=== PATIENT | male | born 1955 | race African-American/Black ===

== ENCOUNTER 2019-08-24 15:57 | Inpatient (IN) ==
[2019-08-24] MEDS ORDERED: DiphenhydrAMINE HCL 50 MG/ML VIAL IV STA (16:05)
[2019-08-24] MEDS ORDERED: SODIUM CHLORIDE 0.9% 1000ML 1,000 ML IV SCH (16:15)
[2019-08-24 16:23] LABS: Basophils # (auto) 0.03 K/uL (0-0.2); Basophils % (auto) 0.2 %; Eosinophils # (auto) 0.04 K/uL (0-0.5); Eosinophils % (auto) 0.3 %; Hematocrit (blood only) 49.6 % (42-52); Hemoglobin 16.3 g/dL (14.0-18.0); Immature Granulocytes # (auto) 0.04 K/uL (0.00-0.02); Immature Granulocytes % (auto) 0.3 %; Lymphocytes # (auto) 1.79 K/uL (1.2-3.4); Lymphocytes % (auto) 13.3 %; Mean Corpuscular Hemoglobin 24.4 pg (25-34); Mean Corpuscular Hgb Conc 32.9 g/dL (32-36); Mean Corpuscular Volume 74.4 fL (80-100); Mean Platelet Volume 10.4 fL (7.4-10.4); Monocytes # (auto) 0.58 K/uL (0.11-0.59); Monocytes % (auto) 4.3 %; Neutrophils # (auto) 10.96 K/uL (1.4-6.5); Neutrophils % (auto) 81.6 %; Platelet Count 142 K/uL (130-400); RDW Coefficient of Variation 15.2 % (11.5-14.5); RDW Standard Deviation 40.6 fL (36.4-46.3); Red Blood Count 6.67 M/uL (4.7-6.1); White Blood Count 13.44 K/uL (4.8-10.8)
[2019-08-24 16:33] LABS: INR 1.1 (0.9-1.1); Partial Thromboplastin Ratio 0.9; Partial Thromboplastin Time 24.2 Seconds (21.0-31.0); Prothrombin Time 11.2 Seconds (9.0-12.0)
[2019-08-24 16:35] LABS: iSTAT Hemoglobin 17.7 g/dl (14.0-18.0); iSTAT Ionized Calcium 1.14 mmol/l (1.12-1.32); iSTAT Potassium 5.1 mEq/L (3.3-5.0)
--- NOTE | 2019-08-24 16:40 | Emergency Department Note ---
Entered by Stacie Jones acting as a scribe for Wallace Quan DO History of Present Illness General Chief complaint: Vertigo Stated complaint: DIZZY Source: patient and EMS Mode of arrival: EMS History of Present Illness Onset (ago): hour(s) (1:45PM today) Location: head (vertigo ) Pain Consistency: + constant Relieved By: + other (closing eyes) Exacerbated By: + movement (looking up or to the right) Associated symptoms: + shortness of breath, + weakness (generalized ) and + other (nausea, dizziness, left sided body pain ); no chest pain (recent cp but patient denies current cp ) and no headaches Treatments prior to arrival: other (Per EMS: Zofran and Ativan) The patient is a 64 year old male from [facility] with a history of DM, HTN, hyperlipidemia, alcohol use, and cigarette smoking who presents to the Emergency Room with complaints of vertigo. The patient states that today at 1:45PM he rolled out of his bed because he felt nauseous. He states that he did not hit his head when he rolled out. Since this time he has been experiencing constant nausea worse with laying flat associated with dizziness that is worse with movement and when looking up with his eyes and looking to the right. He states that his dizziness is relieved when he shuts his eyes. He was given Zofran and Ativan by [facility] which he states gave him some re lief. EMS reports that his sugar today was 106. The patient also reports generalized weakness and recent trouble breathing which is worsened by the steam in a hot shower. Additionally, he has been experiencing pain down the left side of his body associated with chest pain. The patient admits that he has no history of similar symptoms in the past. He usually takes Aspirin for relief. Of note, the patient does not have a history of vertigo, [place], heart catheterization, or stress test. Additionally, he is allergic to Penicillin. He denies headache and current chest pain. The patient offers no additional concerns at this time. Home Medications Home Medications Medication Instructions Recorded Confirmed Type aspirin [Aspir-81] 81 mg PO QAM 08/24/19 08/24/19 History calcium carbonate-vitamin D3 1 ea PO QAM 08/24/19 08/24/19 History [Oyster Shell Calcium-Vit D3] lisinopril 10 mg PO QAM 08/24/19 08/24/19 History metformin 500 mg PO QAM 08/24/19 08/24/19 History rosuvastatin 20 mg PO QAM 08/24/19 08/24/19 History Allergies Allergy/AdvReac Type Severity Reaction Status Date / Time clindamycin AdvReac Unknown Unknown Unverified 08/24/19 16:46 Penicillins AdvReac Unknown Unknown Unverified 08/24/19 16:46 Past Med/Surg History Medical History Diabetes mellitus, type II HTN (hypertension) Hyperlipidemia Surgical History No significant past surgical history Family History (Updated 08/24/19 @ 20:32 by Clifford Hernandez MD) Mother Stroke Brother Diabetes Grandmother (Maternal) Diabetes Myocardial infarction Social History Preferred Language: Zambian Communication Ability: Effective Epic Anesthesia Analyst Required: No Beliefs That Will Affect Care: None Current Living Situation: Other Current Living Situation Comment: [facility] Other Information That Helps Us Care for You: No Feels Safe at Home: Yes Safety Concerns: Feels Safe At This Time Smoking Status: Former smoker Smoking End Date: Quit 03/2019; smoked for over 30 years ; Hx Alcohol Use: No Hx Substance Use: No Review of Systems See HPI for pertinent positives & negatives. and A total of 10 systems reviewed and were otherwise negative Physical Exam Vital Signs Vital Signs - 24 hr 08/24/19 15:59 08/24/19 16:02 08/24/19 16:05 Temperature 36.3 C L Temperature Source Oral Pulse Rate 57 L 56 L 81 Pulse Rate [Right Finger] Pulse Rate from SpO2 Sensor 57 L Respiratory Rate 22 18 24 Blood Pressure 153/92 H 153/92 H Blood Pressure [Right Arm] Blood Pressure Mean 102 112 Blood Pressure Mean [Right Arm] Blood Pressure Position Sitting Blood Pressure Position [Right Arm] Pulse Oximetry 100 98 Oxygen Delivery Method Room Air Sepsis Recent Fever Within 48 Hours No Sepsis New/Unexplained Change in Mental Status No Sepsis Action Taken by Nursing No Action Required 08/24/19 16:10 08/24/19 16:20 08/24/19 16:52 Temperature Temperature Source Pulse Rate 57 L 58 L 67 Pulse Rate [Right Finger] Pulse Rate from SpO2 Sensor Respiratory Rate 14 17 Blood Pressure Blood Pressure [Right Arm] Blood Pressure Mean Blood Pressure Mean [Right Arm] Blood Pressure Position Blood Pressure Position [Right Arm] Pulse Oximetry Oxygen Delivery Method Sepsis Recent Fever Within 48 Hours Sepsis New/Unexplained Change in Mental Status Sepsis Action Taken by Nursing 08/24/19 16:58 08/24/19 17:00 08/24/19 17:10 Temperature Temperature Source Pulse Rate 68 71 66 Pulse Rate [Right Finger] 69 Pulse Rate from SpO2 Sensor 68 71 65 Respiratory Rate 15 16 14 Blood Pressure 144/81 H Blood Pressure [Right Arm] 144/81 H Blood Pressure Mean 117 Blood Pressure Mean [Right Arm] 102 Blood Pressure Position Blood Pressure Position [Right Arm] Sitting Pulse Oximetry 92 94 95 Oxygen Delivery Method Room Air Sepsis Recent Fever Within 48 Hours Sepsis New/Unexplained Change in Mental Status Sepsis Action Taken by Nursing 08/24/19 17:20 08/24/19 17:30 08/24/19 17:40 Temperature Temperature Source Pulse Rate 58 L 71 60 Pulse Rate [Right Finger] Pulse Rate from SpO2 Sensor 60 60 60 Respiratory Rate 11 L 23 15 Blood Pressure Blood Pressure [Right Arm] Blood Pressure Mean Blood Pressure Mean [Right Arm] Blood Pressure Position Blood Pressure Position [Right Arm] Pulse Oximetry 96 99 96 Oxygen Delivery Method Sepsis Recent Fever Within 48 Hours Sepsis New/Unexplained Change in Mental Status Sepsis Action Taken by Nursing 08/24/19 17:45 08/24/19 17:50 08/24/19 17:57 Temperature Temperature Source Pulse Rate 60 56 L 59 L Pulse Rate [Right Finger] Pulse Rate from SpO2 Sensor 61 57 L 57 L Respiratory Rate 35 H 17 30 H Blood Pressure 153/90 H 160/86 H Blood Pressure [Right Arm] Blood Pressure Mean 112 99 Blood Pressure Mean [Right Arm] Blood Pressure Position Blood Pressure Position [Right Arm] Pulse Oximetry 100 100 Oxygen Delivery Method Sepsis Recent Fever Within 48 Hours Sepsis New/Unexplained Change in Mental Status Sepsis Action Taken by Nursing 08/24/19 18:02 08/24/19 18:04 08/24/19 18:05 Temperature Temperature Source Pulse Rate 60 58 L 61 Pulse Rate [Right Finger] Pulse Rate from SpO2 Sensor 61 59 L 65 Respiratory Rate 19 27 H 28 H Blood Pressure 178/105 H 174/93 H 174/92 H Blood Pressure [Right Arm] Blood Pressure Mean 123 110 120 Blood Pressure Mean [Right Arm] Blood Pressure Position Blood Pressure Position [Right Arm] Pulse Oximetry 100 99 Oxygen Delivery Method Sepsis Recent Fever Within 48 Hours Sepsis New/Unexplained Change in Mental Status Sepsis Action Taken by Nursing 08/24/19 18:23 Temperature Temperature Source Pulse Rate Pulse Rate [Right Finger] 60 Pulse Rate from SpO2 Sensor Respiratory Rate 20 Blood Pressure Blood Pressure [Right Arm] 149/87 H Blood Pressure Mean Blood Pressure Mean [Right Arm] 107 Blood Pressure Position Blood Pressure Position [Right Arm] Pulse Oximetry 100 Oxygen Delivery Method Room Air Sepsis Recent Fever Within 48 Hours Sepsis New/Unexplained Change in Mental Status Sepsis Action Taken by Nursing GENERAL: The patient is awake and alert. He is somewhat anxious appearing and appears to be uncomfortable. EYES: The conjunctivae are clear. Pupils are constricted but reactive to light bilaterally. EARS, NOSE, MOUTH AND THROAT: The nose is without any evidence of any deformity. Mucous membranes are moist. Tongue is midline. Tympanic memories are clear bilaterally. NECK: The neck is nontender and supple. RESPIRATORY: Normal respiratory effort is noted there is no evidence of wheezing rhonchi or rales CARDIOVASCULAR: Regular rate and rhythm noted there no murmurs rubs or gallops normal S1 normal S2. GASTROINTESTINAL: The abdomen is soft. Abdomen is nontender. MUSCULOSKELETAL/EXTREMITIES: There is no evidence of gross deformity full range of motion is noted in the hips and shoulders. SKIN: There is no obvious evidence of any rash. There are no petechiae, pallor or cyanosis noted. NEUROLOGIC: Patient is awake alert and oriented x3. Strength is symmetric. There is no drift. Patellar tendon reflexes are 2+ bilaterally. The patient has nystagmus with looking to the right as well as looking upward. He has significant symptoms with movement of the head as well as movement of the eyes. Course Course 1600: Past medical records reviewed. The patient was evaluated in room B09. A complete history and physical exam was performed. 1730: I spoke to Dr. Fatima, [facility] who recommends that I speak with Diana about a stroke alert. 1733: Spoke with Dr. Jaeger, [facility] Telostroke Neurologist who recommends administering TPA to the patient. 180: I checked on the patient and he is being given IV bolus at this time. 182: I spoke to Angela Villaloboser Hospitalist who accepts the patient for admission. The patient verbally expressed understanding and agreement of the treatment plan. The patient will be evaluated for further treatment. Administered Medications Gadobutrol (Gadavist 10ml) 8.5 ml IV ONCE PRN PRN Reason: Interaction Checking Stop: 08/28/19 21:26 Last Admin: 08/24/19 21:27 Dose: 8.5 ml Documented by: [id number] Discontinued Medications Alteplase, Recombinant (Activase For Stroke) 1 ea IV NOW STA; Protocol Stop: 08/24/19 17:48 Last Admin: 08/24/19 18:12 Dose: 1 ea Documented by: [id number] Diphenhydramine HCl (Benadryl) 25 mg IV NOW STA Stop: 08/24/19 16:06 Last Admin: 08/24/19 16:23 Dose: 25 mg Documented by: [id number] Sodium Chloride (Nss 1000ml) 1,000 mls @ 50 mls/hr IV .Q20H JAIME Stop: 09/23/19 16:14 Last Infusion: 08/24/19 19:33 Dose: 0 mls/hr Documented by: [id number] Admin: 08/24/19 16:23 Dose: 50 mls/hr Documented by: [id number] Alteplase, Recombinant 8 mg/ (Syringe) 8 mls @ 8 mls/min IV ONCE ONE Stop: 08/24/19 17:58 Last Admin: 08/24/19 18:11 Dose: 8 mls/min Documented by: [id number] Cosigned by: [id number] Alteplase, Recombinant 72 mg/ (EMPTY BAG) 72 mls @ 72 mls/hr IV ONCE ONE Stop: 08/24/19 17:59 Last Infusion: 08/24/19 19:08 Dose: 0 mls/hr Documented by: [id number] Cosigned by: [id number] Admin: 08/24/19 18:08 Dose: 72 mls/hr Documented by: [id number] Cosigned by: [id number] Lorazepam (Ativan) 0.5 mg in 1 mls @ 1 mls/min IV NOW STA Stop: 08/24/19 20:01 Last Admin: 08/24/19 20:11 Dose: 1 mls/min Documented by: [id number] Lorazepam (Ativan) 0.25 mg in 0.5 mls @ 0.5 mls/min IV NOW STA Stop: 08/24/19 20:17 Last Admin: 08/24/19 20:45 Dose: 0.5 mls/min Documented by: [id number] Ioversol (Optiray 320 125ml) 119 ml IV ONCE PRN PRN Reason: Interaction Checking Stop: 08/28/19 16:53 Last Admin: 08/24/19 16:54 Dose: 119 ml Documented by: [id number] Lorazepam (Ativan) Confirm Administered Dose 2 mg .ROUTE .STK-MED ONE Stop: 08/24/19 19:57 Last Admin: 08/24/19 20:14 Dose: Not Given Documented by: [id number] Critical Care Time Critical Care Time: Yes Total Critical Care Time: 60 I have personally spent greater than 60 minutes of critical care time in the direct management of this patient. This includes bedside care, interpretation of diagnostic studies, and testing, discussion with consultants, patient, and family members, and other required patient management activities. This 60 minutes is in excess of all separately billable procedures. Medical Decision Making Differential Diagnosis Differential diagnosis includes but is not limited to etiologies such as benign positional vertigo, dehydration, hypovolemia, anemia, tumor, infection, hypoglycemia, electrolyte abnormalities, cardiac sources, intracerebral event, toxicologic, neurologic, as well as others were entertained. Medical Records Attestation: I reviewed the patient's medical records. Home Medications Current Medication List: was personally reviewed by me Laboratory Data Attestation: I reviewed the patient's lab results. Result diagrams: 08/24/19 16:15 08/24/19 16:15 Lab Results 08/24/19 08/24/19 08/24/19 Range/Units 16:15 16:15 16:15 WBC 13.44 H (4.8-10.8) K/uL RBC 6.67 H (4.7-6.1) M/uL Hgb 16.3 (14.0-18.0) g/dL POC Hgb (14.0-18.0) g/dl Hct 49.6 (42-52) % POC Hct (42-52) % MCV 74.4 L (80-100) fL MCH 24.4 L (25-34) pg MCHC 32.9 (32-36) g/dL RDW Std Deviation 40.6 (36.4-46.3) fL RDW Coeff of Ya 15.2 H (11.5-14.5) % Plt Count 142 (130-400) K/uL MPV 10.4 (7.4-10.4) fL Immature Gran % (Auto) 0.3 % Neut % (Auto) 81.6 % Lymph % (Auto) 13.3 % [place] % (Auto) 4.3 % Eos % (Auto) 0.3 % Baso % (Auto) 0.2 % Immature Gran # (Auto) 0.04 H (0.00-0.02) K/uL Neut # (Auto) 10.96 H (1.4-6.5) K/uL Lymph # (Auto) 1.79 (1.2-3.4) K/uL [place] # (Auto) 0.58 (0.11-0.59) K/uL Eos # (Auto) 0.04 (0-0.5) K/uL Baso # (Auto) 0.03 (0-0.2) K/uL PT 11.2 (9.0-12.0) Seconds INR 1.1 (0.9-1.1) APTT 24.2 (21.0-31.0) Seconds PTT Ratio 0.9 POC Sodium (135-144) mEq/L Sodium 139 (136-145) mmol/L POC Potassium (3.3-5.0) mEq/L Potassium 5.0 (3.5-5.1) mmol/L POC Chloride (101-112) mEq/L Chloride 110 H (98-107) mmol/L Carbon Dioxide 24 (21-32) mmol/L POC Total CO2 (24-31) mEq/l Anion Gap 5.0 (3-11) POC Anion Gap (16-25) mmol/L POC BUN (7-18) mg/dl BUN 13 (7-18) mg/dl Creatinine 1.08 (0.6-1.4) mg/dl POC Creatinine (0.6-1.3) mg/dl Est Cr Clr Drug Dosing Not Reportable Est GFR ( Amer) 84.2 Est GFR (Non-Af Amer) 72.7 BUN/Creatinine Ratio 12.4 (10-20) Glucose 139 H (70-99) mg/dl POC Glucose (other) (70-99) mg/dl Calcium 9.2 (8.5-10.1) mg/dl POC Ioniz Calcium Cesar (1.12-1.32) mmol/l Magnesium 2.0 (1.8-2.4) mg/dl Total Bilirubin 1.4 H (0.2-1) mg/dl AST 42 H (15-37) U/L ALT 94 H (12-78) U/L Alkaline Phosphatase 57 (45-117) U/L Troponin I < 0.015 (0-0.045) ng/ml Total Protein 7.6 (6.4-8.2) gm/dl Albumin 3.8 (3.4-5.0) gm/dl Globulin 3.8 (2.5-4.0) gm/dl Albumin/Globulin Ratio 1.0 (0.9-2) 08/24/19 08/24/19 Range/Units 16:20 17:55 WBC (4.8-10.8) K/uL RBC (4.7-6.1) M/uL Hgb (14.0-18.0) g/dL POC Hgb 17.7 17.0 (14.0-18.0) g/dl Hct (42-52) % POC Hct 52 50 (42-52) % MCV (80-100) fL MCH (25-34) pg MCHC (32-36) g/dL RDW Std Deviation (36.4-46.3) fL RDW Coeff of Ya (11.5-14.5) % Plt Count (130-400) K/uL MPV (7.4-10.4) fL Immature Gran % (Auto) % Neut % (Auto) % Lymph % (Auto) % [place] % (Auto) % Eos % (Auto) % Baso % (Auto) % Immature Gran # (Auto) (0.00-0.02) K/uL Neut # (Auto) (1.4-6.5) K/uL Lymph # (Auto) (1.2-3.4) K/uL [place] # (Auto) (0.11-0.59) K/uL Eos # (Auto) (0-0.5) K/uL Baso # (Auto) (0-0.2) K/uL PT (9.0-12.0) Seconds INR (0.9-1.1) APTT (21.0-31.0) Seconds PTT Ratio POC Sodium 140 140 (135-144) mEq/L Sodium (136-145) mmol/L POC Potassium 5.1 H 5.3 H (3.3-5.0) mEq/L Potassium (3.5-5.1) mmol/L POC Chloride 108 104 (101-112) mEq/L Chloride (98-107) mmol/L Carbon Dioxide (21-32) mmol/L POC Total CO2 23 L 28 (24-31) mEq/l Anion Gap (3-11) POC Anion Gap 15.0 L 15.0 L (16-25) mmol/L POC BUN 13 16 (7-18) mg/dl BUN (7-18) mg/dl Creatinine (0.6-1.4) mg/dl POC Creatinine 1.0 1.0 (0.6-1.3) mg/dl Est Cr Clr Drug Dosing Est GFR ( Amer) Est GFR (Non-Af Amer) BUN/Creatinine Ratio (10-20) Glucose (70-99) mg/dl POC Glucose (other) 140 H 121 H (70-99) mg/dl Calcium (8.5-10.1) mg/dl POC Ioniz Calcium Cesar 1.14 1.22 (1.12-1.32) mmol/l Magnesium (1.8-2.4) mg/dl Total Bilirubin (0.2-1) mg/dl AST (15-37) U/L ALT (12-78) U/L Alkaline Phosphatase (45-117) U/L Troponin I (0-0.045) ng/ml Total Protein (6.4-8.2) gm/dl Albumin (3.4-5.0) gm/dl Globulin (2.5-4.0) gm/dl Albumin/Globulin Ratio (0.9-2) Imaging Data Radiologist's Impression: Radiology results as stated below per my review and the radiologist's interpretation: CT head/brain wo con CLINICAL HISTORY: 64 years-old Male with Stroke evaluation . Acute strokelike symptoms TECHNIQUE: Multiple axial CT images of the head were obtained without contrast. A dose lowering technique was utilized adhering to the principles of ALA. COMPARISON: None. FINDINGS: No acute intracranial hemorrhage, midline shift, intracranial mass, hydrocephalus, territorial ischemia or abnormal extra-axial collection. Minimal patchy white matter hypodensities are suggestive of probable chronic microvascular ischemic disease. The calvarium is intact. The paranasal sinuses, mastoid air cells, and middle ear cavities are clear. IMPRESSION: No acute intracranial abnormality. The above report was generated using voice recognition software. It may contain grammatical, syntax or spelling errors. Electronically signed by: Zack Wong M.D. 08/24/2019 5:03 PM XR chest 1V portable HISTORY: 64 years-old Male weakness acute weakness COMPARISON: None available TECHNIQUE: Portable AP view of the chest FINDINGS: Cardiac silhouette is mildly enlarged. There is mild interstitial coarsening which may be on a chronic basis. Subsegmental bibasilar opacities suggest probable atelectasis. No pneumothorax, large pleural effusion or overt pulmonary edema. Degenerative changes of the shoulders and spine. IMPRESSION: 1. Cardiomegaly without overt pulmonary edema. 2. Bibasilar interstitial opacities suggest probable atelectasis, pneumonitis considered less likely. The above report was generated using voice recognition software. It may contain grammatical, syntax or spelling errors. Electronically signed by: Zack Wong M.D. 08/24/2019 5:[address] angio head w con CLINICAL HISTORY: 64 years-old Male with vertigo. Acute vertigo COMPARISON STUDY: CTA had of same day TECHNIQUE: Following the IV administration of 119 cc of Optiray 320, CT angiogram of the brain was performed from the skull base to the vertex. Images are reviewed in the axial, sagittal, and coronal planes. 3-D MIPS images are created and assessed. IV contrast was administered without complication. All measurements were obtained according to NASCET criteria. A dose lowering technique was utilized adhering to the principles of ALARA. FINDINGS: CT ANGIOGRAM OF THE BRAIN: The imaged bilateral internal carotid arteries are patent. Calcified plaque of the bilateral cavernous and supraclinoid segments without high-grade stenosis. There is mild less than 50% luminal narrowing noted involving the distal right M1 segment.. Anterior and middle cerebral arteries are otherwise patent and unremarkable. The distal right vertebral artery appears normal. The left vertebral artery is developmentally diminutive and predominantly terminates into the left PICA. Patent basilar artery. origin of the right posterior cerebral artery. Bilateral posterior cerebral arteries appear patent. There is no aneurysm, high-grade stenosis, or proximal branch occlusion identified. Dural sinuses appear patent. IMPRESSION: 1. Mild less than 50% luminal narrowing involves the distal right M1 segment. 2. Otherwise unremarkable CTA of the head without aneurysm, dissection, high- grade stenosis or proximal branch occlusion. 3. origin of the right posterior cerebral artery. The above report was generated using voice recognition software. It may contain grammatical, syntax or spelling errors. Electronically signed by: Zack Wong M.D. 08/24/2019 5:[address] angio neck with con CLINICAL HISTORY: 64 years-old Male with vertogp. Acute vertigo with strokelike symptoms COMPARISON STUDY: CT head of same day TECHNIQUE: Following the IV administration of 119 mL of Optiray 320, CT angiogram of the neck was performed from the aortic arch to the skull base. Images are reviewed in the axial, sagittal, and coronal planes. 3-D MIPS images are created and assessed. IV contrast was administered without complication. All measurements were calculated based on NASCET criteria. A dose lowering technique was utilized adhering to the principles of ALARA. CT DOSE: 1845.32 mGy.cm FINDINGS: Imaged pulmonary arterial branches of the lung apices appear unremarkable. Mild atheromatous plaque of the aortic arch. Patency of the imaged bilateral subclavian arteries. Patent bilateral common carotid arteries. Mild right and moderate left mixed plaque of the carotid bulbs and proximal internal carotid arteries results in less than 50% narrowing bilaterally. Calcified plaque is also noted involving the cavernous and supraclinoid segments without high-grade stenosis. Dominant right vertebral artery. Minimal luminal narrowing of the V1 segment right vertebral artery, image 129 series 10. There is mild focal widening of the V2 segment right vertebral artery at the level of C4 with 2 separate channels noted on image 216 series 10. This measures up to approximately 8 mm in length. Developmentally diminutive left vertebral artery. The left vertebral artery probably terminates into the left PICA. Imaged basilar artery is unremarkable. Severe emphysema. No pneumothorax. Soft tissues are unremarkable. Multilevel degenerative changes of the spine. IMPRESSION: 1. There is a subcentimeter area of widening involving the V2 segment right vertebral artery at the level of C4 with two separate channels as above suggestive of a short segment dissection or a developmental fenestration. 2. No aneurysm, high-grade stenosis or proximal branch occlusion. 3. Mixed plaque of the bilateral carotid bulbs, left greater than right without high-grade stenosis. 4. Emphysema. The above report was generated using voice recognition software. It may contain grammatical, syntax or spelling errors. Electronically signed by: Zack Wong M.D. 08/24/2019 5:03 PM ECG Data Attestation: I personally reviewed and interpreted this ECG as follows: Indication: + other (vertigo) Rate (beats per minute): 61 Rhythm: + normal sinus ECG ST segments: + T-wave inversions (lateral and inferior ) ECG Findings: + LVH (noted by voltage criteria) and + Other (abnormal EKG); no PACs and no PVCs Comparison ECG Date: no prior available Blood Pressure Blood Pressure Findings: Elevated blood pressure Blood Pressure Disposition: further management by hospitalist NEYDA White The patient is a 64-year-old male who presented to the emergency department for an evaluation of vertigo. The patient presented with in a very acute abrupt onset of vertigo. He appeared to have nystagmus looking to the right as well as looking upward. The patient had no other focal neurologic deficits but given his age and comorbidity other tests were undertaken to determine if this was a central nervous system cause for his vertigo. I discussed the patient's laboratory and radiographic studies with him. He was found to have an abnormality in the vertebral artery which could explain the patient's presentation. I discussed his case with the on-call [facility] hospitalist group as well as the on-call neurologist. The on-call neurologist recommended that we discussed the case with the tele-stroke neurology group who did recommend a stroke alert be called and the patient be evaluated for TPA. Ultimately the patient was agreeable to TPA and TPA was given. The patient was found to have difficulty ambulating but he did receive multiple medications which could make it difficult for him to walk. I discussed the benefits and risks of TPA. The tele-stroke neurologist also discussed the risks and benefits of TPA. TPA was ordered by myself and a bolus was given. The patient was reevaluated multiple times. [facility] Impression & Plan Vertebral artery dissection, Vertigo Discharge Plan Visit Data *Final* Discharge Date/Time: 08/24/19 18:58 Chief Complaint: Vertigo Stated Complaint: DIZZY ED Provider: Wallace Quan Discharge Problem: Vertebral artery dissection, Vertigo Patient Disposition: Admitted As Inpatient Discharge Instructions Interventions: ED Discharge Assessment Last Done: 08/24/19 18:58 The scribe's documentation has been prepared under my direction and personally reviewed by me in its entirety. I confirm that the note above accurately reflects all work, treatment, procedures, and medical decision making performed by me.
[2019-08-24 16:43] LABS: Alanine Aminotransferase 94 U/L (12-78); Albumin Level 3.8 gm/dl (3.4-5.0); Aspartate Aminotransferase 42 U/L (15-37); BUN Creatinine Ratio 12.4 (10-20); Blood Urea Nitrogen 13 mg/dl (7-18); Calcium 9.2 mg/dl (8.5-10.1); Carbon Dioxide 24 mmol/L (21-32); Chloride 110 mmol/L (98-107); Est GFR (African American) 84.2; Est GFR (Non-African American) 72.7; Glucose 139 mg/dl (70-99); Sodium 139 mmol/L (136-145)
[2019-08-24 16:46] LABS: Alkaline Phosphatase 57 U/L (45-117); Bilirubin,Total 1.4 mg/dl (0.2-1); Globulin 3.8 gm/dl (2.5-4.0); Total Protein 7.6 gm/dl (6.4-8.2); Troponin I < 0.015 ng/ml (0-0.045)
[2019-08-24] MEDS ORDERED: OPTIRAY 320 125ml IV PRN (16:54)
--- NOTE | 2019-08-24 17:05 | CT Scan Report ---
CT head/brain wo con CLINICAL HISTORY: 64 years-old Male with Stroke evaluation . Acute strokelike symptoms TECHNIQUE: Multiple axial CT images of the head were obtained without contrast. A dose lowering tech nique was utilized adhering to the principles of ALARA. COMPARISON: None. FINDINGS: No acute intracranial hemorrhage, midline shift, intracranial mass, hydrocephalus, territorial ischem ia or abnormal extra-axial collection. Minimal patchy white matter hypodensities are suggestive of pr obable chronic microvascular ischemic disease. The calvarium is intact. The paranasal sinuses, mastoid air cells, and middle ear cavities are clear . IMPRESSION: No acute intracranial abnormality. The above report was generated using voice recognition software. It may contain grammatical, syntax o r spelling errors. Electronically signed by: Zack Wong M.D. 08/24/2019 5:03 PM
--- NOTE | 2019-08-24 17:05 | CT Scan Report ---
CT angio neck with con CLINICAL HISTORY: 64 years-old Male with vertogp. Acute vertigo with strokelike symptoms COMPARISON STUDY: CT head of same day TECHNIQUE: Following the IV administration of 119 mL of Optiray 320, CT angiogram of the neck was per formed from the aortic arch to the skull base. Images are reviewed in the axial, sagittal, and escobedo l planes. 3-D MIPS images are created and assessed. IV contrast was administered without complication . All measurements were calculated based on NASCET criteria. A dose lowering technique was utilized adhering to the principles of ALARA. CT DOSE: 1845.32 mGy.cm FINDINGS: Imaged pulmonary arterial branches of the lung apices appear unremarkable. Mild atheromatous plaque o f the aortic arch. Patency of the imaged bilateral subclavian arteries. Patent bilateral common carot id arteries. Mild right and moderate left mixed plaque of the carotid bulbs and proximal internal car otid arteries results in less than 50% narrowing bilaterally. Calcified plaque is also noted involvin g the cavernous and supraclinoid segments without high-grade stenosis. Dominant right vertebral arter y. Minimal luminal narrowing of the V1 segment right vertebral artery, image 129 series 10. There is mild focal widening of the V2 segment right vertebral artery at the level of C4 with 2 separate chann els noted on image 216 series 10. This measures up to approximately 8 mm in length. Developmentally d iminutive left vertebral artery. The left vertebral artery probably terminates into the left PICA. Im aged basilar artery is unremarkable. Severe emphysema. No pneumothorax. Soft tissues are unremarkable. Multilevel degenerative changes of the spine. IMPRESSION: 1. There is a subcentimeter area of widening involving the V2 segment right vertebral artery at the l evel of C4 with two separate channels as above suggestive of a short segment dissection or a developm ental fenestration. 2. No aneurysm, high-grade stenosis or proximal branch occlusion. 3. Mixed plaque of the bilateral carotid bulbs, left greater than right without high-grade stenosis. 4. Emphysema. The above report was generated using voice recognition software. It may contain grammatical, syntax o r spelling errors. Electronically signed by: Zack Wong M.D. 08/24/2019 5:03 PM
--- NOTE | 2019-08-24 17:11 | CT Scan Report ---
CT angio head w con CLINICAL HISTORY: 64 years-old Male with vertigo. Acute vertigo COMPARISON STUDY: CTA had of same day TECHNIQUE: Following the IV administration of 119 cc of Optiray 320, CT angiogram of the brain was pe rformed from the skull base to the vertex. Images are reviewed in the axial, sagittal, and coronal pl anes. 3-D MIPS images are created and assessed. IV contrast was administered without complication. Al l measurements were obtained according to NASCET criteria. A dose lowering technique was utilized adh ering to the principles of ALARA. FINDINGS: CT ANGIOGRAM OF THE BRAIN: The imaged bilateral internal carotid arteries are patent. Calcified plaque of the bilateral cavernou s and supraclinoid segments without high-grade stenosis. There is mild less than 50% luminal narrowin g noted involving the distal right M1 segment.. Anterior and middle cerebral arteries are otherwise p atent and unremarkable. The distal right vertebral artery appears normal. The left vertebral artery i s developmentally diminutive and predominantly terminates into the left PICA. Patent basilar artery. origin of the right posterior cerebral artery. Bilateral posterior cerebral arteries appear pat ent. There is no aneurysm, high-grade stenosis, or proximal branch occlusion identified. Dural sinuse s appear patent. IMPRESSION: 1. Mild less than 50% luminal narrowing involves the distal right M1 segment. 2. Otherwise unremarkable CTA of the head without aneurysm, dissection, high-grade stenosis or proxim al branch occlusion. 3. origin of the right posterior cerebral artery. The above report was generated using voice recognition software. It may contain grammatical, syntax o r spelling errors. Electronically signed by: Zack Wong M.D. 08/24/2019 5:10 PM
--- NOTE | 2019-08-24 17:18 | XRay Report ---
XR chest 1V portable HISTORY: 64 years-old Male weakness acute weakness COMPARISON: None available TECHNIQUE: Portable AP view of the chest FINDINGS: Cardiac silhouette is mildly enlarged. There is mild interstitial coarsening which may be on a chroni c basis. Subsegmental bibasilar opacities suggest probable atelectasis. No pneumothorax, large pleura l effusion or overt pulmonary edema. Degenerative changes of the shoulders and spine. IMPRESSION: 1. Cardiomegaly without overt pulmonary edema. 2. Bibasilar interstitial opacities suggest probable atelectasis, pneumonitis considered less likely. The above report was generated using voice recognition software. It may contain grammatical, syntax o r spelling errors. Electronically signed by: Zack Wong M.D. 08/24/2019 5:17 PM
[2019-08-24] MEDS ORDERED: TPA for Stroke IV STA (17:47)
[2019-08-24] MEDS ORDERED: Alteplase Bolus 8 MG in SYRINGE 0 ML IV ONE (17:57)
[2019-08-24] MEDS ORDERED: PRIMARY PLUMSET, PE LINED TUBING, 113 IN, NON-DEHP (2260-0500) IV ONE (17:58)
[2019-08-24] MEDS ORDERED: ALTEPLASE, RECOMBINANT 72 MG in EMPTY BAG 0 ML IV ONE (17:58)
[2019-08-24 18:11] LABS: iSTAT Ionized Calcium 1.22 mmol/l (1.12-1.32); iSTAT Potassium 5.3 mEq/L (3.3-5.0)
--- NOTE | 2019-08-24 18:59 | History & Physical Report ---
Date of Service August 24, 2019 Assessment & Plan (1) Vertebral artery dissection: (2) Vertigo: Pt is 64 y/o M with PMH DM II, HTN, HLD, prior tobacco use presented to ER from [facility] with complaint of sudden onset dizziness that started today. Patient states around 1:45 PM he was lying supine in bed looking at the ceiling and counting when he noticed that he had trouble remembering what he was counting and then started with sensation his eyes were "flipping". Then rolled to side and started with dizziness and nausea CT HEAD: No acute intracranial abnormality. CTA HEAD:1. Mild less than 50% luminal narrowing involves the distal right M1 segment. 2. Otherwise unremarkable CTA of the head without aneurysm, dissection, high-grade stenosis or proximal branch occlusion. 3. origin of the right posterior cerebral artery. CTA NECK: 1. There is a subcentimeter area of widening involving the V2 segment right vertebral artery at the level of C4 with two separate channels as above suggestive of a short segment dissection or a developmental fenestration. 2. No aneurysm, high-grade stenosis or proximal branch occlusion. 3. Mixed plaque of the bilateral carotid bulbs, left greater than right without high- grade stenosis. 4. Emphysema. -Telestroke evaluation completed in ER and TPA was recommended -TPA started in ER -ICU for further management and treatment -STAT MRI with contrast to further assess region affected to assist in determination if pt would need further evaluation/treatment at tertiary center -PT/OT consult -Closely monitor BP -Neurology consult (3) Diabetes mellitus, type II: Obtain A1c -Glycemic management per ICU (4) HTN (hypertension): -Management per ICU (5) Hyperlipidemia: -Management per ICU DVT Prophylaxis -Pt received TPA. Reassess in 24 hours for VTE prophylaxis Admit ICU Full Code as per discussion with pt Pt is cared for at [facility] for routine care Pt was seen and care coordinated with Dr Galindo. See addendum History of Present Illness Chief Complaint: Dizziness Primary Care Provider: KRISTIN Lerma Pt is 64 y/o M with PMH DM II, HTN, HLD, prior tobacco use presented to ER from [facility] with complaint of dizziness that started today. Patient states around 1:45 PM he was lying supine in bed looking at the ceiling and counting when he noticed that he had trouble remembering what he was counting and then started with sensation his eyes were "flipping". Denies any blurred vision or double vision or loss of vision. Patient states he then rolled over and became dizzy with nausea. Dizziness aggravated with any movement. Reports having increased difficulty walking and feels weak. Patient also complains of slightly discomfort to posterior head. Reports had been feeling his normal self prior to symptom onset. Patient denies any falls, head injury, recent trauma. Denies any history of TIA/stroke, vertigo. Denies fever/chills, diaphoresis, V/D/C, melena, hematochezia, epistaxis, syncope, neck pain, CP, SOB, orthopnea, palpitations, cough, sore throat, choking, otalgia, rhinorrhea, abdominal pain, paresthesias, extremity edema, rashes, urinary symptoms. In ER pt had CTA Head and neck: There is a subcentimeter area of widening involving the V2 segment right vertebral artery at the level of C4 with two separate channels as above suggestive of a short segment dissection or a developmental fenestration. No aneurysm, high-grade stenosis or proximal branch occlusion. Mixed plaque of the bilateral carotid bulbs, left greater than right without high-grade stenosis. Telestroke in [place] contacted and recommended TPA. Pt received initial TPA in ER. Allergies Allergy/AdvReac Type Severity Reaction Status Date / Time clindamycin AdvReac Unknown Unknown Unverified 08/24/19 16:46 Penicillins AdvReac Unknown Unknown Unverified 08/24/19 16:46 Home Medications Home Medications Medication Instructions Recorded Confirmed Type aspirin [Aspir-81] 81 mg PO QAM 08/24/19 08/24/19 History calcium carbonate-vitamin D3 1 ea PO QAM 08/24/19 08/24/19 History [Oyster Shell Calcium-Vit D3] lisinopril 10 mg PO QAM 08/24/19 08/24/19 History metformin 500 mg PO QAM 08/24/19 08/24/19 History rosuvastatin 20 mg PO QAM 08/24/19 08/24/19 History Past Med/Surg History Medical History (Updated 08/24/19 @ 18:29 by Kassi Varghese PA-C) Diabetes mellitus, type II HTN (hypertension) Hyperlipidemia Surgical History (Updated 08/24/19 @ 19:00 by Kassi Varghese PA-C) No significant past surgical history Family History (Updated 08/24/19 @ 20:31 by Clifford Hernandez MD) Mother Stroke Brother Diabetes Grandmother (Maternal) Diabetes Myocardial infarction Social History (Updated 08/24/19 @ 19:02 by Kassi Varghese PA-C) Preferred Language: Mongolian Communication Ability: Effective Jail Manager Required: No Beliefs That Will Affect Care: None Current Living Situation: Other Current Living Situation Comment: [facility] Other Information That Helps Us Care for You: No Feels Safe at Home: Yes Safety Concerns: Feels Safe At This Time Smoking Status: Former smoker Smoking End Date: Quit 03/2019; smoked for over 30 years ; Hx Alcohol Use: No Hx Substance Use: No Review of Systems Review of Systems: All systems reviewed & are unremarkable except as noted in HPI & below Physical Exam Physical Exam: General: no distress, WDWN Head: normocephalic, atraumatic Eyes: PERRL, EOM's intact, conjunctiva non-injected, anicteric ENT: normal inspection external ears, nose, mucous membranes moist Neck: supple, trachea midline Lungs: clear, no respiratory distress, no wheezing/rhonchi/rales CV: RRR, no murmur, no pretibial edema Abd: normal BS, soft, non-tender Ext: no cyanosis, no calf tenderness Neuro: A&O x 3, normal affect, +vertical nystagmus, Facial sensation is intact and symmetric, The face is strong and symmetric, Hearing grossly intact, Soft palate elevates symmetrically, no dysarthria, Shoulder shrug intact, Tongue is midline, normal movement, no fasciculations, finger to nose slow but intact, rapid alternating slow movements intact, heel to wong intact but slow bilaterally Skin: warm, dry Results & Data Vital Signs (Past 12 Hours) Vital Signs Temp Pulse Pulse Resp BP BP Pulse Ox 08/24/19 18:38 74 24 144/94 H 100 08/24/19 18:23 60 20 149/87 H 100 08/24/19 18:05 61 28 H 174/92 H 08/24/19 18:04 58 L 27 H 174/93 H 99 08/24/19 18:02 60 19 178/105 H 100 08/24/19 17:57 59 L 30 H 160/86 H 100 08/24/19 17:50 56 L 17 100 08/24/19 17:45 60 35 H 153/90 H 08/24/19 17:40 60 15 96 08/24/19 17:30 71 23 99 08/24/19 17:20 58 L 11 L 96 08/24/19 17:10 66 14 95 08/24/19 17:00 71 16 94 08/24/19 16:58 68 69 15 144/81 H 144/81 H 92 08/24/19 16:52 67 08/24/19 16:20 58 L 17 08/24/19 16:10 57 L 14 08/24/19 16:05 81 24 08/24/19 16:02 36.3 C L 56 L 18 153/92 H 98 08/24/19 15:59 57 L 22 153/92 H 100 Laboratory Results Short CBC 08/24/19 Range/Units 16:15 WBC 13.44 H (4.8-10.8) K/uL Hgb 16.3 (14.0-18.0) g/dL Hct 49.6 (42-52) % Plt Count 142 (130-400) K/uL BMP 08/24/19 16:15 Sodium 139 Potassium 5.0 Chloride 110 H Carbon Dioxide 24 BUN 13 Creatinine 1.08 Glucose 139 H Calcium 9.2 Cardiac Enzymes 08/24/19 Range/Units 16:15 Troponin I < 0.015 (0-0.045) ng/ml Liver Function 08/24/19 Range/Units 16:15 Total Bilirubin 1.4 H (0.2-1) mg/dl AST 42 H (15-37) U/L ALT 94 H (12-78) U/L Alkaline Phosphatase 57 (45-117) U/L Albumin 3.8 (3.4-5.0) gm/dl Diagnostic Findings CT HEAD: IMPRESSION: No acute intracranial abnormality. CTA HEAD: IMPRESSION: 1. Mild less than 50% luminal narrowing involves the distal right M1 segment. 2. Otherwise unremarkable CTA of the head without aneurysm, dissection, high- grade stenosis or proximal branch occlusion. 3. origin of the right posterior cerebral artery. CTA NECK: IMPRESSION: 1. There is a subcentimeter area of widening involving the V2 segment right vertebral artery at the level of C4 with two separate channels as above suggestive of a short segment dissection or a developmental fenestration. 2. No aneurysm, high-grade stenosis or proximal branch occlusion. 3. Mixed plaque of the bilateral carotid bulbs, left greater than right without high-grade stenosis. 4. Emphysema. CXR: IMPRESSION: 1. Cardiomegaly without overt pulmonary edema. 2. Bibasilar interstitial opacities suggest probable atelectasis, pneumonitis considered less likely. Supervising Physician Co-Signing Physician Notes I have seen and examined the patient and have discussed the case with the provider above. I agree with the assessment and plan as stated with the fo llowing exceptions. 64 yo diabetic man with hypertension who is a lifelong smoker who reports quitting 6 months ago. He developed acute vertigo today while lying supine in bed (but was not sleeping), and developed ocular phenomena regarding his vision spinning, that was cause for concern. When he tried to get up and walk he was limited because of dizziness and had some vomiting. He has otherwise been feeling well in the past few days, and denies any current headache, visual changes, speech or swallowing issues, sensation loss or numbness or any other stroke like symptoms. His mother and grandmother had strokes, and several members of his family had diabetes. A CTA of the head and neck was performed in the ER revealing a small extracranial dissection in the right vertebral artery. A Telestroke consult was requested from [facility]. There was a suspicion for posterior circulation stroke. As there was no intracranial extension of the dissection, the risk of SAH was felt to be low. Since the patient felt his symptoms would be debilitating, IV tPA was recommended. As there was no large vessel occlusion seen, no indication for further stroke therapies. He was given this in the ER with a stat MRI to follow and was admitted to the ICU. On my physical exam he was oriented and mentating clearly with clear speech. Pupils were equal and reactive to light and EOMI-no clear nystagmus was noted. Heart exam reveals normal S1/2 without evidence of m/g/r. Regular rate and rhythm was observed. Extremities were warm and well- perfused. Strength was 5/5 throughout. Reflex testing was deferred as patient was receiving tPA. Lungs were clear to auscultation. Heel to wong was intact, Majo intact, finger to nose was guarded but intact. Gait not assessed. Noted some guarding and reported symptoms when he went from a supine to sitting position. There was also some symptomatology noted during EOM testing. Cont to monitor overnight in ICU. Cont statin, hold ASA for 24 hrs post-TPA (noted to be on ASA 81mg daily). Mateo, DO
[2019-08-24] MEDS ORDERED: ICU PROTOCOL FOR HYPERGLYCEMIA PRN (19:31)
[2019-08-24] MEDS ORDERED: PHARMACIST DISCHARGE MED REC CONSULT PRN (19:33)
--- NOTE | 2019-08-24 19:38 | Communication Note ---
Date of Service: August 24, 2019 I have seen and examined the patient and have discussed the case with the provider above. I agree with the assessment and plan as stated with the raynao wing exceptions. 64 yo diabetic man with hypertension who is a lifelong smoker who reports quitting 6 months ago. He developed acute vertigo today while lying supine in bed (but was not sleeping), and developed ocular phenomena regarding his vision spinning, that was cause for concern. When he tried to get up and walk he was limited because of dizziness and had some vomiting. He has otherwise been feeling well in the past few days, and denies any current headache, visual changes, speech or swallowing issues, sensation loss or numbness or any other stroke like symptoms. His mother and grandmother had strokes, and several members of his family had diabetes. A CTA of the head and neck was performed in the ER revealing a small extracranial dissection in the right vertebral artery. A Telestroke consult was requested from [facility]. There was a suspicion for posterior circulation stroke. As there was no intracranial extension of the dissection, the risk of SAH was felt to be low,. Since the patient felt his symptoms would be debilitating, IV tPA was recommended. As there was no large vessel occlusion seen, no indication for further stroke therapies. He was given this in the ER with a stat MRI to follow and was sent forward to the ICU. On my physical exam he was oriented and mentating clearly with clear speech. Pupils were equal and reactive to light and EOMI-no clear nystagmus was noted. Heart exam reveals normal S1/2 without evidence of m/g/r. Regular rate and rhythm was observed. Extremities were warm and well-perfused. Strength was 5/5 throughout. Reflex testing was deferred as patient was receiving tPA. Lungs were clear to auscultation. Heel to wong was intact, Majo intact, finger to nose was guarded but intact. Gait not assessed. Noted some guarding and reported symptoms when he went from a supine to sitting position. There was also some symptomatology noted during EOM testing. Cont to monitor overnight in ICU. Cont statin, hold ASA for 24 hrs post-TPA (noted to be on ASA 81mg daily). Gaines, DO
[2019-08-24] MEDS ORDERED: LORazepam 2 MG/4 ML VIAL ONE (19:56)
--- NOTE | 2019-08-24 19:58 | Critical Care Consultation ---
Date of Consultation August 24, 2019 Assessment & Plan (1) Vertebral artery dissection: Reason Critically Ill: Joni is a 64-year-old male with a past medical history of hypertension, hyperlipidemia, type 2 diabetes mellitus who presents with acute onset vertigo and who is been admitted for right vertebral artery V2 dissection status post TPA administration. Neuro - [facility] ICU: Negative Analgesia: None Sedation: None Dizziness 2/2 acute vertebral artery dissection See below Cardiac/vascular- Acute right vertebral artery dissection CTA shows subcentimeter V2 right vertebral artery dissection at the level of C4 Last known well approximately 1345-1400hrs. Received TPA just prior to 4.5 hours from onset of symptoms [place] tele-stroke consult placed in ED. Further recommendations TPA bolus 8 mg, 71 mg infusion of TPA. tPA given at 1808 hrs. 08/24. -Heparin is not indicated. Add antiplatelet therapy at 24 hours post TPA per [facility] [place]. If patient acutely decompensates plan to intubate, hyperventilate, give mannitol and transfer to tertiary care with Noncon CT pending arrival. Neurochecks per protocol, currently at Q30M Maintain blood pressure less than 180 systolic, less than 105 diastolic - On CORRECTIONAL GUARD 81mg aspirin, last dose evening 08/23/2019 - Continue rosuvastatin 20mg Respiratory - No acute concerns GI - N.p.o. No acute concerns RENAL/LYTES - Creatinine 1.0 Sodium 140, potassium 5.3 Replace electrolytes as needed BMP daily - No acute concerns ENDO - Type 2 diabetes mellitus, [id number]-[id number] ICU hyperglycemia protocol HEME - Leukocytosis to 13.44 in the setting of vomiting Hemoglobin 16.3, PLT 142, INR 1.1 Monitor for signs of bleeding in the setting of TPA administration ID - Leukocytosis likely 2/2 demargination. Low suspicion for infectious process at this time. INTEGUMENTARY - No acute concerns LINES/IV ACCESS - PIVs intact. DVT PROPHYLAXIS - Status post TPA. Pharmacal prophylaxis contraindicated. SCDs. Full code. Thank you for allowing us to be part of this patient's care. Please refer to Dr. Byers's documentation for any further recommendations. (2) Vertigo: (3) Diabetes mellitus, type II: (4) HTN (hypertension): (5) Hyperlipidemia: (6) No significant past surgical history: (7) Admitted to intensive care unit: Supervising Physician Co-Signing Physician Notes I was made aware of this patient via telephone and discussed the case, findings, symptoms and proposed treatment plan with both Dr. Hernandez and Dr. Galindo. History of Present Illness Reason for Consultation: Right vertebral artery dissection Requesting Physician: Whitney Galindo DO Attending Physician: Whitney Galindo DO History of Present Illness Joni is a 64-year-old male With a past medical history of hypertension, hyperlipidemia, type 2 diabetes mellitus who presents with acute onset vertigo and who is been admitted for right vertebral artery V2 dissection. Joni reports that he was in an otherwise normal state of health until approximately 145 2:00 today when he was laying in bed and was counting on his fingers when he noticed he had a sudden feeling of his "eyes spinning "and sudden dizziness with nausea and vomiting. He denies blurry vision, double vision, or blackout at the time of this event. He rolled over and got out of bed, movement and turning corners did not worsen his dizziness or nausea but he immediately felt like he had difficulty walking, felt globally weak, and felt like the room was spinning. He has not experienced these symptoms before. He had a mild posterior headache. He did not blackout, syncopized, or lose consciousness. He endorses a history of intermittent chest pain not affected by exercise in the previous few months, otherwise denies chest pain, chest pressure, shortness of breath, neck pain, or focal neurologic deficits. He has a family history of stroke in his mother at age 72, and CA in his MGM at age 86. He thinks his sister had a blood clot at age 72. He has no personal history of cancer. He was a former lifelong tobacco smoker, about 3/4 pack/day for 50 years. He has had no tobacco use in the last 6 months. On arrival to the ED CTA head and neck shows a subcentimeter area of winding in the right vertebral artery, V2 segment, level of C4 suggestive of a short segment extracranial dissection. No high-grade stenosis of the carotids was appreciated, no proximal branch occlusion appreciated on imaging. Rotted bulbs have mixed plaque L>R but which are not high-grade. Tele-stroke in [place] was contacted and recommended initiating TPA which was given at 1808 hrs. Further recommendation he received an 8 mg bolus dose with a 71.7 mg infusion dose. He is to be admitted to the ICU for further monitoring. Case was further discussed with [facility] neurolog[place], they do not recommend initiating antiplatelet therapy prior to 24 hours. On visit in the emergency department Joni is laying in bed. He reports that he continues to be nauseous, has had 3 episodes of nonbilious, nonbloody emesis prior to arrival. He reports he feels nauseous, and continues to have a mild headache. He is not somnolent. He does not feel confused. He has not had any vision changes, and is not currently having vision changes. He has no focal weakness, no numbness, and no tingling. Medical history: Qbd-euiffiv-ezexxfbqy diabetes mellitus. Hypertension. Hyperlipidemia. Family history: Mother with a stroke at age 72. MGM with CA at age 86. Blood clot in his sister at 72, no further details. T2 Diabetes in his brother and maternal grandmother. Denies family history of cancer, coagulopathy, other strokes/CA, thyroid disease, vascular malformations, connective tissue disease, hyperflexibility. Surgical history: No history of prior surgery Social: Endorses 50 years of tobacco use, approximately three-quarter pack per day. Quit 6 months ago. 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 Endorses one episode of intravenous drug use "many years ago, right after I got back from the service. "Otherwise denies recreational drug use, specifically denies any cocaine use. Allergies: Clindamycin, penicillin Allergies Allergy/AdvReac Type Severity Reaction Status Date / Time clindamycin AdvReac Unknown Unknown Unverified 08/24/19 16:46 Penicillins AdvReac Unknown Unknown Unverified 08/24/19 16:46 Home Medications Home Medications Medication Instructions Recorded Confirmed Type aspirin [Aspir-81] 81 mg PO QAM 08/24/19 08/24/19 History calcium carbonate-vitamin D3 1 ea PO QAM 08/24/19 08/24/19 History [Oyster Shell Calcium-Vit D3] lisinopril 10 mg PO QAM 08/24/19 08/24/19 History metformin 500 mg PO QAM 08/24/19 08/24/19 History rosuvastatin 20 mg PO QAM 08/24/19 08/24/19 History Patient History Medical History Diabetes mellitus, type II HTN (hypertension) Hyperlipidemia Surgical History No significant past surgical history Family History (Updated 08/24/19 @ 20:32 by Clifford Hernandez MD) Mother Stroke Brother Diabetes Grandmother (Maternal) Diabetes Myocardial infarction Social History Preferred Language: Azerbaijani Communication Ability: Effective Respiratory Tech Required: No Beliefs That Will Affect Care: None Current Living Situation: Other Current Living Situation Comment: [facility] Other Information That Helps Us Care for You: No Feels Safe at Home: Yes Safety Concerns: Feels Safe At This Time Smoking Status: Former smoker Smoking End Date: Quit 03/2019; smoked for over 30 years ; Hx Alcohol Use: No Hx Substance Use: No Review of Systems Review of Systems: Constitutional: Denies fever, chills, malaise Eyes: Denies vision change, blurry vision, double vision, eye pain ENT: Denies ear pain, sore throat, sinus pain Cardiovascular: Chest pain as noted in HPI, otherwise denies chest pressure, palpitations, extremity swelling Respiratory: Denies shortness of breath, cough, sputum production, difficulty breathing Gastrointestinal: Denies abdominal pain, nausea, vomiting, constipation, diarrhea Genitourinary: Denies dysuria Musculoskeletal: Endorses global weakness and fatigue, denies focal weakness, new muscle/joint aches, 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 Denies vision change, numbness, tingling, focal weakness. Endorses dizziness. Physical Exam Physical Exam: General: A&Ox3. NAD. Cooperative. HEENT: Atraumatic, normocephalic. Neuro as below. Ears atraumatic, normal external anatomy. Normal external nasal anatomy. No crocker sign. Pulm: CTAB A&P. -wheezes, -rales, -rhonchi. Symmetrical chest rise. No increase work of breathing. No respiratory distress. Cardiac: RRR, -mrg. Radial pulses intact and symmetrical. Abdominal: Nontender, nondistended, soft. BS present. CN II: Visual blum are full to confrontation. Pupils are equal and react to light and accomidation, 2 mm. Visual acuity grossly intact. CN III, IV, : At primary gaze, there is no eye deviation. EoM intact without horizontal or vertical nystagmus. No visual field cuts. CN V: Facial sensation is intact to soft touch in all 3 divisions bilaterally. CN VII: No facial asymmetry, full strength to eyebrow raise, smile, eye close, and cheek puff. No nasolabial fold flattening or increased tone. CN VII: Hearing is grossly intact. CN IX, X: Palate elevates symmetrically. Phonation is normal without dysarthria. CN XI: Head turning and shoulder shrug are intact CN XII: Tongue protrudes midline. Reflexes: Patellar, biceps DTR 2+ Bilaterally Sensory: Soft touch and pinprick sensation intact in fingertips and hallux bilaterally. Strength: RUE: Shoulder flexion/extension/internal rotation/external rotation, elbow flexion/extension, finger flexion/extension, traveling engineer strength, interosseous 5/5 LUE: Shoulder flexion/extension/internal rotation/external rotation, elbow flexion/extension, finger flexion/extension, traveling engineer strength, interosseous 5/5 RLE: Hip flexion, knee flexion, ankle plantar flexion/dorsiflexion 5/5 LLE: Hip flexion, knee flexion, ankle plantar flexion/dorsiflexion 5/5 Coordination: No dysdiadochokinesia. Coordination intact on [id number]. Results & Data Vital Signs (Past 12 Hours) Vital Signs Temp Pulse Pulse Resp BP BP Pulse Ox 08/24/19 19:30 36.5 C 75 26 H 173/81 H 95 08/24/19 19:08 79 20 145/85 H 94 08/24/19 18:53 76 18 146/89 H 100 08/24/19 18:38 74 24 144/94 H 100 08/24/19 18:23 60 20 149/87 H 100 08/24/19 18:05 61 28 H 174/92 H 08/24/19 18:04 58 L 27 H 174/93 H 99 08/24/19 18:02 60 19 178/105 H 100 08/24/19 17:57 59 L 30 H 160/86 H 100 08/24/19 17:50 56 L 17 100 08/24/19 17:45 60 35 H 153/90 H 08/24/19 17:40 60 15 96 08/24/19 17:30 71 23 99 08/24/19 17:20 58 L 11 L 96 08/24/19 17:10 66 14 95 08/24/19 17:00 71 16 94 08/24/19 16:58 68 69 15 144/81 H 144/81 H 92 08/24/19 16:52 67 08/24/19 16:20 58 L 17 08/24/19 16:10 57 L 14 08/24/19 16:05 81 24 08/24/19 16:02 36.3 C L 56 L 18 153/92 H 98 08/24/19 15:59 57 L 22 153/92 H 100 Resident Activity Tracking Resident Involvement: Resident Care Provided Care Provided: Adult Hospital Medicine
[2019-08-24] MEDS ORDERED: LORazepam 0.5 MG/1 ML VIAL IV STA (20:00)
[2019-08-24] MEDS ORDERED: LORazepam 0.25 MG/0.5 ML VIAL IV STA (20:16)
[2019-08-24] MEDS ORDERED: GADOBUTROL 10ML VIAL IV PRN (21:27)
--- NOTE | 2019-08-24 21:40 | Magnetic Resonance Report ---
MR brain wo/w con HISTORY: 64 years-old Male dissection, plz include dural venous sinuses, thx acute strokelike sympto ms COMPARISON: CTA head and neck of same day TECHNIQUE: Multiplanar multisequence MRI of the brain was obtained both with and without the use of 8 .5 mL Gadavist FINDINGS: Community Service Officer localizer images demonstrate no gross extracranial abnormality. No restricted diffusion to sugg est acute or subacute infarction. Midline structures including the corpus callosum, brainstem, optic chiasm, and pituitary gland appear unremarkable on the sagittal T1 series. 3 mm pineal gland cyst. No cerebellar tonsillar herniation. Imaged cervical spine appears intact. Several sequences are mildly motion degraded. There is no acute intracranial hemorrhage, midline shift, abnormal extra-axial colle ction, hydrocephalus or intracranial mass. Cavum septum pellucidum. There is no abnormal intra-axial or extra-axial enhancement identified. There are a few punctate foci of T2/FLAIR prolongation within the subcortical frontal lobes, likely of no clinical significance and likely on a basis of chronic sm all vessel ischemic changes. Visualized cerebral venous sinuses appear unremarkable. Major flow voids at the level of the skull ba se demonstrate no focal abnormality. Mild mucosal thickening of the ethmoid sinuses. Mild rightward b owing and spurring of the nasal septum. The skull, orbits and soft tissues are unremarkable. The T2 s equences are motion degraded. IMPRESSION: 1. No acute intracranial abnormality, specifically there is no evidence of acute or subacute infarcti on. 2. No abnormal enhancement. The above report was generated using voice recognition software. It may contain grammatical, syntax o r spelling errors. Electronically signed by: Zack Wong M.D. 08/24/2019 9:39 PM
--- NOTE | 2019-08-25 00:09 | Critical Care Progress Note ---
Date of Service August 25, 2019 Assessment & Plan (1) Vertebral artery dissection: Reason Critically Ill: Joni is a 64-year-old male with a past medical history of hypertension, hyperlipidemia, type 2 diabetes mellitus who presents with acute onset vertigo and who is been admitted for right vertebral artery V2 dissection status post TPA administration. Neuro - [facility] ICU: Negative Analgesia: None Sedation: None Dizziness 2/2 acute vertebral artery dissection See below Cardiac/vascular- Acute right vertebral artery dissection - On TINSMITH HELPER 81mg aspirin, last dose evening 08/23/2019 CTA shows subcentimeter V2 right vertebral artery dissection at the level of C4 MRI shows no acute intracranial abnormality, no evidence of acute or subacute infarction, no abnormal enhancement. Last known well approximately 1345-1400hrs. Received TPA just prior to 4.5 hours from onset of symptoms [place] tele-stroke consult placed in ED. Further recommendations TPA bolus 8 mg, 71 mg infusion of TPA. tPA given at 1808 hrs. 08/24. -Heparin is not indicated. Add antiplatelet therapy at 24 hours post TPA per [facility]. given that he was on aspirin 81 mg when this occurred, he is a candidate for Plavix. If patient acutely decompensates plan to intubate, hyperventilate, give mannitol and transfer to tertiary care with Noncon CT pending arrival. Neurochecks per protocol Maintain blood pressure less than 180 systolic, less than 105 diastolic - Continue rosuvastatin 20mg - 24hour Post TPA orderset completed. 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 Replace electrolytes as needed - No acute concerns ENDO - Type 2 diabetes mellitus, [id number] ICU hyperglycemia protocol HEME - Leukocytosis to 13.44 in the setting of vomiting Monitor for signs of bleeding in the setting of TPA administration ID - Leukocytosis likely 2/2 demargination. Low suspicion for infectious process at this time. INTEGUMENTARY - No acute concerns LINES/IV ACCESS - PIVs intact. DVT PROPHYLAXIS - Status post TPA. Pharmacal prophylaxis contraindicated. SCDs. Full code. Thank you for allowing us to be part of this patient's care. Please refer to Dr. Byers's documentation for any further recommendations. Supervising Physician Co-Signing Physician Notes Dr. Hernandez was resident physician during care of patient. I separately evaluated patient for frye portions of the history and the exam. I was present during the critical portion of medical decision making, and I discussed the case with the resident. I generally agree with the findings and plan. Patient with constellation of symptoms most consistent with posterior circulation stroke likely secondary to vertebral artery dissection. Will reinstitute antiplatelet medication after 24 hours post TPA, this occurred while being on baby aspirin anticipate either full dose aspirin or possibly Plavix, w ill defer to neurology recommendations. PT OT speech consults in, passed bedside swallow. Anticipate stability to downgrade after 24 hours post TPA. Critical care will sign off Subjective Joni is seen at bedside. He is fatigued, but is easily aroused and feels he is not confused or somnolent. No vision change. His nausea/vomiting improved a nd he tolerated the MRI overnight well. Continues to have a mild posterior occipital headache, unchanged from prior. No numbness, tingling, focal weakness, or change in strength. No questions or concerns at time of visit. Addendum 0802 AM: Patient reports he feels well this morning. He says he feels close to his normal healthy baseline. He feels his eyes are still slightly off, but otherwise is without chest pain, chest pressure, weakness, lightheadedness, headache, dizziness, numbness, tingling, or focal deficits this morning. He is not nauseous at time of visit, and has had no vomiting since yesterday evening. He has not had any epistaxis or signs of bleeding. Review of Systems Review of Systems: Constitutional: Denies fever, chills, malaise Eyes: Denies vision change, blurry vision, double vision, eye pain ENT: Denies ear pain, sore throat, sinus pain Cardiovascular: Denies chest pain, chest pressure, palpitations, extremity swelling Respiratory: Denies shortness of breath, cough, sputum production, difficulty breathing Gastrointestinal: Denies abdominal pain, nausea, vomiting, constipation, diarrhea Genitourinary: Denies dysuria Musculoskeletal: Endorses global weakness and fatigue, denies focal weakness, muscle aches Integumentary:Denies rash, lesions, bruising Neurological: Endorses slight headache. Denies vision change, numbness, tingling, focal weakness. Is not sure if he is dizzy, as he has not been out of bed. Physical Exam Physical Exam: General: Asleep, arouses easily to voice and tactile stimulation. Ox3. NAD. Cooperative. HEENT: Atraumatic, normocephalic. Neuro as below. Ears atraumatic, normal external anatomy. Normal external nasal anatomy. Pulm: CTAB A&P. -wheezes, -rales, -rhonchi. Symmetrical chest rise. No increase work of breathing. No respiratory distress. Cardiac: RRR, -mrg. Radial pulses intact and symmetrical. Abdominal: Nontender, nondistended, soft. BS present. CN II: Visual blum are full to confrontation. Pupils are constricted but equal and react to light and accomidation, 1-2 mm. Visual acuity grossly intact. CN III, IV, : At primary gaze, there is no eye deviation, EOMs intact without vertical or horizontal nystagmus CN V: Facial sensation is intact to soft touch in all 3 divisions bilaterally. CN VII: No facial asymmetry, full strength to eyebrow raise, smile, eye close, and cheek puff. No nasolabial fold flattening or increased tone. CN VII: Hearing is grossly intact. CN IX, X: Palate elevates symmetrically. Phonation is normal without dysarthria. CN XI: Head turning and shoulder shrug are intact CN XII: Tongue protrudes midline. [id number]-ii-tjcu normal, no dysdiadochokinesia Sensory: Soft touch and pinprick sensation intact in fingertips and hallux bilaterally. Strength: Public Works Inspector strength, plantarflexion, dorsiflexion 5/5 and symmetrical Results & Data Vital Signs (Past 12 Hours) Vital Signs Temp Pulse Pulse Resp BP BP Pulse Ox 08/24/19 23:37 66 16 119/74 86 L 08/24/19 23:09 69 16 131/59 L 93 08/24/19 22:39 67 15 116/71 95 08/24/19 22:08 72 12 132/75 94 08/24/19 21:38 88 20 137/90 08/24/19 21:08 71 20 132/71 97 08/24/19 20:40 72 18 135/83 92 08/24/19 20:08 65 20 172/96 H 93 08/24/19 19:53 64 20 144/78 H 94 08/24/19 19:38 72 33 H 163/96 H 08/24/19 19:31 72 08/24/19 19:30 36.5 C 75 26 H 173/81 H 95 08/24/19 19:25 36.5 C 62 20 178/90 H 95 08/24/19 19:08 79 20 145/85 H 94 08/24/19 18:53 76 18 146/89 H 100 08/24/19 18:38 74 24 144/94 H 100 08/24/19 18:23 60 20 149/87 H 100 08/24/19 18:05 61 28 H 174/92 H 08/24/19 18:04 58 L 27 H 174/93 H 99 08/24/19 18:02 60 19 178/105 H 100 08/24/19 17:57 59 L 30 H 160/86 H 100 08/24/19 17:50 56 L 17 100 08/24/19 17:45 60 35 H 153/90 H 08/24/19 17:40 60 15 96 08/24/19 17:30 71 23 99 08/24/19 17:20 58 L 11 L 96 08/24/19 17:10 66 14 95 08/24/19 17:00 71 16 94 08/24/19 16:58 68 69 15 144/81 H 144/81 H 92 08/24/19 16:52 67 08/24/19 16:20 58 L 17 08/24/19 16:10 57 L 14 08/24/19 16:05 81 24 08/24/19 16:02 36.3 C L 56 L 18 153/92 H 98 08/24/19 15:59 57 L 22 153/92 H 100 Resident Activity Tracking Resident Involvement: Resident Care Provided Care Provided: Adult Hospital Medicine
[2019-08-25] MEDS ORDERED: NORMOSOL-R 1,000 ML IV SCH (00:45)
[2019-08-25 05:05] LABS: Basophils # (auto) 0.02 K/uL (0-0.2); Basophils % (auto) 0.2 %; Eosinophils # (auto) 0.02 K/uL (0-0.5); Eosinophils % (auto) 0.2 %; Hematocrit (blood only) 47.1 % (42-52); Hemoglobin 15.3 g/dL (14.0-18.0); Immature Granulocytes # (auto) 0.02 K/uL (0.00-0.02); Immature Granulocytes % (auto) 0.2 %; Lymphocytes # (auto) 3.15 K/uL (1.2-3.4); Lymphocytes % (auto) 28.8 %; Mean Corpuscular Hgb Conc 32.5 g/dL (32-36); Mean Corpuscular Volume 73.9 fL (80-100); Mean Platelet Volume 10.2 fL (7.4-10.4); Monocytes # (auto) 0.68 K/uL (0.11-0.59); Monocytes % (auto) 6.2 %; Neutrophils # (auto) 7.06 K/uL (1.4-6.5); Neutrophils % (auto) 64.4 %; Platelet Count 148 K/uL (130-400); RDW Coefficient of Variation 15.2 % (11.5-14.5); RDW Standard Deviation 40.2 fL (36.4-46.3); Red Blood Count 6.37 M/uL (4.7-6.1); White Blood Count 10.95 K/uL (4.8-10.8)
[2019-08-25 05:30] LABS: BUN Creatinine Ratio 14.8 (10-20); Calcium 8.8 mg/dl (8.5-10.1); Creatinine Clr Calc Pharmacy 85.7 ml/min; Est GFR (African American) 99.6; Est GFR (Non-African American) 85.9; Potassium 4.1 mmol/L (3.5-5.1)
--- NOTE | 2019-08-25 07:23 | Ultrasound Report ---
US liver HISTORY: 64 years-old Male Transaminitis, hyperbilirubinemia acute right upper quadrant abdominal pa in COMPARISON: None available TECHNIQUE: Multiple real-time sonographic images of the abdominal right upper quadrant were obtained assessing grayscale appearance, and color flow FINDINGS: Pancreas is obscured by bowel gas. The liver is unremarkable without focal mass or intrahepatic bilia ry ductal dilation. Trace gallbladder sludge. No cholelithiasis, wall thickening or pericholecystic f luid. Sonographic Sung sign reported as negative. Normal common bile duct, 3 mm. Imaged right kidne y is unremarkable without hydronephrosis. IMPRESSION: 1. Trace gallbladder sludge without cholelithiasis or sonographic evidence of acute cholecystitis. 2. No biliary ductal dilation. The above report was generated using voice recognition software. It may contain grammatical, syntax o r spelling errors. Electronically signed by: Zack Wong M.D. 08/25/2019 7:22 AM
[2019-08-25 08:56] LABS: Hepatitis B Surface Antigen Neg (Neg)
--- NOTE | 2019-08-25 09:06 | Billing Data ---
Coding Level of Care Code 52023 Subseq Hosp Care Lvl 3
[2019-08-25 09:24] LABS: Hepatitis C IgG 13Yrs+Old_Rflx Neg (Neg)
[2019-08-25] MEDS ORDERED: LORazepam 2 MG/4 ML VIAL ONE (10:06)
[2019-08-25] MEDS: lisinopriL 10 MG TAB PO SCH (10:10)
--- NOTE | 2019-08-25 10:56 | Communication Note ---
Date of Service: August 25, 2019 I have seen and evaluated Mr. Foster today, have reviewed his imaging studies and had discussed his case with our emergency room physicians last night prior to the consultation with stroke tele-neurology and administration of TPA. This man has had a very small localized dissection of the right vertebral artery, is improved, has only some minor subjective oscillopsia mild nystagmus is is only for abnormal findings and an early MRI shows no abnormal signal but I suspect he has had a small infarction in the lateral medullary plate or cerebellum on the right At this point we are going to go through the TPA protocol get a CAT scan to be sure there is no post TPA bleeding and frankly I think we can probably get away with adding Plavix to his current chronic aspirin, continuing this for 3 months, getting another CT angiogram in about 3 months time and then if the vessel was recanalized, continue with either pure Plavix or aspirin as monotherapy I do not think in this setting we are going to need to use Coumadin which would be a much safer choice in an inmate in an institution where altercations can occur and trauma will be a little more likely than out in the community setting A full consult has been dictated and we will be back tomorrow to reassess his situation Rayray Fatima MD
--- NOTE | 2019-08-25 12:34 | Consultation Report ---
DATE OF CONSULTATION: 08/25/2019 CONSULTATION FOR: Dr. Galindo. HISTORY OF PRESENT ILLNESS: Joni is 64 years old who is an inmate at [facility] and has been there for a number of years who suffers from diabetes and hypertension and dyslipidemia and overall has been in reasonably good health, surprisingly with very little or no complications of his diabetes including an absence of symptoms from neuropathy and apparently very minimal, if any, retinopathy. He also has a history of prior tobacco use, but this was stopped years ago. Yesterday, he was lying on his bed, looking at the ceiling and suddenly noted oscillopsia and then had a lot of vertigo. Was brought to the Emergency Room, was noted to have nystagmus. There was nothing else on exam of concern but because of his risk factors, he was put through a stroke evaluation and the CTA found a subcentimeter area of widening involving the right vertebral artery at the level of C4 with 2 separate channels suggestive of an aneurysm. Otherwise, there were no significant intracranial stenoses and no other abnormalities including a lack of cerebral aneurysm formation. I discussed the case with our Emergency Room. He was right at about 3 hours following an onset of symptoms, CT scan had been negative for a demonstrable cerebellar cva or bleed and I suggested that the stroke service at [place] be consulted regarding potential TPA versus simple heparinization versus a program of pure aspirin and plavix in this setting, There have been some recent changes in the preferred method of treatment of cervical dissections. The telestroke service elected to go with TPA. He has received an injection. He still has some vertigo, but is subjectively better, does not have any new headache. Has a little bit of subjective oscillopsia at far gaze, does not talk about diplopia, facial numbness, other visual disturbances, contralateral hemisensory loss, problems with motor function, etc. His MRI was done acutely and I reviewed the images and this does not show evidence for completed infarction in the lateral medullary plate on the right or in the right cerebellar hemisphere, but again it was done very early in the presentation and may need repeated later if symptoms persist. PAST MEDICAL HISTORY: Pretty much as outlined above and includes hypertension, diabetes, dyslipidemia, and a prior cigarette smoking history. MEDICATION LIST: Included baby aspirin a day, calcium carbonate, vitamin D, lisinopril, metformin, rosuvastatin. SOCIAL HISTORY: Reveals her to be a nonsmoker, nonconsumer of ethanol. Current inmate at [facility]. FAMILY HISTORY: Said to be noncontributory but his mother did have a stroke. His brother has diabetes and his grandmother had both diabetes and myocardial infarction. ALLERGIES: He denies any drug allergies. REVIEW OF SYSTEMS: Reveals no recent fevers, sweats, chills, weight loss, weight gain. No head trauma, excessive coughing, sudden neck rotations, altercation with other inmates, no preceding headaches and otherwise no new issues referable to his head, eyes, ears, nose and throat, cardiovascular, pulmonary, gastrointestinal, genitourinary, musculoskeletal, dermatologic or hematologic systems. PHYSICAL EXAMINATION: VITAL SIGNS: Yesterday in the Emergency Room revealed a blood pressure of 174/92, pulse was 60, respirations were 27. GENERAL: He was awake, alert, oriented in 3 spheres. He is relatively thin. HEENT: Had no cranial deformities. He did have some ocular oscillations at extremes of gaze in all directions with rotatory and lateral beating component without unilateral predominance. Pupils are equal, round and reactive to light. Ocular fundi were poorly seen. No carotid bruits were heard. LUNGS: Clear. HEART: Had a regular rhythm. EXTREMITIES: There is no peripheral edema. Good peripheral pulses. NEUROLOGIC: Today, neurologically he is awake, alert, oriented in 3 spheres. He does describe subjective oscillopsia indeed on protracted distance gaze. There are some rotatory and lateral beating nystagmus movements of both eyes, slightly worse on right gaze than left, but otherwise pretty nonlateralizing. The eye movements themselves are otherwise normal. There is no limitation. There is no pupillary asymmetry, no Ac syndrome. Again, I could not see the ocular fundi well. There were no visual field cuts. Facial motility and strength is normal. Facial sensation is normal. Speech is clear. There is no drift, pronation sign, tremor, tics, or choreiform activity. I did not test the gait, but he was able to do [id number] maneuvers without problems and could engage in rapid repetitive motor movements without any deficits. Reflexes are absent at the ankles, reduced at the knees, normal in the upper extremities. Toes were downgoing. No Arnoldo signs are seen. Strength testing was actually quite good. Sensation is surprisingly despite his long history of diabetes was unremarkable in terms of revealing no vibratory loss, intact to light touch, good temperature, good pinprick and intact proprioception. At this point, we need to go through the TPA protocol with a repeat CT scan at about 24-30 hours after the event and we will take a look at him tomorrow. My feelings are that this is a very small dissection. He probably has had a small infarction that we are not seeing on MRI, either in the cerebellar hemisphere and lateral medullary plate more dorsally than laterally or ventrally and I think we could probably get away with a program of adding Plavix to his aspirin, probably for the next 3 months, then getting another CT angiogram to search for recanalization and have him followed up of course after discharge in our clinic in about a month. All of this is contingent upon how well he does over the next day or two and we will look at him again tomorrow to make a reassessment and further recommendations at that time. I would like to try to avoid Coumadin in this case as he is an inmate and there are increased risks as far as I can see for trauma and full anticoagulation would probably not be absolutely necessary in this setting anyway and antiplatelet drugs are now felt to be as effective. In his case, I think this would be much safer. KATIE
[2019-08-25] MEDS ORDERED: Nursing to Pharmacy Communication ONE (13:04)
[2019-08-25] MEDS ORDERED: LORazepam 0.5 MG/1 ML VIAL IV PRN (14:00)
--- NOTE | 2019-08-25 16:23 | Hospitalist Progress Note ---
Date of Service August 25, 2019 Assessment & Plan (1) Vertebral artery dissection: (2) Vertigo: Present on admission from [facility] with vision change, dizziness CT HEAD admission showed o acute intracranial abnormality. CTA HEAD on admission showed mild less than 50% luminal narrowing involves the distal right M1 segment.Otherwise unremarkable CTA of the head without aneurysm, dissection, high-grade stenosis or proximal branch occlusion. CTA NECK showed subcentimeter area of widening involving the V2 segment right vertebral artery at the level of C4 with two separate channels as above suggestive of a short segment dissection or a developmental fenestration. MRI of the head showed no acute intracranial abnormality, specifically there is no evidence of acute or subacute infarction.No abnormal enhancement. Telestroke from [place] recommended TPA that was initiated in the ER No post op TPA complication noted Has been monitor closely in the ICU due to the TPA Case discussed with Neurology Dr. Fatima recommended to repeat CT head post TPA to r/o any intracranial bleeding Will start plavix and aspirin tomorrow Will transfer out of the ICU if CT head negative for bleeding Continue monitor closely (3) Diabetes mellitus, type II: Hba1c pending Blood sugar stable Continue monitor BS (4) Transaminitis: AST 42 and ALT 94 Liver u/s showed trace gallbladder sludge without cholelithiasis or sonographic evidence of acute cholecystitis. No biliary ductal dilation. Denies any abdominal pain HCV and HBV surface antigen negative Tolerated diet Will repeat liver enzymes in am (5) HTN (hypertension): BP stable Continue Lisinopril 10 mg daily Stable (6) Hyperlipidemia: Will resume statin tomorrow DVT Prophylaxis S/P TPA. Reassess in the morning for VTE prophylaxis Disposition Will transfer out of the ICU if repeat CT head negative Subjective Pt was seen and examined Lying in bed with no distress with 2 guards at bedside Pt said that early today, he had some symptoms where he saw yuanzag for a brief time Denies any slurred speech, palpitation, dizziness and SOB Physical Exam Physical Exam: General- No acute distress Head- atraumatic Eyes- PERRL, EOMI, ENT- oropharynx clear Neck- supple, no JVD Lungs- clear to auscultation Heart- regular rhythm; no murmur Abdomen- normal bowel sounds, soft, nontender Extremities- no calf tenderness Neuro- alert, oriented x 3; PERRL, EOMI; no facial palsy; no dysarthria Skin- warm & dry Results & Data Vital Signs (Past 12 Hours) Vital Signs Temp Pulse Pulse Resp BP BP Pulse Ox 08/25/19 16:08 36.7 C 67 20 134/83 95 08/25/19 15:08 79 18 119/79 97 08/25/19 14:08 77 16 100/53 L 93 08/25/19 13:08 95 H 18 123/70 94 08/25/19 12:08 94 H 16 123/64 95 08/25/19 11:08 92 H 16 123/64 93 08/25/19 10:07 93 H 16 130/74 93 08/25/19 09:09 94 H 16 108/52 L 95 08/25/19 08:10 36.6 C 96 H 16 105/52 L 96 08/25/19 07:08 73 18 106/55 L 94 08/25/19 06:08 64 16 119/54 L 94 08/25/19 05:09 78 16 126/66 93
--- NOTE | 2019-08-25 18:39 | CT Scan Report ---
HEAD CT NONCONTRAST CT DOSE: 601.98 mGy.cm HISTORY: Stroke like symptoms. f/u post TPA protocol TECHNIQUE: Multiaxial CT images of the head were performed without the use of intravenous contrast. A utomated exposure control was utilized for this study. A dose lowering technique was utilized adheri ng to the principles of ALARA. Comparison: Head CT 08/24/2019. Findings: The paranasal sinuses and mastoid air cells are clear. The calvarium and skull base are int act. The ventricles and sulci are within normal limits. There is no mass, hematoma, midline shift, or acute infarct. Impression: No acute intracranial abnormality. Electronically signed by: Maco Pal M.D. 08/25/2019 6:38 PM
[2019-08-26 06:27] LABS: Estimated Average Glucose 131 mg/dl; Hemoglobin A1C 6.2 % (4.5-5.6)
[2019-08-26 06:40] LABS: Basophils # (auto) 0.04 K/uL (0-0.2); Basophils % (auto) 0.4 %; Eosinophils # (auto) 0.09 K/uL (0-0.5); Eosinophils % (auto) 0.9 %; Hematocrit (blood only) 44.7 % (42-52); Hemoglobin 14.5 g/dL (14.0-18.0); Immature Granulocytes # (auto) 0.02 K/uL (0.00-0.02); Immature Granulocytes % (auto) 0.2 %; Lymphocytes # (auto) 3.46 K/uL (1.2-3.4); Lymphocytes % (auto) 36.5 %; Mean Corpuscular Hemoglobin 24.2 pg (25-34); Mean Corpuscular Hgb Conc 32.4 g/dL (32-36); Mean Corpuscular Volume 74.6 fL (80-100); Mean Platelet Volume 10.6 fL (7.4-10.4); Monocytes # (auto) 0.95 K/uL (0.11-0.59); Neutrophils # (auto) 4.92 K/uL (1.4-6.5); Platelet Count 141 K/uL (130-400); RDW Coefficient of Variation 15.3 % (11.5-14.5); RDW Standard Deviation 41.1 fL (36.4-46.3); Red Blood Count 5.99 M/uL (4.7-6.1); White Blood Count 9.48 K/uL (4.8-10.8)
[2019-08-26 07:19] LABS: Albumin Level 3.2 gm/dl (3.4-5.0); BUN Creatinine Ratio 13.7 (10-20); Calcium 8.5 mg/dl (8.5-10.1); Creatinine Clr Calc Pharmacy 75.3 ml/min; Est GFR (African American) 85.2; Est GFR (Non-African American) 73.5; Potassium 3.7 mmol/L (3.5-5.1)
[2019-08-26 07:21] LABS: Albumin Globulin Ratio 0.9 (0.9-2); Globulin 3.6 gm/dl (2.5-4.0); Total Protein 6.8 gm/dl (6.4-8.2)
[2019-08-26] MEDS: ASPIRIN 81 MG ECTAB PO SCH (08:48)
[2019-08-26] MEDS: CLOPIDOGREL BISULFATE 75 MG TAB PO SCH (08:48)
[2019-08-26] MEDS: lisinopriL 10 MG TAB PO SCH (10:17)
--- NOTE | 2019-08-26 12:49 | Hospitalist Progress Note ---
Date of Service August 26, 2019 Assessment & Plan (1) Vertebral artery dissection: (2) Vertigo: Present on admission from [facility] with vision change, dizziness CT HEAD admission showed o acute intracranial abnormality. CTA HEAD on admission showed mild less than 50% luminal narrowing involves the distal right M1 segment.Otherwise unremarkable CTA of the head without aneurysm, dissection, high-grade stenosis or proximal branch occlusion. CTA NECK showed subcentimeter area of widening involving the V2 segment right vertebral artery at the level of C4 with two separate channels as above suggestive of a short segment dissection or a developmental fenestration. MRI of the head showed no acute intracranial abnormality, specifically there is no evidence of acute or subacute infarction.No abnormal enhancement. Telestroke from [place] recommended TPA that was initiated in the ER No post op TPA complication noted CT head post TPA done last night showed no intracranial bleeding or abnormality Plavix and aspirin started this morning, will continue Continue PT/OT Statin resume Continue monitor closely (3) Diabetes mellitus, type II: Hba1c 6.2 Blood sugar stable Continue monitor BS (4) Transaminitis: AST 42 and ALT 94 Liver u/s showed trace gallbladder sludge without cholelithiasis or sonographic evidence of acute cholecystitis. No biliary ductal dilation. Denies any abdominal pain HCV and HBV surface antigen negative Tolerated diet resolved (5) HTN (hypertension): BP elevated this morning On Lisinopril 10 mg daily Will consider to increase to 20mg if BP remains elevate Continue Monitor BP (6) Hyperlipidemia: Statin resumed DVT Prophylaxis S/P TPA. Will start on heparin subq Disposition Will discharge once stable from neurology standpoint Subjective Pt was seen and examined Sitting in chair with no distress with guards present Pt said that this morning he had a brief episode of vertigo he said that it occurred when he turned his head too quick or when he stood up or sitting up from supine position He said that when it occurred he felt nauseated and weak for a brief minutes Currently denies any chest pain, palpitation, dizziness and SOB Physical Exam Physical Exam: General- No acute distress Head- atraumatic Eyes- PERRL, EOMI, ENT- oropharynx clear Neck- supple, no JVD Lungs- clear to auscultation Heart- regular rhythm; no murmur Abdomen- normal bowel sounds, soft, nontender Extremities- no calf tenderness Neuro- alert, oriented x 3; PERRL, EOMI; no facial palsy; no dysarthria Skin- warm & dry Results & Data Vital Signs (Past 12 Hours) Vital Signs Temp Pulse Resp BP Pulse Ox 08/26/19 11:45 36.7 C 63 18 163/76 H 96 08/26/19 07:33 36.6 C 60 17 143/73 H 93 08/26/19 04:00 37.0 C 66 18 123/69 92
[2019-08-26] MEDS: ROSUVASTATIN CALCIUM 20 MG TAB PO SCH (14:55)
--- NOTE | 2019-08-26 15:20 | Neurology Progress Note ---
Date of Service August 26, 2019 Assessment & Plan (1) Vertebral artery dissection: 1. continue plavix 75 mg and aspirin 81 mg daily x 3-6 months 2. repeat MRI brain r/o stroke 3. optimize HTN, HLD, DM LDL <70 4. PT/OT for discharge recommendations 5. repeat CTA neck - 3 months for recannulization of vessel 6. further recommendations once MRI brain is completed Supervising Physician Co-Signing Physician Notes I have seen and discussed above patient with Dr Rayray Fatima, neurology I am seeing this patient today and examined him and note significant clinical improvement to the point that there really is no spontaneous nystagmus on forward gaze, very little if any on lateral gaze and is developed no other symptoms such as a Ac syndrome, hemifacial numbness, contralateral extremity numbness, ataxia etc. but he does describe being off balance when trying to walk and at this point while he is better I think we really do need to get another MRI searching for a small right lateral medullary infarction or small right cerebellar infarction which might have been caused by emboli originating in the mid cervical right vertebral dissection The plan is to add Plavix to his aspirin and continue it for 3 months until we have a chance to explore whether or not the vessel will recanalized and appear normal on subsequent CTA. At that point we will probably simply return to an aspirin as this is not an atherosclerotic event would rather 1 related to the dissection and cannot be considered a "aspirin failure" Rayray Fatima MD Rubin Quinones is a 64 year old incarcerated black male with PMH DM II, HTN, HLD, prior tobacco use presented to [facility] ED from [facility] with complaint of dizziness. He was lying supine in bed looking at the ceiling and counting when he noticed that he had trouble remembering what he was counting and then started with sensation his eyes were "flipping". He then rolled over and became dizzy with nausea. The dizziness is still aggravated with any movement of his head he is also having difficulty walking and feels weak. denies CP, SOB, vision change, new bowel or bladder issues, N, V. 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 triceps 5/5 bilaterally, hip flex bilaterally 5/5 sensation in tact to light touch Results & Data Vital Signs (Past 12 Hours) Vital Signs Temp Pulse Resp BP Pulse Ox 08/26/19 11:45 36.7 C 63 18 163/76 H 96 08/26/19 07:33 36.6 C 60 17 143/73 H 93 08/26/19 04:00 37.0 C 66 18 123/69 92 Laboratory Results Abnormal lab results 08/25/19 08/26/19 08/26/19 Range/Units 04:37 06:15 06:15 MCV 74.6 L (80-100) fL MCH 24.2 L (25-34) pg RDW Coeff of Ya 15.3 H (11.5-14.5) % MPV 10.6 H (7.4-10.4) fL Lymph # (Auto) 3.46 H (1.2-3.4) K/uL [place] # (Auto) 0.95 H (0.11-0.59) K/uL Chloride 111 H (98-107) mmol/L Hemoglobin A1c 6.2 H (4.5-5.6) % Albumin 3.2 L (3.4-5.0) gm/dl Diagnostic Findings CT head- No acute intracranial abnormality.
[2019-08-27] MEDS ORDERED: HydrALAZINE HCL 20 MG/ML VIAL IV PRN (07:53)
--- NOTE | 2019-08-27 07:53 | Magnetic Resonance Report ---
MR brain wo con CLINICAL HISTORY: 64 years-old Male presenting with dizziness, vertigo, weakness, ketoacidosis. TECHNIQUE: Multisequence, multiplanar MR imaging of the brain was performed without the use of intrav enous contrast. IV contrast: None. COMPARISON: Noncontrast CT head from 08/25/2019 and MRI brain from 08/24/2019. FINDINGS: Localizer images: Unremarkable. Bone marrow signal intensity within the calvarium within normal limits. Normal midline sagittal structures. Ventricles and sulci normal in size. Incidental note made of a sm all cavum septi pellucidi. No mass effect or midline shift. No restricted diffusion or hemorrhage. Br ain parenchyma normal in appearance for age with preserved pennington-white differentiation. No extra-axial fluid collection. T2 skull base flow voids preserved. IMPRESSION: 1. No acute intracranial abnormality. Electronically signed by: Clifford Jeffries M.D. 08/27/2019 7:51 AM
[2019-08-27] MEDS: CLOPIDOGREL BISULFATE 75 MG TAB PO SCH (08:03)
[2019-08-27] MEDS: ASPIRIN 81 MG ECTAB PO SCH (08:03)
[2019-08-27] MEDS: ROSUVASTATIN CALCIUM 20 MG TAB PO SCH (08:03)
[2019-08-27] MEDS ORDERED: lisinopriL 20 MG TAB PO SCH (09:00)
[2019-08-27 12:11] LABS: Hepatitis A Antibody IgM NON-REACTIVE (NON-REACTIVE); Hepatitis B Core Antibody IgM NON-REACTIVE (NON-REACTIVE)
--- NOTE | 2019-08-27 15:19 | Neurology Progress Note ---
Date of Service August 27, 2019 Assessment & Plan (1) Vertebral artery dissection: 1. continue plavix 75 mg and aspirin 81 mg daily x 3-6 months 2. repeat MRI brain r/o stroke- no acute findings 3. optimize HTN, HLD, DM LDL <70 4. PT/OT for discharge recommendations 5. repeat CTA neck - 3 months for recannulization of vessel 6. appointment requested in 4-6 weeks for follow up with neurology Cyndi Dennison PAC schedule 7. ok to discharge when medically stable Supervising Physician Co-Signing Physician Notes I have seen and discussed above patient with Dr Rayray Fatima, neurology Mr. Foster is significantly better today he has had no episodes of oscillopsia or vertigo he is able to move his head, has normal eye movements without discernible nystagmus or limitation, still has no facial numbness no cerebellar dysmetria and his MRI scan shows no evidence for a completed infarct although admittedly a very small area in the brainstem or even of the cerebellum could be missed with sequential MRIs although because of this being the case are getting slimmer with each day Overall is about a 7% miss rate on MRI scanning clinically and brainstem CVAs but that having been said for now he is asymptomatic we do have a small localized right vertebral artery dissection, he needs to be on dual antiplatelet therapy for 3 months until we get the other CTA to assess whether or not the vessel was recanalized and if it has probably just settled back on a single aspirin per day. Again because this is a spontaneous dissection we cannot consider it aspirin failure I think simply using a single baby aspirin per day is a reasonable choice in the setting for long-term coagulation in a man with a lot of vascular risk factors and He is going to be discharged either today or tomorrow and plans for follow-up have been set in motion We will see him in our [place] office in 4 to 6 weeks Rayray Fatima MD Rubin Quinones is a 64 year old incarcerated black male with PMH DM II, HTN, HLD, prior tobacco use presented to [facility] ED from [facility] with complaint of dizziness. He was lying supine in bed looking at the ceiling and counting when he noticed that he had trouble remembering what he was counting and then started with sensation his eyes were "flipping". He then rolled over and became dizzy with nausea. The dizziness was aggravated with any movement of his head. Today he is not having any issues with moving his head. discussed MRI no stroke seen. denies CP, SOB, vision change, new bowel or bladder issues, N, V. Physical Exam Physical Exam: Gen: alert NAD lungs normal respiratory effort CV RRR no pronator drift no bipass with finger to nose EOMI no horizontal nystagmus Results & Data Vital Signs (Past 12 Hours) Vital Signs Temp Pulse Resp BP BP Pulse Ox 08/27/19 11:13 36.8 C 81 18 145/87 H 93 08/27/19 07:18 36.8 C 90 18 188/94 H 169/89 H 91 08/27/19 03:59 36.8 C 58 L 19 128/66 95 Laboratory Results no new labs Diagnostic Findings MRI brain- repeat study -No acute intracranial abnormality.
--- NOTE | 2019-08-27 18:21 | Hospitalist Progress Note ---
Date of Service August 27, 2019 Assessment & Plan (1) Vertebral artery dissection: (2) Vertigo: Present on admission from [facility] with vision change, dizziness CT HEAD admission showed o acute intracranial abnormality. CTA HEAD on admission showed mild less than 50% luminal narrowing involves the distal right M1 segment.Otherwise unremarkable CTA of the head without aneurysm, dissection, high-grade stenosis or proximal branch occlusion. CTA NECK showed subcentimeter area of widening involving the V2 segment right vertebral artery at the level of C4 with two separate channels as above suggestive of a short segment dissection or a developmental fenestration. MRI of the head showed no acute intracranial abnormality, specifically there is no evidence of acute or subacute infarction.No abnormal enhancement. Telestroke from [place] recommended TPA that was initiated in the ER No post op TPA complication noted CT head post TPA done showed no intracranial bleeding or abnormality MRI head repeat after almost 48hrs showed no acute intracranial abnormality. Case discussed with neurology recommended to continue plavix and aspirin for 3 months until repeating CTA neck to assess whether or not the vessel is recanalized before changing to Aspirin alone Will need to repeat CTA neck in 3 months to eval for for recannulization of vessel Follow up with neurology in 4 to 6 weeks with Cyndi BELL OK from [facility] to discharge today Case discussed with his PCP at the [facility] Dr. [place] (3) Diabetes mellitus, type II: Hba1c 6.2 Blood sugar stable Continue monitor BS Resume metformin on discharge (4) Transaminitis: AST 42 and ALT 94 Liver u/s showed trace gallbladder sludge without cholelithiasis or sonographic evidence of acute cholecystitis. No biliary ductal dilation. Denies any abdominal pain HCV and HBV surface antigen negative Tolerated diet resolved (5) HTN (hypertension): BP elevated this morning Lisinopril increased to 20mg daily Continue Monitor BP (6) Hyperlipidemia: Continue Statin DVT Prophylaxis S/P TPA. Disposition Discharge to [facility] today Subjective Pt was seen and examined Sitting in bed with no distress Pt said that he feels much better He said that his symptoms resolved He said that he does not feel dizzy when he turns his head or stands anymore Denies any chest pain, palpitation,dizziness and SOB Physical Exam Physical Exam: General- No acute distress Head- atraumatic Eyes- PERRL, EOMI, ENT- oropharynx clear Neck- supple, no JVD Lungs- clear to auscultation Heart- regular rhythm; no murmur Abdomen- normal bowel sounds, soft, nontender Extremities- no calf tenderness Neuro- alert, oriented x 3; PERRL, EOMI; no facial palsy; no dysarthria Skin- warm & dry Results & Data Vital Signs (Past 12 Hours) Vital Signs Temp Pulse Resp BP BP Pulse Ox 08/27/19 15:43 37.0 C 90 20 138/67 96 08/27/19 11:13 36.8 C 81 18 145/87 H 93 08/27/19 07:18 36.8 C 90 18 188/94 H 169/89 H 91
[2019-08-27] MEDS ORDERED: STROKE PATIENT DISCHARGE STA (18:49)
--- NOTE | 2019-08-30 00:51 | Discharge Summary ---
Date of Service August 27, 2019 Admission HPI Per Admitting Provider Pt is 64 y/o M with PMH DM II, HTN, HLD, prior tobacco use presented to ER from [facility] with complaint of dizziness that started today. Patient states around 1:45 PM he was lying supine in bed looking at the ceiling and counting when he noticed that he had trouble remembering what he was counting and then started with sensation his eyes were "flipping". Denies any blurred vision or double vision or loss of vision. Patient states he then rolled over and became dizzy with nausea. Dizziness aggravated with any movement. Reports having increased difficulty walking and feels weak. Patient also complains of slightly discomfort to posterior head. Reports had been feeling his normal self prior to symptom onset. Patient denies any falls, head injury, recent trauma. Denies any history of TIA/stroke, vertigo. Denies fever/chills, diaphoresis, V/D/C, melena, hematochezia, epistaxis, syncope, neck pain, CP, SOB, orthopnea, palpitations, cough, sore throat, choking, otalgia, rhinorrhea, abdominal pain, paresthesias, extremity edema, rashes, urinary symptoms. In ER pt had CTA Head and neck: There is a subcentimeter area of widening involving the V2 segment right vertebral artery at the level of C4 with two separate channels as above suggestive of a short segment dissection or a developmental fenestration. No aneurysm, high-grade stenosis or proximal branch occlusion. Mixed plaque of the bilateral carotid bulbs, left greater than right without high-grade stenosis. Telestroke in [place] contacted and recommended TPA. Pt received initial TPA in ER. Admission Exam Per Admitting Provider General: no distress, WDWN Head: normocephalic, atraumatic Eyes: PERRL, EOM's intact, conjunctiva non-injected, anicteric ENT: normal inspection external ears, nose, mucous membranes moist Neck: supple, trachea midline Lungs: clear, no respiratory distress, no wheezing/rhonchi/rales CV: RRR, no murmur, no pretibial edema Abd: normal BS, soft, non-tender Ext: no cyanosis, no calf tenderness Neuro: A&O x 3, normal affect, +vertical nystagmus, Facial sensation is intact and symmetric, The face is strong and symmetric, Hearing grossly intact, Soft palate elevates symmetrically, no dysarthria, Shoulder shrug intact, Tongue is midline, normal movement, no fasciculations, finger to nose slow but intact, rapid alternating slow movements intact, heel to wong intact but slow bilaterally Skin: warm, dry Principal Diagnosis (1) Vertebral artery dissection: (2) Vertigo: (3) Diabetes mellitus, type II: (4) Transaminitis: (5) HTN (hypertension): (6) Hyperlipidemia: Discharge Exam General- No acute distress Head- atraumatic Eyes- PERRL, EOMI, ENT- oropharynx clear Neck- supple, no JVD Lungs- clear to auscultation Heart- regular rhythm; no murmur Abdomen- normal bowel sounds, soft, nontender Extremities- no calf tenderness Neuro- alert, oriented x 3; PERRL, EOMI; no facial palsy; no dysarthria Skin- warm & dry Discharge Data Allergies Allergy/AdvReac Type Severity Reaction Status Date / Time clindamycin AdvReac Unknown Unknown Unverified 08/24/19 16:46 Penicillins AdvReac Unknown Unknown Unverified 08/24/19 16:46 Consultations 08/24/19 17:20 ED Decision to Admit Stat 08/24/19 19:31 Consult Case Management - Discharge Planning Routine Consult Case Management - Discharge Planning Routine Consult Waxing 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 TECHNIQUE: Multisequence, multiplanar MR imaging of the brain was performed without the use of intravenous contrast. IV contrast: None. COMPARISON: Noncontrast CT head from 08/25/2019 and MRI brain from 08/24/2019. FINDINGS: Localizer images: Unremarkable. Bone marrow signal intensity within the calvarium within normal limits. Normal midline sagittal structures. Ventricles and sulci normal in size. Incidental note made of a small cavum septi pellucidi. No mass effect or midline shift. No restricted diffusion or hemorrhage. Brain parenchyma normal in appearance for age with preserved pennington-white differentiation. No extra-axial fluid collection. T2 skull base flow voids preserved. IMPRESSION: 1. No acute intracranial abnormality. Electronically signed by: Clifford Jeffries M.D. 08/27/2019 7:51 AM Dictated: 08/27/19743 Transcribed: 08/27/[address]CONTRAST CT DOSE: 601.98 mGy.cm HISTORY: Stroke like symptoms. f/u post TPA protocol TECHNIQUE: Multiaxial CT images of the head were performed without the use of intravenous contrast. Automated exposure control was utilized for this study. A dose lowering technique was utilized adhering to the principles of ALARA. Comparison: Head CT 08/24/2019. Findings: The paranasal sinuses and mastoid air cells are clear. The calvarium and skull base are intact. The ventricles and sulci are within normal limits. There is no mass, hematoma, midline shift, or acute infarct. Impression: No acute intracranial abnormality. Electronically signed by: Maco Pal M.D. 08/25/2019 6:38 PM Dictated: 08/25/191835 Transcribed: 08/25/191835 liver HISTORY: 64 years-old Male Transaminitis, hyperbilirubinemia acute right upper quadrant abdominal pain COMPARISON: None available TECHNIQUE: Multiple real-time sonographic images of the abdominal right upper quadrant were obtained assessing grayscale appearance, and color flow FINDINGS: Pancreas is obscured by bowel gas. The liver is unremarkable without focal mass or intrahepatic biliary ductal dilation. Trace gallbladder sludge. No cholelithiasis, wall thickening or pericholecystic fluid. Sonographic Sung sign reported as negative. Normal common bile duct, 3 mm. Imaged right kidney is unremarkable without hydronephrosis. IMPRESSION: 1. Trace gallbladder sludge without cholelithiasis or sonographic evidence of acute cholecystitis. 2. No biliary ductal dilation. The above report was generated using voice recognition software. It may contain grammatical, syntax or spelling errors. Electronically signed by: Zack Wong M.D. 08/25/2019 7:22 AM Dictated: 08/25/19719 Transcribed: 08/25/19719 MR brain wo/w con HISTORY: 64 years-old Male dissection, plz include dural venous sinuses, thx acute strokelike symptoms COMPARISON: CTA head and neck of same day TECHNIQUE: Multiplanar multisequence MRI of the brain was obtained both with and without the use of 8.5 mL Gadavist FINDINGS: Feather Boner localizer images demonstrate no gross extracranial abnormality. No restricted diffusion to suggest acute or subacute infarction. Midline structures including the corpus callosum, brainstem, optic chiasm, and pituitary gland appear unremarkable on the sagittal T1 series. 3 mm pineal gland cyst. No cerebellar tonsillar herniation. Imaged cervical spine appears intact. Several sequences are mildly motion degraded. There is no acute intracranial hemorrhage, midline shift, abnormal extra-axial collection, hydrocephalus or intracranial mass. Cavum septum pellucidum. There is no abnormal intra-axial or extra-axial enhancement identified. There are a few punctate foci of T2/FLAIR prolongation within the subcortical frontal lobes, likely of no clinical significance and likely on a basis of chronic small vessel ischemic changes. Visualized cerebral venous sinuses appear unremarkable. Major flow voids at the level of the skull base demonstrate no focal abnormality. Mild mucosal thickening of the ethmoid sinuses. Mild rightward bowing and spurring of the nasal septum. The skull, orbits and soft tissues are unremarkable. The T2 sequences are motion degraded. IMPRESSION: 1. No acute intracranial abnormality, specifically there is no evidence of acute or subacute infarction. 2. No abnormal enhancement. The above report was generated using voice recognition software. It may contain grammatical, syntax or spelling errors. Electronically signed by: Zack Wong M.D. 08/24/2019 9:39 PM Dictated: 08/24/192132 Transcribed: 08/24/192132 CT angio neck with con CLINICAL HISTORY: 64 years-old Male with vertogp. Acute vertigo with strokelike symptoms COMPARISON STUDY: CT head of same day TECHNIQUE: Following the IV administration of 119 mL of Optiray 320, CT angiogram of the neck was performed from the aortic arch to the skull base. Images are reviewed in the axial, sagittal, and coronal planes. 3-D MIPS images are created and assessed. IV contrast was administered without complication. All measurements were calculated based on NASCET criteria. A dose lowering technique was utilized adhering to the principles of ALARA. CT DOSE: 1845.32 mGy.cm FINDINGS: Imaged pulmonary arterial branches of the lung apices appear unremarkable. Mild atheromatous plaque of the aortic arch. Patency of the imaged bilateral subclavian arteries. Patent bilateral common carotid arteries. Mild right and moderate left mixed plaque of the carotid bulbs and proximal internal carotid arteries results in less than 50% narrowing bilaterally. Calcified plaque is also noted involving the cavernous and supraclinoid segments without high-grade stenosis. Dominant right vertebral artery. Minimal luminal narrowing of the V1 segment right vertebral artery, image 129 series 10. There is mild focal widening of the V2 segment right vertebral artery at the level of C4 with 2 separate channels noted on image 216 series 10. This measures up to approximately 8 mm in length. Developmentally diminutive left vertebral artery. The left vertebral artery probably terminates into the left PICA. Imaged basilar artery is unremarkable. Severe emphysema. No pneumothorax. Soft tissues are unremarkable. Multilevel degenerative changes of the spine. IMPRESSION: 1. There is a subcentimeter area of widening involving the V2 segment right vertebral artery at the level of C4 with two separate channels as above suggestive of a short segment dissection or a developmental fenestration. 2. No aneurysm, high-grade stenosis or proximal branch occlusion. 3. Mixed plaque of the bilateral carotid bulbs, left greater than right without high-grade stenosis. 4. Emphysema. The above report was generated using voice recognition software. It may contain grammatical, syntax or spelling errors. Electronically signed by: Zack Wong M.D. 08/24/2019 5:03 PM Dictated: 08/24/191652 Transcribed: 08/24/191652 CT angio head w con CLINICAL HISTORY: 64 years-old Male with vertigo. Acute vertigo COMPARISON STUDY: CTA had of same day TECHNIQUE: Following the IV administration of 119 cc of Optiray 320, CT angiogram of the brain was performed from the skull base to the vertex. Images are reviewed in the axial, sagittal, and coronal planes. 3-D MIPS images are created and assessed. IV contrast was administered without complication. All measurements were obtained according to NASCET criteria. A dose lowering technique was utilized adhering to the principles of ALARA. FINDINGS: CT ANGIOGRAM OF THE BRAIN: The imaged bilateral internal carotid arteries are patent. Calcified plaque of the bilateral cavernous and supraclinoid segments without high-grade stenosis. There is mild less than 50% luminal narrowing noted involving the distal right M1 segment.. Anterior and middle cerebral arteries are otherwise patent and unremarkable. The distal right vertebral artery appears normal. The left vertebral artery is developmentally diminutive and predominantly terminates into the left PICA. Patent basilar artery. origin of the right posterior cerebral artery. Bilateral posterior cerebral arteries appear patent. There is no aneurysm, high-grade stenosis, or proximal branch occlusion identified. Dural sinuses appear patent. IMPRESSION: 1. Mild less than 50% luminal narrowing involves the distal right M1 segment. 2. Otherwise unremarkable CTA of the head without aneurysm, dissection, high- grade stenosis or proximal branch occlusion. 3. origin of the right posterior cerebral artery. The above report was generated using voice recognition software. It may contain grammatical, syntax or spelling errors. Electronically signed by: Zack Wong M.D. 08/24/2019 5:10 PM Dictated: 08/24/191702 Transcribed: 08/24/191702 XR chest 1V portable HISTORY: 64 years-old Male weakness acute weakness COMPARISON: None available TECHNIQUE: Portable AP view of the chest FINDINGS: Cardiac silhouette is mildly enlarged. There is mild interstitial coarsening which may be on a chronic basis. Subsegmental bibasilar opacities suggest probable atelectasis. No pneumothorax, large pleural effusion or overt pulmonary edema. Degenerative changes of the shoulders and spine. IMPRESSION: 1. Cardiomegaly without overt pulmonary edema. 2. Bibasilar interstitial opacities suggest probable atelectasis, pneumonitis considered less likely. The above report was generated using voice recognition software. It may contain grammatical, syntax or spelling errors. Electronically signed by: Zack Wong M.D. 08/24/2019 5:17 PM Dictated: 08/24/191715 Transcribed: 08/24/191715 CT head/brain wo con CLINICAL HISTORY: 64 years-old Male with Stroke evaluation . Acute strokelike symptoms TECHNIQUE: Multiple axial CT images of the head were obtained without contrast. A dose lowering technique was utilized adhering to the principles of ALARA. COMPARISON: None. FINDINGS: No acute intracranial hemorrhage, midline shift, intracranial mass, hydrocephalus, territorial ischemia or abnormal extra-axial collection. Minimal patchy white matter hypodensities are suggestive of probable chronic microvascular ischemic disease. The calvarium is intact. The paranasal sinuses, mastoid air cells, and middle ear cavities are clear. IMPRESSION: No acute intracranial abnormality. The above report was generated using voice recognition software. It may contain grammatical, syntax or spelling errors. Electronically signed by: Zack Wong M.D. 08/24/2019 5:03 PM Dictated: 08/24/19 165 Transcribed: 08/24/191652 Hospital Course (1) Vertebral artery dissection: (2) Vertigo: Present on admission from [facility] with vision change, dizziness CT HEAD admission showed o acute intracranial abnormality. CTA HEAD on admission showed mild less than 50% luminal narrowing involves the distal right M1 segment.Otherwise unremarkable CTA of the head without aneurysm, dissection, high-grade stenosis or proximal branch occlusion. CTA NECK showed subcentimeter area of widening involving the V2 segment right vertebral artery at the level of C4 with two separate channels as above suggestive of a short segment dissection or a developmental fenestration. MRI of the head showed no acute intracranial abnormality, specifically there is no evidence of acute or subacute infarction.No abnormal enhancement. Telestroke from [place] recommended TPA that was initiated in the ER No post op TPA complication noted CT head post TPA done showed no intracranial bleeding or abnormality MRI head repeat after almost 48hrs showed no acute intracranial abnormality. Case discussed with neurology recommended to continue plavix and aspirin for 3 months until repeating CTA neck to assess whether or not the vessel is recanalized before changing to Aspirin alone Will need to repeat CTA neck in 3 months to eval for for recannulization of vessel Follow up with neurology in 4 to 6 weeks with Cyndi BELL [place] from [facility] to discharge today Case discussed with his PCP at the [facility] Dr. Mayberry (3) Diabetes mellitus, type II: Hba1c 6.2 Blood sugar stable Continue monitor BS Resume metformin on discharge (4) Transaminitis: AST 42 and ALT 94 Liver u/s showed trace gallbladder sludge without cholelithiasis or sonographic evidence of acute cholecystitis. No biliary ductal dilation. Denies any abdominal pain HCV and HBV surface antigen negative Tolerated diet resolved (5) HTN (hypertension): BP elevated this morning Lisinopril increased to 20mg daily Continue Monitor BP (6) Hyperlipidemia: Continue Statin DVT Prophylaxis S/P TPA. Disposition Discharge to [facility] today Total Time Total Time Spent Total Time Spent (In Minutes): 35 minutes Total Time Includes: Examination of the Patient, Discharge Planning, Medication Reconciliation, Communication With Other Providers and Other Discharge Plan Discharge Items [facility]position[facility] Reason For Visit: STROKE Discharge Diagnosis: (1) Vertebral artery dissection: (2) Vertigo: (3) Diabetes mellitus, type II: (4) Transaminitis: (5) HTN (hypertension): (6) Hyperlipidemia: Activity: Resume your previous activity Non-emergency contact: Primary Care Provider and Neurologist Call non-emergency contact if: you have any medication questions and your symptoms worsen Follow-up/Referrals: Florentin FOSTER [Primary Care Provider] - Diet: Carb Consistent or DM2 and Heart Healthy Addtl Attending Provider Instructions: Follow up with your primary care provider Dr. Mayberry @ [facility] Follow up with [facility] neurology in 4 to 6 weeks with Cyndi BELL (office will call for the appointment) You will need to repeat CTA neck in 3 months to evaluate for recannulization of vessel Continue Plavix and aspirin for 3 months for now until repeating the CTA neck to assess recannulization of the vessel Continue monitor your blood pressure Since you are on Plavix and aspirin, please monitor for abnormal bleeding (such as blood in your stool, urine,...) Fall precaution Pending Studies at Discharge: No Stand-Alone Forms: [facility] Skilled Items Patient informed of condition?: Yes Discharge Level of Care: Other Communicable Disease: No Discharge Prognosis: Stable Lines: None Urinary Catheter: No Medications and DC Order Prescriptions: New clopidogrel 75 mg Tablet 75 mg PO QAM 30 Days Qty: 30 RF: 0 lisinopril 20 mg tablet 20 mg PO DAILY Qty: 30 RF: 0 Continued metformin 500 mg Tablet 500 mg PO QAM RF: 0 aspirin [Aspir-81] 81 mg Tablet,Delayed Release (Dr/Ec) 81 mg PO QAM RF: 0 rosuvastatin 20 mg Tablet 20 mg PO QAM RF: 0 Oyster Shell Calcium-Vit D3 500 mg(1,250mg) -200 unit Powder In Packet 1 ea PO QAM RF: 0 Discontinued lisinopril 10 mg Tablet 10 mg PO QAM RF: 0 Discharge Orders: Discharge Order (Routine); Ordered 08/27/19 Ordered By: Timi Vleasquez Admission Data Admit Date/Time: 08/24/19 18:28 Attending Provider: Timi Velasquez Admit Provider: Whitney Galindo Primary Care Provider: Florentin FOSTER Other Providers: Whitney Galindo ; Remy Byers ; Rayray Fatima Other Interventions: Discharge Summary Assessment (RN) Last Done: 08/27/19 19:38 DC Date/Time DO NOT enter until pt leaves facility: 08/27/19 20:12
== END 2019-08-27 20:12 | DRG 301 ==
LOC: ED 15:57 → SUATTDRO 18:28 → 1E 18:28 → 2E 08-25 21:04

== ENCOUNTER 2020-09-21 14:08 | Inpatient (IN) ==
[2020-09-21] MEDS ORDERED: ACETAMINOPHEN 500 MG TAB PO STA (14:24)
--- NOTE | 2020-09-21 14:25 | Emergency Department Note ---
Impression & Plan Breathlessness, Pneumonia due to COVID-19 virus, Hypoxia ED Provider Note Provider: Miguel Gomez MD DATE OF SERVICE:09/21/2020 CHIEF COMPLAINT: Shortness of breath HISTORY OF PRESENT ILLNESS: Patient is a 65-year-old gentleman history of hypertension, diabetes, and hyperlipidemia presenting via ambulance from the present today report of worsening shortness of breath and hypoxia today. Osvaldo reyna evidently been ill since Jose with Covid-like symptoms with pending past at this point. Reports has been having fevers and a nonproductive cough. Patient states she did have some nausea and diarrhea symptoms several days ago but this is improved and he thought it was related to some bad food/meat. Patient states he has only been taking his normal medicine and has been eating drinking well and states he feels quite thirsty. States he is having a nonproductive cough and a little bit of pain with coughing. Has been on some oxygen at the present reportedly into the high 80s on 4 L at rest. REVIEW OF SYSTEMS: A total of 10 review of systems was obtained and negative except as stated above in the HPI. PAST MEDICAL HISTORY: As noted above MEDICATIONS: Reviewed home medication listings SOCIAL HISTORY: Former smoker, inmate at [facility] PHYSICAL EXAM: GENERAL: alert and oriented recheck on bed with mask and nasal cannula oxygen, [facility] guards present in room Head: normocephalic and atraumatic EYES: No injection, discharge or icterus. NECK: Trachea midline. Supple. ENT: Mucous membranes pink and moist. LUNGS: Airway patent. No retractions but some mildly increased work of breathing and tachypnea while transitioning nasal cannula oxygen. HEART: Regular rate and rhythm. No chest wall tenderness ABDOMEN: Soft and non-tender, without guarding or rebound. SKIN: Acyanotic, warm, dry, without rashes EXTREMITIES: Without significant swelling or severe obvious deformity. Foot shackles are in place. NEUROLOGICAL: No focal deficits. No aphasia. No facial droop or slurred speech. EK bpm sinus rhythm with occasional PVC. No acute ST segment elevation is noted. QTc 447. Normal axis. CONTINUOUS CARDIAC MONITORING: was ordered and showed a heart rate of 82 bpm in normal sinus rhythm rare PVC Patient's laboratory studies and imaging reviewed. Differential includes Reactive airway disease, pneumonia, pneumothorax, COPD, CHF, infections, cardiac ischemia, pulmonary embolism, musculoskeletal, gastrointestinal, as well as other pathologies. IMPRESSION/MEDICAL DECISION MAKING: Patient presents from [facility] with shortness of breath and hypoxia reported. New onset. Given current pandemic likely coronavirus and has pending test. Rapid test sent here to confirm. Basic labs, x-ray, & EKG were sent. Given some IV fluid here as he had decreased intake. Doubt acute CHF exacerbation. D-dimer sent to help stratify for PE. Lower suspicion for acute ACS. Benign abdomen doubt significant acute intra-abdominal pathology. Is hypoxic here on room air. Is somewhat tachypneic on exam while changing oxygen. Febrile here upon arrival and given Tylenol. Laboratory studies showed no significant cytosis. X-ray shows multifocal consolidations concerning for possible viral pneumonia based on my review and radiology report. D-dimer was elevated and a CT of the chest was completed. Coronavirus test positive. Mild elevation of CRP likely related to viral infection. No evidence based on labs of hepatitis or pancreatitis or obstructive pathology. Renal function without significant abnormality. Troponin is noted to be detectable but not abnormal. Likely related to his recent infection with coronavirus and demand and I doubt acute myocarditis or ACS. CT the chest without evidence of PE but note inflammatory changes consistent with his Covid. Patient does appear more comfortable now on 4 L of oxygen here. Given his hypoxia and worsening status will discuss to the hospital further care as an inpatient care here. Given a dose of dexamethasone here. DIAGNOSIS: Hypoxia, shortness of breath, COVID-19 pneumonia DISPOSITION: Hospitalist will evaluate for admission Past Med/Surg History Medical History (Updated 09/21/20 @ 14:31 by Miguel Gomez M.D.) Diabetes mellitus, type II Erectile dysfunction HTN (hypertension) Hyperlipidemia Surgical History No significant past surgical history Family History (Updated 08/24/19 @ 20:32 by Clifford Hernandez MD) Mother Stroke Brother Diabetes Grandmother (Maternal) Diabetes Myocardial infarction Social History Smoking Status: Former smoker Second Hand Exposure: No; Do You Dip or Chew Tobacco: No; Tobacco Cessation Education Requested by Patient: No Hx Alcohol Use: No Hx Substance Use: No Preferred Language: Maori Communication Ability: Effective Uat Tester Required: No Beliefs That Will Affect Care: None marital status: Unknown Current Living Situation: Other Current Living Situation Comment: KRISTIN Lerma Other Information That Helps Us Care for You: No Feels Safe at Home: Yes Safety Concerns: Feels Safe At This Time Assistive Devices: None Allergies Allergies Allergy/AdvReac Type Severity Reaction Status Date / Time clindamycin AdvReac Unknown Unknown Unverified 09/21/20 14:44 Penicillins AdvReac Unknown Unknown Unverified 09/21/20 14:44 Home Meds Home Medications Medication Instructions Recorded Confirmed Oyster Shell Calcium-Vit D3 1 ea PO QAM 08/24/19 09/21/20 metformin 500 mg PO QAM 08/24/19 09/21/20 rosuvastatin 20 mg PO QAM 08/24/19 09/21/20 acetaminophen [Acetaminophen Extra 500 mg PO TID PRN 09/21/20 09/21/20 Strength] aspirin [Aspirin Low-Strength] 81 mg PO DAILY 09/21/20 09/21/20 cholecalciferol (vitamin D3) 25 mcg PO DAILY 09/21/20 09/21/20 [Vitamin D3] guaifenesin [Mucosa] 400 mg PO TID 09/21/20 09/21/20 ondansetron 4 mg PO TID PRN 09/21/20 09/21/20 zinc sulfate 220 mg PO BID 09/21/20 09/21/20 Previous Rx's Medication Instructions Recorded lisinopril 20 mg PO DAILY #30 tab 08/27/19 Results & Data (ED) Vital Signs Vital Signs - 24 hr 09/21/20 14:10 09/21/20 14:25 09/21/20 15:00 Temperature 39.5 C H Temperature Source Oral Pulse Rate 94 H 82 Pulse Rate from SpO2 Sensor Respiratory Rate 22 20 Blood Pressure 128/73 Blood Pressure Mean 91 Pulse Oximetry 87 L 87 L 96 Oxygen Delivery Method Room Air Room Air Nasal Cannula Nasal Cannula Oxygen Flow Rate 0 4 Sepsis Recent Fever Within 48 Hours Yes Sepsis New/Unexplained Change in Mental Status No Sepsis Action Taken by Nursing Physician Notified Oxygen Flow Rate - Titration 4 Pulse Oximetry Post Tiitration 92 09/21/20 15:38 09/21/20 16:00 09/21/20 16:20 Temperature 37.2 C Temperature Source Oral Pulse Rate 80 80 77 Pulse Rate from SpO2 Sensor Respiratory Rate 24 20 22 Blood Pressure 114/64 110/61 124/64 Blood Pressure Mean 73 78 77 Pulse Oximetry 94 94 96 Oxygen Delivery Method Nasal Cannula Nasal Cannula Nasal Cannula Oxygen Flow Rate 4 4 4 Sepsis Recent Fever Within 48 Hours Sepsis New/Unexplained Change in Mental Status Sepsis Action Taken by Nursing Oxygen Flow Rate - Titration Pulse Oximetry Post Tiitration 09/21/20 16:30 09/21/20 17:00 09/21/20 17:30 Temperature Temperature Source Pulse Rate 74 75 72 Pulse Rate from SpO2 Sensor 75 72 Respiratory Rate 21 24 16 Blood Pressure 111/57 L 103/60 119/59 L Blood Pressure Mean 64 72 68 Pulse Oximetry 97 95 96 Oxygen Delivery Method Nasal Cannula Nasal Cannula Nasal Cannula Oxygen Flow Rate 4 4 4 Sepsis Recent Fever Within 48 Hours Sepsis New/Unexplained Change in Mental Status Sepsis Action Taken by Nursing Oxygen Flow Rate - Titration Pulse Oximetry Post Tiitration 09/21/20 18:00 Temperature Temperature Source Pulse Rate 67 Pulse Rate from SpO2 Sensor 67 Respiratory Rate 18 Blood Pressure 110/59 L Blood Pressure Mean 67 Pulse Oximetry 97 Oxygen Delivery Method Nasal Cannula Oxygen Flow Rate 4 Sepsis Recent Fever Within 48 Hours Sepsis New/Unexplained Change in Mental Status Sepsis Action Taken by Nursing Oxygen Flow Rate - Titration Pulse Oximetry Post Tiitration Laboratory Data Result diagrams: 09/21/20 14:29 09/21/20 14:29 Lab Results 09/21/20 09/21/20 09/21/20 Range/Units 14:29 14:29 14:29 WBC 5.11 (4.8-10.8) K/uL RBC 6.82 H (4.7-6.1) M/uL Hgb 16.4 (14.0-18.0) g/dL Hct 49.4 (42-52) % MCV 72.4 L (80-100) fL MCH 24.0 L (25-34) pg MCHC 33.2 (32-36) g/dL RDW Std Deviation 40.7 (36.4-46.3) fL RDW Coeff of Ya 15.5 H (11.5-14.5) % Plt Count 112 L (130-400) K/uL MPV 11.0 H (7.4-10.4) fL Immature Gran % (Auto) 0.2 % Neut % (Auto) 65.2 % Lymph % (Auto) 25.0 % Early % (Auto) 9.4 % Eos % (Auto) 0.0 % Baso % (Auto) 0.2 % Neut # (Auto) 3.33 (1.4-6.5) K/uL Lymph # (Auto) 1.28 (1.2-3.4) K/uL Early # (Auto) 0.48 (0.11-0.59) K/uL Eos # (Auto) 0.00 (0-0.5) K/uL Baso # (Auto) 0.01 (0-0.2) K/uL Immature Gran # (Auto) 0.01 (0.00-0.02) K/uL PT 11.5 (9.0-12.0) Seconds INR 1.1 (0.9-1.1) D-Dimer 670 H* (0-500) ug/L FEU VBG pH (7.36-7.41) VBG pCO2 (38-50) mmHg VBG pO2 mmHg VBG HCO3 mmol/L VBG O2 Saturation % VBG Base Excess mEq/L Barometric Pressure mm/Hg Sodium 134 L (136-145) mmol/L Potassium 3.9 (3.5-5.1) mmol/L Chloride 104 (98-107) mmol/L Carbon Dioxide 23 (21-32) mmol/L Anion Gap 7.0 (3-11) BUN 16 (7-18) mg/dl Creatinine 1.07 (0.6-1.4) mg/dl Est Cr Clr Drug Dosing 82.2 ml/min Est GFR ( Amer) 84.6 Est GFR (Non-Af Amer) 73.0 BUN/Creatinine Ratio 15.3 (10-20) Glucose 118 H (70-99) mg/dl Lactate (0.4-2.0) mmol/L Calcium 8.3 L (8.5-10.1) mg/dl Total Bilirubin 0.9 (0.2-1) mg/dl AST 35 (15-37) U/L ALT 32 (12-78) U/L Alkaline Phosphatase 49 (45-117) U/L Troponin I 0.037 (0-0.045) ng/ml C-Reactive Protein 6.76 H (0-0.29) mg/dl Total Protein 7.6 (6.4-8.2) gm/dl Albumin 3.0 L (3.4-5.0) gm/dl Globulin 4.6 H (2.5-4.0) gm/dl Albumin/Globulin Ratio 0.7 L (0.9-2) Lipase 121 (73-393) U/L COVID-19 Eval Order SARS-CoV-2, RNA, NAAT (NEGATIVE) Blood Type Antibody Screen 09/21/20 09/21/20 09/21/20 Range/Units 14:29 14:29 14:29 WBC (4.8-10.8) K/uL RBC (4.7-6.1) M/uL Hgb (14.0-18.0) g/dL Hct (42-52) % MCV (80-100) fL MCH (25-34) pg MCHC (32-36) g/dL RDW Std Deviation (36.4-46.3) fL RDW Coeff of Ya (11.5-14.5) % Plt Count (130-400) K/uL MPV (7.4-10.4) fL Immature Gran % (Auto) % Neut % (Auto) % Lymph % (Auto) % Early % (Auto) % Eos % (Auto) % Baso % (Auto) % Neut # (Auto) (1.4-6.5) K/uL Lymph # (Auto) (1.2-3.4) K/uL Early # (Auto) (0.11-0.59) K/uL Eos # (Auto) (0-0.5) K/uL Baso # (Auto) (0-0.2) K/uL Immature Gran # (Auto) (0.00-0.02) K/uL PT (9.0-12.0) Seconds INR (0.9-1.1) D-Dimer (0-500) ug/L FEU VBG pH 7.42 H (7.36-7.41) VBG pCO2 36 L (38-50) mmHg VBG pO2 42 mmHg VBG HCO3 23 mmol/L VBG O2 Saturation 75.8 % VBG Base Excess -1.1 mEq/L Barometric Pressure 733.1 mm/Hg Sodium (136-145) mmol/L Potassium (3.5-5.1) mmol/L Chloride (98-107) mmol/L Carbon Dioxide (21-32) mmol/L Anion Gap (3-11) BUN (7-18) mg/dl Creatinine (0.6-1.4) mg/dl Est Cr Clr Drug Dosing ml/min Est GFR ( Amer) Est GFR (Non-Af Amer) BUN/Creatinine Ratio (10-20) Glucose (70-99) mg/dl Lactate 1.4 (0.4-2.0) mmol/L Calcium (8.5-10.1) mg/dl Total Bilirubin (0.2-1) mg/dl AST (15-37) U/L ALT (12-78) U/L Alkaline Phosphatase (45-117) U/L Troponin I (0-0.045) ng/ml C-Reactive Protein (0-0.29) mg/dl Total Protein (6.4-8.2) gm/dl Albumin (3.4-5.0) gm/dl Globulin (2.5-4.0) gm/dl Albumin/Globulin Ratio (0.9-2) Lipase (73-393) U/L COVID-19 Eval Order SARS-CoV-2, RNA, NAAT (NEGATIVE) Blood Type O Positive Antibody Screen NEGATIVE 09/21/20 09/21/20 Range/Units 14:30 14:30 WBC (4.8-10.8) K/uL RBC (4.7-6.1) M/uL Hgb (14.0-18.0) g/dL Hct (42-52) % MCV (80-100) fL MCH (25-34) pg MCHC (32-36) g/dL RDW Std Deviation (36.4-46.3) fL RDW Coeff of Ya (11.5-14.5) % Plt Count (130-400) K/uL MPV (7.4-10.4) fL Immature Gran % (Auto) % Neut % (Auto) % Lymph % (Auto) % Early % (Auto) % Eos % (Auto) % Baso % (Auto) % Neut # (Auto) (1.4-6.5) K/uL Lymph # (Auto) (1.2-3.4) K/uL Early # (Auto) (0.11-0.59) K/uL Eos # (Auto) (0-0.5) K/uL Baso # (Auto) (0-0.2) K/uL Immature Gran # (Auto) (0.00-0.02) K/uL PT (9.0-12.0) Seconds INR (0.9-1.1) D-Dimer (0-500) ug/L FEU VBG pH (7.36-7.41) VBG pCO2 (38-50) mmHg VBG pO2 mmHg VBG HCO3 mmol/L VBG O2 Saturation % VBG Base Excess mEq/L Barometric Pressure mm/Hg Sodium (136-145) mmol/L Potassium (3.5-5.1) mmol/L Chloride (98-107) mmol/L Carbon Dioxide (21-32) mmol/L Anion Gap (3-11) BUN (7-18) mg/dl Creatinine (0.6-1.4) mg/dl Est Cr Clr Drug Dosing ml/min Est GFR ( Amer) Est GFR (Non-Af Amer) BUN/Creatinine Ratio (10-20) Glucose (70-99) mg/dl Lactate (0.4-2.0) mmol/L Calcium (8.5-10.1) mg/dl Total Bilirubin (0.2-1) mg/dl AST (15-37) U/L ALT (12-78) U/L Alkaline Phosphatase (45-117) U/L Troponin I (0-0.045) ng/ml C-Reactive Protein (0-0.29) mg/dl Total Protein (6.4-8.2) gm/dl Albumin (3.4-5.0) gm/dl Globulin (2.5-4.0) gm/dl Albumin/Globulin Ratio (0.9-2) Lipase (73-393) U/L COVID-19 Eval Order Covid19 [facility] SARS-CoV-2, RNA, NAAT POSITIVE A* (NEGATIVE) Blood Type Antibody Screen Administered Medications Enoxaparin Sodium (Enoxaparin Inj 40 Mg/0.4 Ml Syr) 40 mg SQ QPM JAIME Stop: 10/21/20 20:59 Last Admin: 09/21/20 21:50 Dose: 40 mg Documented by: [id number] Insulin Aspart (Insulin Aspart 100 Units/Ml 3 Ml Pen) 0 units SC ACHS JAIME Stop: 10/21/20 21:29 Last Admin: 09/21/20 21:49 Dose: 1 units Documented by: [id number] Cosigned by: [id number] Discontinued Medications Acetaminophen (Acetaminophen 500 Mg Tab) 1,000 mg PO NOW STA Stop: 09/21/20 14:25 Last Admin: 09/21/20 14:28 Dose: 1,000 mg Documented by: [id number] Dexamethasone (Dexamethasone Sod Inj 10 Mg/Ml Vial) 10 mg IV NOW ONE Stop: 09/21/20 14:55 Last Admin: 09/21/20 15:34 Dose: 10 mg Documented by: [id number] Sodium Chloride (Nss 1000ml) 1,000 mls @ 999 mls/hr IV .Q1H1M JAIME Stop: 09/21/20 15:30 Last Infusion: 09/21/20 15:26 Dose: 0 mls/hr Documented by: [id number] Admin: 09/21/20 14:25 Dose: 999 mls/hr Documented by: [id number] Ioversol (Optiray 320 125ml) 120 ml IV ONCE ONE Stop: 09/21/20 16:19 Last Admin: 09/21/20 16:19 Dose: 120 ml Documented by: [id number] Discharge Plan Visit Data Chief Complaint: Respiratory Problems ED Provider: Miguel Gomez Discharge Problem: Breathlessness, Pneumonia due to COVID-19 virus, Hypoxia Patient Disposition: Admitted As Inpatient Discharge Instructions Interventions: ED Discharge Assessment Last Done: 09/21/20 20:04
[2020-09-21] MEDS ORDERED: SODIUM CHLORIDE 0.9% 1000ML 1,000 ML IV SCH (14:30)
[2020-09-21 14:52] LABS: Basophils # (auto) 0.01 K/uL (0-0.2); Basophils % (auto) 0.2 %; Hematocrit (blood only) 49.4 % (42-52); Hemoglobin 16.4 g/dL (14.0-18.0); Immature Granulocytes # (auto) 0.01 K/uL (0.00-0.02); Immature Granulocytes % (auto) 0.2 %; Lymphocytes # (auto) 1.28 K/uL (1.2-3.4); Mean Corpuscular Hgb Conc 33.2 g/dL (32-36); Mean Corpuscular Volume 72.4 fL (80-100); Monocytes # (auto) 0.48 K/uL (0.11-0.59); Monocytes % (auto) 9.4 %; Neutrophils # (auto) 3.33 K/uL (1.4-6.5); Neutrophils % (auto) 65.2 %; Platelet Count 112 K/uL (130-400); RDW Coefficient of Variation 15.5 % (11.5-14.5); RDW Standard Deviation 40.7 fL (36.4-46.3); Red Blood Count 6.82 M/uL (4.7-6.1); White Blood Count 5.11 K/uL (4.8-10.8)
[2020-09-21] MEDS ORDERED: DEXAMETHASONE SOD INJ 10 MG/ML VIAL IV ONE (14:54)
[2020-09-21 14:57] LABS: INR 1.1 (0.9-1.1); Prothrombin Time 11.5 Seconds (9.0-12.0)
[2020-09-21 14:58] LABS: Base Excess VBG -1.1 mEq/L; Oxygen Saturation VBG 75.8 %; pH VBG 7.42 (7.36-7.41)
--- NOTE | 2020-09-21 15:00 | XRay Report ---
SINGLE VIEW CHEST CLINICAL HISTORY: Dyspnea. Hypoxia. FINDINGS: An AP, portable, upright chest radiograph is compared to study dated 08/24/2019. The heart i s mildly enlarged. The pulmonary vasculature is noncongested. Emphysema and chronic interstitial thic kening are similar to previous. Patchy airspace opacities are seen in the mid to lower lungs. No larg e pleural effusion or pneumothorax is seen. The skeletal structures are osteopenic. The bony thorax i s grossly intact. IMPRESSION: 1. Cardiomegaly and emphysema. 2. Patchy airspace opacities are seen in the mid to lower lungs. This could represent scarring/atelec tasis versus an infectious/inflammatory pneumonitis. Clinical correlation will be required. ACT 112: Negative or not required by law. Electronically signed by: Andrei Stevens M.D. 09/21/2020 2:58 PM
[2020-09-21 15:03] LABS: D Dimer 670 ug/L FEU (0-500)
[2020-09-21 15:08] LABS: BUN Creatinine Ratio 15.3 (10-20); C Reactive Protein 6.76 mg/dl (0-0.29); Calcium 8.3 mg/dl (8.5-10.1); Creatinine Clr Calc Pharmacy 82.2 ml/min; Est GFR (African American) 84.6; Potassium 3.9 mmol/L (3.5-5.1)
[2020-09-21 15:13] LABS: Albumin Globulin Ratio 0.7 (0.9-2); Bilirubin,Total 0.9 mg/dl (0.2-1); Globulin 4.6 gm/dl (2.5-4.0); Total Protein 7.6 gm/dl (6.4-8.2); Troponin I 0.037 ng/ml (0-0.045)
[2020-09-21] MEDS ORDERED: OPTIRAY 320 125ml IV ONE (16:18)
--- NOTE | 2020-09-21 16:32 | CT Scan Report ---
CHEST CTA for PULMONARY ARTERIES CT DOSE: 800.89 mGy.cm HISTORY: Shortness of breath., +DIMER,+COVID, on O2 TECHNIQUE: Multiaxial CT images of the chest were performed following the intravenous administration of contrast to evaluate the pulmonary arteries. Maximal intensity projection images were also obtaine d. A dose lowering technique was utilized adhering to the principles of ALARA. COMPARISON STUDY: Chest 09/21/2020. FINDINGS: The heart is normal in size. No pleural or pericardial effusions. The ascending thoracic ao rta is at the upper limits of normal measuring 3.8 cm in diameter. Mild calcified plaque within the t horacic aorta. No evidence for an aortic dissection. Limited views of the upper abdomen demonstrate a normal spleen and adrenal glands. Normal caliber esophagus. No mediastinal lymphadenopathy. There is mild bilateral hilar lymphadenopathy. Dominant right hilar lymph node measures 11 mm in short axis d iameter. There is a 7 mm hypodense lesion within the left hepatic lobe. This is technically too small to characterize. There is a 12 mm midline lower anterior chest wall subcutaneous hypodense nodule. T his favors a sebaceous cyst. No suspicious lytic or blastic osseous lesions. No filling defects withi n the pulmonary arteries to suggest pulmonary embolus. Small fat-containing right-sided [place] her esther. No pneumothorax. The central airways are patent. Moderate emphysema. Mild diffuse interstitial t hickening with subpleural reticulation. This most pronounced within the mid to lower lung zones. Ther e are small peripheral patchy airspace opacities within the bilateral mid to lower lung zones is a 4 mm subpleural nodule within the right upper lobe posteriorly on image 224. 5 mm subpleural nodule sagar ng the right minor fissure on image 122. A few bibasilar linear densities favor subsegmental atelecta sis. IMPRESSION: 1. No evidence for pulmonary embolus. 2. Emphysema. 3. Mild diffuse interstitial thickening with subpleural reticulation and small peripheral patchy airs pace opacities within the mid to lower lung zones. This likely represents a mild pneumonitis on super imposed mild fibrotic change. 4. Mild bilateral hilar lymphadenopathy. This is likely reactive. 3. A total of 2 subcentimeter indeterminate pulmonary nodules within the right lung with the largest measuring 5 mm. Please refer to the chart below for recommended follow-up. Please refer to below summary of Fleischner criteria recommendations for follow-up of incidental CT n odules (Leon Gomez, Guidelines for management of small pulmonary nodules detected on CT scans: A sta tement from the Fleischner Society, Radiology 237: [phone].) SOLID NODULES Solitary nodule size: <6 mm * Low risk patients: no follow-up needed * high risk patients: optional CT at 12 months Solitary nodule size: 6-8 mm * Low risk patients: follow-up at 6-12 months, then consider further follow-up at 18-24 months * high risk patients: initial follow-up CT at 6-12 months and then at 18-24 months if no change Solitary nodule size: >8 mm * either low or high risk patients - consider follow-up CT at 3 months, and/or CT-PET, and/or biopsy Multiple nodules size: <6 mm * Low risk patients: no routine follow-up * high risk patients: optional CT at 12 months Multiple nodules size: 6-8 mm * Low risk patients: follow-up at 3-6 months, then consider further follow-up at 18-24 months * high risk patients: follow-up at 3-6 months, then at 18-24 months if no change Multiple nodules size: >8 mm * Low risk patients: follow-up at 3-6 months, then consider further follow-up at 18-24 months * high risk patients: follow-up at 3-6 months, then at 18-24 months if no change Note: newly detected indeterminate nodule in persons 35 years of age or older. * Low risk patients: minimal or absent history of smoking and/or other known risk factors * high risk patients: history of smoking or of other known risk factors (e.g. first degree relative with lung cancer, or exposure to asbestos, radon, uranium) * if a nodule up to 8 mm is partly solid or is ground glass further follow-up is required after 24 m onths to exclude possible slow growing adenocarcinoma (MARLENE) SUBSOLID NODULES Solitary pure ground-glass nodule * nodule size <6 mm - no CT follow-up required * nodule size >=6 mm - follow-up CT at 6-12 months, then every 2 years until 5 years Solitary part-solid nodule * nodule size <6 mm - no CT follow-up required * nodule size >=6 mm - follow-up CT at 3-6 months. If unchanged, and solid component remains <6 mm, then annual follow-up for 5 years Multiple subsolid nodules * nodule size <6 mm - follow-up CT at 3-6 months, consider further follow-up at 2 and 4 years if sta ble * nodule size >=6 mm - follow-up CT at 3-6 months, subsequent management based on the most suspiciou s nodule(s) ACT 112: Negative or not required by law. Electronically signed by: Maco Pal M.D. 09/21/2020 4:30 PM
--- NOTE | 2020-09-21 17:40 | History & Physical Report ---
Date of Service September 21, 2020 History of Present Illness Primary Care Provider: KRISTIN Florentin Foster is a 65-year-old male who presents to the ER with Allergies Allergy/AdvReac Type Severity Reaction Status Date / Time clindamycin AdvReac Unknown Unknown Unverified 09/21/20 14:44 Penicillins AdvReac Unknown Unknown Unverified 09/21/20 14:44 Home Medications Medication Instructions Recorded Confirmed Type Oyster Shell Calcium-Vit D3 1 ea PO QAM 08/24/19 09/21/20 History metformin 500 mg PO QAM 08/24/19 09/21/20 History rosuvastatin 20 mg PO QAM 08/24/19 09/21/20 History lisinopril 20 mg PO DAILY #30 tab 08/27/19 09/21/20 Rx acetaminophen [Acetaminophen Extra 500 mg PO TID PRN 09/21/20 09/21/20 History Strength] aspirin [Aspirin Low-Strength] 81 mg PO DAILY 09/21/20 09/21/20 History cholecalciferol (vitamin D3) 25 mcg PO DAILY 09/21/20 09/21/20 History [Vitamin D3] guaifenesin [Mucosa] 400 mg PO TID 09/21/20 09/21/20 History ondansetron 4 mg PO TID PRN 09/21/20 09/21/20 History zinc sulfate 220 mg PO BID 09/21/20 09/21/20 History Past Med/Surg History Medical History (Updated 09/21/20 @ 14:31 by Miguel Gomez M.D.) Diabetes mellitus, type II Erectile dysfunction HTN (hypertension) Hyperlipidemia Surgical History No significant past surgical history Family History (Updated 08/24/19 @ 20:32 by Clifford Hernandez MD) Mother Stroke Brother Diabetes Grandmother (Maternal) Diabetes Myocardial infarction Social History Smoking Status: Former smoker Hx Alcohol Use: No Hx Substance Use: No Preferred Language: Rwandan Communication Ability: Effective Ssn/Ssbn Assistant Navigator Required: No Beliefs That Will Affect Care: None marital status: Unknown Current Living Situation: Other Current Living Situation Comment: Florentin Inmate Feels Safe at Home: Yes Assistive Devices: None Results & Data Results & Data ([facility]) Vital Signs (Past 12 Hours) Vital Signs Temp Pulse Resp BP Pulse Ox 09/21/20 17:00 75 24 103/60 95 09/21/20 16:30 74 21 111/57 L 97 09/21/20 16:20 77 22 124/64 96 09/21/20 16:00 80 20 110/61 94 09/21/20 15:38 37.2 C 80 24 114/64 94 09/21/20 15:00 82 20 96 09/21/20 14:25 87 L 09/21/20 14:10 39.5 C H 94 H 22 128/73 87 L PG Care Time/CCT Total # of Minutes Spent Total Time Spent with Patient: Total time spent is greater than 50% in coordination of care (as documented) at patient's floor/unit and/or counseling patient: Coding
--- NOTE | 2020-09-21 17:53 | History & Physical Report ---
Date of Service September 21, 2020 Assessment & Plan (1) Pneumonia due to COVID-19 virus: 10 days of symptoms therefore not given remdesivir or convalescent plasma. Dexamethasone 6 mg IV daily for total 10 days. Isolation precautions: airborne and contact (2) Hypoxia: Aim O2 sats > 94% (3) HTN (hypertension): Hold linsinopril pending stability of BP (4) Diabetes mellitus, type II: HbA1C with AM labs, previously 6.2 in August 2019. T2DM diet Consult pharmacy for glycemic control in setting of dexamethasone use. (5) Hyperlipidemia: Continue rosuvastatin 20mg PO daily (6) DVT prophylaxis: Lovenox 40mg SQ QPM (d-dimer < 700) Admission and Anticipated Discharge Date Admission Date: Sep 22, 2020 History of Present Illness Chief Complaint: Hypoxia Primary Care Provider: KRISTIN Lerma Joni Foster is a 65-year-old male who presents to the ER with shortness of breath. The patient reports shortness of breath, nonproductive cough, loss of taste and smell (now better), myalgias (improving), headache (now resolved), generalized fatigue, nausea and diarrhea (now resolved). He [facility] a [facility]. He reports generally feeling better however requiring oxygen for the last few days and was brought by EMS to the ER today due to w orsening hypoxia. He has not currently being treated with steroids. He denies any fever, chills, sore throat, vomiting, confusion, chest or abdominal pain. In the ER his COVID-19 PCR test was positive. Chest x-ray and CTA showed mild diffuse interstitial thickening with subpleural reticulation and small peripheral patchy airspace opacities likely representing mild pneumonitis. He denies any aspirations or choking/coughing after eating. He was referred to medicine for COVID-19 pneumonia with hypoxia for admission and ongoing management. Allergies Allergy/AdvReac Type Severity Reaction Status Date / Time clindamycin AdvReac Unknown Unknown Unverified 09/21/20 14:44 Penicillins AdvReac Unknown Unknown Unverified 09/21/20 14:44 Home Medications Medication Instructions Recorded Confirmed Type Oyster Shell Calcium-Vit D3 1 ea PO QAM 08/24/19 09/21/20 History metformin 500 mg PO QAM 08/24/19 09/21/20 History rosuvastatin 20 mg PO QAM 08/24/19 09/21/20 History lisinopril 20 mg PO DAILY #30 tab 08/27/19 09/21/20 Rx acetaminophen [Acetaminophen Extra 500 mg PO TID PRN 09/21/20 09/21/20 History Strength] aspirin [Aspirin Low-Strength] 81 mg PO DAILY 09/21/20 09/21/20 History cholecalciferol (vitamin D3) 25 mcg PO DAILY 09/21/20 09/21/20 History [Vitamin D3] guaifenesin [Mucosa] 400 mg PO TID 09/21/20 09/21/20 History ondansetron 4 mg PO TID PRN 09/21/20 09/21/20 History zinc sulfate 220 mg PO BID 09/21/20 09/21/20 History Past Med/Surg History Medical History (Updated 09/22/20 @ 11:11 by Cole Gillette MD) Diabetes mellitus, type II Erectile dysfunction HTN (hypertension) Hyperlipidemia Surgical History No significant past surgical history Family History (Updated 08/24/19 @ 20:32 by Clifford Hernandez MD) Mother Stroke Brother Diabetes Grandmother (Maternal) Diabetes Myocardial infarction Social History Smoking Status: Former smoker Second Hand Exposure: No; Do You Dip or Chew Tobacco: No; Tobacco Cessation Education Requested by Patient: No Hx Alcohol Use: No Hx Substance Use: No Preferred Language: [place] Communication Ability: Effective Inspector Chief Required: No Beliefs That Will Affect Care: None marital status: Unknown Current Living Situation: Other Current Living Situation Comment: [facility] Other Information That Helps Us Care for You: No Feels Safe at Home: Yes Safety Concerns: Feels Safe At This Time Assistive Devices: Glasses and Oxygen - Continuous Review of Systems Review of Systems: All systems reviewed & are unremarkable except as noted in HPI & below Physical Exam Constitutional: well developed and well nourished; no acute distress Eyes: PERRL, conjunctivae normal, anicteric sclerae ENMT: external ear and nose normal, oropharynx normal Neck: trachea midline, no thyromegaly Respiratory: normal respiratory effort, lungs clear to auscultation Cardiovascular: RRR, no murmur, no edema (occasional skipped beats) Gastrointestinal (Abdomen): normal bowel sounds, soft, nontender, no hepatosplenomegaly Musculoskeletal: no cyanosis or clubbing, extremities motor strength 5/5 Skin: no rashes, warm and dry Neurologic: moves all extremities and awake; no focal motor deficits and not confused Psychiatric: A+Ox3, euthymic affect Results & Data Results & Data ([facility]) Vital Signs (Past 12 Hours) Vital Signs Temp Pulse Resp BP Pulse Ox 09/21/20 17:00 75 24 103/60 95 09/21/20 16:30 74 21 111/57 L 97 09/21/20 16:20 77 22 124/64 96 09/21/20 16:00 80 20 110/61 94 09/21/20 15:38 37.2 C 80 24 114/64 94 09/21/20 15:00 82 20 96 09/21/20 14:25 87 L 09/21/20 14:10 39.5 C H 94 H 22 128/73 87 L Diagnostic Findings SINGLE VIEW CHEST IMPRESSION: 1. Cardiomegaly and emphysema. 2. Patchy airspace opacities are seen in the mid to lower lungs. This could represent scarring/atelectasis versus an infectious/inflammatory pneumonitis. Clinical correlation will be required. CHEST CTA for PULMONARY ARTERIES IMPRESSION: 1. No evidence for pulmonary embolus. 2. Emphysema. 3. Mild diffuse interstitial thickening with subpleural reticulation and small peripheral patchy airspace opacities within the mid to lower lung zones. This likely represents a mild pneumonitis on superimposed mild fibrotic change. 4. Mild bilateral hilar lymphadenopathy. This is likely reactive. 5. A total of 2 subcentimeter indeterminate pulmonary nodules within the right lung with the largest measuring 5 mm. Medications Administered ER medications given: Dexamethasone 10 mg IV NSS 1 hour bolus Acetaminophen 1 g p.o. ECG Indication: SOB/dyspnea Rate (beats per minute): 90 Rhythm: normal sinus Findings: + PVC; no acute ischemic change Comparison ECG Date: from (August 24, 2019) Change: the following changes noted (T wave inversions in inferior lateral leads no longer present, ST depression in inferior leads no longer present) Code Status & VTE Plan Code Status Full VTE Prophylaxis Plan VTE Prophylaxis will be ordered: Yes PG Care Time/CCT Total # of Minutes Spent Total Time Spent with Patient: Total time spent is greater than 50% in coordination of care (as documented) at patient's floor/unit and/or counseling patient: Coding Level of Care Code 19393 Initial Inpt Care Lvl 3 Diagnoses Pneumonia due to COVID-19 virus U07.1; J12.82 Hypoxia R09.02 HTN (hypertension) I10 Diabetes mellitus, type II E11.9 Hyperlipidemia E78.5 DVT prophylaxis Z29.9
[2020-09-21] MEDS ORDERED: ALUMINUM/MAGNESIUM SUSP 30 ML UDC PO PRN (20:53)
[2020-09-21] MEDS ORDERED: ONDANSETRON INJ 2 MG/ML 2 ML VIAL IV PRN (20:53)
[2020-09-21] MEDS ORDERED: PHARMACY GLYCEMIC MGMT CONSULT PRN (21:19)
[2020-09-21] MEDS ORDERED: GLUCOSE 10 TABS/TUBE PO PRN (21:30)
[2020-09-21] MEDS ORDERED: GLUCAGON FOR INJ 1 MG VIAL SQ PRN (21:30)
[2020-09-21] MEDS ORDERED: DEXTROSE 50% 50 ML SYRINGE IV PRN (21:30)
[2020-09-21] MEDS ORDERED: CARBOHYDRATES FOR HYPOGLYCEMIA PO PRN (21:30)
[2020-09-21] MEDS ORDERED: GLUCOSE 40% GEL 15 GM TUBE PO PRN (21:30)
[2020-09-21] MEDS: INSULIN ASPART 100 UNITS/ML 3 ML PEN SC SCH (21:49)
[2020-09-21] MEDS: ENOXAPARIN INJ 40 MG/0.4 ML SYR SQ SCH (21:50)
[2020-09-22] MEDS ORDERED: INSULIN ASPART 100 UNITS/ML 3 ML PEN SC SCH (04:00)
[2020-09-22 08:08] LABS: Hematocrit (blood only) 50.4 % (42-52); Hemoglobin 16.7 g/dL (14.0-18.0); Lymphocytes # (auto) 1.02 K/uL (1.2-3.4); Lymphocytes % (auto) 37.8 %; Mean Corpuscular Hemoglobin 24.1 pg (25-34); Mean Corpuscular Hgb Conc 33.1 g/dL (32-36); Mean Corpuscular Volume 72.8 fL (80-100); Mean Platelet Volume 10.9 fL (7.4-10.4); Monocytes # (auto) 0.28 K/uL (0.11-0.59); Monocytes % (auto) 10.4 %; Neutrophils % (auto) 51.8 %; Platelet Count 114 K/uL (130-400); RDW Coefficient of Variation 15.3 % (11.5-14.5); RDW Standard Deviation 40.1 fL (36.4-46.3); Red Blood Count 6.92 M/uL (4.7-6.1)
[2020-09-22 08:43] LABS: BUN Creatinine Ratio 16.7 (10-20); Creatinine Clr Calc Pharmacy 96.6 ml/min; Est GFR (African American) 102.9; Est GFR (Non-African American) 88.8; Potassium 4.4 mmol/L (3.5-5.1)
[2020-09-22] MEDS ORDERED: INSULIN HUMAN NPH SC SCH (09:00)
[2020-09-22 09:28] LABS: Estimated Average Glucose 171 mg/dl; Hemoglobin A1C 7.6 % (4.5-5.6)
[2020-09-22] MEDS: ROSUVASTATIN CALCIUM 20 MG TAB PO SCH (09:29)
[2020-09-22] MEDS: dexAMETHasone 6 MG in SYRINGE 0 ML IV SCH (09:29)
[2020-09-22] MEDS: CHOLECALCIFEROL 1,000 UNITS 25 MCG TAB PO SCH (09:29)
[2020-09-22] MEDS: ASPIRIN 81 MG ECTAB PO SCH (09:29)
[2020-09-22] MEDS: INSULIN HUMAN NPH SC SCH (09:30)
[2020-09-22] MEDS: INSULIN ASPART 100 UNITS/ML 3 ML PEN SC SCH ×4 (09:30→21:08)
--- NOTE | 2020-09-22 11:44 | Electrocardiogram Report ---
Test Reason : Blood Pressure : / mmHG Vent. Rate : 090 BPM Atrial Rate : 090 BPM P-R Int : 130 ms QRS Dur : 080 ms QT Int : 366 ms P-R-T Axes : 056 -11 051 degrees QTc Int : 447 ms Sinus rhythm with occasional Premature ventricular complexes Minimal voltage criteria for LVH, may be normal variant Borderline ECG When compared with ECG of 24-AUG-2019 16:06, Significant changes have occurred Confirmed by Wallace Clemens ([id number]) on 09/22/2020 11:44:10 AM Referred By: [facility] Confirmed By:Wallace Clemens
--- NOTE | 2020-09-22 15:02 | Hospitalist Progress Note ---
Date of Service September 22, 2020 Assessment & Plan (1) Pneumonia due to COVID-19 virus: 10 days of symptoms therefore not given remdesivir or convalescent plasma. Dexamethasone 6 mg IV daily for total 10 days, day 2 today Isolation precautions: airborne and contact supplemental oxygen, stable on 6L, no distress at all he is eating and drinking well discussed with him that he may get worse before he gets better (2) Hypoxia: acute hypoxic respiratory failure due to COVID 19 pneumonia supplemental oxygen at 6L if he would require higher amounts of oxygen we can move to second floor (3) HTN (hypertension): BP elevated in 140's resume Lisinopril (4) Diabetes mellitus, type II: HbA1C 7.6%, previously 6.2 in August 2019. T2DM diet Consult pharmacy for glycemic control in setting of dexamethasone use. (5) Hyperlipidemia: Continue rosuvastatin 20mg PO daily (6) DVT prophylaxis: Lovenox 40mg SQ QPM (d-dimer < 700) Admission and Anticipated Discharge Date Admission Date: September 21, 2020 Subjective patient resting comfortably, laying on his left side, no distress at all he said he is eating and drinking well confirmed he has been sick for over 10 days we discussed that dexamethasone is only treatment reviewed labs, WBC 2k, Cr 0.9 and Hb A1c 7.6% Review of Systems Review of Systems: All systems reviewed & are unremarkable except as noted in Subjective Constitutional: no fever, no chills, no sweats, no fatigue and no weakness Respiratory: + dyspnea and + dyspnea on exertion; no cough Cardiovascular: no chest pain, no palpitations and no edema Gastrointestinal: no abdominal pain, no nausea, no vomiting, no constipation and no diarrhea/loose stools Musculoskeletal: no back pain and no muscle weakness Physical Exam Constitutional: WD/WN, vitals as above Neck: trachea midline, no thyromegaly + facial hair Respiratory: normal respiratory effort; no respiratory distress, no labored breathing and no cough Auscultation: lungs clear to auscultation bilaterally Cardiovascular: RRR, no murmur, no edema Gastrointestinal (Abdomen): normal bowel sounds, soft, nontender, no hepatosplenomegaly Musculoskeletal: no cyanosis or clubbing, extremities motor strength 5/5 Skin: no rashes, warm and dry Neurologic: patellar DTR's 2+ bilat, sensation intact and PERRL, EOMI, accommodation nl, no face palsy, no dysarthria Psychiatric: A+Ox3, euthymic affect Lymphatic: no cervical or axillary lymphadenopathy Results & Data Results & Data ([facility]) Vital Signs (Past 12 Hours) Vital Signs Temp Pulse Resp BP Pulse Ox 09/22/20 07:26 36.9 C 68 24 147/88 H 91 09/22/20 04:16 92 09/22/20 04:15 88 L Laboratory Results Laboratory Results - last 24 hr 09/21/20 09/21/20 09/21/20 14:29 14:29 14:29 WBC RBC Hgb Hct MCV MCH MCHC RDW Std Deviation RDW Coeff of Ya Plt Count MPV Immature Gran % (Auto) Neut % (Auto) Lymph % (Auto) Kimball % (Auto) Eos % (Auto) Baso % (Auto) Neut # (Auto) Lymph # (Auto) Kimball # (Auto) Eos # (Auto) Baso # (Auto) Immature Gran # (Auto) PT 11.5 INR 1.1 D-Dimer 670 H* VBG pH VBG pCO2 VBG pO2 VBG HCO3 VBG O2 Saturation VBG Base Excess Barometric Pressure Sodium 134 L Potassium 3.9 Chloride 104 Carbon Dioxide 23 Anion Gap 7.0 BUN 16 Creatinine 1.07 Est Cr Clr Drug Dosing 82.2 Est GFR ( Amer) 84.6 Est GFR (Non-Af Amer) 73.0 BUN/Creatinine Ratio 15.3 Glucose 118 H POC Glucose Estimat Average Glucose Hemoglobin A1c Lactate 1.4 Calcium 8.3 L Total Bilirubin 0.9 AST 35 ALT 32 Alkaline Phosphatase 49 Troponin I 0.037 C-Reactive Protein 6.76 H Total Protein 7.6 Albumin 3.0 L Globulin 4.6 H Albumin/Globulin Ratio 0.7 L Lipase 121 SARS-CoV-2, RNA, NAAT Blood Type Antibody Screen 09/21/20 09/21/20 09/21/20 14:29 14:29 14:30 WBC RBC Hgb Hct MCV MCH MCHC RDW Std Deviation RDW Coeff of Ya Plt Count MPV Immature Gran % (Auto) Neut % (Auto) Lymph % (Auto) Kimball % (Auto) Eos % (Auto) Baso % (Auto) Neut # (Auto) Lymph # (Auto) Kimball # (Auto) Eos # (Auto) Baso # (Auto) Immature Gran # (Auto) PT INR D-Dimer VBG pH 7.42 H VBG pCO2 36 L VBG pO2 42 VBG HCO3 23 VBG O2 Saturation 75.8 VBG Base Excess -1.1 Barometric Pressure 733.1 Sodium Potassium Chloride Carbon Dioxide Anion Gap BUN Creatinine Est Cr Clr Drug Dosing Est GFR ( Amer) Est GFR (Non-Af Amer) BUN/Creatinine Ratio Glucose POC Glucose Estimat Average Glucose Hemoglobin A1c Lactate Calcium Total Bilirubin AST ALT Alkaline Phosphatase Troponin I C-Reactive Protein Total Protein Albumin Globulin Albumin/Globulin Ratio Lipase SARS-CoV-2, RNA, NAAT POSITIVE A* Blood Type O Positive Antibody Screen NEGATIVE 09/21/20 09/22/20 09/22/20 20:58 05:38 07:19 WBC 2.70 L RBC 6.92 H Hgb 16.7 Hct 50.4 MCV 72.8 L MCH 24.1 L MCHC 33.1 RDW Std Deviation 40.1 RDW Coeff of Ya 15.3 H Plt Count 114 L MPV 10.9 H Immature Gran % (Auto) 0.0 Neut % (Auto) 51.8 Lymph % (Auto) 37.8 Kimball % (Auto) 10.4 Eos % (Auto) 0.0 Baso % (Auto) 0.0 Neut # (Auto) 1.40 Lymph # (Auto) 1.02 L Kimball # (Auto) 0.28 Eos # (Auto) 0.00 Baso # (Auto) 0.00 Immature Gran # (Auto) 0.00 PT INR D-Dimer VBG pH VBG pCO2 VBG pO2 VBG HCO3 VBG O2 Saturation VBG Base Excess Barometric Pressure Sodium Potassium Chloride Carbon Dioxide Anion Gap BUN Creatinine Est Cr Clr Drug Dosing Est GFR ( Amer) Est GFR (Non-Af Amer) BUN/Creatinine Ratio Glucose POC Glucose 144 H 141 H Estimat Average Glucose Hemoglobin A1c Lactate Calcium Total Bilirubin AST ALT Alkaline Phosphatase Troponin I C-Reactive Protein Total Protein Albumin Globulin Albumin/Globulin Ratio Lipase SARS-CoV-2, RNA, NAAT Blood Type Antibody Screen 09/22/20 09/22/20 09/22/20 07:19 07:19 08:13 WBC RBC Hgb Hct MCV MCH MCHC RDW Std Deviation RDW Coeff of Ya Plt Count MPV Immature Gran % (Auto) Neut % (Auto) Lymph % (Auto) Kimball % (Auto) Eos % (Auto) Baso % (Auto) Neut # (Auto) Lymph # (Auto) Kimball # (Auto) Eos # (Auto) Baso # (Auto) Immature Gran # (Auto) PT INR D-Dimer VBG pH VBG pCO2 VBG pO2 VBG HCO3 VBG O2 Saturation VBG Base Excess Barometric Pressure Sodium 134 L Potassium 4.4 Chloride 104 Carbon Dioxide 22 Anion Gap 7.0 BUN 15 Creatinine 0.91 Est Cr Clr Drug Dosing 96.6 Est GFR ( Amer) 102.9 Est GFR (Non-Af Amer) 88.8 BUN/Creatinine Ratio 16.7 Glucose 139 H POC Glucose 178 H Estimat Average Glucose 171 Hemoglobin A1c 7.6 H Lactate Calcium 9.0 Total Bilirubin AST ALT Alkaline Phosphatase Troponin I C-Reactive Protein Total Protein Albumin Globulin Albumin/Globulin Ratio Lipase SARS-CoV-2, RNA, NAAT Blood Type Antibody Screen 09/22/20 12:02 WBC RBC Hgb Hct MCV MCH MCHC RDW Std Deviation RDW Coeff of Ya Plt Count MPV Immature Gran % (Auto) Neut % (Auto) Lymph % (Auto) Kimball % (Auto) Eos % (Auto) Baso % (Auto) Neut # (Auto) Lymph # (Auto) Kimball # (Auto) Eos # (Auto) Baso # (Auto) Immature Gran # (Auto) PT INR D-Dimer VBG pH VBG pCO2 VBG pO2 VBG HCO3 VBG O2 Saturation VBG Base Excess Barometric Pressure Sodium Potassium Chloride Carbon Dioxide Anion Gap BUN Creatinine Est Cr Clr Drug Dosing Est GFR ( Amer) Est GFR (Non-Af Amer) BUN/Creatinine Ratio Glucose POC Glucose 156 H Estimat Average Glucose Hemoglobin A1c Lactate Calcium Total Bilirubin AST ALT Alkaline Phosphatase Troponin I C-Reactive Protein Total Protein Albumin Globulin Albumin/Globulin Ratio Lipase SARS-CoV-2, RNA, NAAT Blood Type Antibody Screen Medications Administered Current Inpatient Medications Acetaminophen (Acetaminophen 325 Mg Tab) 650 mg PO Q4H PRN PRN Reason: pain/fever Stop: 10/21/20 20:52 Al Hydrox/Mg Hydrox/Simethicone (Aluminum/Magnesium Susp 30 Ml Udc) 30 ml PO Q6H PRN PRN Reason: Dyspepsia Stop: 10/21/20 20:52 Aspirin (Aspirin 81 Mg Ectab) 81 mg PO DAILY JAIME Stop: 10/22/20 08:59 Last Admin: 09/22/20 09:29 Dose: 81 mg Documented by: Dextrose (Dextrose 50% 50 Ml Syringe) 25 - 50 ml IV UD PRN; Protocol PRN Reason: Hypoglycemia Protocol Stop: 10/21/20 21:29 Enoxaparin Sodium (Enoxaparin Inj 40 Mg/0.4 Ml Syr) 40 mg SQ QPM [facility] Stop: 10/21/20 20:59 Last Admin: 09/21/20 21:50 Dose: 40 mg Documented by: Glucagon (Glucagon For Inj 1 Mg Vial) 1 mg SQ UD PRN; Protocol PRN Reason: Hypoglycemia Protocol Stop: 10/21/20 21:29 Glucose (Glucose 40% Gel 15 Gm Tube) 15 - 30 gm PO UD PRN; Protocol PRN Reason: Hypoglycemia Protocol Stop: 10/21/20 21:29 Glucose (Glucose 10 Tabs/Tube) 4 - 8 tabs PO UD PRN; Protocol PRN Reason: Hypoglycemia Protocol Stop: 10/21/20 21:29 Dexamethasone 6 mg/ Syringe 1.5 mls @ 1 mls/min IV QAM [facility] Stop: 10/01/20 08:59 Last Admin: 09/22/20 09:29 Dose: 1 mls/min Documented by: Insulin Aspart (Insulin Aspart 100 Units/Ml 3 Ml Pen) 0 units SC ACHS [facility] Stop: 10/21/20 21:29 Last Admin: 09/22/20 13:24 Dose: 4 units Documented by: Insulin Human NPH (Insulin Human Nph) 20 units SC TODAY@0900 [facility] Stop: 10/22/20 08:59 Last Admin: 09/22/20 09:30 Dose: 20 units Documented by: Miscellaneous (Carbohydrates For Hypoglycemia ) 15 - 30 gm PO UD PRN PRN Reason: Hypoglycemia Treatment Stop: 10/21/20 21:29 Miscellaneous Information (Pharmacy Glycemic Mgmt Consult) 1 ea N/A UD PRN PRN Reason: Consult Stop: 10/21/20 21:18 Ondansetron HCl (Ondansetron Inj 2 Mg/Ml 2 Ml Vial) 4 mg IV Q6H PRN PRN Reason: Nausea Stop: 10/21/20 20:52 Polyethylene Glycol (Polyethylene (Miralax) 17 Gm Pack) 17 gm PO DAILY PRN PRN Reason: Constipation Stop: 02/03/21 20:52 Rosuvastatin Calcium (Rosuvastatin Calcium 20 Mg Tab) 20 mg PO QAM [facility] Stop: 10/22/20 08:59 Last Admin: 09/22/20 09:29 Dose: 20 mg Documented by: Vitamin D (Cholecalciferol 1,000 Units 25 Mcg Tab) 1,000 units PO DAILY [facility] Stop: 10/22/20 08:59 Last Admin: 09/22/20 09:29 Dose: 1,000 units Documented by: PG Care Time/CCT Total # of Minutes Spent Total Time Spent with Patient: Total time spent is greater than 50% in coordination of care (as documented) at patient's floor/unit and/or counseling patient: Coding Level of Care Code 54154 Subseq Hosp Care Lvl 3 Diagnoses Pneumonia due to COVID-19 virus U07.1; J12.82 Hypoxia R09.02 HTN (hypertension) I10 Diabetes mellitus, type II E11.9 Hyperlipidemia E78.5 DVT prophylaxis Z29.9
--- NOTE | 2020-09-22 15:15 | Pharmacy Report ---
Pharmacy Glycemic Short Note 2 - Date of Service September 22, 2020 - Glycemic Short BSG Results (Last 24 hours): 09/21/20 09/22/20 09/22/20 20:58 05:38 07:19 Glucose 139 H POC Glucose 144 H 141 H 09/22/20 09/22/20 08:13 12:02 Glucose POC Glucose 178 H 156 H OUTPATIENT ANTIDIABETIC REGIMEN: * Metformin 500 mg QAM * A1c 7.6% 09/22/20 ASSESSMENT: * DT is admitted with COVID-19 pneumonia, currently being treated with dexamethasone 6 mg IV daily * BSGs have all been <180 mg/dL, Fasting this AM was 178 mg/dL and therefore did add small NPH dose (~.15 units/kg) with decadron as this was given prior to A1c result * Novolog parameters are currently set as weight based stress of 2 PLAN FOR INPATIENT GLYCEMIC CONTROL: * Hold outpatient oral diabetes medications * Basal insulin * NPH 15 units this morning with decadron * Bolus insulin * NovoLog per scale ACHS or Q6hrs while NPO * Goal Range: Low 110 mg/dL - High 140 mg/dL * Correction Factor: 25 mg/dL/unit * Nutritional / Prandial insulin per carb ratio of 1 unit per 8 grams CHO consumed
[2020-09-22] MEDS: POLYETHYLENE (MIRALAX) 17 GM PACK PO PRN (15:50)
[2020-09-22 17:28] LABS: Appearance Urine Clear (Clear); Bacteria Urine Automated Negative (Negative); Bilirubin Urine Negative (Negative); Blood Urine 1+ (Negative); Color Urine Yellow; Epithelial Cell Urine Auto 0-5 /lpf (0-5); Glucose Urine UA Negative (Negative); Ketones Urine Trace (Negative); Leukocyte Esterase Urine Negative (Negative); Nitrite Urine Negative (Negative); Protein Urine 1+ (Negative); RBC Urine Automated 0-4 /hpf (0-4); Specific Gravity Urine 1.016 (1.000-1.030); Urobilinogen Urine Negative (Negative); pH Urine 5.5 (4.5-7.5)
[2020-09-22] MEDS: ENOXAPARIN INJ 40 MG/0.4 ML SYR SQ SCH (21:08)
[2020-09-23] MEDS: lisinopril 20 MG TAB PO SCH (09:04)
[2020-09-23] MEDS: ROSUVASTATIN CALCIUM 20 MG TAB PO SCH (09:04)
[2020-09-23] MEDS: DOCUSATE SODIUM/SENNA 50/8.6MG TAB PO SCH (09:04)
[2020-09-23] MEDS: ASPIRIN 81 MG ECTAB PO SCH (09:04)
[2020-09-23] MEDS: dexAMETHasone 6 MG in SYRINGE 0 ML IV SCH (09:05)
[2020-09-23] MEDS: INSULIN HUMAN NPH SC SCH (09:05)
[2020-09-23] MEDS: CHOLECALCIFEROL 1,000 UNITS 25 MCG TAB PO SCH (09:05)
[2020-09-23] MEDS: INSULIN ASPART 100 UNITS/ML 3 ML PEN SC SCH ×4 (09:06→20:59)
--- NOTE | 2020-09-23 14:05 | Hospitalist Progress Note ---
Date of Service September 23, 2020 Assessment & Plan (1) Pneumonia due to COVID-19 virus: 10 days of symptoms therefore not given remdesivir or convalescent plasma. Dexamethasone 6 mg IV daily for total 10 days, day 3 today Isolation precautions: airborne and contact supplemental oxygen, up to 15L this morning, now on 13L oxy mask he is eating and drinking well discussed with him that he may get worse before he gets better if he desaturates on the oxy mask will move to 2nd floor for high flow (2) Hypoxia: acute hypoxic respiratory failure due to COVID 19 pneumonia supplemental oxygen at 13-15L if he would require higher amounts of oxygen we can move to second floor for high flow (3) HTN (hypertension): BP elevated in 140's yesterday resume Lisinopril, BP is normal today (4) Diabetes mellitus, type II: HbA1C 7.6%, previously 6.2 in August 2019. T2DM diet Consult pharmacy for glycemic control in setting of dexamethasone use all sugars are < 200 (5) Hyperlipidemia: Continue rosuvastatin 20mg PO daily (6) DVT prophylaxis: Lovenox 40mg SQ QPM (d-dimer < 700) Admission and Anticipated Discharge Date Admission Date: September 21, 2020 Subjective patient was doing well on 6L this morning, saturations dropped to 70-80% placed on 15L, saturating 94%, no distress at all, laying on left side, almost prone at times he is eating well today, no fever no labs today discussed with him that right now, 15L is the most oxygen we can provide on this floor, if he would get worse then will move to 2nd floor for high flow he understands, says he feels fine right now Review of Systems Review of Systems: All systems reviewed & are unremarkable except as noted in Subjective Physical Exam Constitutional: WD/WN, vitals as above Neck: trachea midline, no thyromegaly + facial hair Respiratory: normal respiratory effort; no respiratory distress, no labored breathing and no cough Auscultation: lungs clear to auscultation bilaterally Cardiovascular: RRR, no murmur, no edema Gastrointestinal (Abdomen): normal bowel sounds, soft, nontender, no hepatosplenomegaly Musculoskeletal: no cyanosis or clubbing, extremities motor strength 5/5 Skin: no rashes, warm and dry Neurologic: patellar DTR's 2+ bilat, sensation intact and PERRL, EOMI, accommodation nl, no face palsy, no dysarthria Psychiatric: A+Ox3, euthymic affect Lymphatic: no cervical or axillary lymphadenopathy Results & Data Results & Data ([facility]) Vital Signs (Past 12 Hours) Vital Signs Temp Pulse Pulse Resp BP Pulse Ox 09/23/20 13:32 69 95 09/23/20 12:09 95 09/23/20 09:50 36.9 C 92 09/23/20 07:40 36.8 C 83 20 114/70 93 Laboratory Results Laboratory Results - last 24 hr 09/22/20 09/22/20 09/22/20 17:01 20:33 Unknown POC Glucose 158 H 166 H Urine Color Yellow Urine Appearance Clear Urine pH 5.5 Ur Specific Media 1.016 Urine Protein 1+ H Urine Glucose (UA) Negative Urine Ketones Trace H Urine Blood 1+ H Urine Nitrite Negative Urine Bilirubin Negative Urine Urobilinogen Negative Ur Leukocyte Esterase Negative Urine WBC (Auto) 1-5 Urine RBC (Auto) 0-4 U Hyaline Cast (Auto) 1-5 U Epithel Cells (Auto) 0-5 Urine Bacteria (Auto) Negative 09/23/20 09/23/20 07:52 12:06 POC Glucose 129 H 160 H Urine Color Urine Appearance Urine pH Ur Specific Media Urine Protein Urine Glucose (UA) Urine Ketones Urine Blood Urine Nitrite Urine Bilirubin Urine Urobilinogen Ur Leukocyte Esterase Urine WBC (Auto) Urine RBC (Auto) U Hyaline Cast (Auto) U Epithel Cells (Auto) Urine Bacteria (Auto) Medications Administered Current Inpatient Medications Acetaminophen (Acetaminophen 325 Mg Tab) 650 mg PO Q4H PRN PRN Reason: pain/fever Stop: 10/21/20 20:52 Al Hydrox/Mg Hydrox/Simethicone (Aluminum/Magnesium Susp 30 Ml Udc) 30 ml PO Q6H PRN PRN Reason: Dyspepsia Stop: 10/21/20 20:52 Aspirin (Aspirin 81 Mg Ectab) 81 mg PO DAILY [facility] Stop: 10/22/20 08:59 Last Admin: 09/23/20 09:04 Dose: 81 mg Documented by: Dextrose (Dextrose 50% 50 Ml Syringe) 25 - 50 ml IV UD PRN; Protocol PRN Reason: Hypoglycemia Protocol Stop: 10/21/20 21:29 Enoxaparin Sodium (Enoxaparin Inj 40 Mg/0.4 Ml Syr) 40 mg SQ QPM [facility]IME Stop: 10/21/20 20:59 Last Admin: 09/22/20 21:08 Dose: 40 mg Documented by: Glucagon (Glucagon For Inj 1 Mg Vial) 1 mg SQ UD PRN; Protocol PRN Reason: Hypoglycemia Protocol Stop: 10/21/20 21:29 Glucose (Glucose 40% Gel 15 Gm Tube) 15 - 30 gm PO UD PRN; Protocol PRN Reason: Hypoglycemia Protocol Stop: 10/21/20 21:29 Glucose (Glucose 10 Tabs/Tube) 4 - 8 tabs PO UD PRN; Protocol PRN Reason: Hypoglycemia Protocol Stop: 10/21/20 21:29 Dexamethasone 6 mg/ Syringe 1.5 mls @ 1 mls/min IV QAM [facility] Stop: 10/01/20 08:59 Last Admin: 09/23/20 09:05 Dose: 1 mls/min Documented by: Insulin Aspart (Insulin Aspart 100 Units/Ml 3 Ml Pen) 0 units SC ACHS [facility] Stop: 10/21/20 21:29 Last Admin: 09/23/20 13:28 Dose: 5 units Documented by: Insulin Human NPH (Insulin Human Nph) 20 units SC TODAY@0900 [facility] Stop: 10/22/20 08:59 Last Admin: 09/23/20 09:05 Dose: 20 units Documented by: Lisinopril (Lisinopril 20 Mg Tab) 20 mg PO DAILY [facility] Stop: 10/23/20 08:59 Last Admin: 09/23/20 09:04 Dose: 20 mg Documented by: Miscellaneous (Carbohydrates For Hypoglycemia ) 15 - 30 gm PO UD PRN PRN Reason: Hypoglycemia Treatment Stop: 10/21/20 21:29 Miscellaneous Information (Pharmacy Glycemic Mgmt Consult) 1 ea N/A UD PRN PRN Reason: Consult Stop: 10/21/20 21:18 Ondansetron HCl (Ondansetron Inj 2 Mg/Ml 2 Ml Vial) 4 mg IV Q6H PRN PRN Reason: Nausea Stop: 10/21/20 20:52 Polyethylene Glycol (Polyethylene (Miralax) 17 Gm Pack) 17 gm PO DAILY PRN PRN Reason: Constipation Stop: 10/21/20 20:52 Last Admin: 09/22/20 15:50 Dose: 17 gm Documented by: Rosuvastatin Calcium (Rosuvastatin Calcium 20 Mg Tab) 20 mg PO QAM [facility] Stop: 10/22/20 08:59 Last Admin: 09/23/20 09:04 Dose: 20 mg Documented by: Senna/Docusate Sodium (Docusate Sodium/Senna 50/8.6mg Tab) 1 tab PO QAM [facility] Stop: 10/23/20 08:59 Last Admin: 09/23/20 09:04 Dose: 1 tab Documented by: Vitamin D (Cholecalciferol 1,000 Units 25 Mcg Tab) 1,000 units PO DAILY [facility] Stop: 10/22/20 08:59 Last Admin: 09/23/20 09:05 Dose: 1,000 units Documented by: PG Care Time/CCT Total # of Minutes Spent Total Time Spent with Patient: Total time spent is greater than 50% in coordination of care (as documented) at patient's floor/unit and/or counseling patient: Coding Level of Care Code 31210 Subseq Hosp Care Lvl 3 Diagnoses Pneumonia due to COVID-19 virus U07.1; J12.82 Hypoxia R09.02 HTN (hypertension) I10 Diabetes mellitus, type II E11.9 Hyperlipidemia E78.5 DVT prophylaxis Z29.9
[2020-09-23] MEDS: ACETAMINOPHEN 325 MG TAB PO PRN ×2 (15:35→22:05)
[2020-09-23] MEDS: ENOXAPARIN INJ 40 MG/0.4 ML SYR SQ SCH (21:24)
[2020-09-24] MEDS: dexAMETHasone 6 MG in SYRINGE 0 ML IV SCH (08:55)
[2020-09-24] MEDS: lisinopril 20 MG TAB PO SCH (08:56)
[2020-09-24] MEDS: DOCUSATE SODIUM/SENNA 50/8.6MG TAB PO SCH (08:56)
[2020-09-24] MEDS: ROSUVASTATIN CALCIUM 20 MG TAB PO SCH (08:56)
[2020-09-24] MEDS: CHOLECALCIFEROL 1,000 UNITS 25 MCG TAB PO SCH (08:56)
[2020-09-24] MEDS: ASPIRIN 81 MG ECTAB PO SCH (08:57)
[2020-09-24] MEDS: INSULIN ASPART 100 UNITS/ML 3 ML PEN SC SCH ×4 (08:58→21:48)
[2020-09-24] MEDS: INSULIN HUMAN NPH SC SCH ×3 (08:58→09:25)
--- NOTE | 2020-09-24 09:21 | XRay Report ---
XR chest 1V portable CLINICAL HISTORY: COVID +, increasing hypoxia. Last image 09/21/20 COMPARISON STUDY: Chest radiograph and chest CT September 21, 2020. FINDINGS: There is no pneumothorax or pleural effusion. Cardiomediastinal silhouette is stable. There is no evidence for pulmonary edema. Right basilar opacity is slightly increased. Left lower lung opa city is similar to prior exam. IMPRESSION: Slight increase in right basilar opacity with no significant change in left basilar opac ity. The findings favor an infectious process. ACT 112: Negative or not required by law. Electronically signed by: Rowdy Ybarra M.D. 09/24/2020 9:20 AM
[2020-09-24 09:45] LABS: Basophils # (auto) 0.01 K/uL (0-0.2); Basophils % (auto) 0.1 %; Hematocrit (blood only) 46.5 % (42-52); Hemoglobin 15.2 g/dL (14.0-18.0); Immature Granulocytes # (auto) 0.02 K/uL (0.00-0.02); Immature Granulocytes % (auto) 0.2 %; Lymphocytes # (auto) 0.79 K/uL (1.2-3.4); Lymphocytes % (auto) 8.4 %; Mean Corpuscular Hemoglobin 23.9 pg (25-34); Mean Corpuscular Volume 73.2 fL (80-100); Mean Platelet Volume 10.4 fL (7.4-10.4); Monocytes # (auto) 0.42 K/uL (0.11-0.59); Monocytes % (auto) 4.5 %; Neutrophils # (auto) 8.19 K/uL (1.4-6.5); Neutrophils % (auto) 86.8 %; Platelet Count 146 K/uL (130-400); RDW Coefficient of Variation 15.4 % (11.5-14.5); RDW Standard Deviation 41.1 fL (36.4-46.3); Red Blood Count 6.35 M/uL (4.7-6.1); White Blood Count 9.43 K/uL (4.8-10.8)
[2020-09-24 09:54] LABS: Mean Corpuscular Hgb Conc 32.7 g/dL (32-36)
[2020-09-24 10:01] LABS: D Dimer 540 ug/L FEU (0-500)
[2020-09-24 10:27] LABS: Alanine Aminotransferase 44 U/L (12-78); Albumin Globulin Ratio 0.6 (0.9-2); Albumin Level 2.7 gm/dl (3.4-5.0); Alkaline Phosphatase 45 U/L (45-117); Aspartate Aminotransferase 40 U/L (15-37); BUN Creatinine Ratio 17.2 (10-20); Bilirubin,Total 0.7 mg/dl (0.2-1); Blood Urea Nitrogen 16 mg/dl (7-18); Calcium 8.6 mg/dl (8.5-10.1); Carbon Dioxide 30 mmol/L (21-32); Chloride 107 mmol/L (98-107); Creatinine Clr Calc Pharmacy 92.6 ml/min; Est GFR (African American) 97.7; Est GFR (Non-African American) 84.3; Globulin 4.3 gm/dl (2.5-4.0); Glucose 95 mg/dl (70-99); Magnesium 2.4 mg/dl (1.8-2.4); Sodium 142 mmol/L (136-145); Troponin I < 0.015 ng/ml (0-0.045)
--- NOTE | 2020-09-24 11:57 | Hospitalist Progress Note ---
Date of Service September 24, 2020 Assessment & Plan (1) Pneumonia due to COVID-19 virus: Tested positive for COVID-19 09/21/2020 Today is day #4 of 10 for dexamethasone Remdesivir held secondary to transaminitis in addition to 10 days of symptoms prior to admission No indication for convalescent plasma Patient is having episodic hypoxia with cough and with exertion * Tessalon Perles 100 mg 3 times daily JAIME * Oxymask as tolerated * Shaved ross and mustache for better fit of mask Chest x-ray with slight increase in opacification of the right lower lobe Patient may benefit from high flow oxygen if no improvement with Oxymask Enoxaparin 40 mg daily (2) Transaminitis: AST is 40 No need to follow as patient is not receiving remdesivir (3) Diabetes mellitus, type II: HbA1C 7.6%, previously 6.2 in August 2019. Hyperglycemic consult with pharmacy in setting of dexamethasone use Continue to follow BSG's Metformin being held while inpatient Discharge on Metformin 500 mg p.o. daily (4) HTN (hypertension): Continue lisinopril Hemodynamically stable (5) Hyperlipidemia: Continue rosuvastatin (6) DVT prophylaxis: Enoxaparin 40 mg daily (7) Tobacco abuse: Quit smoking 2 years ago [id number] history No indication for smoking cessation counseling Did discuss with patient the need for continued abstinence Admission and Anticipated Discharge Date Admission Date: September 21, 2020 Subjective Attending: Dr. Calabrese Patient is a 65-year-old -[place] inmate from [facility]. He is feeling more short of breath this morning especially with ambulation. He does have some cough but no productive sputum. He states that he has had some sputum that he was able to get up but he swallowed it. He does feel better once he is able to clear. We talked about sitting in the bedside chair more than being in bed. We will also order him a flutter valve and Mucinex to try and clear some of the sputum. He denies any fever or chills. He has no nausea or vomiting. He has no diarrhea. He has no abdominal pain. He has no chest pain. He denies any other acute complaints other than persistent malaise. The patient does report that he quit smoking 2 years ago. Prior to that he smoked for 45 years. Review of Systems Review of Systems: All systems reviewed & are unremarkable except as noted in Subjective Physical Exam Physical Exam: GENERAL : No acute distress EYES: No icterus, gaze conjugate NOSE: No evidence of epistaxis MOUTH: No lesions or candidiasis NECK: Supple LUNGS: Rales at the bilateral bases. Cough with deep inspiration. No wheezes or rhonchi. HEART: Regular, generally rate controlled. Tachycardia in the low 100s with prolonged cough ABDOMEN: Soft, NT, ND, BS Present EXTREMITIES: No LE edema, pedal pulses intact NEURO: A&OX3 Results & Data Results & Data ([facility]) Vital Signs (Past 12 Hours) Vital Signs Temp Pulse Resp BP Pulse Ox 09/24/20 07:44 36.8 C 90 18 118/69 95 Laboratory Results 09/24/20 09:35 09/24/20 09:35 Laboratory Tests 09/21/20 09/24/20 09/24/20 14:29 09:35 09:35 D-Dimer 670 H* 540 H* Lactate AST Albumin Procalcitonin 0.06 09/24/20 09/24/20 09:35 09:35 D-Dimer Lactate 1.7 AST 40 H Albumin 2.7 L Procalcitonin Diagnostic Findings XR chest 1V portable CLINICAL HISTORY: COVID +, increasing hypoxia. Last image 09/21/20 COMPARISON STUDY: Chest radiograph and chest CT September 21, 2020. FINDINGS: There is no pneumothorax or pleural effusion. Cardiomediastinal silhouette is stable. There is no evidence for pulmonary edema. Right basilar opacity is slightly increased. Left lower lung opacity is similar to prior exam. IMPRESSION: Slight increase in right basilar opacity with no significant change in left basilar opacity. The findings favor an infectious process. Electronically signed by: Rowdy Ybarra M.D. 09/24/2020 9:20 AM PG Care Time/CCT Total # of Minutes Spent Total Time Spent with Patient: Total time spent is greater than 50% in coordination of care (as documented) at patient's floor/unit and/or counseling patient: 40 minutes including 2 visits to the patient Coding Level of Care Code 45070 Subseq Hosp Care Lvl 3 Diagnoses Pneumonia due to COVID-19 virus U07.1; J12.82 Transaminitis R74.0 Diabetes mellitus, type II E11.9 HTN (hypertension) I10 Hyperlipidemia E78.5 DVT prophylaxis Z29.9 Tobacco abuse Z72.0 Time Spent (min) 40
[2020-09-24] MEDS: guaiFENesin 600 MG TABCR PO SCH ×2 (13:18→21:34)
--- NOTE | 2020-09-24 13:21 | Pharmacy Report ---
Pharmacy Glycemic Short Note 2 - Date of Service September 24, 2020 - Glycemic Short BSG Results (Last 24 hours): 09/23/20 09/23/20 09/24/20 17:02 20:37 08:23 Glucose POC Glucose 192 H 129 H 94 09/24/20 09/24/20 09:35 12:26 Glucose 95 POC Glucose 94 OUTPATIENT ANTIDIABETIC REGIMEN: * Metformin 500 mg QAM * A1c 7.6% 09/22/20 ASSESSMENT: 09/24 * Patient received total of 38 units of insulin yesterday, of which 20 were NPH to cover dexamethasone * BSGs relatively well controlled yesterday * Fasting BSG this AM 94 mg/dL - per RN patient with no appetite this morning, not planning on eating, will scale down to NPH 15 units (25% decrease in dose) * Lunch BSG remains unchanged at 94 mg/dL - concerned with limited PO intake/lower BSGS, will change novolog scale and also loosen CF/CR parameters PLAN FOR INPATIENT GLYCEMIC CONTROL: * Hold outpatient oral diabetes medications * Basal insulin * NPH 15 units daily with DXM * Bolus insulin * NovoLog per scale ACHS or Q6hrs while NPO * Goal Range: Low 120 mg/dL - High 160 mg/dL * Correction Factor: 30 mg/dL/unit * Nutritional / Prandial insulin per carb ratio of 1 unit per 10 grams CHO consumed PLAN FOR DISCHARGE: * A1c of 7.6% on admission - close to goal <7% * Would recommend continuation of home metformin on discharge as long as no contraindications exist. Could consider titration of metformin, however this can be assessed outpatient by patient's PCP * Would recommend continued patient self management - healthy lifestyle, disease self management (SM[facility])
[2020-09-24] MEDS ORDERED: ALUMINUM/MAGNESIUM SUSP 30 ML UDC PO PRN (18:29)
[2020-09-24] MEDS: BENZONATATE 100 MG CAPSULE PO SCH (21:34)
[2020-09-24] MEDS: ENOXAPARIN INJ 40 MG/0.4 ML SYR SQ SCH (21:34)
[2020-09-24] MEDS: FAMOTIDINE 20 MG TAB PO SCH (23:09)
[2020-09-25] MEDS: INSULIN ASPART 100 UNITS/ML 3 ML PEN SC SCH ×5 (08:56→21:03)
[2020-09-25] MEDS: INSULIN HUMAN NPH SC SCH (08:59)
[2020-09-25] MEDS: BENZONATATE 100 MG CAPSULE PO SCH ×3 (08:59→21:02)
[2020-09-25] MEDS: dexAMETHasone 6 MG in SYRINGE 0 ML IV SCH (08:59)
[2020-09-25] MEDS: ROSUVASTATIN CALCIUM 20 MG TAB PO SCH (09:00)
[2020-09-25] MEDS: CHOLECALCIFEROL 1,000 UNITS 25 MCG TAB PO SCH (09:00)
[2020-09-25] MEDS: lisinopril 20 MG TAB PO SCH (09:01)
[2020-09-25] MEDS: DOCUSATE SODIUM/SENNA 50/8.6MG TAB PO SCH (09:01)
[2020-09-25] MEDS: guaiFENesin 600 MG TABCR PO SCH (09:02)
[2020-09-25] MEDS: ASPIRIN 81 MG ECTAB PO SCH (09:02)
[2020-09-25] MEDS: FAMOTIDINE 20 MG TAB PO SCH ×2 (09:04→21:17)
--- NOTE | 2020-09-25 10:28 | Hospitalist Progress Note ---
Date of Service September 25, 2020 Assessment & Plan (1) Pneumonia due to COVID-19 virus: 10 days of symptoms therefore not given remdesivir or convalescent plasma. Dexamethasone 6 mg IV daily for total 10 days, day 5 today Isolation precautions: airborne and contact supplemental oxygen, titrated down to 3L, 100%, will go down further to 2L, perhaps room air this evening he is eating and drinking well he is sitting up in chair, laying prone intermittently, using incentive spirometer and flutter valve doing much better the past 36 hours (2) Hypoxia: acute hypoxic respiratory failure due to COVID 19 pneumonia supplemental oxygen at 2L this morning, 99% feels dyspneic on exertion and after coughing spells cough not relieved with Tessalon and mucinex will order Codeine/guaifenesin q6 scheduled for today to see if it makes a difference (3) HTN (hypertension): resumed Lisinopril, BP is normal today (4) Diabetes mellitus, type II: HbA1C 7.6%, previously 6.2 in August 2019. T2DM diet Consult pharmacy for glycemic control in setting of dexamethasone use all sugars are < 200 (5) Hyperlipidemia: Continue rosuvastatin 20mg PO daily (6) DVT prophylaxis: Lovenox 40mg SQ QPM (d-dimer < 700) Admission and Anticipated Discharge Date Admission Date: September 21, 2020 Subjective patient feeling well, sitting up in a chair, mobilizing sputum, no fever/chills he is 100% on 3L, will titrate down to 2L, try to get to room air this evening discussed that we will keep him here this weekend, likely for discharge on Monday eating fairly well, no BM for a few days but he feels like he could have one soon no labs today Review of Systems Review of Systems: All systems reviewed & are unremarkable except as noted in Subjective Constitutional: + weakness; no fever, no chills and no sweats Respiratory: + cough, + dyspnea on exertion and + sputum production; no dyspnea Cardiovascular: no chest pain and no edema Gastrointestinal: + constipation; no abdominal pain, no nausea, no vomiting and no diarrhea/loose stools Physical Exam Constitutional: WD/WN, vitals as above Neck: trachea midline, no thyromegaly + facial hair Respiratory: normal respiratory effort; no respiratory distress, no labored breathing and no cough Auscultation: lungs clear to auscultation bilaterally Cardiovascular: RRR, no murmur, no edema Gastrointestinal (Abdomen): normal bowel sounds, soft, nontender, no hepatosplenomegaly Musculoskeletal: no cyanosis or clubbing, extremities motor strength 5/5 Skin: no rashes, warm and dry Neurologic: patellar DTR's 2+ bilat, sensation intact and PERRL, EOMI, accommodation nl, no face palsy, no dysarthria Psychiatric: A+Ox3, euthymic affect Lymphatic: no cervical or axillary lymphadenopathy Results & Data Results & Data ([facility]) Vital Signs (Past 12 Hours) Vital Signs Temp Pulse Resp BP Pulse Ox 09/25/20 07:41 36.9 C 84 22 123/69 100 09/24/20 23:10 36.9 C 86 16 134/80 97 Laboratory Results Laboratory Results - last 24 hr 09/24/20 09/24/20 09/24/20 09:35 12:26 17:08 Sodium 142 Potassium 4.0 Chloride 107 Carbon Dioxide 30 Anion Gap 4.0 BUN 16 Creatinine 0.95 Est Cr Clr Drug Dosing 92.6 Est GFR ( Amer) 97.7 Est GFR (Non-Af Amer) 84.3 BUN/Creatinine Ratio 17.2 Glucose 95 POC Glucose 94 141 H Calcium 8.6 Magnesium 2.4 Total Bilirubin 0.7 AST 40 H ALT 44 Alkaline Phosphatase 45 Troponin I < 0.015 Total Protein 7.0 Albumin 2.7 L Globulin 4.3 H Albumin/Globulin Ratio 0.6 L 09/24/20 09/25/20 21:02 08:12 Sodium Potassium Chloride Carbon Dioxide Anion Gap BUN Creatinine Est Cr Clr Drug Dosing Est GFR ( Amer) Est GFR (Non-Af Amer) BUN/Creatinine Ratio Glucose POC Glucose 138 H 128 H Calcium Magnesium Total Bilirubin AST ALT Alkaline Phosphatase Troponin I Total Protein Albumin Globulin Albumin/Globulin Ratio Medications Administered Current Inpatient Medications Acetaminophen (Acetaminophen 325 Mg Tab) 650 mg PO Q4H PRN PRN Reason: pain/fever Stop: 10/21/20 20:52 Last Admin: 09/23/20 22:05 Dose: 650 mg Documented by: Al Hydrox/Mg Hydrox/Simethicone (Aluminum/Magnesium Susp 30 Ml Udc) 15 ml PO Q6H PRN PRN Reason: Dyspepsia Stop: 10/24/20 18:28 Aspirin (Aspirin 81 Mg Ectab) 81 mg PO DAILY [facility] Stop: 10/22/20 08:59 Last Admin: 09/25/20 09:02 Dose: 81 mg Documented by: Benzonatate (Benzonatate 100 Mg Capsule) 100 mg PO TID [facility]IME Stop: 10/24/20 20:59 Last Admin: 09/25/20 08:59 Dose: 100 mg Documented by: Dextrose (Dextrose 50% 50 Ml Syringe) 25 - 50 ml IV UD PRN; Protocol PRN Reason: Hypoglycemia Protocol Stop: 10/21/20 21:29 Enoxaparin Sodium (Enoxaparin Inj 40 Mg/0.4 Ml Syr) 40 mg SQ QPM [facility]IME Stop: 10/21/20 20:59 Last Admin: 09/24/20 21:34 Dose: 40 mg Documented by: Famotidine (Famotidine 20 Mg Tab) 20 mg PO BID [facility]IME Stop: 10/24/20 20:59 Last Admin: 09/25/20 09:04 Dose: 20 mg Documented by: Glucagon (Glucagon For Inj 1 Mg Vial) 1 mg SQ UD PRN; Protocol PRN Reason: Hypoglycemia Protocol Stop: 10/21/20 21:29 Glucose (Glucose 40% Gel 15 Gm Tube) 15 - 30 gm PO UD PRN; Protocol PRN Reason: Hypoglycemia Protocol Stop: 10/21/20 21:29 Glucose (Glucose 10 Tabs/Tube) 4 - 8 tabs PO UD PRN; Protocol PRN Reason: Hypoglycemia Protocol Stop: 10/21/20 21:29 Guaifenesin (Guaifenesin 600 Mg Tabcr) 600 mg PO Q12 [facility] Stop: 10/24/20 11:59 Last Admin: 09/25/20 09:02 Dose: 600 mg Documented by: Dexamethasone 6 mg/ Syringe 1.5 mls @ 1 mls/min IV QAM [facility] Stop: 10/01/20 08:59 Last Admin: 09/25/20 08:59 Dose: 1 mls/min Documented by: Insulin Aspart (Insulin Aspart 100 Units/Ml 3 Ml Pen) 0 units SC ACHS [facility] Stop: 10/21/20 21:29 Last Admin: 09/25/20 08:56 Dose: 2 units Documented by: Insulin Human NPH (Insulin Human Nph) 15 units SC TODAY@0900 [facility] Stop: 10/24/20 09:14 Last Admin: 09/25/20 08:59 Dose: 15 units Documented by: Lisinopril (Lisinopril 20 Mg Tab) 20 mg PO DAILY [facility] Stop: 10/23/20 08:59 Last Admin: 09/25/20 09:01 Dose: 20 mg Documented by: Miscellaneous (Carbohydrates For Hypoglycemia ) 15 - 30 gm PO UD PRN PRN Reason: Hypoglycemia Treatment Stop: 10/21/20 21:29 Miscellaneous Information (Pharmacy Glycemic Mgmt Consult) 1 ea N/A UD PRN PRN Reason: Consult Stop: 10/21/20 21:18 Ondansetron HCl (Ondansetron Inj 2 Mg/Ml 2 Ml Vial) 4 mg IV Q6H PRN PRN Reason: Nausea Stop: 10/21/20 20:52 Polyethylene Glycol (Polyethylene (Miralax) 17 Gm Pack) 17 gm PO DAILY PRN PRN Reason: Constipation Stop: 10/21/20 20:52 Last Admin: 09/22/20 15:50 Dose: 17 gm Documented by: Rosuvastatin Calcium (Rosuvastatin Calcium 20 Mg Tab) 20 mg PO QAM [facility] Stop: 10/22/20 08:59 Last Admin: 09/25/20 09:00 Dose: 20 mg Documented by: Senna/Docusate Sodium (Docusate Sodium/Senna 50/8.6mg Tab) 1 tab PO QAM [facility] Stop: 10/23/20 08:59 Last Admin: 09/25/20 09:01 Dose: 1 tab Documented by: Vitamin D (Cholecalciferol 1,000 Units 25 Mcg Tab) 1,000 units PO DAILY [facility] Stop: 10/22/20 08:59 Last Admin: 09/25/20 09:00 Dose: 1,000 units Documented by: PG Care Time/CCT Total # of Minutes Spent Total Time Spent with Patient: Total time spent is greater than 50% in coordination of care (as documented) at patient's floor/unit and/or counseling patient: Coding Level of Care Code 62405 Subseq Hosp Care Lvl 2 Diagnoses Pneumonia due to COVID-19 virus U07.1; J12.82 Hypoxia R09.02 HTN (hypertension) I10 Diabetes mellitus, type II E11.9 Hyperlipidemia E78.5 DVT prophylaxis Z29.9
[2020-09-25] MEDS: ACETAMINOPHEN 325 MG TAB PO PRN (15:39)
[2020-09-25] MEDS: ENOXAPARIN INJ 40 MG/0.4 ML SYR SQ SCH (21:02)
[2020-09-26] MEDS: lisinopril 20 MG TAB PO SCH (08:42)
[2020-09-26] MEDS: ROSUVASTATIN CALCIUM 20 MG TAB PO SCH (08:42)
[2020-09-26] MEDS: dexAMETHasone 6 MG in SYRINGE 0 ML IV SCH (08:42)
[2020-09-26] MEDS: ASPIRIN 81 MG ECTAB PO SCH (08:42)
[2020-09-26] MEDS: DOCUSATE SODIUM/SENNA 50/8.6MG TAB PO SCH (08:42)
[2020-09-26] MEDS: CHOLECALCIFEROL 1,000 UNITS 25 MCG TAB PO SCH (08:42)
[2020-09-26] MEDS: BENZONATATE 100 MG CAPSULE PO SCH ×3 (08:42→20:52)
[2020-09-26] MEDS: FAMOTIDINE 20 MG TAB PO SCH ×2 (08:43→20:52)
[2020-09-26] MEDS: INSULIN ASPART 100 UNITS/ML 3 ML PEN SC SCH ×4 (08:43→20:53)
[2020-09-26] MEDS: INSULIN HUMAN NPH SC SCH (08:43)
--- NOTE | 2020-09-26 11:32 | Hospitalist Progress Note ---
Date of Service September 26, 2020 Assessment & Plan (1) Pneumonia due to COVID-19 virus: 10 days of symptoms therefore not given remdesivir or convalescent plasma. Dexamethasone 6 mg IV daily for total 10 days, day 6 today change to PO starting tomorrow to complete the 10 day course Isolation precautions: airborne and contact supplemental oxygen, titrated down to room air today he is eating and drinking well he is sitting up in chair, laying prone intermittently, using incentive spirometer and flutter valve doing much better the past 48 hours plan to discharge tomorrow morning (2) Hypoxia: acute hypoxic respiratory failure due to COVID 19 pneumonia on room air today, feeling well feels dyspneic on exertion and after coughing spells but quickly recovers cough better with Codeine/guaifenesin q6 scheduled (3) HTN (hypertension): resumed Lisinopril, BP is normal today (4) Diabetes mellitus, type II: HbA1C 7.6%, previously 6.2 in August 2019. T2DM diet Consult pharmacy for glycemic control in setting of dexamethasone use all sugars are < 200 (5) Hyperlipidemia: Continue rosuvastatin 20mg PO daily (6) DVT prophylaxis: Lovenox 40mg SQ QPM (d-dimer < 700) Admission and Anticipated Discharge Date Admission Date: September 21, 2020 Subjective patient doing great, titrated to room air, coughing less, eating well called SCI, plan to discharge tomorrow morning no other complaints from patient Review of Systems Review of Systems: All systems reviewed & are unremarkable except as noted in Subjective Physical Exam Constitutional: WD/WN, vitals as above Neck: trachea midline, no thyromegaly + facial hair Respiratory: normal respiratory effort; no respiratory distress, no labored breathing and no cough Auscultation: lungs clear to auscultation bilaterally Cardiovascular: RRR, no murmur, no edema Gastrointestinal (Abdomen): normal bowel sounds, soft, nontender, no hepatosplenomegaly Musculoskeletal: no cyanosis or clubbing, extremities motor strength 5/5 Skin: no rashes, warm and dry Neurologic: patellar DTR's 2+ bilat, sensation intact and PERRL, EOMI, accommodation nl, no face palsy, no dysarthria Psychiatric: A+Ox3, euthymic affect Lymphatic: no cervical or axillary lymphadenopathy Results & Data Results & Data ([facility]) Vital Signs (Past 12 Hours) Vital Signs Temp Pulse Resp BP Pulse Ox 09/26/20 06:17 37.4 C 97 H 20 132/64 100 Laboratory Results Laboratory Results - last 24 hr 09/25/20 09/25/20 09/25/20 11:58 17:16 20:41 POC Glucose 156 H 227 H 174 H 09/26/20 08:00 POC Glucose 129 H Medications Administered Current Inpatient Medications Acetaminophen (Acetaminophen 325 Mg Tab) 650 mg PO Q4H PRN PRN Reason: pain/fever Stop: 10/21/20 20:52 Last Admin: 09/25/20 15:39 Dose: 650 mg Documented by: Al Hydrox/Mg Hydrox/Simethicone (Aluminum/Magnesium Susp 30 Ml Udc) 15 ml PO Q6H PRN PRN Reason: Dyspepsia Stop: 10/24/20 18:28 Aspirin (Aspirin 81 Mg Ectab) 81 mg PO DAILY JAIME Stop: 10/22/20 08:59 Last Admin: 09/26/20 08:42 Dose: 81 mg Documented by: Benzonatate (Benzonatate 100 Mg Capsule) 100 mg PO TID JAIME Stop: 10/24/20 20:59 Last Admin: 09/26/20 08:42 Dose: 100 mg Documented by: Dexamethasone (Dexamethasone 1 Mg Tab) 6 mg PO QAM JAIME Stop: 10/27/20 08:59 Dextrose (Dextrose 50% 50 Ml Syringe) 25 - 50 ml IV UD PRN; Protocol PRN Reason: Hypoglycemia Protocol Stop: 10/21/20 21:29 Enoxaparin Sodium (Enoxaparin Inj 40 Mg/0.4 Ml Syr) 40 mg SQ QPM JAIME Stop: 10/21/20 20:59 Last Admin: 09/25/20 21:02 Dose: 40 mg Documented by: Famotidine (Famotidine 20 Mg Tab) 20 mg PO BID JAIME Stop: 10/24/20 20:59 Last Admin: 09/26/20 08:43 Dose: 20 mg Documented by: Glucagon (Glucagon For Inj 1 Mg Vial) 1 mg SQ UD PRN; Protocol PRN Reason: Hypoglycemia Protocol Stop: 10/21/20 21:29 Glucose (Glucose 40% Gel 15 Gm Tube) 15 - 30 gm PO UD PRN; Protocol PRN Reason: Hypoglycemia Protocol Stop: 10/21/20 21:29 Glucose (Glucose 10 Tabs/Tube) 4 - 8 tabs PO UD PRN; Protocol PRN Reason: Hypoglycemia Protocol Stop: 10/21/20 21:29 Guaifenesin/Codeine Phosphate (Guaifenesin/Codeine 200mg/20mg 10ml Udc) 10 ml PO Q6 [facility] Stop: 10/25/20 11:59 Last Admin: 09/26/20 06:09 Dose: 10 ml Documented by: Insulin Aspart (Insulin Aspart 100 Units/Ml 3 Ml Pen) 0 units SC ACHS [facility] Stop: 10/21/20 21:29 Last Admin: 09/26/20 08:43 Dose: 2 units Documented by: Insulin Human NPH (Insulin Human Nph) 15 units SC TODAY@0900 [facility] Stop: 10/24/20 09:14 Last Admin: 09/26/20 08:43 Dose: 15 units Documented by: Lisinopril (Lisinopril 20 Mg Tab) 20 mg PO DAILY [facility] Stop: 10/23/20 08:59 Last Admin: 09/26/20 08:42 Dose: 20 mg Documented by: Miscellaneous (Carbohydrates For Hypoglycemia ) 15 - 30 gm PO UD PRN PRN Reason: Hypoglycemia Treatment Stop: 10/21/20 21:29 Miscellaneous Information (Pharmacy Glycemic Mgmt Consult) 1 ea N/A UD PRN PRN Reason: Consult Stop: 10/21/20 21:18 Ondansetron HCl (Ondansetron Inj 2 Mg/Ml 2 Ml Vial) 4 mg IV Q6H PRN PRN Reason: Nausea Stop: 10/21/20 20:52 Polyethylene Glycol (Polyethylene (Miralax) 17 Gm Pack) 17 gm PO DAILY PRN PRN Reason: Constipation Stop: 10/21/20 20:52 Last Admin: 09/22/20 15:50 Dose: 17 gm Documented by: Rosuvastatin Calcium (Rosuvastatin Calcium 20 Mg Tab) 20 mg PO QAM [facility] Stop: 10/22/20 08:59 Last Admin: 09/26/20 08:42 Dose: 20 mg Documented by: Senna/Docusate Sodium (Docusate Sodium/Senna 50/8.6mg Tab) 1 tab PO QAM [facility] Stop: 10/23/20 08:59 Last Admin: 09/26/20 08:42 Dose: 1 tab Documented by: Vitamin D (Cholecalciferol 1,000 Units 25 Mcg Tab) 1,000 units PO DAILY JAIME Stop: 10/22/20 08:59 Last Admin: 09/26/20 08:42 Dose: 1,000 units Documented by: PG Care Time/CCT Total # of Minutes Spent Total Time Spent with Patient: Total time spent is greater than 50% in coordination of care (as documented) at patient's floor/unit and/or counseling patient: Coding Level of Care Code 98466 Subseq Hosp Care Lvl 2 Diagnoses Pneumonia due to COVID-19 virus U07.1; J12.82 Hypoxia R09.02 HTN (hypertension) I10 Diabetes mellitus, type II E11.9 Hyperlipidemia E78.5 DVT prophylaxis Z29.9
[2020-09-26] MEDS: ENOXAPARIN INJ 40 MG/0.4 ML SYR SQ SCH (20:52)
[2020-09-27] MEDS: POLYETHYLENE (MIRALAX) 17 GM PACK PO PRN (05:35)
[2020-09-27] MEDS: INSULIN HUMAN NPH SC SCH (08:47)
[2020-09-27] MEDS: INSULIN ASPART 100 UNITS/ML 3 ML PEN SC SCH ×2 (08:48→13:11)
[2020-09-27] MEDS: ASPIRIN 81 MG ECTAB PO SCH (08:50)
[2020-09-27] MEDS: lisinopril 20 MG TAB PO SCH (08:50)
[2020-09-27] MEDS: CHOLECALCIFEROL 1,000 UNITS 25 MCG TAB PO SCH (08:50)
[2020-09-27] MEDS: FAMOTIDINE 20 MG TAB PO SCH (08:50)
[2020-09-27] MEDS: BENZONATATE 100 MG CAPSULE PO SCH ×2 (08:50→13:11)
[2020-09-27] MEDS: DOCUSATE SODIUM/SENNA 50/8.6MG TAB PO SCH (08:50)
[2020-09-27] MEDS: ROSUVASTATIN CALCIUM 20 MG TAB PO SCH (08:50)
[2020-09-27] MEDS ORDERED: dexAMETHasone 4 MG TAB PO SCH (09:00)
--- NOTE | 2020-09-27 12:49 | Discharge Summary ---
Date of Service September 27, 2020 Admission HPI Per Admitting Provider Joni Foster is a 65-year-old male who presents to the ER with shortness of breath. The patient reports shortness of breath, nonproductive cough, loss of taste and smell (now better), myalgias (improving), headache (now resolved), generalized fatigue, nausea and diarrhea (now resolved). He has a pending Covid test of the fdc. He reports generally feeling better however requiring oxygen for the last few days and was brought by EMS to the ER today due to worsening hypoxia. He has not currently being treated with steroids. He denies any fever, chills, sore throat, vomiting, confusion, chest or abdominal pain. In the ER his COVID-19 PCR test was positive. Chest x-ray and CTA showed mild diffuse interstitial thickening with subpleural reticulation and small peripheral patchy airspace opacities likely representing mild pneumonitis. He denies any aspirations or choking/coughing after eating. He was referred to medicine for COVID-19 pneumonia with hypoxia for admission and ongoing management. Principal Diagnosis COVID 19 pneumonia with acute hypoxic respiratory failure Discharge Exam Constitutional WD/WN, vitals as above Neck trachea midline, no thyromegaly + facial hair Respiratory normal respiratory effort; no respiratory distress, no labored breathing and no cough Auscultation: lungs clear to auscultation bilaterally Cardiovascular RRR, no murmur, no edema Gastrointestinal (Abdomen) normal bowel sounds, soft, nontender, no hepatosplenomegaly Musculoskeletal no cyanosis or clubbing, extremities motor strength 5/5 Skin no rashes, warm and dry Neurologic patellar DTR's 2+ bilat, sensation intact and PERRL, EOMI, accommodation nl, no face palsy, no dysarthria Psychiatric A+Ox3, euthymic affect Lymphatic no cervical or axillary lymphadenopathy Discharge Data Allergies Allergy/AdvReac Type Severity Reaction Status Date / Time clindamycin AdvReac Unknown Unknown Unverified 09/21/20 14:44 Penicillins AdvReac Unknown Unknown Unverified 09/21/20 14:44 Consultations 09/21/20 17:21 ED Decision to Admit Stat Ordered Studies 09/21/20 15:15 CT angio chest PE protocol Stat Hospital Course (1) Pneumonia due to COVID-19 virus: 10 days of symptoms therefore not given remdesivir or convalescent plasma. Dexamethasone 6 mg IV daily, received 7 days total room air for two days, no need for further dexamethasone supplemental oxygen, titrated down to room air for 48 hours he is eating and drinking well he is sitting up in chair, laying prone intermittently, using incentive spirometer and flutter valve doing much better the past 72 hours today (09/27) he is complaining of dyspnea, breathing fast when eating and when moving around no hypoxia with these symptoms, oxygen is 100% on room air obtained a repeat CTA chest on 09/27 -- NEGATIVE for pulmonary embolism he is safe for discharge, will probably have some degree of dyspnea on exertion for 1-2 weeks as he fully recovers (2) Hypoxia: acute hypoxic respiratory failure due to COVID 19 pneumonia on room air for 48 hours, saturations 100%, feeling well feels dyspneic on exertion and after coughing spells but quickly recovers cough better with Codeine/guaifenesin q6 scheduled recommend that he continue on cough suppressant at [facility] for 1-2 weeks as needed (3) HTN (hypertension): resumed Lisinopril, BP is normal today (4) Diabetes mellitus, type II: HbA1C 7.6%, previously 6.2 in August 2019. T2DM diet Consult pharmacy for glycemic control in setting of dexamethasone use all sugars are < 200 (5) Hyperlipidemia: Continue rosuvastatin 20mg PO daily (6) DVT prophylaxis: Lovenox 40mg SQ QPM (d-dimer < 700) Total Time Total Time Spent Total Time Spent (In Minutes): 32 minutes Total Time Includes: Examination of the Patient, Discharge Planning, Medication Reconciliation and Communication With Other Providers (Dr. Lutz as KRISTIN Lerma) Discharge Plan Discharge Items [facility]position: [facility] Reason For Visit: COVID 19 PNEUMONIA, HYPOXIA Discharge Diagnosis: COVID 19 pneumonia Acute hypoxic respiratory failure Condition on Discharge: Good Activity: Resume your previous activity Non-emergency contact: Primary Care Provider Call non-emergency contact if: you have any medication questions, your symptoms worsen and you have a fever Follow-up/Referrals: Florentin FOSTER [Primary Care Provider] - Diet: Carb Consistent or DM2 Addtl Attending Provider Instructions: New Medications: Tessalon and/or Robitussin or whatever is on formulary at [facility] to treat cough symptoms, discretion of [facility] provider COVID 19 pneumonia and hypoxia responded well to treatment with dexamethasone, supplemental oxygen titrated off of oxygen for two days, stable completed 7 days of dexamethasone, now that he is no longer hypoxic, the patient does NOT need further dexamethasone use PRN cough medications, had good success with Robitussin q6 while hospitalized patient is eating well, drinking well, moving his bowels, making urine should be able to be off isolation 14 days from initial onset of symptoms, but will defer to [facility] policies and decision of medical provider Pending Studies at Discharge: No Stand-Alone Forms: My [facility] Skilled Items Patient informed of condition?: Yes Discharge Level of Care: Other Communicable Disease: Yes Discharge Prognosis: Stable Lines: None Urinary Catheter: No Medications and DC Order Prescriptions: New benzonatate [Tessalon Perles] 100 mg Capsule 100 mg PO TID 7 Days Qty: 21 RF: 0 codeine-guaifenesin 10-100 mg/5 mL Liquid 10 ml PO Q6 PRN (Reason: cough) Qty: 120 RF: 0 Continued aspirin [Aspirin Low-Strength] 81 mg Tablet,Delayed Release (Dr/Ec) 81 mg PO DAILY RF: 0 acetaminophen [Acetaminophen Extra Strength] 500 mg Tablet 500 mg PO TID PRN (Reason: Pain) RF: 0 zinc sulfate 220 mg Tablet 220 mg PO BID RF: 0 ondansetron 4 mg Tablet,Disintegrating 4 mg PO TID PRN (Reason: Nausea) RF: 0 guaifenesin [Mucosa] 400 mg Tablet 400 mg PO TID RF: 0 cholecalciferol (vitamin D3) [Vitamin D3] 25 mcg (1,000 unit) Tablet 25 mcg PO DAILY RF: 0 metformin 500 mg Tablet 500 mg PO QAM RF: 0 rosuvastatin 20 mg Tablet 20 mg PO QAM RF: 0 Oyster Shell Calcium-Vit D3 500 mg(1,250mg) -200 unit Powder In Packet 1 ea PO QAM RF: 0 lisinopril 20 mg tablet 20 mg PO DAILY Qty: 30 RF: 0 Discharge Orders: Discharge Order (Routine); Ordered 09/27/20 Ordered By: Edmund Calabrese Admission Data Admit Date/Time: 09/21/20 18:18 Attending Provider: Edmund Calabrese Admit Provider: Cole Gillette Primary Care Provider: Florentin FOSTER Other Providers: Cole Gillette Coding Level of Care Code D/C Day Management >30 mins Diagnoses Pneumonia due to COVID-19 virus U07.1; J12.82 Hypoxia R09.02 HTN (hypertension) I10 Diabetes mellitus, type II E11.9 Hyperlipidemia E78.5 DVT prophylaxis Z29.9
[2020-09-27] MEDS: ACETAMINOPHEN 325 MG TAB PO PRN (13:15)
[2020-09-27] MEDS ORDERED: OPTIRAY 320 125ml IV ONE (13:19)
--- NOTE | 2020-09-27 14:22 | CT Scan Report ---
CT ANGIOGRAM OF THE CHEST CLINICAL HISTORY: Atypical chest pain and shortness of breath. Possible acute pulmonary embolism. COMPARISON STUDY: 09/21/2020 TECHNIQUE: Following the IV administration of 120 mL of Optiray-320, CT angiogram of the thorax was p erformed from the thoracic inlet to the lung bases utilizing the pulmonary embolus protocol. Images a re reviewed in the axial, sagittal, and coronal planes. IV contrast was administered without complica tion. MIP imaging was performed. A dose lowering technique was utilized adhering to the principles o f ALARA. CT DOSE: 642.47 mGy.cm FINDINGS: There are mildly enlarged mediastinal and hilar lymph nodes, likely reactive. There is a small right-sided Bochdalek hernia. There was no evidence of thoracic aortic dilatation. There were no pulmonary artery filling defects to indicate acute pulmonary embolism. No pleural effusions are visualized. There is no lobar consolidation. There is pulmonary emphysema. There is persistent interstitial thick ening. There are patchy peripheral airspace opacities, atelectatic versus a pneumonitis superimposed on interstitial lung disease. Subcentimeter right lung nodules remain stable. IMPRESSION: 1. No significant change from the prior study 2. No evidence of acute pulmonary embolism 3. Mediastinal and hilar adenopathy, likely reactive 4. Pulmonary emphysema, interstitial thickening, and subpleural reticulation. Mild dependent atelecta sis. Patchy peripheral parenchymal opacities, atelectatic versus pneumonitis superimposed on intersti tial lung disease. ACT 112: Negative or not required by law. Electronically signed by: Agustin Vasques M.D. 09/27/2020 2:21 PM
== END 2020-09-27 16:53 | DRG 177 ==
LOC: ED 14:08 → SUATTDRO 18:18 → 3E 18:18

== ENCOUNTER 2020-09-28 08:30 | Inpatient (IN) ==
--- NOTE | 2020-09-28 09:06 | Emergency Department Note ---
History of Present Illness General Chief complaint: Shortness of Breath/Dyspnea Stated complaint: Hypoxic, COVID-19+ Time Seen by Provider: 09/28/20 08:44 Source: patient Mode of arrival: EMS Limitations: no limitations History of Present Illness Provider complaint: Shortness of breath Maximum Pain Intensity: 0 This is a 65-year-old male who presents from the [facility] with a chief comp laint of shortness of breath. The patient was just discharged from the hospital yesterday with a diagnosis of pneumonia secondary to Covid. He had symptoms for 10 days and was not provided with any remdesivir or convalescent plasma. He did get dexamethasone during his stay. He was titrated down to room air yesterday when [facility]. The patient subsequently had incre ased shortness of breath over the last 24 hours and was found to have oxygen saturations in the 70s on room air this morning. He was sent in for further evaluation and care. Home Medications Medication Instructions Recorded Confirmed Type Oyster Shell Calcium-Vit D3 1 ea PO QAM 08/24/19 09/28/20 History metformin 500 mg PO QAM 08/24/19 09/28/20 History rosuvastatin 20 mg PO QAM 08/24/19 09/28/20 History lisinopril 20 mg PO DAILY #30 tab 08/27/19 09/28/20 Rx acetaminophen [Acetaminophen Extra 500 mg PO TID PRN 09/21/20 09/28/20 History Strength] aspirin 81 mg PO DAILY 09/21/20 09/28/20 History cholecalciferol (vitamin D3) 25 mcg PO DAILY 09/21/20 09/28/20 History [Vitamin D3] guaifenesin [Mucosa] 400 mg PO TID 09/21/20 09/28/20 History ondansetron 4 mg PO TID PRN 09/21/20 09/28/20 History zinc sulfate 220 mg PO BID 09/21/20 09/28/20 History benzonatate [Tessalon Perles] 100 mg PO TID 7 Days #21 cap 09/27/20 09/28/20 Rx codeine-guaifenesin 10 ml PO Q6 PRN #120 ml 09/27/20 09/28/20 Rx Allergies Allergy/AdvReac Type Severity Reaction Status Date / Time clindamycin AdvReac Unknown Unknown Unverified 09/21/20 14:44 Penicillins AdvReac Unknown Unknown Unverified 09/21/20 14:44 Past Med/Surg History Medical History Breathlessness Diabetes mellitus, type II Erectile dysfunction HTN (hypertension) Hyperlipidemia Hypoxia Tobacco abuse Quit smoking in 2018 after 45 years of cigarette use Surgical History No significant past surgical history Family History Mother Stroke Brother Diabetes Grandmother (Maternal) Diabetes Myocardial infarction Social History Smoking Status: Never smoker Second Hand Exposure: No; Hx Alcohol Use: No Hx Substance Use: No Preferred Language: Pashto Communication Ability: Effective Analytical Technician Required: No Beliefs That Will Affect Care: None marital status: Unknown Current Living Situation: Other Current Living Situation Comment: [facility] Feels Safe at Home: Yes Assistive Devices: None Review of Systems A total of 10 systems reviewed and were otherwise negative Physical Exam Vital Signs Vital Signs - 24 hr 09/28/20 08:07 09/28/20 09:01 09/28/20 10:07 Temperature 36.8 C Temperature Source Oral Pulse Rate 66 Pulse Rate [Apical] 68 Respiratory Rate 24 18 Blood Pressure 129/68 Blood Pressure [Left Arm] 145/74 H Blood Pressure Mean 88 Blood Pressure Mean [Left Arm] 97 Pulse Oximetry 78 L 91 91 Oxygen Delivery Method Room Air Nasal Cannula Non-rebreather Non-rebreather Oxygen Flow Rate 0 15 Sepsis Recent Fever Within 48 Hours No Sepsis New/Unexplained Change in Mental Status No Sepsis Action Taken by Nursing No Action Required Oxygen Flow Rate - Titration 15 Pulse Oximetry Post Tiitration 92 CONSTITUTIONAL/VITAL SIGNS: Reviewed / noted above. GENERAL: Non-toxic in appearance. INTEGUMENTARY: Warm, dry, and [place]. HEAD: Normocephalic. EYES: without scleral icterus or trauma. ENT/OROPHARYNX: clear and moist. LYMPHADENOPATHY/NECK: Is supple without lymphadenopathy or meningismus. RESPIRATORY: Lungs diminished and equal. No coarse breath sounds were heard. CARDIOVASCULAR: Regular rate and rhythm. GI/ABDOMEN: Soft and nontender. No organomegaly or pulsatile mass. No rebound or guarding. Normal bowel sounds. EXTREMITIES: Warm and well perfused. BACK: No CVA tenderness. NEUROLOGICAL: Intact without focal deficits. PSYCHIATRIC: normal affect. MUSCULOSKELETAL: Normally developed with good muscle tone. TRIAGE NURSING DOCUMENTATION REVIEWED. Course Administered Medications Discontinued Medications Ioversol (Optiray 320 125ml) 120 ml IV ONCE ONE Stop: 09/28/20 09:22 Last Admin: 09/28/20 09:21 Dose: 120 ml Documented by: [id number] Medical Decision Making Differential Diagnosis The differential was considered includes acute myocardial infarction, acute coronary syndrome, myocarditis, pericarditis, pericardial effusions /tamponad, esophageal perforation, pulmonary embolism, pneumonia, pneumothorax, cardiomyopathy, congestive heart, anemia , COPD/asthma exacerbation. Medical Records Attestation: I reviewed the patient's medical records. Home Medications Current Medication List: was personally reviewed by me Laboratory Data Attestation: I reviewed the patient's lab results. Result diagrams: 09/28/20 08:40 09/28/20 08:40 Lab Results 09/28/20 09/28/20 09/28/20 Range/Units 08:40 08:40 08:40 WBC 15.18 H (4.8-10.8) K/uL RBC 6.34 H (4.7-6.1) M/uL Hgb 15.2 (14.0-18.0) g/dL Hct 46.6 (42-52) % MCV 73.5 L (80-100) fL MCH 24.0 L (25-34) pg MCHC 32.6 (32-36) g/dL RDW Std Deviation 41.4 (36.4-46.3) fL RDW Coeff of Ya 15.6 H (11.5-14.5) % Plt Count 297 (130-400) K/uL MPV 10.5 H (7.4-10.4) fL Absolute Nucleated RBC 0.72 H (0-0) K/uL Nucleated RBC % (auto) 4.7 % Neutrophils % (Manual) 74.1 % Lymphocytes % (Manual) 18.1 % Monocytes % (Manual) 3.4 % Basophils % (Manual) 0.9 % Metamyelocytes % (Man) 2.6 % Myelocytes % (Man) 0.9 % Neutrophils # (Manual) 11.25 H (1.4-6.5) K/uL Total Absolute Neuts 11.25 H (1.4-6.5) K/uL Lymphocytes # (Manual) 2.75 (1.2-3.4) K/uL Total Abs Lymphocytes 2.75 (1.2-3.4) K/uL Monocytes # (Manual) 0.52 (0.11-0.59) K/uL Basophils # (Manual) 0.14 (0-0.2) K/uL Metamyelocytes # (Man) 0.39 H (0-0) K/uL Myelocytes # (Manual) 0.14 H (0-0) K/uL Polychromasia 1+ PT 11.8 (9.0-12.0) Seconds INR 1.1 (0.9-1.1) APTT 22.2 (21.0-31.0) Seconds PTT Ratio 0.8 D-Dimer 1940 H* (0-500) ug/L FEU Sodium 141 (136-145) mmol/L Potassium 4.4 (3.5-5.1) mmol/L Chloride 108 H (98-107) mmol/L Carbon Dioxide 26 (21-32) mmol/L Anion Gap 7.0 (3-11) BUN 23 H (7-18) mg/dl Creatinine 1.17 (0.6-1.4) mg/dl Est Cr Clr Drug Dosing Not Reportable Est GFR ( Amer) 75.9 Est GFR (Non-Af Amer) 65.5 BUN/Creatinine Ratio 19.7 (10-20) Glucose 154 H (70-99) mg/dl Lactate (0.4-2.0) mmol/L Calcium 8.9 (8.5-10.1) mg/dl Total Bilirubin 0.9 (0.2-1) mg/dl AST 32 (15-37) U/L ALT 54 (12-78) U/L Alkaline Phosphatase 55 (45-117) U/L Total Creatine Kinase 97 (39-308) U/L Troponin I 0.131 H* (0-0.045) ng/ml Total Protein 6.9 (6.4-8.2) gm/dl Albumin 2.7 L (3.4-5.0) gm/dl Globulin 4.2 H (2.5-4.0) gm/dl Albumin/Globulin Ratio 0.6 L (0.9-2) 09/28/20 Range/Units 08:40 WBC (4.8-10.8) K/uL RBC (4.7-6.1) M/uL Hgb (14.0-18.0) g/dL Hct (42-52) % MCV (80-100) fL MCH (25-34) pg MCHC (32-36) g/dL RDW Std Deviation (36.4-46.3) fL RDW Coeff of Ya (11.5-14.5) % Plt Count (130-400) K/uL MPV (7.4-10.4) fL Absolute Nucleated RBC (0-0) K/uL Nucleated RBC % (auto) % Neutrophils % (Manual) % Lymphocytes % (Manual) % Monocytes % (Manual) % Basophils % (Manual) % Metamyelocytes % (Man) % Myelocytes % (Man) % Neutrophils # (Manual) (1.4-6.5) K/uL Total Absolute Neuts (1.4-6.5) K/uL Lymphocytes # (Manual) (1.2-3.4) K/uL Total Abs Lymphocytes (1.2-3.4) K/uL Monocytes # (Manual) (0.11-0.59) K/uL Basophils # (Manual) (0-0.2) K/uL Metamyelocytes # (Man) (0-0) K/uL Myelocytes # (Manual) (0-0) K/uL Polychromasia PT (9.0-12.0) Seconds INR (0.9-1.1) APTT (21.0-31.0) Seconds PTT Ratio D-Dimer (0-500) ug/L FEU Sodium (136-145) mmol/L Potassium (3.5-5.1) mmol/L Chloride (98-107) mmol/L Carbon Dioxide (21-32) mmol/L Anion Gap (3-11) BUN (7-18) mg/dl Creatinine (0.6-1.4) mg/dl Est Cr Clr Drug Dosing Est GFR ( Amer) Est GFR (Non-Af Amer) BUN/Creatinine Ratio (10-20) Glucose (70-99) mg/dl Lactate 2.3 H* (0.4-2.0) mmol/L Calcium (8.5-10.1) mg/dl Total Bilirubin (0.2-1) mg/dl AST (15-37) U/L ALT (12-78) U/L Alkaline Phosphatase (45-117) U/L Total Creatine Kinase (39-308) U/L Troponin I (0-0.045) ng/ml Total Protein (6.4-8.2) gm/dl Albumin (3.4-5.0) gm/dl Globulin (2.5-4.0) gm/dl Albumin/Globulin Ratio (0.9-2) Imaging Data Radiologist's Impression: CT scan of the chest: IMPRESSION: 1. No pulmonary emboli identified. 2. Increase in groundglass opacities and interlobular septal thickening since CT of February 25, 2021. This could reflect an infectious process or pulmonary edema superimposed upon emphysema and interstitial lung disease. 3. Mild cardiomegaly and moderate coronary artery calcification. ECG Data Attestation: I personally reviewed and interpreted this ECG as follows: Indication: + SOB/dyspnea Rate (beats per minute): 67 Rhythm: + normal sinus ECG ST segments: + T-wave inversions (Inferior and anterolateral) Comparison ECG Date: from (Compared to 09/21/2020, T wave inversions inferior and anterolateral new.) [facility] Narrative This is a 65-year-old male who presents to the ED with a chief complaint of shortness of breath that is worsened since he was discharged yesterday from the hospital. Details listed above. The patient was noted to have oxygen saturations here of 78% on room air. He is saturating 91% on 15 L. Lungs are diminished on my exam. He is in no distress. The CT scan of the chest reveals increased groundglass opacities compared to yesterday. This could reflect worsening infectious process or pulmonary edema. Clinically this is likely infectious. The white blood cell count is 15.6. Troponin is slightly elevated. The patient's EKG did show some T wave inversions in the inferior as well as anterolateral leads that appear new compared to previous EKG. the patient was given p.o. aspirin. He was also given Lovenox subcu 1 mg/kg. He was treated with IV Zithromax and IV Rocephin. The patient was told the results of the test. He will be seen by the hospitalist for further inpatient evaluation and care. The patient was also given IV Decadron per the request of the hospitalist. She will see the patient for further inpatient evaluation and care. Impression & Plan Hypoxia, Pneumonia, COVID-19, Elevated troponin, Non-ST elevation (NSTEMI) myocardial infarction Discharge Plan Visit Data Chief Complaint: Shortness of Breath/Dyspnea Stated Complaint: Hypoxic, COVID-19+ ED Provider: Nickolas Hayes Discharge Problem: Hypoxia, Pneumonia, COVID-19, Elevated troponin, Non-ST elevation (NSTEMI) myocardial infarction Patient Disposition: Being Evaluated by Hospitalist Forms Stand Alone Forms: [facility] Emergency Department, Important Visit Information Prescriptions Prescriptions: No Action aspirin 81 mg Tablet,Delayed Release (Dr/Ec) 81 mg PO DAILY RF: 0 acetaminophen [Acetaminophen Extra Strength] 500 mg Tablet 500 mg PO TID PRN (Reason: Pain) RF: 0 zinc sulfate 220 mg Tablet 220 mg PO BID RF: 0 ondansetron 4 mg Tablet,Disintegrating 4 mg PO TID PRN (Reason: Nausea) RF: 0 guaifenesin [Mucosa] 400 mg Tablet 400 mg PO TID RF: 0 cholecalciferol (vitamin D3) [Vitamin D3] 25 mcg (1,000 unit) Tablet 25 mcg PO DAILY RF: 0 benzonatate [Tessalon Perles] 100 mg Capsule 100 mg PO TID 7 Days Qty: 21 RF: 0 codeine-guaifenesin 10-100 mg/5 mL Liquid 10 ml PO Q6 PRN (Reason: cough) Qty: 120 RF: 0 metformin 500 mg Tablet 500 mg PO QAM RF: 0 rosuvastatin 20 mg Tablet 20 mg PO QAM RF: 0 Oyster Shell Calcium-Vit D3 500 mg(1,250mg) -200 unit Powder In Packet 1 ea PO QAM RF: 0 lisinopril 20 mg tablet 20 mg PO DAILY Qty: 30 RF: 0 Referrals Referrals: Florentin FOSTER [Primary Care Provider] -
[2020-09-28 09:11] LABS: Hematocrit (blood only) 46.6 % (42-52); Hemoglobin 15.2 g/dL (14.0-18.0); Mean Corpuscular Hgb Conc 32.6 g/dL (32-36); Mean Corpuscular Volume 73.5 fL (80-100); Mean Platelet Volume 10.5 fL (7.4-10.4); Nucleated RBC # (auto) 0.72 K/uL (0-0); Nucleated RBC % (auto) 4.7 %; Platelet Count 297 K/uL (130-400); RDW Coefficient of Variation 15.6 % (11.5-14.5); RDW Standard Deviation 41.4 fL (36.4-46.3); Red Blood Count 6.34 M/uL (4.7-6.1); White Blood Count 15.18 K/uL (4.8-10.8)
[2020-09-28 09:17] LABS: INR 1.1 (0.9-1.1); Partial Thromboplastin Ratio 0.8; Partial Thromboplastin Time 22.2 Seconds (21.0-31.0); Prothrombin Time 11.8 Seconds (9.0-12.0)
[2020-09-28 09:18] LABS: D Dimer 1940 ug/L FEU (0-500)
[2020-09-28 09:20] LABS: Alanine Aminotransferase 54 U/L (12-78); Albumin Level 2.7 gm/dl (3.4-5.0); Aspartate Aminotransferase 32 U/L (15-37); BUN Creatinine Ratio 19.7 (10-20); Blood Urea Nitrogen 23 mg/dl (7-18); Calcium 8.9 mg/dl (8.5-10.1); Carbon Dioxide 26 mmol/L (21-32); Chloride 108 mmol/L (98-107); Est GFR (African American) 75.9; Est GFR (Non-African American) 65.5; Glucose 154 mg/dl (70-99); Potassium 4.4 mmol/L (3.5-5.1); Sodium 141 mmol/L (136-145)
[2020-09-28] MEDS ORDERED: OPTIRAY 320 125ml IV ONE (09:21)
[2020-09-28 09:28] LABS: Albumin Globulin Ratio 0.6 (0.9-2); Alkaline Phosphatase 55 U/L (45-117); Bilirubin,Total 0.9 mg/dl (0.2-1); Creatine Kinase 97 U/L (39-308); Globulin 4.2 gm/dl (2.5-4.0); Total Protein 6.9 gm/dl (6.4-8.2)
[2020-09-28 09:33] LABS: ALC (manual) 2.75 K/uL (1.2-3.4); ANC (manual) 11.25 K/uL (1.4-6.5); Basophils # (manual) 0.14 K/uL (0-0.2); Basophils % (manual) 0.9 %; Lymphocytes # (manual) 2.75 K/uL (1.2-3.4); Lymphocytes % (manual) 18.1 %; Metamyelocytes # (manual) 0.39 K/uL (0-0); Metamyelocytes % (manual) 2.6 %; Monocytes # (manual) 0.52 K/uL (0.11-0.59); Monocytes % (manual) 3.4 %; Myelocytes # (manual) 0.14 K/uL (0-0); Myelocytes % (manual) 0.9 %; Neutrophils # (manual) 11.25 K/uL (1.4-6.5); Neutrophils % (manual) 74.1 %; Polychromasia 1+
[2020-09-28 09:50] LABS: Troponin I 0.131 ng/ml (0-0.045)
--- NOTE | 2020-09-28 09:51 | XRay Report ---
XR chest 1V portable HISTORY: 65 years-old Male Chest Pain acute atypical chest pain COMPARISON: Chest radiograph 09/24/2020, CTA chest 09/27/2020 TECHNIQUE: Portable AP view of the chest FINDINGS: Cardiac silhouette is upper limits of normal in size. Emphysema with chronic fibrosis. Ill-defined pa tchy bibasilar and subpleural reticular opacities redemonstrated. There is no pneumothorax or large p leural effusion. Degenerative changes of the shoulders and spine. IMPRESSION: Emphysema with chronic fibrosis. Additionally, there is superimposed bibasilar and inters titial opacities suggestive of an infectious or inflammatory pneumonitis. ACT 112: Negative or not required by law. The above report was generated using voice recognition software. It may contain grammatical, syntax o r spelling errors. Electronically signed by: Zack Wong M.D. 09/28/2020 9:49 AM
--- NOTE | 2020-09-28 09:57 | Electrocardiogram Report ---
Test Reason : Blood Pressure : / mmHG Vent. Rate : 067 BPM Atrial Rate : 067 BPM P-R Int : 126 ms QRS Dur : 082 ms QT Int : 464 ms P-R-T Axes : 060 001 -69 degrees QTc Int : 490 ms Normal sinus rhythm T wave abnormality, consider inferior ischemia T wave abnormality, consider anterolateral ischemia Prolonged QT Abnormal ECG When compared with ECG of 21-SEP-2020 14:20, Premature ventricular complexes are no longer Present T wave inversion now evident in Inferior leads T wave inversion now evident in Anterolateral leads Confirmed by Chuck Nieto ([id number]) on 09/28/2020 9:57:26 AM Referred By: REFERRED SELF Confirmed By:Chuck Nieto
--- NOTE | 2020-09-28 10:28 | CT Scan Report ---
CT ANGIOGRAPHY OF THE CHEST, PULMONARY EMBOLUS PROTOCOL CLINICAL HISTORY: sob, eval for PE, covid COMPARISON STUDY: Chest CT September 27, 2020 and chest radiograph performed earlier today. TECHNIQUE: Following IV administration of 120 mL of Optiray-320, helical axial images of the chest we re obtained utilizing the pulmonary embolus protocol. Maximal intensity projections and sagittal and coronal reformats were viewed on an independent 3D workstation. IV contrast was administered withou t complication. Automated exposure control was utilized for the study. A dose lowering technique wa s utilized adhering to the principles of ALARA. CT DOSE: 566.96 mGycm FINDINGS: No pulmonary emboli are identified. There is no thoracic aortic dissection. Ascending aort a is ectatic, measuring 4 cm at the level the main pulmonary artery. There is mild cardiomegaly. Ther e is moderate coronary artery calcification. A few mildly enlarged lymph nodes are unchanged. These a re likely reactive. There is no pericardial effusion. No pneumothorax or pleural effusion is noted. L ungs are suboptimally assessed due to respiratory motion. There is emphysema. Fibrotic changes within the lungs are also noted. There has been interval development of groundglass opacities and interlobu lar septal thickening since CT of September 27, 2020. IMPRESSION: 1. No pulmonary emboli identified. 2. Increase in groundglass opacities and interlobular septal thickening since CT of February 25, 2021. Th is could reflect an infectious process or pulmonary edema superimposed upon emphysema and interstitia l lung disease. 3. Mild cardiomegaly and moderate coronary artery calcification. ACT 112: Negative or not required by law. Electronically signed by: Rowdy Ybarra M.D. 09/28/2020 10:27 AM
[2020-09-28] MEDS ORDERED: ASPIRIN CHEW 324 MG PO STA (10:42)
[2020-09-28] MEDS ORDERED: ENOXAPARIN 1 MG/KG SQ ONE (10:43)
[2020-09-28] MEDS ORDERED: AZITHROMYCIN 500 MG in DEXTROSE 5% 250 ML IV STA (10:48)
[2020-09-28] MEDS ORDERED: cefTRIAXone SODIUM 1,000 MG/50 ML BAG IV STA (10:48)
[2020-09-28] MEDS ORDERED: DEXAMETHASONE SOD INJ 4 MG/ML VIAL IV STA (11:03)
--- NOTE | 2020-09-28 11:14 | History & Physical Report ---
Date of Service September 28, 2020 Assessment & Plan (1) Hypoxia: Presents with profound hypoxia with pulse ox in the low 70s on room air. Has been having symptoms of Covid since approximately 09/11. Was hospitalized from 09/21-09/27 and treated with dexamethasone and was weaned off oxygen to room air for 2 days prior to discharge on 09/27. Now with worsening hypoxia and findings of worsening bilateral infiltrates on CT angiogram of chest. Negative for PE Chest CTA otherwise negative i.e. no pneumothorax, etc. Admit to PCU Continue supplemental O2 and wean down as able to keep pulse ox greater than 92% He also has a history likely of undiagnosed COPD which is likely playing a role in his hypoxia-formerly has [id number] smoking history -Add scheduled albuterol -Restart IV dexamethasone 6 mg once daily No role for remdesivir or convalescent plasma at this point Will add flutter valve and incentive spirometry. Check proBNP although does not seem volume overloaded, but with positive troponin likely has underlying cardiac issues-could have CHF Checking echocardiogram (2) Pneumonia due to COVID-19 virus: With worsening pneumonia on chest CT even from yesterday Possibility of CHF as above causing some of the worsening findings on x-ray Lactate elevated upon admission but repeat is back to normal-likely secondary to hypoxia and not sepsis Check procalcitonin, proBNP We will give IV Lasix if proBNP significantly elevated Continue with empiric antibiotics to cover for gram-negative pneumonia and MRSA pneumonia for now given recent hospitalization-start IV cefepime and vancomycin, doxycycline for atypical coverage Was given 1 dose of IV ceftriaxone and azithromycin in the ER If procalcitonin negative, will discontinue antibiotics after 24 hours Check MRSA swab Supplemental O2 as above Follow chest x-ray to resolution (3) Elevated troponin: Troponin elevated upon admission 0.131 ECG with T wave inversions in anterior and inferolateral leads changed from previous He reports having some chest pain with speaking fluent sentences as well as with minimal movement in the bed but none at rest Trend serial troponin Was given 1 dose of therapeutic dosing of Lovenox in the ER-we will continue if troponin continues to trend upward Continue aspirin daily Continue statin Check echocardiogram (4) Hyperlipidemia: Continue Crestor (5) HTN (hypertension): Blood pressure mildly elevated Continue home lisinopril (6) Diabetes mellitus, type II: Likely of hypoglycemia dexamethasone Accu-Cheks, NovoLog sliding scale Last admission was on NPH 15 units once daily in the morning which helped with control-we will continue this Hemoglobin A1c 7.2% a few days ago (7) Vertebral artery dissection: With a history of such in [id number] vertebral artery dissection and received TPA at that time He has no residual effects from his stroke that he had at that time He was to be on aspirin and Plavix for 3 months and a repeat CTA of the neck showed stable possible dissection in 11/2019 I reached out to the neurology PA that was following him and it is okay for him to stop the Plavix at this time-it was still on the home medication rec from the assisted -Continue aspirin and statin (8) DVT prophylaxis: Lovenox SQ-decreased to 40 mg twice daily from therapeutic dosing Disposition-admit to PCU History of Present Illness Chief Complaint: SOB, hypoxia Primary Care Provider: KRISTIN Lerma Pt is 65 y/o M with PMH DM II, HTN, HLD, prior tobacco use with emphysema on CXR, and right vertebral artery dissection with CVA in 08/2019 who presented to ER from [facility] with hypoxia and SOB. He was just discharged from the ospital yesterday back to assisted after hospitalization for Covid-19 pneumonia and reported still feeling weak at that time but not short of breath. This morning he felt quite short of breath and was noted to have a pulse ox in the 70s on room air. He was placed on 15 L nonrebreather and transferred to the ER. He was afebrile but pulse ox confirmed to be 78% on room air in the ER. Blood work did show an elevated D-dimer from previous as well as a mildly elevated troponin. A CT angiogram of the chest was performed which showed worsening pneumonia as well as suspected interstitial lung disease, but was negative for pulmonary embolism. His ECG showed some new T wave inversions in the anterior and inferolateral leads. He reports having chest pain with movement and also with speaking in fl uent sentences and is associated with a fluttering sensation of the heart. He reports this has been going on for the last week. He has no history of cardiac issues or stents. In the ER, he was given a dose of ceftriaxone, azithromycin, dexamethasone, and aspirin, and 1 dose of therapeutic Lovenox. He will be admitted for acute respiratory failure with hypoxia secondary to worsening Covid-19 pneumonia and possible secondary bacterial pneumonia, as well as work-up for acute coronary syndrome. Allergies Allergy/AdvReac Type Severity Reaction Status Date / Time clindamycin AdvReac Unknown Unknown Unverified 09/21/20 14:44 Penicillins AdvReac Unknown Unknown Unverified 09/21/20 14:44 Home Medications Medication Instructions Recorded Confirmed Type Oyster Shell Calcium-Vit D3 1 ea PO QAM 08/24/19 09/28/20 History metformin 500 mg PO QAM 08/24/19 09/28/20 History rosuvastatin 20 mg PO QAM 08/24/19 09/28/20 History lisinopril 20 mg PO DAILY #30 tab 08/27/19 09/28/20 Rx acetaminophen [Acetaminophen Extra 500 mg PO TID PRN 09/21/20 09/28/20 History Strength] aspirin 81 mg PO DAILY 09/21/20 09/28/20 History cholecalciferol (vitamin D3) 25 mcg PO DAILY 09/21/20 09/28/20 History [Vitamin D3] guaifenesin [Mucosa] 400 mg PO TID 09/21/20 09/28/20 History ondansetron 4 mg PO TID PRN 09/21/20 09/28/20 History zinc sulfate 220 mg PO BID 09/21/20 09/28/20 History benzonatate [Tessalon Perles] 100 mg PO TID 7 Days #21 cap 09/27/20 09/28/20 Rx codeine-guaifenesin 10 ml PO Q6 PRN #120 ml 09/27/20 09/28/20 Rx Past Med/Surg History Medical History Breathlessness Diabetes mellitus, type II Erectile dysfunction HTN (hypertension) Hyperlipidemia Hypoxia Tobacco abuse Quit smoking in 2018 after 45 years of cigarette use Surgical History No significant past surgical history Family History Mother Stroke Brother Diabetes Grandmother (Maternal) Diabetes Myocardial infarction Social History Smoking Status: Former smoker Tobacco Type: Cigarettes Age Quit Using Tobacco: 63; packs per day: 1; Years Smoked: 45; Second Hand Exposure: No; Hx Alcohol Use: No Hx Substance Use: No Preferred Language: Frisian Communication Ability: Effective Field Operations Technician Required: No Beliefs That Will Affect Care: None marital status: Unknown Current Living Situation: Other Current Living Situation Comment: KRISTIN Lerma Feels Safe at Home: Yes Assistive Devices: None Review of Systems Review of Systems: All systems reviewed & are unremarkable except as noted in HPI & below Physical Exam Constitutional: WD/WN, vitals as above Eyes: + anicteric sclerae Neck: trachea midline, no thyromegaly Respiratory: normal respiratory effort (Nonrebreather mask in place) and + cough Auscultation: + rhonchi (Bilateral lower lung blum); no wheezes Cardiovascular: RRR, no murmur, no edema Chest (Breasts): Chest: normal inspection of chest Gastrointestinal (Abdomen): normal bowel sounds, soft, nontender, no hepatosplenomegaly Musculoskeletal: Extremities: extremities normal to inspection; no cyanosis and no clubbing Skin: no rashes, warm and dry Neurologic: moves all extremities and awake; no focal motor deficits Psychiatric: A+Ox3, euthymic affect Lymphatic: no lymphedema Results & Data Results & Data ([facility]) Vital Signs (Past 12 Hours) Vital Signs Temp Pulse Pulse Resp BP BP Pulse Ox 09/28/20 10:07 68 18 145/74 H 91 09/28/20 09:01 91 09/28/20 08:07 36.8 C 66 24 129/68 78 L Laboratory Results 09/28/20 09/28/20 09/28/20 Range/Units 11:09 08:57 08:40 WBC (4.8-10.8) K/uL RBC (4.7-6.1) M/uL Hgb (14.0-18.0) g/dL Hct (42-52) % MCV (80-100) fL MCH (25-34) pg MCHC (32-36) g/dL RDW Std Deviation (36.4-46.3) fL RDW Coeff of Ya (11.5-14.5) % Plt Count (130-400) K/uL MPV (7.4-10.4) fL Absolute Nucleated RBC (0-0) K/uL Nucleated RBC % (auto) % Neutrophils % (Manual) % Lymphocytes % (Manual) % Monocytes % (Manual) % Basophils % (Manual) % Metamyelocytes % (Man) % Myelocytes % (Man) % Neutrophils # (Manual) (1.4-6.5) K/uL Total Absolute Neuts (1.4-6.5) K/uL Lymphocytes # (Manual) (1.2-3.4) K/uL Total Abs Lymphocytes (1.2-3.4) K/uL Monocytes # (Manual) (0.11-0.59) K/uL Basophils # (Manual) (0-0.2) K/uL Metamyelocytes # (Man) (0-0) K/uL Myelocytes # (Manual) (0-0) K/uL Polychromasia PT (9.0-12.0) Seconds INR (0.9-1.1) APTT (21.0-31.0) Seconds PTT Ratio D-Dimer (0-500) ug/L FEU Sodium (136-145) mmol/L Potassium (3.5-5.1) mmol/L Chloride (98-107) mmol/L Carbon Dioxide (21-32) mmol/L Anion Gap (3-11) BUN (7-18) mg/dl Creatinine (0.6-1.4) mg/dl Est Cr Clr Drug Dosing Est GFR ( Amer) Est GFR (Non-Af Amer) BUN/Creatinine Ratio (10-20) Glucose (70-99) mg/dl Lactate 1.6 2.3 H* (0.4-2.0) mmol/L Calcium (8.5-10.1) mg/dl Total Bilirubin (0.2-1) mg/dl AST (15-37) U/L ALT (12-78) U/L Alkaline Phosphatase (45-117) U/L Total Creatine Kinase (39-308) U/L Troponin I (0-0.045) ng/ml Total Protein (6.4-8.2) gm/dl Albumin (3.4-5.0) gm/dl Globulin (2.5-4.0) gm/dl Albumin/Globulin Ratio (0.9-2) Procalcitonin 0.06 (0-0.5) ng/ml 09/28/20 09/28/2009/28/21 Range/Units 08:40 08:40 08:40 WBC 15.18 H (4.8-10.8) K/uL RBC 6.34 H (4.7-6.1) M/uL Hgb 15.2 (14.0-18.0) g/dL Hct 46.6 (42-52) % MCV 73.5 L (80-100) fL MCH 24.0 L (25-34) pg MCHC 32.6 (32-36) g/dL RDW Std Deviation 41.4 (36.4-46.3) fL RDW Coeff of Ya 15.6 H (11.5-14.5) % Plt Count 297 (130-400) K/uL MPV 10.5 H (7.4-10.4) fL Absolute Nucleated RBC 0.72 H (0-0) K/uL Nucleated RBC % (auto) 4.7 % Neutrophils % (Manual) 74.1 % Lymphocytes % (Manual) 18.1 % Monocytes % (Manual) 3.4 % Basophils % (Manual) 0.9 % Metamyelocytes % (Man) 2.6 % Myelocytes % (Man) 0.9 % Neutrophils # (Manual) 11.25 H (1.4-6.5) K/uL Total Absolute Neuts 11.25 H (1.4-6.5) K/uL Lymphocytes # (Manual) 2.75 (1.2-3.4) K/uL Total Abs Lymphocytes 2.75 (1.2-3.4) K/uL Monocytes # (Manual) 0.52 (0.11-0.59) K/uL Basophils # (Manual) 0.14 (0-0.2) K/uL Metamyelocytes # (Man) 0.39 H (0-0) K/uL Myelocytes # (Manual) 0.14 H (0-0) K/uL Polychromasia 1+ PT 11.8 (9.0-12.0) Seconds INR 1.1 (0.9-1.1) APTT 22.2 (21.0-31.0) Seconds PTT Ratio 0.8 D-Dimer 1940 H* (0-500) ug/L FEU Sodium 141 (136-145) mmol/L Potassium 4.4 (3.5-5.1) mmol/L Chloride 108 H (98-107) mmol/L Carbon Dioxide 26 (21-32) mmol/L Anion Gap 7.0 (3-11) BUN 23 H (7-18) mg/dl Creatinine 1.17 (0.6-1.4) mg/dl Est Cr Clr Drug Dosing Not Reportable Est GFR ( Amer) 75.9 Est GFR (Non-Af Amer) 65.5 BUN/Creatinine Ratio 19.7 (10-20) Glucose 154 H (70-99) mg/dl Lactate (0.4-2.0) mmol/L Calcium 8.9 (8.5-10.1) mg/dl Total Bilirubin 0.9 (0.2-1) mg/dl AST 32 (15-37) U/L ALT 54 (12-78) U/L Alkaline Phosphatase 55 (45-117) U/L Total Creatine Kinase 97 (39-308) U/L Troponin I 0.131 H* (0-0.045) ng/ml Total Protein 6.9 (6.4-8.2) gm/dl Albumin 2.7 L (3.4-5.0) gm/dl Globulin 4.2 H (2.5-4.0) gm/dl Albumin/Globulin Ratio 0.6 L (0.9-2) Procalcitonin (0-0.5) ng/ml Diagnostic Findings Chest x-ray and chest CT angiogram images personally reviewed by me and agree with the following reports: CT ANGIOGRAPHY OF THE CHEST, PULMONARY EMBOLUS PROTOCOL CLINICAL HISTORY: sob, eval for PE, covid COMPARISON STUDY: Chest CT September 27, 2020 and chest radiograph performed earlier today. TECHNIQUE: Following IV administration of 120 mL of Optiray-320, helical axial images of the chest were obtained utilizing the pulmonary embolus protocol. Maximal intensity projections and sagittal and coronal reformats were viewed on an independent 3D workstation. IV contrast was administered without complication. Automated exposure control was utilized for the study. A dose lowering technique was utilized adhering to the principles of ALARA. CT DOSE: 566.96 mGycm FINDINGS: No pulmonary emboli are identified. There is no thoracic aortic dissection. Ascending aorta is ectatic, measuring 4 cm at the level the main pulmonary artery. There is mild cardiomegaly. There is moderate coronary artery calcification. A few mildly enlarged lymph nodes are unchanged. These are likely reactive. There is no pericardial effusion. No pneumothorax or pleural effusion is noted. Lungs are suboptimally assessed due to respiratory motion. There is emphysema. Fibrotic changes within the lungs are also noted. There has been interval development of groundglass opacities and interlobular septal thickening since CT of September 27, 2020. IMPRESSION: 1. No pulmonary emboli identified. 2. Increase in groundglass opacities and interlobular septal thickening since CT of February 25, 2021. This could reflect an infectious process or pulmonary edema superimposed upon emphysema and interstitial lung disease. 3. Mild cardiomegaly and moderate coronary artery calcification. XR chest 1V portable HISTORY: 65 years-old Male Chest Pain acute atypical chest pain COMPARISON: Chest radiograph 09/24/2020, CTA chest 09/27/2020 TECHNIQUE: Portable AP view of the chest FINDINGS: Cardiac silhouette is upper limits of normal in size. Emphysema with chronic fibrosis. Ill-defined patchy bibasilar and subpleural reticular opacities redemonstrated. There is no pneumothorax or large pleural effusion. Degenerative changes of the shoulders and spine. IMPRESSION: Emphysema with chronic fibrosis. Additionally, there is superimposed bibasilar and interstitial opacities suggestive of an infectious or inflammatory pneumonitis. ECG Additional Comments: ECG on 09/28/2020 at 0 837 with normal sinus rhythm, rate 67, T wave inversions new in inferior and anterolateral leads, prolonged QTC at 490 Code Status & VTE Plan Code Status Full code VTE Prophylaxis Plan VTE Prophylaxis will be ordered: Yes PG Care Time/CCT Total # of Minutes Spent Total Time Spent with Patient: Total time spent is greater than 50% in coordination of care (as documented) at patient's floor/unit and/or counseling patient: Coding Level of Care Code 80567 Initial Inpt Care Lvl 3 Diagnoses Hypoxia R09.02 Pneumonia due to COVID-19 virus U07.1; J12.82 Elevated troponin R77.8 Hyperlipidemia E78.5 HTN (hypertension) I10 Diabetes mellitus, type II E11.9 Vertebral artery dissection I77.74 DVT prophylaxis Z29.9
[2020-09-28] MEDS ORDERED: VANCOMYCIN HCL 1,000 MG in SODIUM CHLORIDE 0.9% 250 ML IV SCH (11:45)
[2020-09-28] MEDS: ALBUTEROL HFA 8 GM INHALER INH SCH ×3 (12:40→19:39)
[2020-09-28] MEDS ORDERED: DEXTROSE 50% 50 ML SYRINGE IV PRN (13:18)
[2020-09-28] MEDS ORDERED: GLUCOSE 10 TABS/TUBE PO PRN (13:18)
[2020-09-28] MEDS ORDERED: CARBOHYDRATES FOR HYPOGLYCEMIA PO PRN (13:18)
[2020-09-28] MEDS ORDERED: GLUCOSE 40% GEL 15 GM TUBE PO PRN (13:18)
[2020-09-28] MEDS ORDERED: GLUCAGON FOR INJ 1 MG VIAL SQ PRN (13:18)
[2020-09-28] MEDS ORDERED: VANCOMYCIN CONSULT ACTIVE PRN (13:30)
[2020-09-28] MEDS ORDERED: PATIENT'S HEIGHT AND/OR WEIGHT NEEDED SCH (13:30)
[2020-09-28 13:35] LABS: Troponin I 0.12 ng/ml (0-0.045)
[2020-09-28] MEDS ORDERED: VANCOMYCIN HCL 1,000 MG in SODIUM CHLORIDE 0.9% 250 ML IV STA (13:46)
[2020-09-28] MEDS ORDERED: DOXYCYCLINE HYCLATE 100 MG in DEXTROSE 5% 100 ML IV SCH ×2 (14:00→21:00)
[2020-09-28] MEDS ORDERED: CEFEPIME 2,000 MG in SYRINGE 0 ML IV SCH (14:00)
[2020-09-28] MEDS: ROSUVASTATIN CALCIUM 20 MG TAB PO SCH (14:46)
[2020-09-28] MEDS: INSULIN HUMAN NPH SC SCH (14:46)
[2020-09-28] MEDS: lisinopril 20 MG TAB PO SCH (14:47)
[2020-09-28] MEDS: guaiFENesin 200 MG TAB PO SCH ×2 (14:48→22:09)
--- NOTE | 2020-09-28 14:54 | Pharmacy Report ---
Pharmacy Abx Dose Short Note - Date of Service September 28, 2020 - Assessment & Plan Assessment 65 year old M started on vanco,cefepime and doxy for possible pneumonia. Recent hospital admission 09/21-09/27 tx with dex and was weaned off oxygen prior to discharge. Admitted with hypoxia, started on oxygen, concern for possible pneumonia vs. CHF. Plan Vancomycin * Received 1 gm of vancomycin this AM, ordered another 1 gram for now to make up full loading dose of vancomycin (2000 mg - ~21 mg/kg load) * Plan to start vancomycin 1250 mg (~13 mg/kg) iv q 12 hrs to achieve an estimated trough ~15-20 mcg/ml * Scr slightly elevated from baseline, est Crcl ~67 ml/min * Estimated kinetics: t1/2~11 hrs, ke~0.06 hr-1 * Plan to order trough if continued >48 hrs
[2020-09-28] MEDS: INSULIN ASPART 100 UNITS/ML 3 ML PEN SC SCH ×2 (18:46→20:52)
[2020-09-28] MEDS ORDERED: FUROSEMIDE 40 MG/4 ML VIAL IV ONE (21:45)
[2020-09-28] MEDS ORDERED: FUROSEMIDE 40 MG in SYRINGE 0 ML IV ONE (21:45)
[2020-09-28] MEDS: ENOXAPARIN INJ 40 MG/0.4 ML SYR SQ SCH (22:22)
[2020-09-29] MEDS: ALBUTEROL HFA 8 GM INHALER INH SCH ×4 (01:16→20:18)
[2020-09-29] MEDS ORDERED: VANCOMYCIN HCL 1,250 MG in SODIUM CHLORIDE 0.9% 250 ML IV SCH (04:00)
[2020-09-29 07:53] LABS: Hematocrit (blood only) 48.5 % (42-52); Hemoglobin 15.7 g/dL (14.0-18.0); Mean Corpuscular Hemoglobin 23.8 pg (25-34); Mean Corpuscular Hgb Conc 32.4 g/dL (32-36); Mean Corpuscular Volume 73.4 fL (80-100); Mean Platelet Volume 10.5 fL (7.4-10.4); Nucleated RBC % (auto) 3.3 %; Platelet Count 259 K/uL (130-400); RDW Coefficient of Variation 15.7 % (11.5-14.5); RDW Standard Deviation 40.5 fL (36.4-46.3); Red Blood Count 6.61 M/uL (4.7-6.1); White Blood Count 15.12 K/uL (4.8-10.8)
[2020-09-29 08:10] LABS: Albumin Level 2.6 gm/dl (3.4-5.0); BUN Creatinine Ratio 21.6 (10-20); C Reactive Protein 4.35 mg/dl (0-0.29); Calcium 9.1 mg/dl (8.5-10.1); Creatinine Clr Calc Pharmacy 81.5 ml/min; Est GFR (African American) 84.6; Magnesium 2.8 mg/dl (1.8-2.4)
[2020-09-29 08:12] LABS: Albumin Globulin Ratio 0.6 (0.9-2); Globulin 4.4 gm/dl (2.5-4.0)
[2020-09-29 08:55] LABS: ANC (manual) 11.79 K/uL (1.4-6.5); Lymphocytes % (manual) 13.2 %; Metamyelocytes # (manual) 0.27 K/uL (0-0); Metamyelocytes % (manual) 1.8 %; Monocytes # (manual) 0.92 K/uL (0.11-0.59); Monocytes % (manual) 6.1 %; Myelocytes # (manual) 0.14 K/uL (0-0); Myelocytes % (manual) 0.9 %; Neutrophils # (manual) 11.79 K/uL (1.4-6.5); RBC Morphology Unremarkable
[2020-09-29] MEDS ORDERED: ZINC SULFATE 220 MG CAPSULE PO SCH (09:00)
[2020-09-29] MEDS ORDERED: DEXAMETHASONE SOD PHOSPHATE 6 MG in SYRINGE 0 ML IV SCH (09:00)
[2020-09-29] MEDS ORDERED: ASPIRIN 81 MG ECTAB PO SCH (09:00)
[2020-09-29] MEDS ORDERED: DEXAMETHASONE SOD INJ 10 MG/ML VIAL IV SCH (09:00)
[2020-09-29] MEDS ORDERED: CHOLECALCIFEROL 1,000 UNITS 25 MCG TAB PO SCH (09:00)
[2020-09-29] MEDS: lisinopril 20 MG TAB PO SCH (09:05)
[2020-09-29] MEDS ORDERED: FUROSEMIDE 40 MG in SYRINGE 0 ML IV ONE (10:30)
[2020-09-29] MEDS: ENOXAPARIN INJ 40 MG/0.4 ML SYR SQ SCH ×2 (10:40→20:35)
[2020-09-29] MEDS: INSULIN ASPART 100 UNITS/ML 3 ML PEN SC SCH ×4 (10:54→20:34)
[2020-09-29] MEDS: INSULIN HUMAN NPH SC SCH (10:54)
[2020-09-29] MEDS: guaiFENesin 200 MG TAB PO SCH ×2 (11:19→20:36)
[2020-09-29] MEDS: ROSUVASTATIN CALCIUM 20 MG TAB PO SCH (11:19)
[2020-09-29] MEDS: BENZONATATE 100 MG CAPSULE PO PRN (11:20)
--- NOTE | 2020-09-29 15:27 | Electrocardiogram Report ---
Test Reason : Blood Pressure : / mmHG Vent. Rate : 067 BPM Atrial Rate : 067 BPM P-R Int : 124 ms QRS Dur : 086 ms QT Int : 464 ms P-R-T Axes : 065 -11 -52 degrees QTc Int : 490 ms Normal sinus rhythm Minimal voltage criteria for LVH, may be normal variant T wave abnormality, consider inferior ischemia T wave abnormality, consider anterolateral ischemia Prolonged QT Abnormal ECG When compared with ECG of 28-SEP-2020 08:37, No significant change was found Confirmed by Latrell Jain ([id number]) on 09/29/2020 3:26:57 PM Referred By: Florentin FOSTER Confirmed By:Latrell Jain
--- NOTE | 2020-09-29 16:14 | Hospitalist Progress Note ---
Date of Service September 29, 2020 Assessment & Plan (1) Acute respiratory failure with hypoxia: On 09/27/20 upon discharge back to [facility] patient was stable in room air. He had been ill with COVID-19 pneumonia since late August. He returned on 09/28/20 with profound hypoxia. He has multiple reasons for this including what appears to be acute CHF and probable COPD/PF exacerbation all in the setting of ongoing COVID-19 infection/pneumonia. I cannot rule out a concomitant superimposed bacterial pneumonia. Additionally, I cannot rule out ACS given his chest pain and marked EKG abnormalities (anterolateral ST depressions). Although initial imaging in August showed fibrosis - is his fibrosis worsening due to the COVID-19?? plan - repeat troponin and BNP now. gave 40mg of lasix this am; consider additional lasix tonight. echo to eval LV function and check for WMA. increase decadron to BID dosing for COPD/PF. although procal is negative, in light of worsening clinical picture, will add cefepime/doxy to cover for typicals, atypicals, and gram negative pneumonia. cont lovenox 40mg BID. self-proning. supportive care. labs am. strongly consider pulmonary consultation. (2) Acute CHF: copious diuresis since admission with lasix x 2 doses. this has helped his symptoms. BNP mildly elevated at admission. recheck now. echo to eval LV function, etc. (3) COPD exacerbation: probable. cont IV decadron - increase to BID dosing. cont q6h bronchodilators. self-prone. pulm toilet. (4) Chest pain: uncertain if cardiac or due to severe pulmonary disease. obtain troponin now. echo. ekgs yesterday/today with marked ST depressions anterolaterally. await echo. (5) Pulmonary fibrosis: seen on his first CTA chest on 09/21/2020. he likely has PF on the basis of heavy prior tobacco abuse? fibrosis findings have remained, of course, on subsequent CTAs. cont steroids. is fibrosis getting worse due to COVID? (6) Pneumonia due to COVID-19 virus: supportive care. steroids. no role for plasma/remdesivir - initial dx around [place]. (7) Hyperlipidemia: cont crestor (8) HTN (hypertension): cont YANIV (9) Diabetes mellitus, type II: appreciate pharmacy glycemic assistance. cont NPH, cont novolog. last Hba1c 7.6%. (10) Vertebral artery dissection: history of - noted (11) Elevated troponin: peak troponin 0.131 given chest pain, EKG findings, etc along w/ clinical picture - repeat trop now (12) DVT prophylaxis: due to high risk of VTE in setting of COVID -- lovenox 40mg BID he is quite ill and is high risk of further decompensation full code Admission and Anticipated Discharge Date Admission Date: September 28, 2020 Subjective patient sleeping upon arrival in the prone position. despite high settings on HFNC he did not have any distress. I called his name and he awoke. he was irritated, using an explative to describe his current illness and his ongoing issues with COVID. patient confirmed that when he left [facility] a few days ago he was stable in room air and was feeling good. he arrived back at [facility] and [place] some time after arriving back at [facility] he noted central chest pain that would come/go and mainly was provoked by activity. he has never had chest pain in the past. in the weeks leading up to nina COVID he did note dyspnea on exertion but no chest pain. on the day of readmission his chest pain continued and breathing markedly got worse. his breathing is improved s/p 2 doses of IV lasix since yesterday. wylie bag had nearly 2 L of urine during my visit. denies family history of CAD / LA. Review of Systems Constitutional: no fever, no chills and no anorexia Respiratory: + cough, + dyspnea, + dyspnea on exertion and + wheezing Cardiovascular: as per Subjective / HPI and + chest pain; no edema Gastrointestinal: no abdominal pain Physical Exam Constitutional: well developed and well nourished; no acute distress and no altered mental status ENMT: external ear and nose normal, oropharynx normal Respiratory: no respiratory distress Auscultation: + diminished lung sounds, + rales (Fine - bases) and + wheezes (Occasional, scattered ) Cardiovascular: Rate/Rhythm: regular rate and regular rhythm Heart Sounds: normal S1 and normal S2 Vessels: posterior tibial pulses present and dorsalis pedis pulses present; no JVD Extremities: no edema Gastrointestinal (Abdomen): normal bowel sounds, soft, nontender, no hepatosplenomegaly Psychiatric: Orientation: alert and oriented x 3 Affect: + irritable affect Results & Data Results & Data ([facility]) Vital Signs (Past 12 Hours) Vital Signs Temp Pulse Resp BP Pulse Ox 09/29/20 15:37 69 20 92 09/29/20 12:41 75 22 89 L 09/29/20 12:09 36.5 C 65 18 115/58 L 87 L 09/29/20 11:47 74 22 89 L 09/29/20 09:13 37.3 C 58 L 20 114/52 L 88 L 09/29/20 07:45 60 22 91 09/29/20 07:41 60 22 91 09/29/20 05:00 36.8 C 55 L 22 135/75 89 L Laboratory Results Laboratory Results - last 24 hr 09/29/20 09/29/20 09/29/20 07:21 07:21 07:21 WBC 15.12 H RBC 6.61 H Hgb 15.7 Hct 48.5 MCV 73.4 L MCH 23.8 L MCHC 32.4 RDW Std Deviation 40.5 RDW Coeff of Ya 15.7 H Plt Count 259 MPV 10.5 H Absolute Nucleated RBC 0.50 H Nucleated RBC % (auto) 3.3 Neutrophils % (Manual) 78.0 Lymphocytes % (Manual) 13.2 Monocytes % (Manual) 6.1 Metamyelocytes % (Man) 1.8 Myelocytes % (Man) 0.9 Neutrophils # (Manual) 11.79 H Total Absolute Neuts 11.79 H Lymphocytes # (Manual) 2.00 Total Abs Lymphocytes 2.00 Monocytes # (Manual) 0.92 H Metamyelocytes # (Man) 0.27 H Myelocytes # (Manual) 0.14 H RBC Morphology Unremarkable ESR 8 Sodium 140 Potassium 4.0 Chloride 107 Carbon Dioxide 25 Anion Gap 9.0 BUN 23 H Creatinine 1.07 Est Cr Clr Drug Dosing 81.5 Est GFR ( Amer) 84.6 Est GFR (Non-Af Amer) 73.0 BUN/Creatinine Ratio 21.6 H Glucose 126 H POC Glucose Calcium 9.1 Phosphorus 5.0 H Magnesium 2.8 H Total Bilirubin 1.0 AST 30 ALT 75 Alkaline Phosphatase 64 Troponin I C-Reactive Protein 4.35 H NT-Pro-B Natriuret Pep Total Protein 7.0 Albumin 2.6 L Globulin 4.4 H Albumin/Globulin Ratio 0.6 L Procalcitonin 09/29/20 09/29/20 09/29/20 07:21 07:45 10:57 WBC RBC Hgb Hct MCV MCH MCHC RDW Std Deviation RDW Coeff of Ya Plt Count MPV Absolute Nucleated RBC Nucleated RBC % (auto) Neutrophils % (Manual) Lymphocytes % (Manual) Monocytes % (Manual) Metamyelocytes % (Man) Myelocytes % (Man) Neutrophils # (Manual) Total Absolute Neuts Lymphocytes # (Manual) Total Abs Lymphocytes Monocytes # (Manual) Metamyelocytes # (Man) Myelocytes # (Manual) RBC Morphology ESR Sodium Potassium Chloride Carbon Dioxide Anion Gap BUN Creatinine Est Cr Clr Drug Dosing Est GFR ( Amer) Est GFR (Non-Af Amer) BUN/Creatinine Ratio Glucose POC Glucose 134 H 149 H Calcium Phosphorus Magnesium Total Bilirubin AST ALT Alkaline Phosphatase Troponin I C-Reactive Protein NT-Pro-B Natriuret Pep Total Protein Albumin Globulin Albumin/Globulin Ratio Procalcitonin 0.06 09/29/20 09/29/20 09/29/20 16:12 16:17 20:09 WBC RBC Hgb Hct MCV MCH MCHC RDW Std Deviation RDW Coeff of Ya Plt Count MPV Absolute Nucleated RBC Nucleated RBC % (auto) Neutrophils % (Manual) Lymphocytes % (Manual) Monocytes % (Manual) Metamyelocytes % (Man) Myelocytes % (Man) Neutrophils # (Manual) Total Absolute Neuts Lymphocytes # (Manual) Total Abs Lymphocytes Monocytes # (Manual) Metamyelocytes # (Man) Myelocytes # (Manual) RBC Morphology ESR Sodium Potassium Chloride Carbon Dioxide Anion Gap BUN Creatinine 1.16 Est Cr Clr Drug Dosing 75.2 Est GFR ( Amer) 76.7 Est GFR (Non-Af Amer) 66.2 BUN/Creatinine Ratio Glucose POC Glucose 209 H 232 H Calcium Phosphorus Magnesium Total Bilirubin AST ALT Alkaline Phosphatase Troponin I 0.036 C-Reactive Protein NT-Pro-B Natriuret Pep 241 Total Protein Albumin Globulin Albumin/Globulin Ratio Procalcitonin Diagnostic Findings cxr - IMPRESSION: 1. Emphysema with chronic fibrosis. 2. Additionally, there is suggestion of superimposed pulmonary edema versus interstitial pneumonitis. 3. Left greater than right bibasilar opacities persist. PG Care Time/CCT Total # of Minutes Spent Total Time Spent with Patient: Total time spent is greater than 50% in coordination of care (as documented) at patient's floor/unit and/or counseling patient: Coding Level of Care Code 21363 Subseq Hosp Care Lvl 3 Diagnoses Acute respiratory failure with hypoxia J96.01 Acute CHF I50.9 COPD exacerbation J44.1 Chest pain R07.9 Pulmonary fibrosis J84.10 Pneumonia due to COVID-19 virus U07.1; J12.82 Hyperlipidemia E78.5 HTN (hypertension) I10 Diabetes mellitus, type II E11.9 Vertebral artery dissection I77.74 Elevated troponin R77.8 DVT prophylaxis Z29.9
[2020-09-29 17:10] LABS: Creatinine Clr Calc Pharmacy 75.2 ml/min; Est GFR (African American) 76.7; Est GFR (Non-African American) 66.2
[2020-09-29 17:17] LABS: Troponin I 0.036 ng/ml (0-0.045)
--- NOTE | 2020-09-29 17:40 | XRay Report ---
XR chest 1V portable HISTORY: 65 years-old Male pulm edema vs fibrosis vs pneumonia acute shortness of breath. COMPARISON: Chest radiograph and CTA chest 09/28/2020 TECHNIQUE: Portable AP view of the chest FINDINGS: Cardiac silhouette is upper limits of normal in size. No pneumothorax or large pleural effusion. Emph ysema with chronic fibrosis. Bilateral reticular opacities with ill-defined left greater than right b ibasilar consolidation. Left lung base opacities have mildly progressed. Degenerative changes of the shoulders and spine. IMPRESSION: 1. Emphysema with chronic fibrosis. 2. Additionally, there is suggestion of superimposed pulmonary edema versus interstitial pneumonitis. 3. Left greater than right bibasilar opacities persist. ACT 112: Negative or not required by law. The above report was generated using voice recognition software. It may contain grammatical, syntax o r spelling errors. Electronically signed by: Zack Wong M.D. 09/29/2020 5:39 PM
[2020-09-29] MEDS: DOXYCYCLINE HYCLATE 100 MG in DEXTROSE 5% 100 ML IV SCH (18:16)
[2020-09-29] MEDS: CEFEPIME 2,000 MG in SYRINGE 0 ML IV SCH (18:16)
[2020-09-29] MEDS: DEXAMETHASONE SOD PHOSPHATE 6 MG in SYRINGE 0 ML IV SCH (20:35)
--- NOTE | 2020-09-29 20:52 | Communication Note ---
Date of Service: September 29, 2020 Patient with poor oxygenation in the evening. With SPO2 in the 80s despite high flow nasal cannula and proning. Chest x-ray reviewed, mild congestion a ppreciated. Creatinine normal. Additional Lasix IV 20 mg ordered, discussed with respiratory therapy. If saturation does not improve with proning and fluid treatment with Lasix may need to progress to BiPAP.
[2020-09-29] MEDS ORDERED: FUROSEMIDE 20 MG in SYRINGE 0 ML IV ONE (21:15)
[2020-09-29] MEDS ORDERED: FUROSEMIDE 40 MG/4 ML VIAL IV ONE (22:45)
[2020-09-29] MEDS ORDERED: FUROSEMIDE 40 MG/4 ML VIAL IV SCH (22:45)
[2020-09-30] MEDS: ALBUTEROL HFA 8 GM INHALER INH SCH ×5 (00:31→19:46)
[2020-09-30] MEDS: CEFEPIME 2,000 MG in SYRINGE 0 ML IV SCH ×3 (03:12→17:29)
[2020-09-30 08:34] LABS: Basophils # (auto) 0.03 K/uL (0-0.2); Basophils % (auto) 0.2 %; Hematocrit (blood only) 50.1 % (42-52); Hemoglobin 16.5 g/dL (14.0-18.0); Lymphocytes # (auto) 1.19 K/uL (1.2-3.4); Lymphocytes % (auto) 7.8 %; Mean Corpuscular Hemoglobin 24.1 pg (25-34); Mean Corpuscular Hgb Conc 32.9 g/dL (32-36); Mean Corpuscular Volume 73.2 fL (80-100); Mean Platelet Volume 10.8 fL (7.4-10.4); Monocytes # (auto) 1.06 K/uL (0.11-0.59); Monocytes % (auto) 6.9 %; Neutrophils # (auto) 12.69 K/uL (1.4-6.5); Neutrophils % (auto) 83.1 %; Nucleated RBC # (auto) 0.31 K/uL (0-0); Platelet Count 257 K/uL (130-400); RDW Coefficient of Variation 16.6 % (11.5-14.5); RDW Standard Deviation 39.3 fL (36.4-46.3); Red Blood Count 6.84 M/uL (4.7-6.1); White Blood Count 15.27 K/uL (4.8-10.8)
[2020-09-30 08:58] LABS: D Dimer 2550 ug/L FEU (0-500)
[2020-09-30] MEDS: INSULIN ASPART 100 UNITS/ML 3 ML PEN SC SCH ×4 (08:58→21:22)
[2020-09-30] MEDS: INSULIN HUMAN NPH SC SCH (09:00)
[2020-09-30 09:01] LABS: BUN Creatinine Ratio 22.5 (10-20); Calcium 9.2 mg/dl (8.5-10.1); Creatinine Clr Calc Pharmacy 96.9 ml/min; Est GFR (African American) 104.2; Est GFR (Non-African American) 89.9; Potassium 4.2 mmol/L (3.5-5.1)
[2020-09-30] MEDS ORDERED: FUROSEMIDE 40 MG in SYRINGE 0 ML IV ONE (09:15)
[2020-09-30] MEDS ORDERED: FUROSEMIDE 40 MG/4 ML VIAL IV ONE (09:30)
[2020-09-30] MEDS: DEXAMETHASONE SOD PHOSPHATE 6 MG in SYRINGE 0 ML IV SCH (09:33)
[2020-09-30] MEDS: DOXYCYCLINE HYCLATE 100 MG in DEXTROSE 5% 100 ML IV SCH ×2 (09:33→21:16)
[2020-09-30] MEDS: CHOLECALCIFEROL 1,000 UNITS 25 MCG TAB PO SCH (09:34)
[2020-09-30] MEDS: guaiFENesin 200 MG TAB PO SCH ×3 (09:34→21:15)
[2020-09-30] MEDS: BENZONATATE 100 MG CAPSULE PO PRN (09:34)
[2020-09-30] MEDS: ASPIRIN 81 MG ECTAB PO SCH (09:34)
[2020-09-30] MEDS: ROSUVASTATIN CALCIUM 20 MG TAB PO SCH (09:35)
[2020-09-30] MEDS: ZINC SULFATE 220 MG CAPSULE PO SCH (09:35)
[2020-09-30] MEDS: lisinopril 20 MG TAB PO SCH (09:35)
[2020-09-30] MEDS: ENOXAPARIN INJ 40 MG/0.4 ML SYR SQ SCH ×3 (09:35→21:37)
[2020-09-30 18:01] LABS: Base Excess ABG 0.2 mEq/L (-9-1.8); HCO3 ABG 23 mmol/L (19-24); Oxygen Saturation ABG 85.2 % (90-95); PCO2 ABG 31 mmHg (35-46); PO2 ABG 50 mmHg (80-95); pH ABG 7.48 (7.35-7.45)
[2020-09-30 18:02] LABS: Allen Test Pos (Pos)
[2020-09-30] MEDS: methylPREDNISolone 125 MG in SYRINGE 0 ML IV SCH (18:34)
[2020-09-30 18:44] LABS: C Reactive Protein 6.04 mg/dl (0-0.29)
--- NOTE | 2020-09-30 19:17 | Hospitalist Progress Note ---
Date of Service September 30, 2020 Assessment & Plan (1) Acute respiratory failure with hypoxia: On 09/27/20 upon discharge back to [facility] patient was stable in room air. He had been ill with COVID-19 pneumonia since late August. He returned on 09/28/20 with profound hypoxia. He is now maxed out on HFNC settings and his ABG shows severe hypoxemia. He has multiple reasons for his hypoxic resp failure including acute CHF, COPD/PF exacerbation, and recent COVID-19 pneumonia. I cannot rule out a concomitant superimposed bacterial pneumonia. Additionally, I cannot rule out worsening fibrosis due to COVID-19 / ARDS. PE was ruled out with admission CTA chest. plan - continue IV diuresis - additional 40mg x 1 given today. await echo to eval LV function and check for WMA. cont cefepime/doxy to cover for typicals, atypicals, and gram negative pneumonia if there is concomitant bacterial process. cont lovenox 40mg BID. self-proning. supportive care. pulmonary consultation requested; care d/w pulmonary PA; there is heavy concern about advancing ILD/PF. labs and additional recs from pulmonary to follow but they do recommend ongoing steroids in the form of solumedrol rather than dexamethasone. If patient worsens this evening would trial CPAP. Avoid intubation if possible. Prognosis guarded. (2) Acute CHF: copious diuresis since admission. awaiting echo. continue IV lasix today. (3) COPD exacerbation: suspected. cont steroids. cont q6h bronchodilators. self-prone. pulm toilet. pulmonary consultation. (4) Chest pain: uncertain if symptoms pre-admission were cardiac or due to severe pulmonary disease. troponins scantly elevated at admission. await echo. noted -- multiple EKGs with marked ST depressions anterolaterally. (5) Pulmonary fibrosis: seen on his first CTA chest on 09/21/2020. he likely has PF on the basis of heavy prior tobacco abuse? fibrosis findings have remained, of course, on subsequent CTAs. cont steroids. is fibrosis getting worse due to COVID? (6) Pneumonia due to COVID-19 virus: supportive care. steroids. no role for plasma/remdesivir - initial dx around [place]. (7) Hyperlipidemia: cont crestor (8) HTN (hypertension): cont YANIV (9) Diabetes mellitus, type II: appreciate pharmacy glycemic assistance. cont NPH, cont novolog. last Hba1c 7.6%. cont YANIV inhibitor (10) Vertebral artery dissection: history of - noted (11) Elevated troponin: peak troponin 0.131 echo pending (12) Sore throat: magic mouthwash swish/spit q6h scheduled (13) DVT prophylaxis: due to high risk of VTE in setting of COVID -- lovenox 40mg BID prognosis guarded full code Admission and Anticipated Discharge Date Admission Date: September 28, 2020 Subjective tele overnight wnl. patient was awake/alert during my visit. he is tired of feeling so ill. he continues with severe dyspnea with minimal exertion. has some cough. no sputum production. he is trying to prone. denies chest pain. eating fair. has not had echo yet. Review of Systems 2 Constitutional: + fatigue and + weakness; no fever and no chills Ear, Nose, Mouth, Throat: + sore throat (started this am ) Respiratory: + cough, + dyspnea and + dyspnea on exertion; no hemoptysis and no wheezing Cardiovascular: no chest pain and no edema Gastrointestinal: no abdominal pain and no vomiting Physical Exam Constitutional: well developed, well nourished and + acute distress (severe dyspnea and tachypnea/retractions with minimal activity); no altered mental status ENMT: Mouth: + oropharynx abnormality (mildly erythematous; no obvious thrush plaques seen) Respiratory: + respiratory distress, + retractions, + uses accessory muscles, + cough and + tachypneic Auscultation: + diminished lung sounds (bases) and + rales (Fine, dry - bases); no wheezes Cardiovascular: Rate/Rhythm: regular rate and regular rhythm Heart Sounds: normal S1 and normal S2 Vessels: posterior tibial pulses present and dorsalis pedis pulses present; no JVD Extremities: no edema Gastrointestinal (Abdomen): normal bowel sounds, soft, nontender, no hepatosplenomegaly Skin: no rashes, warm and dry Psychiatric: Orientation: alert and oriented x 3 Affect: + irritable affect Results & Data Results & Data ([facility]) Vital Signs (Past 12 Hours) Vital Signs Temp Pulse Pulse Pulse Resp BP Pulse Ox 09/30/20 19:10 36.7 C 88 27 H 122/65 87 L 09/30/20 15:30 36.7 C 76 20 102/57 L 92 09/30/20 15:14 80 21 90 09/30/20 12:11 36.5 C 73 19 121/65 93 09/30/20 10:48 82 21 92 09/30/20 10:14 73 09/30/20 08:27 36.9 C 72 20 122/68 95 09/30/20 07:35 76 25 H Pulse Ox 09/30/20 19:10 09/30/20 15:30 93 09/30/20 15:14 09/30/20 12:11 09/30/20 10:48 09/30/20 10:14 09/30/20 08:27 09/30/20 07:35 Laboratory Results Laboratory Results - last 24 hr 09/29/20 09/30/20 09/30/20 20:09 07:18 07:18 WBC 15.27 H RBC 6.84 H Hgb 16.5 Hct 50.1 MCV 73.2 L MCH 24.1 L MCHC 32.9 RDW Std Deviation 39.3 RDW Coeff of Ya 16.6 H Plt Count 257 MPV 10.8 H Immature Gran % (Auto) 2.0 Neut % (Auto) 83.1 Lymph % (Auto) 7.8 [place] % (Auto) 6.9 Eos % (Auto) 0.0 Baso % (Auto) 0.2 Neut # (Auto) 12.69 H Lymph # (Auto) 1.19 L [place] # (Auto) 1.06 H Eos # (Auto) 0.00 Baso # (Auto) 0.03 Immature Gran # (Auto) 0.30 H Absolute Nucleated RBC 0.31 H Nucleated RBC % (auto) 2.0 ESR D-Dimer ABG pH ABG pCO2 ABG pO2 ABG HCO3 ABG O2 Saturation ABG Base Excess Sadi Test Barometric Pressure Oxygen Given Sodium 137 Potassium 4.2 Chloride 104 Carbon Dioxide 24 Anion Gap 9.0 BUN 20 H Creatinine 0.90 Est Cr Clr Drug Dosing 96.9 Est GFR ( Amer) 104.2 Est GFR (Non-Af Amer) 89.9 BUN/Creatinine Ratio 22.5 H Glucose 147 H POC Glucose 232 H Calcium 9.2 Total Creatine Kinase C-Reactive Protein 09/30/20 09/30/20 09/30/20 07:18 08:25 11:38 WBC RBC Hgb Hct MCV MCH MCHC RDW Std Deviation RDW Coeff of Ya Plt Count MPV Immature Gran % (Auto) Neut % (Auto) Lymph % (Auto) [place] % (Auto) Eos % (Auto) Baso % (Auto) Neut # (Auto) Lymph # (Auto) [place] # (Auto) Eos # (Auto) Baso # (Auto) Immature Gran # (Auto) Absolute Nucleated RBC Nucleated RBC % (auto) ESR D-Dimer 2550 H* ABG pH ABG pCO2 ABG pO2 ABG HCO3 ABG O2 Saturation ABG Base Excess Sadi Test Barometric Pressure Oxygen Given Sodium Potassium Chloride Carbon Dioxide Anion Gap BUN Creatinine Est Cr Clr Drug Dosing Est GFR ( Amer) Est GFR (Non-Af Amer) BUN/Creatinine Ratio Glucose POC Glucose 144 H 189 H Calcium Total Creatine Kinase C-Reactive Protein 09/30/20 09/30/20 09/30/20 17:01 17:19 17:38 WBC RBC Hgb Hct MCV MCH MCHC RDW Std Deviation RDW Coeff of Ya Plt Count MPV Immature Gran % (Auto) Neut % (Auto) Lymph % (Auto) [place] % (Auto) Eos % (Auto) Baso % (Auto) Neut # (Auto) Lymph # (Auto) [place] # (Auto) Eos # (Auto) Baso # (Auto) Immature Gran # (Auto) Absolute Nucleated RBC Nucleated RBC % (auto) ESR D-Dimer ABG pH 7.48 H ABG pCO2 31 L ABG pO2 50 L ABG HCO3 23 ABG O2 Saturation 85.2 L ABG Base Excess 0.2 Sadi Test Pos Barometric Pressure 730.9 Oxygen Given 100% FIO2 Sodium Potassium Chloride Carbon Dioxide Anion Gap BUN Creatinine Est Cr Clr Drug Dosing Est GFR ( Amer) Est GFR (Non-Af Amer) BUN/Creatinine Ratio Glucose POC Glucose 173 H Calcium Total Creatine Kinase 68 C-Reactive Protein 6.04 H 09/30/20 17:38 WBC RBC Hgb Hct MCV MCH MCHC RDW Std Deviation RDW Coeff of Ya Plt Count MPV Immature Gran % (Auto) Neut % (Auto) Lymph % (Auto) [place] % (Auto) Eos % (Auto) Baso % (Auto) Neut # (Auto) Lymph # (Auto) [place] # (Auto) Eos # (Auto) Baso # (Auto) Immature Gran # (Auto) Absolute Nucleated RBC Nucleated RBC % (auto) ESR 45 H D-Dimer ABG pH ABG pCO2 ABG pO2 ABG HCO3 ABG O2 Saturation ABG Base Excess Sadi Test Barometric Pressure Oxygen Given Sodium Potassium Chloride Carbon Dioxide Anion Gap BUN Creatinine Est Cr Clr Drug Dosing Est GFR ( Amer) Est GFR (Non-Af Amer) BUN/Creatinine Ratio Glucose POC Glucose Calcium Total Creatine Kinase C-Reactive Protein PG Care Time/CCT Total # of Minutes Spent Total Time Spent with Patient: Total time spent is greater than 50% in coordination of care (as documented) at patient's floor/unit and/or counseling patient: Coding Level of Care Code 68066 Subseq Hosp Care Lvl 3 Diagnoses Acute respiratory failure with hypoxia J96.01 Acute CHF I50.9 COPD exacerbation J44.1 Chest pain R07.9 Pulmonary fibrosis J84.10 Pneumonia due to COVID-19 virus U07.1; J12.82 Hyperlipidemia E78.5 HTN (hypertension) I10 Diabetes mellitus, type II E11.9 Vertebral artery dissection I77.74 Elevated troponin R77.8 Sore throat J02.9 DVT prophylaxis Z29.9
[2020-10-01] MEDS: CEFEPIME 2,000 MG in SYRINGE 0 ML IV SCH ×2 (02:30→10:20)
[2020-10-01] MEDS: ALBUTEROL HFA 8 GM INHALER INH SCH ×4 (07:35→19:20)
[2020-10-01] MEDS ORDERED: FUROSEMIDE 40 MG/4 ML VIAL IV ONE (08:09)
[2020-10-01] MEDS: DOXYCYCLINE HYCLATE 100 MG in DEXTROSE 5% 100 ML IV SCH (08:13)
[2020-10-01] MEDS: ASPIRIN 81 MG ECTAB PO SCH (08:14)
[2020-10-01] MEDS: methylPREDNISolone 125 MG in SYRINGE 0 ML IV SCH ×2 (08:14→18:10)
[2020-10-01] MEDS: guaiFENesin 200 MG TAB PO SCH ×3 (08:14→20:47)
[2020-10-01] MEDS: ROSUVASTATIN CALCIUM 20 MG TAB PO SCH (08:14)
[2020-10-01] MEDS: CHOLECALCIFEROL 1,000 UNITS 25 MCG TAB PO SCH (08:14)
[2020-10-01] MEDS ORDERED: ACETAMINOPHEN 1,000 MG/100 ML VIAL IV PRN (08:15)
[2020-10-01] MEDS: ZINC SULFATE 220 MG CAPSULE PO SCH (08:15)
[2020-10-01] MEDS: ENOXAPARIN INJ 40 MG/0.4 ML SYR SQ SCH ×2 (08:15→20:45)
[2020-10-01] MEDS: lisinopril 20 MG TAB PO SCH (08:15)
[2020-10-01] MEDS ORDERED: FUROSEMIDE 40 MG in SYRINGE 0 ML IV ONE (08:15)
[2020-10-01] MEDS: INSULIN HUMAN NPH SC SCH (09:14)
[2020-10-01] MEDS: INSULIN ASPART 100 UNITS/ML 3 ML PEN SC SCH ×4 (09:14→20:46)
[2020-10-01 09:15] LABS: BUN Creatinine Ratio 27.1 (10-20); Creatinine Clr Calc Pharmacy 80.3 ml/min; Est GFR (African American) 83.6; Est GFR (Non-African American) 72.2; Potassium 4.5 mmol/L (3.5-5.1)
[2020-10-01 09:16] LABS: Phosphorus 4.7 mg/dl (2.5-4.9)
--- NOTE | 2020-10-01 12:45 | XCELERA ---
[id number]
--- NOTE | 2020-10-01 12:45 | Pulmonary Consultation ---
Date of Consultation October 01, 2020 History of Present Illness Attending Physician: Cole Farrar Allergies Allergy/AdvReac Type Severity Reaction Status Date / Time clindamycin AdvReac Unknown Unknown Unverified 09/21/20 14:44 Penicillins AdvReac Unknown Unknown Unverified 09/21/20 14:44 Home Medications Medication Instructions Recorded Confirmed Type Oyster Shell Calcium-Vit D3 1 ea PO QAM 08/24/19 09/28/20 History metformin 500 mg PO QAM 08/24/19 09/28/20 History rosuvastatin 20 mg PO QAM 08/24/19 09/28/20 History lisinopril 20 mg PO DAILY #30 tab 08/27/19 09/28/20 Rx acetaminophen [Acetaminophen Extra 500 mg PO TID PRN 09/21/20 09/28/20 History Strength] aspirin 81 mg PO DAILY 09/21/20 09/28/20 History cholecalciferol (vitamin D3) 25 mcg PO DAILY 09/21/20 09/28/20 History [Vitamin D3] guaifenesin [Mucosa] 400 mg PO TID 09/21/20 09/28/20 History ondansetron 4 mg PO TID PRN 09/21/20 09/28/20 History zinc sulfate 220 mg PO BID 09/21/20 09/28/20 History benzonatate [Tessalon Perles] 100 mg PO TID 7 Days #21 cap 09/27/20 09/28/20 Rx codeine-guaifenesin 10 ml PO Q6 PRN #120 ml 09/27/20 09/28/20 Rx Patient History Medical History Breathlessness Diabetes mellitus, type II Erectile dysfunction HTN (hypertension) Hyperlipidemia Hypoxia Tobacco abuse Quit smoking in 2018 after 45 years of cigarette use Surgical History No significant past surgical history Family History Mother Stroke Brother Diabetes Grandmother (Maternal) Diabetes Myocardial infarction Social History Smoking Status: Former smoker Tobacco Type: Cigarettes Age Quit Using Tobacco: 63; packs per day: 1; Years Smoked: 45; Second Hand Exposure: No; Hx Alcohol Use: No Hx Substance Use: No Preferred Language: Slovak Communication Ability: Effective Outboard Motor Mechanic Required: No Beliefs That Will Affect Care: None marital status: Unknown Current Living Situation: Other Current Living Situation Comment: [facility] Feels Safe at Home: Yes Assistive Devices: BiPap, Denture - Upper, Denture - Lower and Glasses Results & Data Results & Data ([facility]) Vital Signs (Past 12 Hours) Vital Signs Temp Pulse Pulse Pulse Resp BP Pulse Ox 10/01/20 11:28 28 H 89 L 10/01/20 11:08 68 10/01/20 10:51 64 26 H 91 10/01/20 09:26 36.6 C 73 12 115/58 L 86 L 10/01/20 07:36 73 22 90 10/01/20 03:51 36.7 C 70 19 98/62 L 94 10/01/20 03:16 69 20 94 PG Care Time/CCT Total # of Minutes Spent Total Time Spent with Patient: Total time spent is greater than 50% in coordination of care (as documented) at patient's floor/unit and/or counseling patient: Coding
--- NOTE | 2020-10-01 15:44 | Critical Care Consultation ---
Date of Consultation October 01, 2020 Assessment & Plan (1) Pulmonary fibrosis: Impression: There is a 65-year-old male that was admitted 09/21/2020 through 09/27/2020 with Covid pneumonia. He was readmitted on 09/28/2020 with worsening shortness of breath. He had received dexamethasone but no remdesivir or convalescent plasma during his admission for Covid. On readmission the dexamethasone was restarted and patient was treated with cefepime and doxycycline empirically. Since readmission, patient has had increasing hypoxia and tachypnea. He has required increased oxygen support including high flow oxygen as well as BiPAP. He is being transferred to intensive care unit for further management and treatment. Recommendations: 1. Acute respiratory failure: Most likely due to progressive interstitial lung disease. Labs have been sent and are mostly pending. Patient does have increased the CCPI which could indicate rheumatoid arthritis as the etiology of his pulmonary fibrosis. Patient's dexamethasone was discontinued and patient was started on methylprednisolone 125 mg IV daily yesterday. We will continue with high-dose steroids and oxygen support. Procalcitonin again was negative at 0.06. This has been the same value on 09/24/2020 as well as 09/28/2020. Patient being transferred to the intensive care unit from telemetry for closer monitoring as he is at high risk for mechanical ventilation. I did discuss high mortality rate with interstitial lung disease related with intubation and at this point patient would like to continue on high flow oxygen and BiPAP if tolerated. 2. COVID-19: Patient originally tested positive for COVID-19 on 09/21/2020. At that time he reportedly had symptoms for approximately 10 days prior. Today would mk 21 days since initial symptoms. Would discontinue antibiotics at this point as procalcitonin is negative, patient is afebrile, and elevated white blood cell count is most likely secondary to steroids. Blood cultures from previous admission on 09/21/2020 are both negative for growth. Continue supportive care for respiratory failure as listed above. 3. Probable COPD/emphysema: Patient with 30-ymiq-pnos smoking history. No history of pulmonary function testing he was not on any inhalers prior to this admission. Last admission he was started on Brio Ellipta with Incruse Ellipta to provide ICS, LABA, AC coverage. Consider restarting this admission and discharging on Trelegy or what ever is covered under formulary with custodial. 4. Acute CHF: Echocardiogram has been requested but not yet completed. Patient probably has a an element of pulmonary hypertension secondary to cardiac issues. No benefit at this time to right heart catheterization. Continue aggressive diuresis as tolerated. 5. F/E/N: Electrolytes are currently balanced. Patient does have a magnesium level of 3.0. Patient is is tolerating diet well. No indication for IV fluids as patient is being diuresed. Nutritional assessment has been requested by dietitian. Albumin is currently 2.6. 6. IV access: Patient currently has peripheral access. No indication for central line or PICC line at this time. 7. Endocrine: Patient with diabetes mellitus type 2. Hemoglobin A1c 7.16% continue with NPH and sliding scale insulin 8. GI prophylaxis: Patient on high-dose steroids. Plus high stress level due to the acute illness. Would begin pantoprazole 40 mg p.o. daily. 9. DVT prophylaxis: Continue with enoxaparin. Currently receiving 40 mg subcutaneously every 12 hours. Can change to 40 mg subcutaneously once daily. Thank you for including us in the care of this patient. I have reviewed this patient with Dr. Chi and he has seen the patient concurrently. Please review his addendum for further recommendations. We will continue to follow along with you. (2) COPD exacerbation: (3) Acute CHF: (4) Acute respiratory failure with hypoxia: (5) COVID-19: (6) Non-ST elevation (NSTEMI) myocardial infarction: (7) Tobacco abuse: (8) Hyperlipidemia: (9) Diabetes mellitus, type II: (10) Vertebral artery dissection: Supervising Physician Co-Signing Physician Notes Patient seen and examined. Discussed with critical care HOMERO and agree with assessment and plan as noted. Patient initially was seen as a pulmonary consult but due to severity of his hypoxemia he was transferred to the ICU. I assessed the patient immediately on arrival to the ICU. We transitioned him from BiPAP to regular CPAP at 16 cm of water and oxygen saturations improved from the low 70% range up to 90%. History is as noted by the critical care HOMERO. We initially requested serological evaluation yesterday. His anti-CCP level is significantly elevated at 20. Other inflammatory markers including ESR and CRP are elevated. His CT scan shows findings that are not entirely consistent with Covid infection and may represent underlying interstitial lung disease. Certainly Covid superimposed viral pneumonia is contributing to his hypoxemia and respiratory difficulties however the CT pattern is not consistent with what is been well described with coronavirus pneumonitis. A quick literature review did reveal that there are reported cases of autoimmune antibodies including anti-CCP resulting in false Covid 19 tests. Given the patient's improvement with steroids on his first round with the patient being discharged off oxygen, remains to be seen whether or not the patient's current presentation is an autoimmune/inflammatory related lung condition or potentially related to novel coronavirus. We will continue with aggressive Solu-Medrol at 125 IV every 8 and see how he responds. He is currently on CPAP with acceptable oxygen saturations. He does not appear to be in any respiratory stress and is breathing comfortably despite his low oxygen saturations. He would like to avoid intubation mechanical ventilation at the current time which I think is reasonable. We could pursue bronchoscopy with bronchoalveolar lavage although the patient's current ventilatory issues likely would preclude that as it would require intubation mechanical ventilation. He is not a candidate for surgical lung biopsy given his advanced lung disease. Unfortunately we do not have rheumatology consultation available in house but will await the rest of his serologies and then potentially discuss with them to see whether additional disease modifying agents may be appropriate. The above recommendations and plan were extensively discussed with the patient as well as with the ICU nurse and critical care HOMERO. Critical care time as no nevin History of Present Illness Reason for Consultation: Hypoxic respiratory failure Attending Physician: Cole Farrar History of Present Illness Attending: Dr. Chi This is a 65-year-old -Citizen Of [place] male who is currently incarcerated at [facility]. He has a past medical history including diabetes mellitus type 2, h ypertension, hyperlipidemia, 45 pack year smoking history (quit 2 years ago), interstitial lung disease, recent admission for COVID-19 pneumonia. He was recently admitted from September 21, 2020 to September 27, 2020 for COVID-19 pneumonia. Patient received dexamethasone but did not receive remdesivir secondary to transaminitis. Patient also had symptoms for approximately 10 days prior to admission. A CTA scan of the chest was acquired and showed no evidence of pulmonary emboli. However, groundglass opacities and interlobular septal thickening seem to be increased since prior CT scan 09/27/2020. Imaging appears to be consistent with interstitial lung disease. Patient currently is requiring increased supplemental oxygen and has been transitioned from nasal cannula to high flow to BiPAP. Patient looks short of breath and is tachypneic with a respiratory rate of 32. With exertion or speech patient becomes more profoundly hypoxic. Patient has been afebrile with a T-max of 37.1 C 09/29/2020.He is currently empirically receiving cefepime a and doxycycline. He is also receiving diuretics with furosemide 40 mg IV. Patient's cough is improved from prior admission. He has no hemoptysis. He denies any fever or chills. He has no nausea or vomiting diarrhea. Chief complaint continues to be hypoxic and shortness of breath. Allergies Allergy/AdvReac Type Severity Reaction Status Date / Time clindamycin AdvReac Unknown Unknown Unverified 09/21/20 14:44 Penicillins AdvReac Unknown Unknown Unverified 09/21/20 14:44 Home Medications Medication Instructions Recorded Confirmed Type Oyster Shell Calcium-Vit D3 1 ea PO QAM 08/24/19 09/28/20 History metformin 500 mg PO QAM 08/24/19 09/28/20 History rosuvastatin 20 mg PO QAM 08/24/19 09/28/20 History lisinopril 20 mg PO DAILY #30 tab 08/27/19 09/28/20 Rx acetaminophen [Acetaminophen Extra 500 mg PO TID PRN 09/21/20 09/28/20 History Strength] aspirin 81 mg PO DAILY 09/21/20 09/28/20 History cholecalciferol (vitamin D3) 25 mcg PO DAILY 09/21/20 09/28/20 History [Vitamin D3] guaifenesin [Mucosa] 400 mg PO TID 09/21/20 09/28/20 History ondansetron 4 mg PO TID PRN 09/21/20 09/28/20 History zinc sulfate 220 mg PO BID 09/21/20 09/28/20 History benzonatate [Tessalon Perles] 100 mg PO TID 7 Days #21 cap 09/27/20 09/28/20 Rx codeine-guaifenesin 10 ml PO Q6 PRN #120 ml 09/27/20 09/28/20 Rx Patient History Medical History Breathlessness Diabetes mellitus, type II Erectile dysfunction HTN (hypertension) Hyperlipidemia Hypoxia Tobacco abuse Quit smoking in 2018 after 45 years of cigarette use Surgical History No significant past surgical history Family History Mother Stroke Brother Diabetes Grandmother (Maternal) Diabetes Myocardial infarction Social History Smoking Status: Former smoker Tobacco Type: Cigarettes Age Quit Using Tobacco: 63; packs per day: 1; Years Smoked: 45; Second Hand Exposure: No; Hx Alcohol Use: No Hx Substance Use: No Preferred Language: Greek Communication Ability: Effective 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 Pupils equal round and reactive to light NOSE: No evidence of epistaxis. High flow nasal cannula in place MOUTH: No lesions or candidiasis. Mucosa is moist NECK: Supple. No JVD LUNGS: Coarse crackles at the bases. Cough with deep inspiration HEART: Regular, tachycardic ABDOMEN: Soft, NT, ND, BS Present EXTREMITIES: No LE edema, pedal pulses intact NEURO: A&OX3 Results & Data Results & Data ([facility]) Vital Signs (Past 12 Hours) Vital Signs Temp Pulse Pulse Pulse Resp BP Pulse Ox 10/01/20 15:00 10/01/20 14:53 86 32 H 84 L 10/01/20 12:00 37 C 73 20 107/67 88 L 10/01/20 11:28 28 H 89 L 10/01/20 11:08 68 10/01/20 10:51 64 26 H 91 10/01/20 09:26 36.6 C 73 12 115/58 L 86 L 10/01/20 07:36 73 22 90 10/01/20 03:51 36.7 C 70 19 98/62 L 94 Pulse Ox 10/01/20 15:00 82 L 10/01/20 14:53 10/01/20 12:00 10/01/20 11:28 10/01/20 11:08 10/01/20 10:51 10/01/20 09:26 10/01/20 07:36 10/01/20 03:51 Laboratory Results 09/30/20 07:18 10/01/20 08:[address] ANGIOGRAPHY OF THE CHEST, PULMONARY EMBOLUS PROTOCOL CLINICAL HISTORY: sob, eval for PE, covid COMPARISON STUDY: Chest CT September 27, 2020 and chest radiograph performed earlier today. TECHNIQUE: Following IV administration of 120 mL of [id number]-320, helical axial images of the chest were obtained utilizing the pulmonary embolus protocol. Maximal intensity projections and sagittal and coronal reformats were viewed on an independent 3D workstation. IV contrast was administered without complication. Automated exposure control was utilized for the study. A dose lowering technique was utilized adhering to the principles of ALARA. CT DOSE: 566.96 mGycm FINDINGS: No pulmonary emboli are identified. There is no thoracic aortic dissection. Ascending aorta is ectatic, measuring 4 cm at the level the main pulmonary artery. There is mild cardiomegaly. There is moderate coronary artery calcification. A few mildly enlarged lymph nodes are unchanged. These are likely reactive. There is no pericardial effusion. No pneumothorax or pleural effusion is noted. Lungs are suboptimally assessed due to respiratory motion. There is emphysema. Fibrotic changes within the lungs are also noted. There has been interval development of groundglass opacities and interlobular septal thickening since CT of September 27, 2020. IMPRESSION: 1. No pulmonary emboli identified. 2. Increase in groundglass opacities and interlobular septal thickening since CT of February 25, 2021. This could reflect an infectious process or pulmonary edema superimposed upon emphysema and interstitial lung disease. 3. Mild cardiomegaly and moderate coronary artery calcification. Electronically signed by: Rowdy Ybarra M.D. 09/28/2020 10:27 AM Coding Level of Care Code Critical Care 1st 30-74 mins Diagnoses Pulmonary fibrosis J84.10 COPD exacerbation J44.1 Acute CHF I50.9 Acute respiratory failure with hypoxia J96.01 COVID-19 U07.1 Non-ST elevation (NSTEMI) myocardial infarction I21.4 Tobacco abuse Z72.0 Hyperlipidemia E78.5 Diabetes mellitus, type II E11.9 Vertebral artery dissection I77.74 Time Spent (min) 60
[2020-10-01] MEDS ORDERED: ICU PROTOCOL FOR HYPERGLYCEMIA PRN (16:14)
--- NOTE | 2020-10-01 17:53 | Hospitalist Progress Note ---
Date of Service October 01, 2020 Assessment & Plan (1) Acute respiratory failure with hypoxia: Severe, profound. Dx with COVID-19 infection on 09/21/2020 but had been ill since about 09/11/20. Hospitalized from 09/21/20 to 09/27/20. On 09/27/20 upon discharge back to [facility] patient was reportedly stable in room air. He returned to [facility] on 09/28/20 with profound hypoxia. Repeat CTA on 09/28/20 without PEs but diffuse infiltrates. He is now maxed out on HFNC settings and his ABG shows severe hypoxemia. He has multiple reasons for his hypoxic resp failure including acute diastolic CHF, COPD/PF exacerbation, and recent COVID-19 pneumonia. I cannot rule out a concomitant superimposed bacterial pneumonia. Additionally, it appears his PF/ILD is much worse - see below. plan - gave additional lasix 40mg IV x 1 but he appears close to euvolemia. Echo shows hyperdynamic EF and normal RA pressure/IVC. PA pressures wnl. continue high-dose IV steroids for PF/ILD as recommended by pulmonary/critical care. cont cefepime/doxy to cover for typicals, atypicals, and gram negative pneumonia if there is concomitant bacterial process. cont lovenox 40mg BID. self-proning. supportive care. CPAP is next step after HFNC. Avoid intubation if possible. appreciate Dr Chi's consultation & recs. patient transferring to ICU due to high risk of intubation/needing mech ventilation. (2) Anti-cyclic citrullinated peptide antibody positive: anti-CCP ab returned positive today. this would suggest positivity for rheumatoid arthritis. his ILD may be rheumatic in origin. awaiting additional autoimmune w/u. will discuss this finding with rheumatology by phone. Dr Chi's thoughts and consultation note reviewed/noted. sed rate/crp markedly elevated. cont high-dose IV steroids. (3) Acute CHF: acute diastolic CHF in setting of severe acute hypoxic resp failure. s/p copious diuresis since admission but suspect we are approaching euvolemia. lasix 40mg IV x 1 this am. echo findings noted. repeat labs am. noted - normal wall motion on echo. (4) Pulmonary fibrosis: seen on his first CTA chest on 09/21/2020. additional CTAs on 09/27 and 09/28 show worsening fibrosis. large concern that progressive PF/ILD is largest contributor to current severe hypoxia/hypoxemia. anti-CCP ab is markedly positive - ILD 2nd to rheumatic disease?? awaiting additional autoimmune w/u. cont high-dose steroids and supportive care. discuss his case with rheum by phone in am. does patient need immune-based therapy given his worsening status? (5) COPD exacerbation: severe emphysematous changes on imaging. cont steroids. cont q6h bronchodilators. self-prone. pulm toilet. pulmonary consultation appreciated. (6) Chest pain: had multiple episodes shortly after discharge on 09/27 back at [facility]. none while hospitalized. uncertain if symptoms pre-admission were cardiac or due to severe pulmonary disease. troponins scantly elevated at admission. despite multiple EKGs with marked ST depressions anterolaterally his echo shows normal LV wall motion. follow for now. (7) Pneumonia due to COVID-19 virus: initial dx 09/21/20. cont supportive care. no role for plasma/remdesivir - initial dx around [place]. Dr Chi reported that anti-CCP ab positivity can give false positive COVID testing?? consider COVID serum antibodies in a few days. (8) Hyperlipidemia: cont crestor (9) HTN (hypertension): cont YANIV (10) Diabetes mellitus, type II: appreciate pharmacy glycemic assistance. cont NPH, cont novolog. last Hba1c 7.6%. cont YANIV inhibitor with high-dose steroids anticipate worsening hyperglycemia. (11) Vertebral artery dissection: history of - noted (12) Elevated troponin: peak troponin 0.131 echo with normal wall motion likely myocardial demand ischemia in setting of profound hypoxia/hypoxemia (13) Sore throat: magic mouthwash swish/spit q6h scheduled improved (14) DVT prophylaxis: due to high risk of VTE in setting of COVID -- lovenox 40mg BID prognosis guarded full code moving patient to ICU Admission and Anticipated Discharge Date Admission Date: September 28, 2020 Subjective patient was satting mid 80s on 60 L and 100% FiO2 on HFNC during my visit. he was breathless trying to talk. he had occasional cough. he has dyspnea with normal conversation and any movement. he reports his MGM had rheumatoid arthritis. he denies any joint pain or swelling. appetite fair. tele overnight wnl. sore throat improved w/ magic mouthwash. seen by pulmonary - to be moved to ICU this afternoon. Review of Systems Constitutional: + fatigue and + weakness; no fever and no chills Ear, Nose, Mouth, Throat: + nasal congestion and + sore throat dry lips Respiratory: + cough, + dyspnea and + hemoptysis; no pain on inspiration and no wheezing Cardiovascular: no chest pain, no orthopnea and no edema Gastrointestinal: no abdominal pain and no vomiting Integumentary: no rash Psychiatric: + anxiety Physical Exam Constitutional: well developed, well nourished and + acute distress (severe dyspnea and tachypnea/retractions with minimal activity); no altered mental status ENMT: external ear and nose normal, oropharynx normal Respiratory: + respiratory distress, + retractions, + uses accessory muscles, + cough and + tachypneic Auscultation: + rales (Fine, dry - bases); no wheezes Cardiovascular: Rate/Rhythm: regular rate and regular rhythm Heart Sounds: normal S1 and normal S2 Vessels: posterior tibial pulses present and dorsalis pedis pulses present; no JVD Extremities: no edema Gastrointestinal (Abdomen): normal bowel sounds, soft, nontender, no hepatosplenomegaly Musculoskeletal: no synovitis of any small or large joint Skin: no rashes, warm and dry Psychiatric: Orientation: alert and oriented x 3 Results & Data Results & Data ([facility]) Vital Signs (Past 12 Hours) Vital Signs Temp Pulse Pulse Pulse Resp BP Pulse Ox 10/01/20 16:09 96 H 28 H 77 L 10/01/20 16:00 82 12 90 10/01/20 15:00 10/01/20 14:53 86 32 H 84 L 10/01/20 12:00 37 C 73 20 107/67 88 L 10/01/20 11:28 28 H 89 L 10/01/20 11:08 68 10/01/20 10:51 64 26 H 91 10/01/20 09:26 36.6 C 73 12 115/58 L 86 L 10/01/20 07:36 73 22 90 Pulse Ox 10/01/20 16:09 10/01/20 16:00 10/01/20 15:00 82 L 10/01/20 14:53 10/01/20 12:00 10/01/20 11:28 10/01/20 11:08 10/01/20 10:51 10/01/20 09:26 10/01/20 07:36 Laboratory Results Laboratory Results - last 24 hr 09/30/20 09/30/20 09/30/20 17:19 17:38 17:38 ESR 45 H ABG pH 7.48 H ABG pCO2 31 L ABG pO2 50 L ABG HCO3 23 ABG O2 Saturation 85.2 L ABG Base Excess 0.2 Sadi Test Pos Barometric Pressure 730.9 Oxygen Given 100% FIO2 Sodium Potassium Chloride Carbon Dioxide Anion Gap BUN Creatinine Est Cr Clr Drug Dosing Est GFR ( Amer) Est GFR (Non-Af Amer) BUN/Creatinine Ratio Glucose POC Glucose Calcium Phosphorus Magnesium Total Creatine Kinase 68 C-Reactive Protein 6.04 H Angiotensin Convert Enz Rheumatoid Factor Cycl Citrul Peptide IgG CADEN Screen Anti-Proteinase 3 Anti-Myeloperoxidase ANCA MALKA-1 Antibody SS-A/Ro Antibody SS-B/La Antibody Sm (Fernandez) Antibody Scl-70 Scleroderma Ab Double Strand DNA Ab Anti-Centromere Ab 09/30/20 10/01/20 10/01/20 20:59 07:53 08:12 ESR ABG pH ABG pCO2 ABG pO2 ABG HCO3 ABG O2 Saturation ABG Base Excess Sadi Test Barometric Pressure Oxygen Given Sodium Potassium Chloride Carbon Dioxide Anion Gap BUN Creatinine Est Cr Clr Drug Dosing Est GFR ( Amer) Est GFR (Non-Af Amer) BUN/Creatinine Ratio Glucose POC Glucose 177 H 170 H Calcium Phosphorus Magnesium Total Creatine Kinase C-Reactive Protein Angiotensin Convert Enz Pending Rheumatoid Factor Pending Cycl Citrul Peptide IgG CADEN Screen Pending Anti-Proteinase 3 Pending Anti-Myeloperoxidase Pending ANCA Pending MALKA-1 Antibody Pending SS-A/Ro Antibody Pending SS-B/La Antibody Pending Sm (Fernandez) Antibody Pending Scl-70 Scleroderma Ab Pending Double Strand DNA Ab Anti-Centromere Ab Pending 10/01/20 10/01/20 10/01/20 08:12 08:12 08:12 ESR ABG pH ABG pCO2 ABG pO2 ABG HCO3 ABG O2 Saturation ABG Base Excess Sadi Test Barometric Pressure Oxygen Given Sodium 136 Potassium 4.5 Chloride 104 Carbon Dioxide 23 Anion Gap 10.0 BUN 29 H Creatinine 1.08 Est Cr Clr Drug Dosing 80.3 Est GFR ( Amer) 83.6 Est GFR (Non-Af Amer) 72.2 BUN/Creatinine Ratio 27.1 H Glucose 168 H POC Glucose Calcium 9.0 Phosphorus 4.7 Magnesium 3.0 H Total Creatine Kinase C-Reactive Protein Angiotensin Convert Enz Rheumatoid Factor Cycl Citrul Peptide IgG 19.45 H CADEN Screen Anti-Proteinase 3 Anti-Myeloperoxidase ANCA MALKA-1 Antibody SS-A/Ro Antibody SS-B/La Antibody Sm (Fernandez) Antibody Scl-70 Scleroderma Ab Double Strand DNA Ab Pending Anti-Centromere Ab 10/01/20 10/01/20 11:39 16:19 ESR ABG pH ABG pCO2 ABG pO2 ABG HCO3 ABG O2 Saturation ABG Base Excess Sadi Test Barometric Pressure Oxygen Given Sodium Potassium Chloride Carbon Dioxide Anion Gap BUN Creatinine Est Cr Clr Drug Dosing Est GFR ( Amer) Est GFR (Non-Af Amer) BUN/Creatinine Ratio Glucose POC Glucose 186 H 215 H Calcium Phosphorus Magnesium Total Creatine Kinase C-Reactive Protein Angiotensin Convert Enz Rheumatoid Factor Cycl Citrul Peptide IgG CADEN Screen Anti-Proteinase 3 Anti-Myeloperoxidase ANCA MALKA-1 Antibody SS-A/Ro Antibody SS-B/La Antibody Sm (Fernandez) Antibody Scl-70 Scleroderma Ab Double Strand DNA Ab Anti-Centromere Ab PG Care Time/CCT Total # of Minutes Spent Total Time Spent with Patient: Total time spent is greater than 50% in coordination of care (as documented) at patient's floor/unit and/or counseling patient: Coding Level of Care Code 67442 Subseq Hosp Care Lvl 3 Diagnoses Acute respiratory failure with hypoxia J96.01 Anti-cyclic citrullinated peptide antibody positive R76.8 Acute CHF I50.31 Heart failure type: diastolic Pulmonary fibrosis J84.10 COPD exacerbation J44.1 Chest pain R07.9 Chest pain type: unspecified Pneumonia due to COVID-19 virus U07.1; J12.82 Hyperlipidemia E78.2 Hyperlipidemia type: mixed hyperlipidemia HTN (hypertension) I10 Hypertension type: essential hypertension Diabetes mellitus, type II E11.9 Diabetes mellitus correction insulin use: without correction use Diabetes mellitus complication status: without complication Vertebral artery dissection I77.74 Elevated troponin R77.8 Sore throat J02.9 DVT prophylaxis Z29.9 (1) Diabetes mellitus, type II Diabetes mellitus correction insulin use: without correction use Diabetes mellitus complication status: without complication Qualified Code(s): E11.9 - Type 2 diabetes mellitus without complications (2) Acute CHF Heart failure type: diastolic Qualified Code(s): I50.31 - Acute diastolic (congestive) heart failure (3) Hyperlipidemia Hyperlipidemia type: mixed hyperlipidemia Qualified Code(s): E78.2 - Mixed hyperlipidemia (4) Chest pain Chest pain type: unspecified Qualified Code(s): R07.9 - Chest pain, unspecified (5) HTN (hypertension) Hypertension type: essential hypertension Qualified Code(s): I10 - Essential (primary) hypertension
[2020-10-02] MEDS: methylPREDNISolone 125 MG in SYRINGE 0 ML IV SCH ×3 (00:51→17:28)
[2020-10-02 05:25] LABS: Basophils # (auto) 0.01 K/uL (0-0.2); Basophils % (auto) 0.1 %; Hematocrit (blood only) 51.6 % (42-52); Immature Granulocytes # (auto) 0.11 K/uL (0.00-0.02); Immature Granulocytes % (auto) 0.6 %; Lymphocytes # (auto) 1.03 K/uL (1.2-3.4); Lymphocytes % (auto) 5.2 %; Mean Corpuscular Hemoglobin 23.9 pg (25-34); Mean Corpuscular Hgb Conc 32.9 g/dL (32-36); Mean Corpuscular Volume 72.7 fL (80-100); Mean Platelet Volume 10.9 fL (7.4-10.4); Monocytes # (auto) 0.78 K/uL (0.11-0.59); Monocytes % (auto) 3.9 %; Neutrophils # (auto) 17.82 K/uL (1.4-6.5); Neutrophils % (auto) 90.2 %; Nucleated RBC # (auto) 0.06 K/uL (0-0); Nucleated RBC % (auto) 0.3 %; Platelet Count 266 K/uL (130-400); RDW Coefficient of Variation 17.1 % (11.5-14.5); RDW Standard Deviation 39.1 fL (36.4-46.3); White Blood Count 19.75 K/uL (4.8-10.8)
[2020-10-02 05:50] LABS: Creatinine Clr Calc Pharmacy 77.2 ml/min; Est GFR (African American) 88.6; Est GFR (Non-African American) 76.4; Magnesium 3.4 mg/dl (1.8-2.4); Phosphorus 5.4 mg/dl (2.5-4.9); Potassium 4.7 mmol/L (3.5-5.1)
[2020-10-02] MEDS: ALBUTEROL HFA 8 GM INHALER INH SCH ×4 (07:16→19:53)
--- NOTE | 2020-10-02 07:16 | XRay Report ---
XR chest 1V portable HISTORY: 65 years-old Male resp failure acute respiratory failure COMPARISON: Chest radiograph 09/29/2020, CT chest 09/28/2020, 08/24/2019. TECHNIQUE: Portable AP view of the chest FINDINGS: Cardiac silhouette is enlarged, unchanged. Emphysema with chronic interstitial coarsening. There is m oderately improved aeration of the lungs. No pneumothorax or large pleural effusion. There are persis tent ill-defined bibasilar and lateral left midlung opacities present. Degenerative changes of the sh oulders and spine. IMPRESSION: 1. Moderately improved aeration of the lungs with mild persistent bibasilar and lateral left midlung opacities. 2. Emphysema with chronic interstitial coarsening. 3. Cardiomegaly. ACT 112: Negative or not required by law. The above report was generated using voice recognition software. It may contain grammatical, syntax o r spelling errors. Electronically signed by: Zack Wong M.D. 10/02/2020 7:15 AM
[2020-10-02] MEDS: guaiFENesin 200 MG TAB PO SCH ×2 (08:48→08:49)
[2020-10-02] MEDS: ASPIRIN 81 MG ECTAB PO SCH (08:49)
[2020-10-02] MEDS: lisinopril 20 MG TAB PO SCH (08:49)
[2020-10-02] MEDS: CHOLECALCIFEROL 1,000 UNITS 25 MCG TAB PO SCH (08:49)
[2020-10-02] MEDS: ROSUVASTATIN CALCIUM 20 MG TAB PO SCH (08:49)
[2020-10-02] MEDS: ENOXAPARIN INJ 40 MG/0.4 ML SYR SQ SCH ×2 (08:50→21:24)
[2020-10-02] MEDS ORDERED: INSULIN HUMAN NPH SC SCH (09:00)
[2020-10-02] MEDS ORDERED: FAMOTIDINE 20 MG in SYRINGE 3 ML IV SCH (09:00)
--- NOTE | 2020-10-02 09:00 | Critical Care Progress Note ---
Date of Service October 02, 2020 Assessment & Plan (1) Acute respiratory failure with hypoxia: Continue Zestril for nowImpression: 65-year-old -[place] male with history of tobacco abuse admitted September 21 to September 27 for COVID-19 pneumonia. He received dexamethasone at that point time and had resolution of his symptoms including his oxygen requirement. His CT scan at that point time demonstrated some subpleural banding she is somewhat unusual for COVID-19. He returned to the emergency room less than 24 hours after being admitted with hypoxemic respiratory failure. 24-hour events: Patient was transferred to the ICU and initiated on CPAP. This resulted in some stabilization of his oxygen requirement. He has been stable overnight on 100% FiO2 on CPAP of about 15. He continues to decline intubation currently and is not in significant respiratory distress as long as he does not move. Recommendations: 1. Neurologic: History of vertebral artery dissection. Off Plavix. No significant sequelae. Supposed to be on aspirin and lipid-lowering agents. 2. Pulmonary: Diffuse interstitial lung disease with subpleural banding. His serological evaluation is pending however the anti-CCP is significantly elevated. This could represent an autoimmune interstitial lung disease and the patient has been initiated on Solu-Medrol 125 mg IV every 8 hours. Hopefully this will result in improvement in the patient's oxygenation fibrosis, its unlikely that that will be reversed. The patient may well progressed to needing intubation mechanical ventilation however for now he declines and his respiratory rate is in the 20s despite fairly significant hypoxemia and minimal pulmonary reserve. He was advised that CPAP or BiPAP needs to be a bridge to clinical improvement and if he is not improving, recommendation would be to intubate him. The patient initially was reluctant to consider intubation due to COVID-19 prognosis however I advised the patient that I am not entirely convinced this represents quality of Covid and his prognosis may be somewhat more favorable he is taken it under consideration and will let us know if his breathing becomes problematic and will proceed to intubation at that time. If he becomes intubated will perform bronchoscopy with BAL to better characterize his lung process. He is not a candidate for surgical lung biopsy. I would be reluctant to add additional agents including methotrexate, or Cytoxan without a definitive tissue diagnosis or input from rheumatology. Await the rest of his serological panel. Patient does have evidence of emphysematous changes on bronchodilators as tolerated. 3. Cardiovascular: Patient had an elevated BNP on presentation and did receive diuretics. Echocardiogram was reviewed which showed preserved ejection fraction (greater than 70%) without regional wall motion abnormalities. Concentric LVH was noted. Trace aortic insufficiency was noted. Cannot rule out possibility of right to left shunting contributing to the patient's hypoxemia and consideration for a bubble study may be appropriate depending on the patient's clinical response. Will give additional dose of Lasix today and monitor. 4. ID: Patient initially was placed on antibiotics but these were discontinued with a negative procalcitonin. He is been afebrile. White count is mildly elevated however he is on no anti-biotics for now. 5. Endocrine: History of diabetes. ICU glycemic protocol will be initiated. 6. GI: Patient complains of constipation. He feels a call to stool and will see if we can get him up on CPAP to use the bedside commode as he does not think he can use a bedpan. I offered him laxatives and promotility agents however he declines currently. We will keep him n.p.o. except for ice chips until his respiratory status sorts out. 7. Heme-onc: No current issues. continue to follow 8. Proph: Lovenox. Start H2 yissel daily as NPO and on high dose steroids. Patient is critically ill with significant probability of clinical deterioration and . A total of 55 minutes critical care time was spent evaluation management this patient including discussion of multidisciplinary rounds and with bedside ICU nurse. Recommendations discussed with patient at bedside who agreed to plan as indicated (2) Abnormal CT scan of lung: (3) Interstitial lung disease: (4) COPD exacerbation: Admission and Anticipated Discharge Date Admission Date: September 28, 2020 Subjective Patient seen and examined. EMR reviewed. Discussed with critical care overnight HOMERO and with bedside ICU nurse. The patient thinks his breathing is slightly better today. He is remained on positive airway pressure during the night. He feels significantly constipated and is complaining of dry mouth and would like some ice chips. He is also like his dentures removed. He denies any cough or sputum production. No chest pain palpitations. The patient is does relate longstanding history of arthralgias. He complains that the joints of his hands have been stiff and painful for quite some time. There is no family history of rheumatoid arthritis or seropositive arthritis mary t he is aware of. He denies any skin nodules. Review of Systems Review of Systems: All systems reviewed & are unremarkable except as noted in HPI & below Physical Exam Constitutional: well developed and cooperative; not cachectic and not edematous Eyes: PERRL Neck: trachea midline, no thyromegaly Respiratory: + labored breathing and + uses accessory muscles Auscultation: + crackles On CPAP 16 100% Cardiovascular: RRR, no murmur, no edema Gastrointestinal (Abdomen): normal bowel sounds, soft, nontender, no hepatosplenomegaly Musculoskeletal: Extremities: extremities normal to inspection Skin: no rashes, warm and dry Neurologic: Nonfocal exam Lymphatic: no cervical lymphadenopathy Results & Data Results & Data ([facility]) Vital Signs (Past 12 Hours) Vital Signs Temp Pulse Resp BP Pulse Ox 10/02/20 07:17 75 16 89 L 10/02/20 05:31 36.6 C 10/02/20 05:06 65 22 91 10/02/20 04:38 66 20 131/83 91 10/02/20 03:38 75 18 133/78 88 L 10/02/20 02:38 72 26 H 125/81 88 L 10/02/20 02:08 72 25 H 89 L 10/02/20 01:38 69 26 H 135/83 89 L 10/02/20 00:38 77 28 H 133/84 90 10/01/20 23:39 77 28 H 122/73 90 10/01/20 23:34 36.5 C 10/01/20 23:31 82 21 147/76 H 87 L 10/01/20 22:38 74 25 H 128/76 92 10/01/20 22:16 77 24 91 10/01/20 21:38 77 30 H 124/76 90 10/01/20 20:57 75 25 H 135/72 88 L I/O: -1200 Laboratory Results 10/02/20 05:03 10/02/20 05:03 ESR 45 CPK 68 CRP 6.04 anti CCP 19 Diagnostic Findings Chest x-ray from today was independently reviewed and compared to prior imaging studies. There has been some mild improvement in. There remains bibasilar no acute airspace opacity identified or pleural effusion. Coding Level of Care Code Critical Care 1st 30-74 mins Diagnoses Acute respiratory failure with hypoxia J96.[address] scan of lung R91.8 Interstitial lung disease J84.9 COPD exacerbation J44.1
[2020-10-02] MEDS ORDERED: FUROSEMIDE 20 MG in SYRINGE 0 ML IV ONE (09:15)
[2020-10-02] MEDS ORDERED: PHARMACY GLYCEMIC MGMT CONSULT PRN (09:49)
[2020-10-02] MEDS ORDERED: INSULIN GLARGINE SOLOSTAR 100 UNITS/ML 3 ML PEN SC ONE ×2 (10:15→21:00)
--- NOTE | 2020-10-02 10:19 | Pharmacy Report ---
Glycemic Control Consultation - Date of Service October 02, 2020 - Scope Scope: Glycemic Pharmacist consulted for glycemic control and to write orders per [facility] inpatient glycemic control protocol. - Objective Weight: 89.7 kg Accuchecks BSG (last 24hrs): 10/01/20 10/01/20 10/01/20 11:39 16:19 20:24 Glucose POC Glucose 186 H 215 H 179 H 10/02/20 10/02/20 05:03 09:15 Glucose 191 H POC Glucose 198 H Laboratory Data (last 24hrs): 10/02/20 05:03 Potassium 4.7 Carbon Dioxide 22 Anion Gap 8.0 Creatinine 1.03 Est Cr Clr Drug Dosing 77.2 - Recent Pertinent Medications Outpatient Anti-diabetic Regimen: * Metformin 500 mg po qAM * A1c = 7.6 % on 09/22/20 The patient is currently receiving: * Basal insulin: NPH 10 units every 24 hours * Correctional Insulin: Novolog Correction per scale ACHS Goal Range: Low 100 mg/dL - High 140 mg/dL Correction Factor: 30 mg/dL/unit * Prandial insulin: Per carb ratio of 1 unit per 15 grams CHO consumed * Oral Agents: On hold Risk Factors for Insulin Resistance: * Steroids: Methylprednisolone 125 mg IV q8h * Infection: COVID-19 (symptoms since 09/11, diagnosed 09/21) * Diet: NPO * Mechanical Ventilation: not yet, but possible later today - Assessment & Plan Assessment & Plan: ASSESSMENT: * 65 yo M with T2DM well controlled on metformin monotherapy as an outpatient re-admitted 09/28 for SOB after recent hospitalization 09/21-09/27 for COVID (symptoms since ~09/11). * Currently the patient is on high dose steroids for intersitial lung disease / pulmonary fibrosis exacerbation. Despite high-dose steroids, the patient's BSG's were not terribly elevated yesterday and ranged 170-215 mg/dL despite only receiving 22 units of insulin total * Increase in insulin regimen is warranted given BSG's >180 mg/dL but will not be overly aggressive as it does not seem like the patient will require much, even with high dose steroids * Will change NPH to Lantus to provide more even coverage and prevent a peak * Will change Novolog to q4h and slightly tighten parameters * Regimen may need to be adjusted if/when diet ordered, although again, BSG's did not significantly increase from lunch to dinner yesterday despite loose CHO ratio, 53 g CHO consumed, and high dose steroids PLAN FOR INPATIENT GLYCEMIC CONTROL: * Hold outpatient metformin * Basal insulin * Discontinue NPH (5 units SQ x1 already admin this AM) * Initiate Lantus 15 units SQ x1 now, with additional 0-10 units depending on BSG * Bolus insulin * NovoLog per scale q4h * Goal Range: 110-140 mg/dL * Tighten Correction Factor: 25 mg/dL/unit * Tighten Nutritional / Prandial insulin per carb ratio of 1 unit per 11 grams CHO consumed Discharge recommendations * Continue home metformin, assuming no contraindications exist at discharge * Please note that the plan above was derived based on current level of insulin resistance and hospital stress. These recommendations are appropriate for inpatient admission only. Plan of care upon discharge will need to be reassessed to avoid potential outpatient hypo/hyperglycemia. Thank you.
[2020-10-02] MEDS: INSULIN ASPART 100 UNITS/ML 3 ML PEN SC SCH ×4 (10:22→21:27)
[2020-10-02 11:27] LABS: Anti-dsDNA Recombinant <1 IU/mL
--- NOTE | 2020-10-02 19:44 | Hospitalist Progress Note ---
Date of Service October 02, 2020 Assessment & Plan (1) Acute respiratory failure with hypoxia: Severe, profound. Dx with COVID-19 infection on 09/21/2020 but had been ill since about 09/11/20. Hospitalized from 09/21/20 to 09/27/20 for COVID. On 09/27/20 upon discharge back to [facility] patient was reportedly stable in room air. He returned to [facility] on 09/28/20 with profound hypoxia. Repeat CTA on 09/28/20 without PEs but diffuse infiltrates - progressive ILD/PF suspected in setting of COPD/recent COVID. He is now maxed out on HFNC settings and his ABG shows severe hypoxemia. Alternating between maxed HFNC and high-settings CPAP. He has multiple reasons for his hypoxic resp failure including acute diastolic CHF (resolved), COPD, progressive ILD/PF, and recent COVID-19 pneumonia. I cannot rule out a concomitant superimposed bacterial pneumonia but it is felt unlikely and abx stopped. It appears his PF/ILD is much worse than several weeks ago and Dr Chi feels this is primary culprit at this time. plan - consider stopping diuresis - looks euvolemic, and IVC/RA pressure on echo normal. continue high-dose IV steroids for PF/ILD as recommended by pulmonary/critical care. abx stopped. cont lovenox 40mg BID. self-proning. supportive care. CPAP/HFNC. Avoiding intubation if possible as mortality is very high if this is needed. appreciate Dr Chi's consultation & recs. appreciate telephone input from Dr Remy Abbasi, [facility] Rhe[facility]; and Dr Marinelli, critical care at [facility] for details. 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 this would suggest positivity for rheumatoid arthritis. his ILD may be rheumatic in origin. or, he could have this as an "autoantibody" in the setting of recent COVID-19. awaiting additional autoimmune w/u. discussed his case with [facility] and [facility] in [facility]. Dr Chi's thoughts and consultation note reviewed/noted. sed rate/crp markedly elevated. cont high-dose IV steroids. no other changes in care plan at this time. (3) Acute CHF: acute diastolic CHF in setting of severe acute hypoxic resp failure. s/p copious diuresis since admission but suspect we are about euvolemic. echo findings noted. repeat labs am. noted - normal wall motion on echo. normal estimated PA pressures. (4) Pulmonary fibrosis: seen on his first CTA chest on 09/21/2020. additional CTAs on 09/27 and 09/28 show worsening fibrosis. large concern that progressive PF/ILD is largest contributor to current severe hypoxia/hypoxemia. anti-CCP ab is markedly positive - ILD 2nd to rheumatic disease?? or, has he developed fibrosis following ARDS from COVID-19?? combination? awaiting additional autoimmune w/u. cont high-dose steroids and supportive care. discussed his case with rheum by phone. immune-based therapy deferred at this time. (5) COPD exacerbation: severe emphysematous changes on imaging. cont steroids. cont q6h bronchodilators. self-prone. pulm toilet. pulmonary consultation appreciated. (6) Chest pain: had multiple episodes shortly after discharge on 09/27 back [facility]. none while hospitalized. uncertain if symptoms pre-admission were cardiac or due to severe pulmonary dise ase. suspect latter. troponins scantly elevated at admission. despite multiple EKGs with marked ST depressions anterolaterally his echo shows normal LV wall motion. follow for now. (7) Pneumonia due to COVID-19 virus: initial dx 09/21/20. cont supportive care. no role for plasma/remdesivir - initial dx around [place]. Dr Chi reported that anti-CCP ab positivity can give false positive COVID testing?? consider COVID serum antibodies in a few days but I do believe patient did indeed have COVID (lost taste/smell in August, had fevers, classic COVID sx's). (8) Hyperlipidemia: cont crestor (9) HTN (hypertension): cont YANIV (10) Diabetes mellitus, type II: appreciate pharmacy glycemic assistance. cont NPH, cont novolog. last Hba1c 7.6%. cont YANIV inhibitor with high-dose steroids anticipate worsening hyperglycemia. (11) Vertebral artery dissection: history of - noted (12) Elevated troponin: peak troponin 0.131 echo with normal wall motion likely myocardial demand ischemia in setting of profound hypoxia/hypoxemia (13) Sore throat: magic mouthwash swish/spit q6h scheduled improved (14) DVT prophylaxis: due to high risk of VTE in setting of COVID -- lovenox 40mg BID prognosis poor/guarded full code appreciate critical care assistance Admission and Anticipated Discharge Date Admission Date: September 28, 2020 Subjective patient on CPAP 16cm during my visit. he kept prying the mask off his face to speak. he has conversational dyspnea. he has cough. sats running mid 80s all day. I had a conversation by phone with Benedict Child Guanako Gaviria today about his suspected ILD in setting of COVID. we discussed anti-CCP ab being positive. Benedict child contacted rheum in [place] - they discussed actemra ?? I then contacted the transfer center in [place] and spoke with ICU attending, Dr Marinelli. We discussed whether transfer was advised and what medicines, if anything (including actemra), would be advised given the clinical circumstances. Dr Marinelli felt that actemra likely would not be helpful and that his mortality risk is very, very high. Transfer was not advised; cont supportive care recommended. Review of Systems Constitutional: + fatigue; no fever and no chills Respiratory: + cough, + dyspnea and + dyspnea on exertion; no hemoptysis and no wheezing Cardiovascular: + dyspnea at rest; no chest pain and no edema Gastrointestinal: no abdominal pain Physical Exam Constitutional: well developed, well nourished and + acute distress (severe dyspnea and tachypnea/retractions with minimal activity); no altered mental status ENMT: external ear and nose normal, oropharynx normal Respiratory: + respiratory distress, + retractions, + uses accessory muscles, + cough and + tachypneic Auscultation: + rales (Fine, dry - bases); no wheezes Cardiovascular: Rate/Rhythm: regular rate and regular rhythm Heart Sounds: normal S1 and normal S2 Vessels: posterior tibial pulses present and dorsalis pedis pulses present; no JVD Extremities: no edema Gastrointestinal (Abdomen): normal bowel sounds, soft, nontender, no hepatosplenomegaly Skin: no rashes, warm and dry Psychiatric: Orientation: alert and oriented x 3 Results & Data Results & Data ([facility]) Vital Signs (Past 12 Hours) Vital Signs Temp Pulse Pulse Resp BP Pulse Ox 10/02/20 18:38 73 20 93/56 L 88 L 10/02/20 17:39 82 20 139/65 77 L 10/02/20 16:56 73 18 88 L 10/02/20 16:38 73 23 91/55 L 88 L 10/02/20 16:00 36.7 C 73 18 88 L 10/02/20 15:38 72 21 114/66 89 L 10/02/20 14:38 74 19 101/71 89 L 10/02/20 13:38 73 22 88/50 L 91 10/02/20 12:38 86 21 90/54 L 89 L 10/02/20 12:06 74 22 88 L 10/02/20 12:05 74 22 88 L 10/02/20 11:38 84 25 H 105/64 91 10/02/20 10:39 75 24 121/56 L 89 L 10/02/20 09:38 81 24 125/80 88 L 10/02/20 09:00 36.8 C 10/02/20 08:38 83 32 H 125/77 87 L Laboratory Results Laboratory Results - last 24 hr 10/01/20 10/01/20 10/02/20 08:12 20:24 05:03 WBC 19.75 H RBC 7.10 H Hgb 17.0 Hct 51.6 MCV 72.7 L MCH 23.9 L MCHC 32.9 RDW Std Deviation 39.1 RDW Coeff of Ya 17.1 H Plt Count 266 MPV 10.9 H Immature Gran % (Auto) 0.6 Neut % (Auto) 90.2 Lymph % (Auto) 5.2 Carlton % (Auto) 3.9 Eos % (Auto) 0.0 Baso % (Auto) 0.1 Neut # (Auto) 17.82 H Lymph # (Auto) 1.03 L Carlton # (Auto) 0.78 H Eos # (Auto) 0.00 Baso # (Auto) 0.01 Immature Gran # (Auto) 0.11 H Absolute Nucleated RBC 0.06 H Nucleated RBC % (auto) 0.3 Sodium Potassium Chloride Carbon Dioxide Anion Gap BUN Creatinine Est Cr Clr Drug Dosing Est GFR ( Amer) Est GFR (Non-Af Amer) BUN/Creatinine Ratio Glucose POC Glucose 179 H Calcium Phosphorus Magnesium Double Strand DNA Ab <1 10/02/20 10/02/20 10/02/20 05:03 09:15 11:52 WBC RBC Hgb Hct MCV MCH MCHC RDW Std Deviation RDW Coeff of Ya Plt Count MPV Immature Gran % (Auto) Neut % (Auto) Lymph % (Auto) Carlton % (Auto) Eos % (Auto) Baso % (Auto) Neut # (Auto) Lymph # (Auto) Carlton # (Auto) Eos # (Auto) Baso # (Auto) Immature Gran # (Auto) Absolute Nucleated RBC Nucleated RBC % (auto) Sodium 135 L Potassium 4.7 Chloride 105 Carbon Dioxide 22 Anion Gap 8.0 BUN 37 H Creatinine 1.03 Est Cr Clr Drug Dosing 77.2 Est GFR ( Amer) 88.6 Est GFR (Non-Af Amer) 76.4 BUN/Creatinine Ratio 36.0 H Glucose 191 H POC Glucose 198 H 165 H Calcium 9.0 Phosphorus 5.4 H Magnesium 3.4 H Double Strand DNA Ab 10/02/20 17:09 WBC RBC Hgb Hct MCV MCH MCHC RDW Std Deviation RDW Coeff of Ya Plt Count MPV Immature Gran % (Auto) Neut % (Auto) Lymph % (Auto) Carlton % (Auto) Eos % (Auto) Baso % (Auto) Neut # (Auto) Lymph # (Auto) Carlton # (Auto) Eos # (Auto) Baso # (Auto) Immature Gran # (Auto) Absolute Nucleated RBC Nucleated RBC % (auto) Sodium Potassium Chloride Carbon Dioxide Anion Gap BUN Creatinine Est Cr Clr Drug Dosing Est GFR ( Amer) Est GFR (Non-Af Amer) BUN/Creatinine Ratio Glucose POC Glucose 207 H Calcium Phosphorus Magnesium Double Strand DNA Ab PG Care Time/CCT Total # of Minutes Spent Total Time Spent with Patient: Total time spent is greater than 50% in coordination of care (as documented) at patient's floor/unit and/or counseling patient: Coding Level of Care Code 34763 Subseq Hosp Care Lvl 3 Diagnoses Acute respiratory failure with hypoxia J96.01 Anti-cyclic citrullinated peptide antibody positive R76.8 Acute CHF I50.31 Heart failure type: diastolic Pulmonary fibrosis J84.10 COPD exacerbation J44.1 Chest pain R07.9 Chest pain type: unspecified Pneumonia due to COVID-19 virus U07.1; J12.82 Hyperlipidemia E78.2 Hyperlipidemia type: mixed hyperlipidemia HTN (hypertension) I10 Hypertension type: essential hypertension Diabetes mellitus, type II E11.9 Diabetes mellitus complication status: without complication 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 Vertebral artery dissection I77.74 Elevated troponin R77.8 Sore throat J02.9 DVT prophylaxis Z29.9 (1) Diabetes mellitus, type II Diabetes mellitus complication status: without complication Diabetes mellitus fpc insulin use: without fpc use Qualified Code(s): E11.9 - Type 2 diabetes mellitus without complications (2) Acute CHF Heart failure type: diastolic Qualified Code(s): I50.31 - Acute diastolic (congestive) heart failure (3) Hyperlipidemia Hyperlipidemia type: mixed hyperlipidemia Qualified Code(s): E78.2 - Mixed h yperlipidemia (4) Chest pain Chest pain type: unspecified Qualified Code(s): R07.9 - Chest pain, unspecified (5) HTN (hypertension) Hypertension type: essential hypertension Qualified Code(s): I10 - Essential (primary) hypertension
[2020-10-02] MEDS: FORMOTEROL 20 MCG/2 ML VIAL NEB SCH (19:53)
[2020-10-02] MEDS: BUDESONIDE 0.5 MG/2 ML VIAL (PULMICORT) NEB SCH (19:53)
[2020-10-02] MEDS: FAMOTIDINE 20 MG in SYRINGE 3 ML IV SCH (21:26)
[2020-10-03] MEDS: INSULIN ASPART 100 UNITS/ML 3 ML PEN SC SCH ×6 (00:20→20:17)
[2020-10-03] MEDS: methylPREDNISolone 125 MG in SYRINGE 0 ML IV SCH ×3 (02:03→20:18)
[2020-10-03 04:58] LABS: Basophils # (auto) 0.01 K/uL (0-0.2); Basophils % (auto) 0.1 %; Hematocrit (blood only) 47.2 % (42-52); Hemoglobin 15.7 g/dL (14.0-18.0); Immature Granulocytes # (auto) 0.07 K/uL (0.00-0.02); Immature Granulocytes % (auto) 0.4 %; Lymphocytes # (auto) 0.72 K/uL (1.2-3.4); Lymphocytes % (auto) 4.2 %; Mean Corpuscular Hemoglobin 23.8 pg (25-34); Mean Corpuscular Hgb Conc 33.3 g/dL (32-36); Mean Corpuscular Volume 71.5 fL (80-100); Mean Platelet Volume 10.9 fL (7.4-10.4); Monocytes # (auto) 0.66 K/uL (0.11-0.59); Monocytes % (auto) 3.9 %; Neutrophils # (auto) 15.61 K/uL (1.4-6.5); Neutrophils % (auto) 91.4 %; Nucleated RBC # (auto) 0.03 K/uL (0-0); Nucleated RBC % (auto) 0.2 %; Platelet Count 243 K/uL (130-400); RDW Coefficient of Variation 16.8 % (11.5-14.5); RDW Standard Deviation 39.1 fL (36.4-46.3); White Blood Count 17.07 K/uL (4.8-10.8)
[2020-10-03 05:21] LABS: BUN Creatinine Ratio 43.6 (10-20); Calcium 8.7 mg/dl (8.5-10.1); Est GFR (African American) 52.4; Est GFR (Non-African American) 45.2; Magnesium 3.9 mg/dl (1.8-2.4); Phosphorus 5.8 mg/dl (2.5-4.9); Potassium 4.5 mmol/L (3.5-5.1)
[2020-10-03] MEDS ORDERED: ALBUMIN 5% 250 ML IV ONE (06:18)
[2020-10-03] MEDS: ALBUTEROL HFA 8 GM INHALER INH SCH ×4 (07:06→19:21)
[2020-10-03] MEDS: FORMOTEROL 20 MCG/2 ML VIAL NEB SCH ×2 (07:08→19:20)
[2020-10-03] MEDS: BUDESONIDE 0.5 MG/2 ML VIAL (PULMICORT) NEB SCH ×2 (07:08→19:21)
[2020-10-03] MEDS ORDERED: SODIUM CHLORIDE 0.9% 1000ML 1,000 ML IV ONE (07:11)
[2020-10-03] MEDS: ROSUVASTATIN CALCIUM 20 MG TAB PO SCH (07:38)
[2020-10-03] MEDS: ASPIRIN 81 MG ECTAB PO SCH (07:38)
[2020-10-03] MEDS: FAMOTIDINE 20 MG in SYRINGE 3 ML IV SCH ×2 (07:38→20:20)
[2020-10-03] MEDS: ENOXAPARIN INJ 40 MG/0.4 ML SYR SQ SCH ×2 (07:38→20:18)
--- NOTE | 2020-10-03 08:30 | Critical Care Progress Note ---
Date of Service October 03, 2020 Assessment & Plan (1) Acute respiratory failure with hypoxia: Impression: 65-year-old -[place] African male with history of tobacco abuse admitted September 21 to September 27 for COVID-19 pneumonia. He received dexamethasone at that point time and had resolution of his symptoms including his oxygen requirement. His CT scan at that point time demonstrated some subpleural banding she is somewhat unusual for COVID-19. He returned to the emergency room less than 24 hours after being admitted with hypoxemic respiratory failure. 24-hour events: Patient has been maintained on high flow oxygen therapy alternating with CPAP. He continues to manifest evidence of "happy hypoxemia" and is not in any significant respiratory distress with oxygen saturations in the mid 80% range. His respiratory rate remains in the mid 20s. He continues to decline mechanical ventilation intubation unless it becomes absolutely necessary. Recommendations: 1. Neurologic: History of vertebral artery dissection. Off Plavix. No significant sequelae. Supposed to be on aspirin and lipid-lowering agents. 2. Pulmonary: Diffuse interstitial lung disease with subpleural banding in the setting of Covid infection. His serological evaluation is pending however the anti-CCP is significantly elevated with his remaining serological evaluation pending. This could represent an autoimmune interstitial lung disease. He has been on Solu-Medrol for 3 days now without much clinical improvement and he appears to be somewhat clinically stagnant. Will decrease down to 125 every 12 and see how he does. If he becomes intubated will perform bronchoscopy with BAL to better characterize his lung process. He is not a candidate for surgical lung biopsy. The admitting hospitalist discussed with ID and rheumatology at [facility] to see whether or not there are any additional adjuvants recommended and they did not recommend any additional therapies and did not see any point in transferring the patient. They recommended continue current supportive care with acknowledgment that mortality may be quite high. Could consider nebulized epoprostenol however the patient does not have significant airspace opacities resulting in VQ mismatch I am not sure that selective pulmonary arterial vasodilatation will improve his VQ mismatch and at all. I believe that his hypoxemia is likely secondary to diffusion capacity abnormalities which would not likely be impacted by selective pulmonary vasodilators. 3. Cardiovascular: Patient had an elevated BNP on presentation and did receive diuretics. Echocardiogram was reviewed which showed preserved ejection fraction (greater than 70%) without regional wall motion abnormalities. Concentric LVH was noted. Trace aortic insufficiency was noted. Cannot rule out possibility of right to left shunting contributing to the patient's hypoxemia and consideration for a bubble study may be appropriate depending on the patient's clinical response although it is unclear if this would change analyst. Hold additional diuretics and Zestril for now, patient may have been slightly over diuresed given low blood pressure and increase in serum creatinine. Gentle fluid resuscitation 4. ID: Patient initially was placed on antibiotics but these were discontinued with a negative procalcitonin. He is been afebrile. White count is mildly elevated however he is on no anti-biotics for now. 5. Endocrine: History of diabetes. ICU glycemic protocol will be continued. 6. GI: Continue bowel regiment. As long as the patient can be maintained on high flow oxygen will advance diet to full liquid and see how he does. 7. Heme-onc: No current issues. continue to follow 8. Renal: Patient had an increase in serum creatinine today potentially associated with diuretic therapy. Will hold additional diuretics as well as Zestril. He does demonstrate borderline hyponatremia and potassium upper limits of normal. These will be trended as well. Acid-base status and volume status is reasonable currently. We will recheck creatinine in the morning. 9. Proph: Lovenox. Continue H2 yissel With the bedside nurse in attendance, I discussed outcomes with the patient. We reviewed CPR. I advised him that if he suffers a cardiac arrest and we have to do CPR the likelihood of him surviving this illness is quite low. Based on that information he is comfortable in changing his CODE STATUS to include no CPR. We extensively discussed intubation mechanical ventilation. He is open to these options including tracheostomy should they become necessary but would like to continue current measures as he believes he is making some progress. Patient is critically ill with significant probability of clinical deterioration and . A total of 52 minutes critical care time was spent evaluation management this patient including discussion with the patient and with bedside ICU nurse. Recommendations discussed with patient at bedside who agreed to plan as indicated (2) Abnormal CT scan of lung: (3) Interstitial lung disease: (4) COPD exacerbation: Admission and Anticipated Discharge Date Admission Date: September 28, 2020 Subjective Patient seen and examined. EMR reviewed. Discussed with ICU nurse at bedside as well as patient bedside. The patient remains clinically about the same. He continues to decline intubation mechanical ventilation and I am not sure that it is really can offer him much benefit at this point time. His oxygen saturations remain in the mid to high 80% range alternating between CPAP and heated high flow oxygen therapy. He is occasionally coughing and expectorating some phlegm. He wants to try diet . He is not tachypneic but does exhibit increased work of breathing when his oxygen saturations drop. Review of Systems Review of Systems: All systems reviewed & are unremarkable except as noted in HPI & below Physical Exam Constitutional: well developed and cooperative; not cachectic and not edematous Eyes: PERRL Neck: trachea midline, no thyromegaly Respiratory: + labored breathing and + uses accessory muscles Auscultation: + crackles Cardiovascular: RRR, no murmur, no edema Gastrointestinal (Abdomen): normal bowel sounds, soft, nontender, no hepatosplenomegaly Musculoskeletal: Extremities: extremities normal to inspection Skin: no rashes, warm and dry Lymphatic: no cervical lymphadenopathy Results & Data Results & Data ([facility]) Vital Signs (Past 12 Hours) Vital Signs Temp Pulse Pulse Resp BP Pulse Ox 10/03/20 07:18 64 20 86 L 10/03/20 07:09 64 20 86 L 10/03/20 03:23 68 22 86 L 10/03/20 01:38 67 22 85/52 L 86 L 10/03/20 00:38 36.7 C 75 18 100/54 L 83 L 10/02/20 23:38 76 20 104/58 L 87 L 10/02/20 23:26 72 24 88 L 10/02/20 22:39 68 14 95/56 L 90 10/02/20 21:39 81 30 H 104/63 81 L 10/02/20 20:38 36.7 C 77 18 96/49 L 87 L 10/02/20 20:26 79 18 87 L 10/02/20 20:25 81 22 87 L Laboratory Results 10/03/20 04:40 10/03/20 04:40 Diagnostic Findings No new films Coding Level of Care Code Critical Care 1st 30-74 mins Diagnoses Acute respiratory failure with hypoxia J96.[address] scan of lung R91.8 Interstitial lung disease J84.9 COPD exacerbation J44.1
[2020-10-03] MEDS ORDERED: INSULIN GLARGINE SOLOSTAR 100 UNITS/ML 3 ML PEN SC ONE (09:00)
--- NOTE | 2020-10-03 10:40 | XRay Report ---
XR chest 1V portable CLINICAL HISTORY: Respiratory failure. COMPARISON STUDY: Chest CT September 28, 2020. Chest radiograph October 02, 2020. FINDINGS: Persistent bibasilar opacities and interstitial thickening is noted. Cardiomediastinal silh ouette is stable. There is no pneumothorax. There is emphysema. IMPRESSION: 1. Persistent bibasilar opacities and interstitial thickening which favor an infectious process super imposed upon interstitial lung disease. 2. Emphysema. ACT 112: Negative or not required by law. Electronically signed by: Rowdy Ybarra M.D. 10/03/2020 10:39 AM
[2020-10-03] MEDS ORDERED: MIDAZOLAM HCL 5 MG/ML 1 ML VIAL ONE (12:55)
[2020-10-03] MEDS ORDERED: ETOMIDATE 2 MG/ML 20 ML VIAL IV ONE (12:56)
[2020-10-03] MEDS ORDERED: PROPOFOL IV EMULSION 10 MG/ML 100 ML VIAL IV ONE (12:56)
[2020-10-03] MEDS ORDERED: VECURONIUM BROMIDE 10 MG VIAL IV ONE (13:01)
[2020-10-03] MEDS ORDERED: RAPID SEQUENCE INDUCTION BAG ONE (13:01)
--- NOTE | 2020-10-03 13:11 | Communication Note ---
Date of Service: October 03, 2020 I have reassessed the patient on multiple occasions today and discussed extensively with ICU nurse on at least 4 or 5 occasions. Unfortunately the patient's oxygen saturations continue to drift down. He is now back on CPAP 100% with oxygen saturations in the 87 to 88% range. If he takes the mask off and goes to high flow or when he talks he drops into the mid to low 80s. I recommended intubation or mechanical ventilation in an effort to try and allow his lungs to heal. I also recommended placement of a central line and arterial line. The patient understands but continues to decline these interventions but is also unwilling to address his CODE STATUS. He states he is willing to go on the ventilator if it is deemed medically necessary. I advised him that I do think it is medically necessary but the patient requests that we wait and see how he responds to CPAP over the next 24 hours. I have everything in the room to intubate the patient placed central lines and arterial lines and the nurses drawing up medications. Again the patient states that he would like to see how he does over the next 24 hours. I have advised him that we have delayed this as long as I feel it is safe and medical advice would dictate that he be intubated at this point in time. I cannot guarantee him that he would not require tracheostomy or long-term ventilatory support. The patient again states that he does not want to change his CODE STATUS and is willing to be intubated but wants 24 hours of continued noninvasive positive pressure ventilation to see whether or not his oxygen levels will improve. I advised him that I think we are only delaying the inevitable at this point in time and delaying intubation when it is deemed to be medically necessary has resulted in worse outcomes. The patient expressed understanding and again clearly reiterates that he wants to delay a decision regarding intubation for 24 hours. Additional 35 minutes of critical care time including end-of-life discussions. Coding Level of Care Code Critical Care saniya addt'l 30 min Time Spent (min) 35
--- NOTE | 2020-10-03 14:28 | Pharmacy Report ---
Glycemic Control Progress Note - Date of Service October 03, 2020 - Scope Glycemic Pharmacist consulted for glycemic control to write orders per [facility] inpatient glycemic control protocol. - Objective Accuchecks BSG(last 24 hours):: 10/02/20 10/02/20 10/03/20 17:09 20:26 00:10 Glucose POC Glucose 207 H 202 H 209 H 10/03/20 10/03/20 10/03/20 04:37 04:40 08:04 Glucose 167 H POC Glucose 163 H 157 H 10/03/20 11:41 Glucose POC Glucose 254 H - Recent Pertinent Medications The patient is currently receiving: * Basal insulin: Lantus 15 units in the morning and 10 units in the evening * Correctional Insulin: Novolog Correction per scale ACHS Goal Range: Low 110 mg/dL - High 140 mg/dL Correction Factor: 25 mg/dL/unit * Prandial insulin: Per carb ratio of 1 unit per 11 grams CHO consumed - Outpatient Anti-Diabetic Meds metformin 500 mg qAM - Assessment & Plan ASSESSMENT: * See progress note from 10/02/20 for more background info, in short: * Pt receiving SQ basal bolus insulin regimen for hyperglycemia secondary to baseline DM (outpatient regimen on hold). Patient is currently receiving Solu- Medrol 125 mg SQ BID (just transitioned from TID). He is able to eat some today. * Patient is currently receiving an average of 42 units of insulin per day * 30 units of basal insulin * 12 units of prandial/correctional insulin * BSGs ranging 165 - 209 mg/dl over the past 24hrs * Changes needed to insulin regimen: * AM Fasting BSG = 157 mg/dl. This is in goal range for patient based on inpatient targets and co-morbidities. The patient received Lantus 25 units yesterday plus 4 extra units overnight. Will give 15 units SQ BID. Will d/c NPH (only receiving 5 units) and tighten CF/CR. * Post-prandial BSGs were moderately controlled yesterday. Tighten CF/CR. * Total daily dose is TBD at this point. Patient's dietary status changing frequently. PLAN FOR INPATIENT GLYCEMIC CONTROL: * INCREASING Lantus to 15 units SQ BID * TIGHTENING correction factor to 20 mg/dl/unit * TIGHTENING carb ratio to 1 unit per 9 grams CHO consumed * Continuing goal range of Low 110 mg/dL - High 140 mg/dL * Please note that the plan above was derived based on current level of insulin resistance and hospital stress. These recommendations are appropriate for inpatient admission only. Plan of care upon discharge will need to be reassessed to avoid potential outpatient hypo/hyperglycemia. Thank you.
--- NOTE | 2020-10-03 19:37 | Hospitalist Progress Note ---
Date of Service October 03, 2020 Assessment & Plan (1) Acute respiratory failure with hypoxia: Severe, profound. Dx with COVID-19 infection on 09/21/2020 but had been ill since about 09/11/20. Hospitalized from 09/21/20 to 09/27/20 for COVID. On 09/27/20 upon discharge back to [facility] patient was reportedly stable in room air. He returned to [facility] on 09/28/20 with profound hypoxia. Repeat CTA on 09/28/20 without PEs but diffuse infiltrates - progressive ILD/PF suspected in setting of COPD/recent COVID. He has been alternating between maxed out HFNC settings and CPAP. He has multiple reasons for his hypoxic resp failure including acute diastolic CHF (resolved), COPD, progressive ILD/PF, and recent COVID-19 pneumonia. I cannot rule out a concomitant superimposed bacterial pneumonia but it is felt unlikely and abx stopped. It appears his PF/ILD is much worse than several weeks ago and Dr Chi feels this is primary culprit at this time. plan - continue high-dose IV steroids for PF/ILD as recommended by pulmonary/critical care. abx stopped. cont lovenox 40mg BID. supportive care. CPAP/HFNC. Intubation recommended by critical care today - patient refused, wanting 24 hours more of NIPPV and supportive care. 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 this would suggest positivity for rheumatoid arthritis. his ILD may be rheumatic in origin. or, he could have this as an "autoantibody" in the setting of recent COVID-19. awaiting additional autoimmune w/u. discussed his case with [facility] and [facility] in [place] on 10/03. immune-based therapy (Actemra) discussed; was not recommended. sed rate/crp markedly elevated. cont high-dose IV steroids. no other changes in care plan at this time. (3) Acute CHF: acute diastolic CHF in setting of severe acute hypoxic resp failure. s/p copious diuresis since admission but suspect we are euvolemic. echo findings noted. repeat labs am. noted - normal wall motion on echo. normal estimated PA pressures. (4) Pulmonary fibrosis: seen on his first CTA chest on 09/21/2020. additional CTAs on 09/27 and 09/28 show worsening fibrosis. large concern that progressive PF/ILD is largest contributor to current severe hypoxia/hypoxemia. anti-CCP ab is markedly positive - ILD 2nd to rheumatic disease?? or, has he developed fibrosis following ARDS from COVID-19?? combination? awaiting additional autoimmune w/u. cont high-dose steroids and supportive care. discussed his case with rheum by phone. immune-based therapy deferred at this time. (5) COPD exacerbation: severe emphysematous changes on imaging. cont steroids. cont q6h bronchodilators. self-prone. pulm toilet. pulmonary consultation appreciated. (6) Chest pain: had multiple episodes shortly after discharge on 09/27 back at the skilled nursing. none while hospitalized. uncertain if symptoms pre-admission were cardiac or due to severe pulmonary disease. suspect latter. troponins scantly elevated at admission. despite multiple EKGs with marked ST depressions anterolaterally his echo shows normal LV wall motion. (7) Pneumonia due to COVID-19 virus: initial dx 09/21/20. cont supportive care. no role for plasma/remdesivir - initial dx around [place]. Dr Chi reported that anti-CCP ab positivity can give false positive COVID testing?? consider COVID serum antibodies in a few days but I do believe patient did indeed have COVID (lost taste/smell in August, had fevers, classic COVID sx's). (8) Hyperlipidemia: cont crestor (9) HTN (hypertension): hold YANIV due to GOVIND (10) Diabetes mellitus, type II: appreciate pharmacy glycemic assistance. cont NPH, cont novolog. last Hba1c 7.6%. HOLD YANIV inhibitor with high-dose steroids anticipate worsening hyperglycemia. ICU glycemic protocol. (11) Vertebral artery dissection: history of - noted (12) Elevated troponin: peak troponin 0.131 echo with normal wall motion likely myocardial demand ischemia in setting of profound hypoxia/hypoxemia (13) Sore throat: magic mouthwash swish/spit q6h scheduled improved as of yesterday (14) GOVIND (acute kidney injury): likely 2nd overdiuresis. hold YANIV. BMP am. (15) DVT prophylaxis: due to high risk of VTE in setting of COVID -- lovenox 40mg BID prognosis very, very poor/guarded full code per Dr Chi's note today appreciate critical care assistance Admission and Anticipated Discharge Date Admission Date: September 28, 2020 Subjective events of last 24 hours noted. remains on CPAP. satting 85-90% on 100% FiO2. patient was encouraged to be intubated today by Dr Chi. patient refused, wanting 24 hours more of CPAP. Review of Systems Review of Systems: did not perform bedside evaluation/visit Physical Exam Physical Exam: did not perform bedside evaluation today; through the glass on door patient was sleeping with CPAP in place; mild tachypea but no retractoins noted Results & Data Results & Data ([facility]) Vital Signs (Past 12 Hours) Vital Signs Temp Pulse Pulse Resp BP Pulse Ox 10/03/20 19:23 73 25 H 89 L 10/03/20 19:21 73 25 H 89 L 10/03/20 18:10 78 24 91 10/03/20 16:00 87 27 H 87 L 10/03/20 15:30 92 H 24 85 L 10/03/20 15:00 75 L 10/03/20 14:39 109 H 33 H 142/71 H 85 L 10/03/20 14:30 101 H 24 86 L 10/03/20 14:00 90 19 88 L 10/03/20 13:39 91 H 17 138/70 86 L 10/03/20 13:30 88 22 89 L 10/03/20 13:00 98 H 21 90 10/03/20 12:39 83 14 96/62 L 84 L 10/03/20 12:31 82 16 84 L 10/03/20 12:30 85 21 82 L 10/03/20 12:27 81 17 108/58 L 84 L 10/03/20 12:00 36.7 C 83 20 82 L 10/03/20 11:30 79 22 83 L 10/03/20 11:16 88 21 85 L 10/03/20 11:13 90 21 85 L 10/03/20 11:00 82 21 81 L 10/03/20 10:30 80 24 85 L 10/03/20 10:00 82 30 H 74 L 10/03/20 09:39 77 23 99/59 L 73 L 10/03/20 09:30 71 18 10/03/20 09:00 66 10 L 88 L 10/03/20 08:39 63 19 88/48 L 89 L 10/03/20 08:30 67 20 88 L 10/03/20 08:00 36.8 C 74 18 84 L 10/03/20 07:38 69 18 96/49 L 86 L Laboratory Results Laboratory Results - last 24 hr 10/02/20 10/03/20 10/03/20 20:26 00:10 04:37 WBC RBC Hgb Hct MCV MCH MCHC RDW Std Deviation RDW Coeff of Ya Plt Count MPV Immature Gran % (Auto) Neut % (Auto) Lymph % (Auto) Pine % (Auto) Eos % (Auto) Baso % (Auto) Neut # (Auto) Lymph # (Auto) Pine # (Auto) Eos # (Auto) Baso # (Auto) Immature Gran # (Auto) Absolute Nucleated RBC Nucleated RBC % (auto) Sodium Potassium Chloride Carbon Dioxide Anion Gap BUN Creatinine Est Cr Clr Drug Dosing Est GFR ( Amer) Est GFR (Non-Af Amer) BUN/Creatinine Ratio Glucose POC Glucose 202 H 209 H 163 H Calcium Phosphorus Magnesium 10/03/20 10/03/20 10/03/20 04:40 04:40 08:04 WBC 17.07 H RBC 6.60 H Hgb 15.7 Hct 47.2 MCV 71.5 L MCH 23.8 L MCHC 33.3 RDW Std Deviation 39.1 RDW Coeff of Ya 16.8 H Plt Count 243 MPV 10.9 H Immature Gran % (Auto) 0.4 Neut % (Auto) 91.4 Lymph % (Auto) 4.2 Pine % (Auto) 3.9 Eos % (Auto) 0.0 Baso % (Auto) 0.1 Neut # (Auto) 15.61 H Lymph # (Auto) 0.72 L Pine # (Auto) 0.66 H Eos # (Auto) 0.00 Baso # (Auto) 0.01 Immature Gran # (Auto) 0.07 H Absolute Nucleated RBC 0.03 H Nucleated RBC % (auto) 0.2 Sodium 135 L Potassium 4.5 Chloride 105 Carbon Dioxide 22 Anion Gap 8.0 BUN 69 H D Creatinine 1.59 H D Est Cr Clr Drug Dosing 50.0 Est GFR ( Amer) 52.4 Est GFR (Non-Af Amer) 45.2 BUN/Creatinine Ratio 43.6 H Glucose 167 H POC Glucose 157 H Calcium 8.7 Phosphorus 5.8 H Magnesium 3.9 H 10/03/20 10/03/20 11:41 16:06 WBC RBC Hgb Hct MCV MCH MCHC RDW Std Deviation RDW Coeff of Ya Plt Count MPV Immature Gran % (Auto) Neut % (Auto) Lymph % (Auto) Pine % (Auto) Eos % (Auto) Baso % (Auto) Neut # (Auto) Lymph # (Auto) Pine # (Auto) Eos # (Auto) Baso # (Auto) Immature Gran # (Auto) Absolute Nucleated RBC Nucleated RBC % (auto) Sodium Potassium Chloride Carbon Dioxide Anion Gap BUN Creatinine Est Cr Clr Drug Dosing Est GFR ( Amer) Est GFR (Non-Af Amer) BUN/Creatinine Ratio Glucose POC Glucose 254 H 212 H Calcium Phosphorus Magnesium PG Care Time/CCT Total # of Minutes Spent Total Time Spent with Patient: Total time spent is greater than 50% in coordination of care (as documented) at patient's floor/unit and/or counseling patient: Coding Level of Care Code 24571 Subseq Hosp Care Lvl 1 Diagnoses Acute respiratory failure with hypoxia J96.01 Anti-cyclic citrullinated peptide antibody positive R76.8 Acute CHF I50.31 Heart failure type: diastolic Pulmonary fibrosis J84.10 COPD exacerbation J44.1 Chest pain R07.9 Chest pain type: unspecified Pneumonia due to COVID-19 virus U07.1; J12.82 Hyperlipidemia E78.2 Hyperlipidemia type: mixed hyperlipidemia HTN (hypertension) I10 Hypertension type: essential hypertension Diabetes mellitus, type II E11.9 Diabetes mellitus complication status: without complication Diabetes mellitus mcfp insulin use: without terminal manager use Vertebral artery dissection I77.74 Elevated troponin R77.8 Sore throat J02.9 GOVIND (acute kidney injury) N17.9 DVT prophylaxis Z29.9 (1) Diabetes mellitus, type II Diabetes mellitus complication status: without complication Diabetes mellitus mcfp insulin use: without terminal manager use Qualified Code(s): E11.9 - Type 2 diabetes mellitus without complications (2) Acute CHF Heart failure type: diastolic Qualified Code(s): I50.31 - Acute diastolic (congestive) heart failure (3) Hyperlipidemia Hyperlipidemia type: mixed hyperlipidemia Qualified Code(s): E78.2 - Mixed hyperlipidemia (4) Chest pain Chest pain type: unspecified Qualified Code(s): R07.9 - Chest pain, unspecified (5) HTN (hypertension) Hypertension type: essential hypertension Qualified Code(s): I10 - Essential (primary) hypertension
[2020-10-03] MEDS: INSULIN GLARGINE SOLOSTAR 100 UNITS/ML 3 ML PEN SC SCH (20:18)
[2020-10-04] MEDS: INSULIN ASPART 100 UNITS/ML 3 ML PEN SC SCH ×6 (00:55→21:00)
[2020-10-04 05:22] LABS: Immature Granulocytes # (auto) 0.05 K/uL (0.00-0.02); Immature Granulocytes % (auto) 0.3 %; Lymphocytes # (auto) 0.81 K/uL (1.2-3.4); Lymphocytes % (auto) 5.4 %; Mean Corpuscular Hemoglobin 23.8 pg (25-34); Mean Corpuscular Hgb Conc 32.7 g/dL (32-36); Mean Platelet Volume 11.4 fL (7.4-10.4); Monocytes # (auto) 0.17 K/uL (0.11-0.59); Monocytes % (auto) 1.1 %; Neutrophils # (auto) 14.01 K/uL (1.4-6.5); Neutrophils % (auto) 93.2 %; Platelet Count 185 K/uL (130-400); RDW Coefficient of Variation 16.6 % (11.5-14.5); RDW Standard Deviation 39.6 fL (36.4-46.3); Red Blood Count 6.71 M/uL (4.7-6.1); White Blood Count 15.04 K/uL (4.8-10.8)
[2020-10-04 05:48] LABS: BUN Creatinine Ratio 48.1 (10-20); Calcium 8.8 mg/dl (8.5-10.1); Creatinine Clr Calc Pharmacy 84.6 ml/min; Est GFR (African American) 89.6; Est GFR (Non-African American) 77.3; Magnesium 3.7 mg/dl (1.8-2.4)
[2020-10-04] MEDS: ENOXAPARIN INJ 40 MG/0.4 ML SYR SQ SCH ×2 (07:57→20:43)
[2020-10-04] MEDS: FAMOTIDINE 20 MG in SYRINGE 3 ML IV SCH ×2 (07:57→20:46)
[2020-10-04] MEDS: methylPREDNISolone 125 MG in SYRINGE 0 ML IV SCH ×2 (07:57→20:43)
[2020-10-04] MEDS: ROSUVASTATIN CALCIUM 20 MG TAB PO SCH (07:58)
[2020-10-04] MEDS: ASPIRIN 81 MG ECTAB PO SCH (07:58)
[2020-10-04] MEDS: CHOLECALCIFEROL 1,000 UNITS 25 MCG TAB PO SCH (07:58)
[2020-10-04] MEDS: INSULIN GLARGINE SOLOSTAR 100 UNITS/ML 3 ML PEN SC SCH ×2 (07:59→21:00)
[2020-10-04] MEDS: BUDESONIDE 0.5 MG/2 ML VIAL (PULMICORT) NEB SCH ×2 (08:14→18:53)
[2020-10-04] MEDS: ALBUTEROL HFA 8 GM INHALER INH SCH ×4 (08:14→18:53)
[2020-10-04] MEDS: FORMOTEROL 20 MCG/2 ML VIAL NEB SCH ×2 (08:14→18:53)
[2020-10-04] MEDS ORDERED: INSULIN GLARGINE SOLOSTAR 100 UNITS/ML 3 ML PEN SC ONE (09:00)
--- NOTE | 2020-10-04 09:32 | XRay Report ---
XR chest 1V portable CLINICAL HISTORY: Respiratory failure. COMPARISON STUDY: Chest CT September 28, 2020. Chest radiograph October 03, 2020. FINDINGS: There is no pneumothorax. Bilateral lower lung interstitial thickening and bilateral opacit ies have slightly improved. Cardiomediastinal silhouette is stable. There is no evidence for pulmonar y edema. There is emphysema. IMPRESSION: Slight improvement in bilateral lower lung airspace opacities and interstitial thickenin g consistent with an infectious process. ACT 112: Negative or not required by law. Electronically signed by: Rowdy Ybarra M.D. 10/04/2020 9:31 AM
--- NOTE | 2020-10-04 10:27 | Critical Care Progress Note ---
Date of Service October 04, 2020 Assessment & Plan (1) Acute respiratory failure with hypoxia: Impression: 65-year-old -[place] male with history of tobacco abuse admitted September 21 to September 27 for COVID-19 pneumonia. He received dexamethasone at that point time and had resolution of his symptoms including his oxygen requirement. His CT scan at that point time demonstrated some subpleural banding she is somewhat unusual for COVID-19. He returned to the emergency room less than 24 hours after being admitted with hypoxemic respiratory failure. 24-hour events: Recommended the patient be intubated yesterday however he declined and wanted 24 hours on BiPAP. Continued CPAP overnight. He is slightly better today with oxygen saturations in the 88 to 91% range. Recommendations: 1. Neurologic: History of vertebral artery dissection. Off Plavix. No significant sequelae. Supposed to be on aspirin and lipid-lowering agents. 2. Pulmonary: Diffuse interstitial lung disease with subpleural banding in the setting of Covid infection. His serological evaluation is pending however the anti-CCP is significantly elevated with his remaining serological evaluation pending. This could represent an autoimmune interstitial lung disease. He has been on Solu-Medrol for 4 days now without much clinical improvement and he appears to be somewhat clinically stagnant. If he becomes intubated will perform bronchoscopy with BAL to better characterize his lung process. He is not a candidate for surgical lung biopsy. The admitting hospitalist discussed with ID and rheumatology at [facility] to see whether or not there are any additional adjuvants recommended and they did not recommend any additional therapies and did not see any point in transferring the patient. They recommended continue current supportive care with acknowledgment that mortality may be quite high. Could consider nebulized epoprostenol however the patient does not have significant airspace opacities resulting in VQ mismatch I am not sure that selective pulmonary arterial vasodilatation will improve his VQ mismatch and at all. I believe that his hypoxemia is likely secondary to diffusion capacity abnormalities which would not likely be impacted by selective pulmonary vasodilators. We did discuss proning the patient however the diffuse subpleural nature of his disease would argue against proning offering him a significant clinical benefit. 3. Cardiovascular: Patient had an elevated BNP on presentation and did receive diuretics. Echocardiogram was reviewed which showed preserved ejection fraction (greater than 70%) without regional wall motion abnormalities. Concentric LVH was noted. Trace aortic insufficiency was noted. Cannot rule out possibility of right to left shunting contributing to the patient's hypoxemia and consideration for a bubble study may be appropriate depending on the patient's clinical response although it is unclear if this would changeover operator. Hold additional diuretics and Zestril for now, patient may have been slightly over diuresed given low blood pressure and increase in serum creatinine. Gentle fluid resuscitation 4. ID: Patient initially was placed on antibiotics but these were discontinued with a negative procalcitonin. He is been afebrile. White count is mildly elevated however he is on no antibiotics for now. 5. Endocrine: History of diabetes. ICU glycemic protocol will be continued. 6. GI: Continue bowel regiment. As long as the patient can be maintained on high flow oxygen will advance diet to full liquid and see how he does. 7. Heme-onc: No current issues. continue to follow 8. Renal: Patient had an increase in serum creatinine today potentially associated with diuretic therapy. Will hold additional diuretics as well as Zestril. He does demonstrate borderline hyponatremia and potassium upper limits of normal. These will be trended as well. Acid-base status and volume status is reasonable currently. We will recheck creatinine in the morning. 9. Proph: Lovenox. Continue H2 yissel I again reviewed options with the patient. He feels he is making clinical progress. I advised him that delaying intubation if medically necessary may worsen his overall outcomes. He is comfortable and breathing in the 20s although he does desat with any significant movement. He again would like to continue his current course without intubation mechanical ventilation. I discussed with him that noninvasive positive pressure ventilation needs to be a bridge and we cannot leave this in place for a prolonged period of time. The patient expressed understanding but again thinks he is making progress and would like to continue without going on the ventilator. Will reassess throughout the day and intubated for unable to keep his oxygen saturations in the mid to high 80% range. Patient is critically ill with significant probability of clinical deterioration and . A total of 46 minutes critical care time was spent evaluation manage ment this patient including discussion with the patient and with bedside ICU nurse. Recommendations discussed with patient at bedside who agreed to plan as indicated (2) Abnormal CT scan of lung: (3) Interstitial lung disease: (4) COPD exacerbation: Admission and Anticipated Discharge Date Admission Date: September 28, 2020 Subjective Patient feels that he is actually breathing a little bit better. He has been on CPAP since yesterday. He is not coughing or expectorating phlegm. He has been hemodynamically stable. Review of Systems Review of Systems: All systems reviewed & are unremarkable except as noted in HPI & below Physical Exam Constitutional: well developed and cooperative; not cachectic and not edema tous Eyes: PERRL Neck: trachea midline, no thyromegaly Respiratory: + labored breathing and + uses accessory muscles Auscultation: + crackles Cardiovascular: RRR, no murmur, no edema Gastrointestinal (Abdomen): normal bowel sounds, soft, nontender, no hepatosplenomegaly Musculoskeletal: Extremities: extremities normal to inspection Skin: no rashes, warm and dry Lymphatic: no cervical lymphadenopathy Results & Data Results & Data ([facility]) Vital Signs (Past 12 Hours) Vital Signs Temp Pulse Pulse Resp BP Pulse Ox 10/04/20 08:16 64 24 86 L 10/04/20 08:15 67 24 86 L 10/04/20 07:00 76 18 135/79 86 L 10/04/20 05:39 62 24 129/69 89 L 10/04/20 05:14 66 25 H 90 10/04/20 04:39 36.6 C 65 24 158/84 H 91 10/04/20 03:39 63 23 145/76 H 91 10/04/20 02:39 36.7 C 61 21 107/66 91 10/04/20 02:04 70 24 89 L 10/04/20 01:39 68 25 H 135/85 10/04/20 00:39 62 23 142/71 H 91 10/03/20 23:39 68 21 113/70 92 10/03/20 22:39 71 23 176/103 H 93 Laboratory Results 10/04/20 04:39 10/04/20 04:39 Serologies pending Diagnostic Findings Chest x-ray today was independently reviewed. There are persistent bibasilar opacities. Coding Level of Care Code Critical Care 1st 30-74 mins Diagnoses Acute respiratory failure with hypoxia J96.[address] scan of lung R91.8 Interstitial lung disease J84.9 COPD exacerbation J44.1
--- NOTE | 2020-10-04 13:36 | Pharmacy Report ---
Glycemic Control Progress Note - Date of Service October 04, 2020 - Scope Glycemic Pharmacist consulted for glycemic control to write orders per [facility] inpatient glycemic control protocol. - Objective Accuchecks BSG(last 24 hours):: 10/03/20 10/03/20 10/04/20 16:06 19:54 00:16 Glucose POC Glucose 212 H 149 H 177 H 10/04/20 10/04/20 10/04/20 04:38 04:39 08:06 Glucose 166 H POC Glucose 174 H 138 H 10/04/20 12:14 Glucose POC Glucose 161 H - Recent Pertinent Medications The patient is currently receiving: * Basal insulin: Lantus 15 units every 12 hours * Correctional Insulin: Novolog Correction per scale ACHS Goal Range: Low 110 mg/dL - High 140 mg/dL Correction Factor: 20 mg/dL/unit * Prandial insulin: Per carb ratio of 1 unit per 9 grams CHO consumed - Outpatient Anti-Diabetic Meds metformin 500 mg qAM - Assessment & Plan ASSESSMENT: * See progress note from 10/02/20 for more background info, in short: * Pt receiving SQ basal bolus insulin regimen for hyperglycemia secondary to baseline DM (outpatient regimen on hold). Patient is currently on Solu-Medrol 125 mg IV q12 hours. * Patient is currently receiving an average of 45 units of insulin per day * 30 units of basal insulin * 15 units of prandial/correctional insulin * BSGs ranging 149 - 254 mg/dl over the past 24hrs * Changes needed to insulin regimen: * AM Fasting BSG = 138 mg/dl. This is in goal range for patient based on inpatient targets and co-morbidities. The patient received an additional 4 units of Novolog overnight. Will increase basal to 20 units if BSG >/= 140 mg/dL otherwise 15 units BID. * Post-prandial BSGs were elevated yesterday at lunch but then trended downwards. Increased basal insulin as the patient is primarily receiving only correctional insulin. Change to ACHS due to increased basal. * Total daily dose = ~50 units. Increased Lantus. PLAN FOR INPATIENT GLYCEMIC CONTROL: * INCREASING Lantus to 20 units SQ BID (15 units if BSG < 140 mg/dL) * Continuing correction factor of 20 mg/dl/unit * Continuing carb ratio of 1 unit per 9 grams CHO consumed * Continuing goal range of Low 110 mg/dL - High 140 mg/dL * Please note that the plan above was derived based on current level of insulin resistance and hospital stress. These recommendations are appropriate for inpatient admission only. Plan of care upon discharge will need to be reassessed to avoid potential outpatient hypo/hyperglycemia. Thank you.
[2020-10-04] MEDS ORDERED: INSULIN ASPART 100 UNITS/ML 3 ML PEN SC SCH (16:00)
--- NOTE | 2020-10-04 23:56 | Hospitalist Progress Note ---
Date of Service October 04, 2020 Assessment & Plan (1) Acute respiratory failure with hypoxia: Severe, profound. Dx with COVID-19 infection on 09/21/2020 but had been ill since about 09/11/20. Hospitalized from 09/21/20 to 09/27/20 for COVID at [facility]. On 09/27/20 upon discharge back to [facility] patient was reportedly stable in room air. He returned to [facility] on 09/28/20 with profound hypoxia. Repeat CTA on 09/28/20 without PEs but diffuse infiltrates - progressive ILD/PF suspected in setting of COPD/recent COVID. He has been alternating between maxed out HFNC settings and CPAP of 16. He has multiple reasons for his hypoxic resp failure including acute diastolic CHF (resolved), COPD, progressive ILD/PF, and recent COVID-19 pneumonia. Superimposed bacterial pneumonia felt unlikely given negative procalcitonin levels. It appears his PF/ILD is much worse than several weeks ago and Dr Chi feels this is primary culprit at this time. plan - continue high-dose IV steroids for PF/ILD as recommended by pulmonary/critical care. abx stopped. cont lovenox 40mg BID. supportive care. CPAP/HFNC. O2 sats are modestly improved in comparison to yesterday with better compliance with CPAP. Pt refused intubation yesterday. 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 this would suggest positivity for rheumatoid arthritis. his ILD may be rheumatic in origin. or, he could have this as an "autoantibody" in the setting of recent COVID-19. awaiting additional autoimmune w/u (RF, CADEN, etc). discussed his case with [facility] and [facility] in [place] on 10/03. immune-based therapy (Actemra) discussed; was not recommended. sed rate/crp markedly elevated. cont high-dose IV steroids. (3) Acute CHF: previous acute diastolic CHF in setting of severe acute hypoxic resp failure. s/p copious diuresis since admission but suspect euvolemia has been achieved. echo findings noted. normal wall motion on echo. normal estimated PA pressures. (4) Pulmonary fibrosis: seen on his first CTA chest on 09/21/2020. additional CTAs on 09/27 and 09/28 show worsening fibrosis. large concern that progressive PF/ILD is largest contributor to current severe hypoxia/hypoxemia. anti-CCP ab is markedly positive - ILD 2nd to rheumatic disease?? or, has he developed fibrosis following ARDS from COVID-19?? combination? awaiting additional autoimmune w/u. cont high-dose steroids and supportive care. discussed his case with rheum by phone - see above. immune-based therapy deferred at this time. (5) COPD exacerbation: severe emphysematous changes on imaging. cont steroids. cont q6h bronchodilators. pulm toilet. pulmonary consultation appreciated. (6) Chest pain: had multiple episodes shortly after discharge on 09/27 back at the long-term. none while hospitalized. uncertain if symptoms pre-admission were cardiac or due to severe pulmonary disease. suspect latter. troponins scantly elevated at admission. despite multiple EKGs with marked ST depressions anterolaterally his echo shows normal LV wall motion. (7) Pneumonia due to COVID-19 virus: initial dx 09/21/20. cont supportive care. no role for plasma/remdesivir - initial dx around [place]. Dr Chi reported that anti-CCP ab positivity can give false positive COVID testing consider COVID serum antibodies in a few days but I do believe patient did indeed have COVID (lost taste/smell in August, had fevers, classic COVID sx's). (8) Hyperlipidemia: cont crestor (9) HTN (hypertension): hold YANIV due to GOVIND (10) Diabetes mellitus, type II: appreciate pharmacy glycemic assistance. cont NPH, cont novolog. last Hba1c 7.6%. HOLD YANIV inhibitor ICU glycemic protocol. (11) Vertebral artery dissection: history of - 08/2019 right vertebral artery - short segment did not require intervention (12) Elevated troponin: peak troponin 0.131 at admission echo with normal wall motion likely myocardial demand ischemia in setting of profound hypoxia/hypoxemia (13) GOVIND (acute kidney injury): likely 2nd overdiuresis. Peak Cr 1.59 today it is 1 cont to hold YANIV. BMP am. (14) DVT prophylaxis: due to high risk of VTE in setting of COVID -- lovenox 40mg BID prognosis very, very poor/guarded code - conditional appreciate critical care assistance Admission and Anticipated Discharge Date Admission Date: September 28, 2020 Subjective events of last 24 hours noted. received synopsis of day's events from nursing staff. patient has been on 16cm H2O of CPAP since yesterday. O2 sats have climbed to upper 80s/low 90s more consistently with such. still on 100% FiO2. personal bedside visit deferred. Review of Systems Review of Systems: personal bedside visit deferred Physical Exam Physical Exam: did not perform bedside evaluation today; through the glass on door patient was awake with CPAP in place; he waved to tx Results & Data Results & Data ([facility]) Vital Signs (Past 12 Hours) Vital Signs Temp Pulse Pulse Resp BP Pulse Ox 10/04/20 22:35 70 25 H 90 10/04/20 22:14 70 10/04/20 22:00 71 22 92 10/04/20 21:39 80 26 H 148/80 H 92 10/04/20 20:39 71 21 140/80 93 10/04/20 19:40 36.9 C 68 21 128/70 92 10/04/20 19:00 67 68 22 90 10/04/20 18:59 68 24 91 10/04/20 18:39 72 23 140/77 92 10/04/20 18:00 72 24 94 10/04/20 17:39 66 23 148/77 H 89 L 10/04/20 17:00 67 21 92 10/04/20 16:39 60 21 132/68 93 10/04/20 16:00 36.5 C 61 23 92 10/04/20 15:54 63 20 92 10/04/20 15:39 60 21 122/70 92 10/04/20 14:40 66 19 139/80 92 10/04/20 14:00 61 29 H 90 10/04/20 13:39 61 22 129/82 90 10/04/20 13:00 68 25 H 90 10/04/20 12:39 67 20 127/71 93 10/04/20 12:00 67 21 92 Laboratory Results Laboratory Results - last 24 hr 10/04/20 10/04/20 10/04/20 00:16 04:38 04:39 WBC 15.04 H RBC 6.71 H Hgb 16.0 Hct 49.0 MCV 73.0 L MCH 23.8 L MCHC 32.7 RDW Std Deviation 39.6 RDW Coeff of Ya 16.6 H Plt Count 185 MPV 11.4 H Immature Gran % (Auto) 0.3 Neut % (Auto) 93.2 Lymph % (Auto) 5.4 [place] % (Auto) 1.1 Eos % (Auto) 0.0 Baso % (Auto) 0.0 Neut # (Auto) 14.01 H Lymph # (Auto) 0.81 L [place] # (Auto) 0.17 Eos # (Auto) 0.00 Baso # (Auto) 0.00 Immature Gran # (Auto) 0.05 H Sodium Potassium Chloride Carbon Dioxide Anion Gap BUN Creatinine Est Cr Clr Drug Dosing Est GFR ( Amer) Est GFR (Non-Af Amer) BUN/Creatinine Ratio Glucose POC Glucose 177 H 174 H Calcium Phosphorus Magnesium 10/04/20 10/04/20 10/04/20 04:39 08:06 12:14 WBC RBC Hgb Hct MCV MCH MCHC RDW Std Deviation RDW Coeff of Ya Plt Count MPV Immature Gran % (Auto) Neut % (Auto) Lymph % (Auto) [place] % (Auto) Eos % (Auto) Baso % (Auto) Neut # (Auto) Lymph # (Auto) [place] # (Auto) Eos # (Auto) Baso # (Auto) Immature Gran # (Auto) Sodium 136 Potassium 5.0 Chloride 109 H Carbon Dioxide 20 L Anion Gap 7.0 BUN 49 H Creatinine 1.02 Est Cr Clr Drug Dosing 84.6 Est GFR ( Amer) 89.6 Est GFR (Non-Af Amer) 77.3 BUN/Creatinine Ratio 48.1 H Glucose 166 H POC Glucose 138 H 161 H Calcium 8.8 Phosphorus 4.0 D Magnesium 3.7 H 10/04/20 10/04/20 17:23 20:49 WBC RBC Hgb Hct MCV MCH MCHC RDW Std Deviation RDW Coeff of Ya Plt Count MPV Immature Gran % (Auto) Neut % (Auto) Lymph % (Auto) [place] % (Auto) Eos % (Auto) Baso % (Auto) Neut # (Auto) Lymph # (Auto) [place] # (Auto) Eos # (Auto) Baso # (Auto) Immature Gran # (Auto) Sodium Potassium Chloride Carbon Dioxide Anion Gap BUN Creatinine Est Cr Clr Drug Dosing Est GFR ( Amer) Est GFR (Non-Af Amer) BUN/Creatinine Ratio Glucose POC Glucose 144 H 156 H Calcium Phosphorus Magnesium PG Care Time/CCT Total # of Minutes Spent Total Time Spent with Patient: Total time spent is greater than 50% in coordination of care (as documented) at patient's floor/unit and/or counseling patient: Coding Level of Care Code None Diagnoses Acute respiratory failure with hypoxia J96.01 Anti-cyclic citrullinated peptide antibody positive R76.8 Acute CHF I50.31 Heart failure type: diastolic Pulmonary fibrosis J84.10 COPD exacerbation J44.1 Chest pain R07.9 Chest pain type: unspecified Pneumonia due to COVID-19 virus U07.1; J12.82 Hyperlipidemia E78.2 Hyperlipidemia type: mixed hyperlipidemia HTN (hypertension) I10 Hypertension type: essential hypertension Diabetes mellitus, type II E11.9 Diabetes mellitus complication status: without complication Diabetes mellitus [facility] insulin use: without [facility] use Vertebral artery dissection I77.74 Elevated troponin R77.8 GOVIND (acute kidney injury) N17.9 DVT prophylaxis Z29.9 (1) Diabetes mellitus, type II Diabetes mellitus complication status: without complication Diabetes mellitus [facility] insulin use: without retaining room cutter use Qualified Code(s): E11.9 - Type 2 diabetes mellitus without complications (2) Acute CHF Heart failure type: diastolic Qualified Code(s): I50.31 - Acute diastolic (congestive) heart failure (3) Hyperlipidemia Hyperlipidemia type: mixed hyperlipidemia Qualified Code(s): E78.2 - Mixed hyperlipidemia (4) Chest pain Chest pain type: unspecified Qualified Code(s): R07.9 - Chest pain, unspecified (5) HTN (hypertension) Hypertension type: essential hypertension Qualified Code(s): I10 - Essential (primary) hypertension
[2020-10-05 04:46] LABS: Hematocrit (blood only) 51.4 % (42-52); Hemoglobin 16.8 g/dL (14.0-18.0); Immature Granulocytes # (auto) 0.05 K/uL (0.00-0.02); Immature Granulocytes % (auto) 0.4 %; Lymphocytes # (auto) 0.78 K/uL (1.2-3.4); Lymphocytes % (auto) 5.6 %; Mean Corpuscular Hgb Conc 32.7 g/dL (32-36); Mean Corpuscular Volume 73.4 fL (80-100); Mean Platelet Volume 11.4 fL (7.4-10.4); Monocytes # (auto) 0.16 K/uL (0.11-0.59); Monocytes % (auto) 1.1 %; Neutrophils # (auto) 12.95 K/uL (1.4-6.5); Neutrophils % (auto) 92.9 %; Platelet Count 175 K/uL (130-400); RDW Standard Deviation 40.6 fL (36.4-46.3); White Blood Count 13.94 K/uL (4.8-10.8)
[2020-10-05 05:02] LABS: Potassium 5.2 mmol/L (3.5-5.1)
[2020-10-05 05:15] LABS: Albumin Level 2.7 gm/dl (3.4-5.0); BUN Creatinine Ratio 35.2 (10-20); Calcium 9.1 mg/dl (8.5-10.1); Creatinine Clr Calc Pharmacy 82.2 ml/min; Est GFR (African American) 86.5; Est GFR (Non-African American) 74.7
[2020-10-05 05:17] LABS: Albumin Globulin Ratio 0.6 (0.9-2); Bilirubin,Total 1.4 mg/dl (0.2-1); Globulin 4.6 gm/dl (2.5-4.0); Total Protein 7.3 gm/dl (6.4-8.2)
[2020-10-05] MEDS: ASPIRIN 81 MG ECTAB PO SCH (07:17)
[2020-10-05] MEDS: CHOLECALCIFEROL 1,000 UNITS 25 MCG TAB PO SCH (07:17)
[2020-10-05] MEDS: methylPREDNISolone 125 MG in SYRINGE 0 ML IV SCH ×2 (07:17→20:11)
[2020-10-05] MEDS: ENOXAPARIN INJ 40 MG/0.4 ML SYR SQ SCH ×2 (07:17→20:12)
[2020-10-05] MEDS: FAMOTIDINE 20 MG in SYRINGE 3 ML IV SCH ×2 (07:17→20:11)
[2020-10-05] MEDS: ROSUVASTATIN CALCIUM 20 MG TAB PO SCH (07:17)
[2020-10-05] MEDS: FORMOTEROL 20 MCG/2 ML VIAL NEB SCH ×2 (07:50→21:01)
[2020-10-05] MEDS: BUDESONIDE 0.5 MG/2 ML VIAL (PULMICORT) NEB SCH ×2 (07:50→21:01)
[2020-10-05] MEDS: ALBUTEROL HFA 8 GM INHALER INH SCH ×4 (07:50→21:51)
[2020-10-05] MEDS: INSULIN ASPART 100 UNITS/ML 3 ML PEN SC SCH ×4 (08:22→20:30)
[2020-10-05] MEDS: INSULIN GLARGINE SOLOSTAR 100 UNITS/ML 3 ML PEN SC SCH ×2 (08:23→20:30)
--- NOTE | 2020-10-05 08:25 | XRay Report ---
XR chest 1V portable HISTORY: Respiratory failure. COMPARISON: Chest 10/04/2020. FINDINGS: No pneumothorax or no pleural effusions. The heart is normal in size. There are peripheral bilateral mid to lower lung zone airspace opacities, left greater than right. This is similar to the prior study. The upper lung zones remain clear. Mild emphysema. No evidence for pulmonary edema. IMPRESSION: No significant change in the bilateral mid to lower lung zone airspace opacities. ACT 112: Negative or not required by law. Electronically signed by: Maco Pal M.D. 10/05/2020 8:24 AM
--- NOTE | 2020-10-05 09:29 | Critical Care Progress Note ---
Date of Service October 05, 2020 Assessment & Plan (1) Acute respiratory failure with hypoxia: Impression: 65-year-old -[place] male with history of tobacco abuse admitted September 21 to September 27 for COVID-19 pneumonia. He received dexamethasone at that point time and had resolution of his symptoms including his oxygen requirement. His CT scan at that point time demonstrated some subpleural banding she is somewhat unusual for COVID-19. He returned to the emergency room less than 24 hours after being admitted with hypoxemic respiratory failure. 24-hour events: Patient is still requiring continuous CPAP. Saturation 87-92% on 100% FiO2 Recommendations: Neuro - Patient is following commands. CAM ICU negative History of vertebral artery dissection. Not on Plavix. Cardiac - EF greater than 70%, sclerotic aortic valve. Moderate concentric LVH --Hypertension Continue with blood pressure medication Lisinopril discontinued Respiratory - --Acute hypoxic respiratory failure Multifactorial Multilobar pneumonia from COVID-19 on top of underlying autoimmune ILD Continue with O2 supplementation to keep oxygen saturation greater than 88% --ILD Patient's anti-CCP is positive, other autoimmune work-up is still pending Case was discussed with ID as well as [facility] rheumatology No intervention from their perspective. Continue with steroids GI - --Increased transaminases T bili as well as ALT has gone up in 2 days. Patient is not on any medication which might cause this other than statin which was discontinued Solu-Medrol might be one of the reason why it is going up We will monitor RENAL/LYTES - Monitor BUNs/creatinine Avoid nephrotoxic medication ENDO - Continue with ICU hyperglycemia for the cough HEME - Leukocytosis likely from steroids Monitor ID - Not on any antibiotics. Procalcitonin was negative Has been afebrile --Prophylaxis VTE: Lovenox GI: Pepcid Lines: Peripheral, positive Barlow Diet: Clear liquids, the patient has been continue CPAP and is not having anything since more than 24 hours Plan: In/out: -335, urine output 1300 Patient's potassium is 5.2. Patient has not gotten lisinopril since last 2 days. Will discontinue lisinopril. Repeat BMP later today Patient's respiratory rate is in the high teens to low 20s. He does get short of breath when he is talking. I did tell him that he is on high support and he might need intubation anytime. He was not comfortable with high CPAP pressure. I went down to 14 and he said he is feeling better with it. His saturation has been 87-90% range. Patient is still critical but is reluctant to be intubated right now. I will keep a very close eye on him. If there is any ventilatory failure appreciated I will intubate the patient. Overall prognosis of the patient is guarded. I have personally spent 47 minutes of critical care time in the direct manageme nt of this patient. This is a life/limb threatening event. This includes time spent evaluating patient, direct bedside care, chart review, placing orders, interpretation of diagnostic studies, discussion with consultants, patient, and family members, as well as other required patient management activities. This time is exclusive of all separately billable procedures, and teaching time and separate from and in addition to any other critical care service time. (2) Abnormal CT scan of lung: (3) Interstitial lung disease: (4) COPD exacerbation: Admission and Anticipated Discharge Date Admission Date: September 28, 2020 Subjective Patient seen and examined at bedside. He was on CPAP 16, 100% FiO2 saturating 91% at the time of examination. His respiratory rate was in the low 20s. He was getting short of breath while talking to me. He denied any chest pain, no headache, no nausea, no vomiting. He wanted to know how his numbers look like. He did say that he feels that he has too much pressure from the CPAP. I went down to 14 and he was maintaining his saturation around 88-89%. Review of Systems Review of Systems: All systems reviewed & are unremarkable except as noted in Subjective Physical Exam Physical Exam: Constitutional: No acute distress HEENT: EOMI, PERRLA Respiratory system: Decreased air entry bilaterally, no wheeze, rhonchi positive crackles bilateral lower lobes CVS: S1-S2 positive, no murmurs or gallops Abdomen: Soft, nontender, nondistended, positive bowel sounds x4 Extremities: +2 pulses bilaterally radialis/ dorsalis pedis, no cyanosis, no edema Neuro: Awake alert oriented x3 Psych: Normal mood and affect G/U: Positive [place] Skin: no rashes, warm and dry Lymphatic: no cervical or axillary lymphadenopathy Results & Data Results & Data ([facility]) Vital Signs (Past 12 Hours) Vital Signs Temp Pulse Resp BP Pulse Ox 10/05/20 08:00 70 18 89 L 10/05/20 06:00 36.6 C 69 19 95 10/05/20 05:39 162/107 H 89 L 10/05/20 05:00 70 18 94 10/05/20 04:40 70 18 159/92 H 91 10/05/20 04:00 67 18 92 10/05/20 03:39 68 24 124/76 91 10/05/20 03:00 66 20 92 10/05/20 02:40 65 23 130/65 93 10/05/20 02:16 72 10/05/20 02:00 64 22 91 10/05/20 01:40 84 22 118/66 89 L 10/05/20 01:00 62 23 88 L 10/05/20 00:39 69 23 149/94 H 84 L 10/05/20 00:00 36.6 C 67 24 91 10/04/20 23:40 70 31 H 144/76 H 90 10/04/20 23:00 69 21 89 L 10/04/20 22:39 79 23 146/83 H 89 L 10/04/20 22:35 70 25 H 90 10/04/20 22:14 70 10/04/20 22:00 71 22 92 10/04/20 21:39 80 26 H 148/80 H 92 10/05/20 04:19 10/05/20 04:19 Coding Level of Care Code Critical Care 1st 30-74 mins Diagnoses Acute respiratory failure with hypoxia J96.[address] scan of lung R91.8 Interstitial lung disease J84.9 COPD exacerbation J44.1 Time Spent (min) 47
[2020-10-05 16:04] LABS: BUN Creatinine Ratio 33.5 (10-20); Calcium 9.8 mg/dl (8.5-10.1); Creatinine Clr Calc Pharmacy 80.5 ml/min; Est GFR (African American) 84.6
--- NOTE | 2020-10-05 16:59 | Hospitalist Progress Note ---
Date of Service October 05, 2020 Assessment & Plan (1) Acute respiratory failure with hypoxia: Severe, profound. Dx with COVID-19 infection on 09/21/2020 but had been ill since about 09/11/20. Hospitalized from 09/21/20 to 09/27/20 for COVID at [facility]. On 09/27/20 upon discharge back to [facility] patient was reportedly stable in room air. He returned to [facility] on 09/28/20 with profound hypoxia. Repeat CTA on 09/28/20 without PEs but diffuse infiltrates - progressive ILD/PF suspected in setting of COPD/recent COVID. he is now requiring CPAP main reason for his hypoxic resp failure is progressive ILD/PF, and recent COVID-19 pneumonia. Superimposed bacterial pneumonia felt unlikely given negative procalcitonin levels. CCP positive, possible rheumatoid component continue Solu Medrol It appears his PF/ILD is much worse than several weeks ago and Dr Chi feels this is primary culprit at this time. plan - continue high-dose IV steroids for PF/ILD as recommended by pulmonary/critical care. cont lovenox 40mg BID. supportive care. CPAP/HFNC. 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 this would suggest positivity for rheumatoid arthritis. his ILD may be rheumatic in origin. or, he could have this as an "autoantibody" in the setting of recent COVID-19. awaiting additional autoimmune w/u (RF, CADEN, etc). discussed his case with [facility] and [facility] in [place] on 10/03. immune-based therapy (Actemra) discussed; was not recommended. sed rate/crp markedly elevated. cont high-dose IV steroids. (3) Acute CHF: previous acute diastolic CHF in setting of severe acute hypoxic resp failure. s/p copious diuresis since admission but suspect euvolemia has been achieved. echo findings noted. normal wall motion on echo. normal estimated PA pressures. (4) Pulmonary fibrosis: seen on his first CTA chest on 09/21/2020. additional CTAs on 09/27 and 09/28 show worsening fibrosis. large concern that progressive PF/ILD is largest contributor to current severe hypoxia/hypoxemia. anti-CCP ab is markedly positive - ILD 2nd to rheumatic disease?? or, has he developed fibrosis following ARDS from COVID-19?? combination? awaiting additional autoimmune w/u. cont high-dose steroids and supportive care. discussed his case with rheum by phone - see above. immune-based therapy deferred at this time. (5) COPD exacerbation: severe emphysematous changes on imaging. cont steroids. cont q6h bronchodilators. pulm toilet. pulmonary consultation appreciated. (6) Chest pain: had multiple episodes shortly after discharge on 09/27 [facility]. none while hospitalized. uncertain if symptoms pre-admission were cardiac or due to severe pulmonary disease. suspect latter. troponins scantly elevated at admission. despite multiple EKGs with marked ST depressions anterolaterally his echo shows normal LV wall motion. (7) Pneumonia due to COVID-19 virus: initial dx 09/21/20. cont supportive care. no role for plasma/remdesivir - initial dx around Micro. Dr Chi reported that anti-CCP ab positivity can give false positive COVID testing consider COVID serum antibodies in a few days but I do believe patient did indeed have COVID (lost taste/smell in August, had fevers, classic COVID sx's). (8) Hyperlipidemia: cont crestor (9) HTN (hypertension): hold YANIV due to mild hyperkalemia (10) Diabetes mellitus, type II: appreciate pharmacy glycemic assistance. cont NPH, cont novolog. last Hba1c 7.6%. HOLD YANIV inhibitor ICU glycemic protocol. (11) Vertebral artery dissection: history of - 08/2019 right vertebral artery - short segment did not require intervention (12) Elevated troponin: peak troponin 0.131 at admission echo with normal wall motion likely myocardial demand ischemia in setting of profound hypoxia/hypoxemia (13) GOVIND (acute kidney injury): likely 2nd overdiuresis. Peak Cr 1.59 today it is stable hold YANIV due to K of 5.2 (14) DVT prophylaxis: due to high risk of VTE in setting of COVID -- lovenox 40mg BID prognosis very, very poor/guarded code - conditional appreciate critical care assistance Admission and Anticipated Discharge Date Admission Date: September 28, 2020 Subjective patient on CPAP, RR in the 20's, short of breath when talking appreciate management by Dr. Almonte in ICU K is 5.2 today, lisinopril is discontinued patient is at high risk of intubation, he is still refusing to allow it at this time Review of Systems Review of Systems: All systems reviewed & are unremarkable except as noted in Subjective Constitutional: + weakness Respiratory: + dyspnea and + dyspnea on exertion Physical Exam Constitutional: well developed, + ill appearing and comfortable; no acute distress Neck: trachea midline, no thyromegaly Respiratory: + labored breathing and + uses accessory muscles; no cough Auscultation: lungs clear to auscultation bilaterally Cardiovascular: RRR, no murmur, no edema Gastrointestinal (Abdomen): normal bowel sounds, soft, nontender, no hepatosplenomegaly Musculoskeletal: no cyanosis or clubbing, extremities motor strength 5/5 Skin: no rashes, warm and dry Neurologic: patellar DTR's 2+ bilat, sensation intact and PERRL, EOMI, accommodation nl, no face palsy, no dysarthria Psychiatric: A+Ox3, euthymic affect Lymphatic: no cervical or axillary lymphadenopathy Results & Data Results & Data ([facility]) Vital Signs (Past 12 Hours) Vital Signs Temp Pulse Pulse Resp BP Pulse Ox 10/05/20 15:30 79 25 H 88 L 10/05/20 15:00 76 24 90 10/05/20 14:40 81 29 H 147/84 H 89 L 10/05/20 14:30 73 27 H 89 L 10/05/20 14:00 73 21 87 L 10/05/20 13:39 75 21 144/88 H 88 L 10/05/20 13:30 69 35 H 87 L 10/05/20 13:00 68 31 H 88 L 10/05/20 12:39 70 23 156/81 H 88 L 10/05/20 12:30 68 23 89 L 10/05/20 12:12 70 19 70 L 10/05/20 12:00 72 24 91 10/05/20 11:39 76 21 152/88 H 89 L 10/05/20 11:30 69 21 89 L 10/05/20 11:00 84 19 85 L 10/05/20 10:40 80 18 140/84 85 L 10/05/20 10:30 79 24 87 L 10/05/20 10:00 71 23 87 L 10/05/20 09:39 76 16 126/79 89 L 10/05/20 09:30 74 24 88 L 10/05/20 09:00 69 21 89 L 10/05/20 08:39 70 19 152/85 H 89 L 10/05/20 08:30 81 23 87 L 10/05/20 08:00 36.8 C 71 70 19 90 10/05/20 07:40 63 22 119/73 87 L 10/05/20 07:30 69 22 10/05/20 07:00 62 23 88 L 10/05/20 06:45 63 23 93 10/05/20 06:00 36.6 C 69 19 95 10/05/20 05:39 162/107 H 89 L 10/05/20 05:00 70 18 94 Laboratory Results Laboratory Results - last 24 hr 10/04/20 10/04/20 10/05/20 17:23 20:49 04:19 WBC 13.94 H RBC 7.00 H Hgb 16.8 Hct 51.4 MCV 73.4 L MCH 24.0 L MCHC 32.7 RDW Std Deviation 40.6 RDW Coeff of Ya 17.0 H Plt Count 175 MPV 11.4 H Immature Gran % (Auto) 0.4 Neut % (Auto) 92.9 Lymph % (Auto) 5.6 Meagher % (Auto) 1.1 Eos % (Auto) 0.0 Baso % (Auto) 0.0 Neut # (Auto) 12.95 H Lymph # (Auto) 0.78 L Meagher # (Auto) 0.16 Eos # (Auto) 0.00 Baso # (Auto) 0.00 Immature Gran # (Auto) 0.05 H Sodium Potassium Chloride Carbon Dioxide Anion Gap BUN Creatinine Est Cr Clr Drug Dosing Est GFR ( Amer) Est GFR (Non-Af Amer) BUN/Creatinine Ratio Glucose POC Glucose 144 H 156 H Calcium Magnesium Total Bilirubin AST ALT Alkaline Phosphatase Total Protein Albumin Globulin Albumin/Globulin Ratio 10/05/20 10/05/20 10/05/20 04:19 04:19 06:55 WBC RBC Hgb Hct MCV MCH MCHC RDW Std Deviation RDW Coeff of Ya Plt Count MPV Immature Gran % (Auto) Neut % (Auto) Lymph % (Auto) Meagher % (Auto) Eos % (Auto) Baso % (Auto) Neut # (Auto) Lymph # (Auto) Meagher # (Auto) Eos # (Auto) Baso # (Auto) Immature Gran # (Auto) Sodium 138 Potassium 5.2 H Chloride 108 H Carbon Dioxide 21 Anion Gap 9.0 BUN 37 H Creatinine 1.05 Est Cr Clr Drug Dosing 82.2 Est GFR ( Amer) 86.5 Est GFR (Non-Af Amer) 74.7 BUN/Creatinine Ratio 35.2 H Glucose 162 H POC Glucose Calcium 9.1 Magnesium Cancelled 3.5 H Total Bilirubin 1.4 H AST 21 ALT 154 H Alkaline Phosphatase 65 Total Protein 7.3 Albumin 2.7 L Globulin 4.6 H Albumin/Globulin Ratio 0.6 L 10/05/20 10/05/20 10/05/20 07:55 10:53 15:02 WBC RBC Hgb Hct MCV MCH MCHC RDW Std Deviation RDW Coeff of Ya Plt Count MPV Immature Gran % (Auto) Neut % (Auto) Lymph % (Auto) Meagher % (Auto) Eos % (Auto) Baso % (Auto) Neut # (Auto) Lymph # (Auto) Meagher # (Auto) Eos # (Auto) Baso # (Auto) Immature Gran # (Auto) Sodium Potassium Chloride Carbon Dioxide Anion Gap BUN Creatinine Est Cr Clr Drug Dosing Est GFR ( Amer) Est GFR (Non-Af Amer) BUN/Creatinine Ratio Glucose POC Glucose 162 H 147 H 157 H Calcium Magnesium Total Bilirubin AST ALT Alkaline Phosphatase Total Protein Albumin Globulin Albumin/Globulin Ratio 10/05/20 15:34 WBC RBC Hgb Hct MCV MCH MCHC RDW Std Deviation RDW Coeff of Ya Plt Count MPV Immature Gran % (Auto) Neut % (Auto) Lymph % (Auto) Meagher % (Auto) Eos % (Auto) Baso % (Auto) Neut # (Auto) Lymph # (Auto) Meagher # (Auto) Eos # (Auto) Baso # (Auto) Immature Gran # (Auto) Sodium 135 L Potassium 5.0 Chloride 106 Carbon Dioxide 21 Anion Gap 8.0 BUN 36 H Creatinine 1.07 Est Cr Clr Drug Dosing 80.5 Est GFR ( Amer) 84.6 Est GFR (Non-Af Amer) 73.0 BUN/Creatinine Ratio 33.5 H Glucose 164 H POC Glucose Calcium 9.8 Magnesium Total Bilirubin AST ALT Alkaline Phosphatase Total Protein Albumin Globulin Albumin/Globulin Ratio Medications Administered Current Inpatient Medications Acetaminophen (Acetaminophen 500 Mg Tab) 500 mg PO TID PRN PRN Reason: Pain or Fever Stop: 10/28/20 13:25 Albuterol (Albuterol Hfa 8 Gm Inhaler) 2 puffs INH QIDR [facility] Stop: 10/30/20 10:59 Last Admin: 10/05/20 07:50 Dose: Not Given Documented by: Aspirin (Aspirin 81 Mg Ectab) 81 mg PO DAILY [facility] Stop: 10/30/20 08:59 Last Admin: 10/05/20 07:17 Dose: 81 mg Documented by: Benzonatate (Benzonatate 100 Mg Capsule) 100 mg PO TID PRN PRN Reason: cough Stop: 10/28/20 13:29 Last Admin: 09/30/20 09:34 Dose: 100 mg Documented by: Budesonide (Budesonide 0.5 Mg/2 Ml Vial (Pulmicort)) 0.5 mg NEB BIDR [facility] Stop: 11/01/20 18:59 Last Admin: 10/05/20 07:50 Dose: 0.5 mg Documented by: Nystatin 30 ml/ Dexamethasone 3.75 mg/ Diphenhydramine HCl 300 mg/ Sucrose 45 ml/Microcrystalline Cellulose 45 ml/ BARCODE IDENTIFIER 1 ea 0 ml PO Q6 JAIME Stop: 10/30/20 22:59 Last Admin: 10/05/20 10:50 Dose: 5 ml Documented by: Dextrose (Dextrose 50% 50 Ml Syringe) 25 - 50 ml IV UD PRN; Protocol PRN Reason: Hypoglycemia Protocol Stop: 10/28/20 13:17 Enoxaparin Sodium (Enoxaparin Inj 40 Mg/0.4 Ml Syr) 40 mg SQ Q12H JAIME Stop: 10/29/20 20:59 Last Admin: 10/05/20 07:17 Dose: 40 mg Documented by: Formoterol Fumarate (Formoterol 20 Mcg/2 Ml Vial) 20 mcg NEB BIDR [facility] Stop: 11/01/20 18:59 Last Admin: 10/05/20 07:50 Dose: 20 mcg Documented by: Glucagon (Glucagon For Inj 1 Mg Vial) 1 mg SQ UD PRN; Protocol PRN Reason: Hypoglycemia Protocol Stop: 10/28/20 13:17 Glucose (Glucose 10 Tabs/Tube) 4 - 8 tabs PO UD PRN; Protocol PRN Reason: Hypoglycemia Protocol Stop: 10/28/20 13:17 Glucose (Glucose 40% Gel 15 Gm Tube) 15 - 30 gm PO UD PRN; Protocol PRN Reason: Hypoglycemia Protocol Stop: 10/28/20 13:17 Famotidine 20 mg/ Syringe 5 mls @ 2.5 mls/min IV BID [facility] Stop: 11/01/20 20:59 Last Admin: 10/05/20 07:17 Dose: 2.5 mls/min Documented by: Methylprednisolone 125 mg/ (Syringe) 2 mls @ 1.5 mls/min IV Q12 JAIME Stop: 10/05/20 23:59 Last Admin: 10/05/20 07:17 Dose: 1.5 mls/min Documented by: Methylprednisolone 60 mg/ (Syringe) 0.96 mls @ 1.5 mls/min IV Q8H [facility] Stop: 11/05/20 05:59 Insulin Aspart (Insulin Aspart 100 Units/Ml 3 Ml Pen) 0 units SC ACHS [facility]; Protocol Stop: 11/03/20 16:29 Last Admin: 10/05/20 15:13 Dose: 1 units Documented by: Insulin Glargine (Insulin Glargine Solostar 100 Units/Ml 3 Ml Pen) 0 units SC BID [facility]; Protocol Stop: 11/03/20 20:59 Last Admin: 10/05/20 08:23 Dose: 20 units Documented by: Miscellaneous (Carbohydrates For Hypoglycemia ) 15 - 30 gm PO UD PRN PRN Reason: Hypoglycemia Protocol Stop: 10/28/20 13:17 Miscellaneous Information (Pharmacy Glycemic Mgmt Consult) 1 ea N/A UD PRN PRN Reason: Consult Stop: 11/01/20 09:48 Rosuvastatin Calcium (Rosuvastatin Calcium 20 Mg Tab) 20 mg PO QAM [facility] Stop: 10/30/20 08:59 Last Admin: 10/05/20 07:17 Dose: 20 mg Documented by: Vitamin D (Cholecalciferol 1,000 Units 25 Mcg Tab) 1,000 units PO DAILY [facility] Stop: 10/30/20 08:59 Last Admin: 10/05/20 07:17 Dose: 1,000 units Documented by: PG Care Time/CCT Total # of Minutes Spent Total Time Spent with Patient: Total time spent is greater than 50% in coordination of care (as documented) at patient's floor/unit and/or counseling patient: Coding Level of Care Code 83474 Subseq Hosp Care Lvl 2 Diagnoses Acute respiratory failure with hypoxia J96.01 Anti-cyclic citrullinated peptide antibody positive R76.8 Acute CHF I50.31 Heart failure type: diastolic Pulmonary fibrosis J84.10 COPD exacerbation J44.1 Chest pain R07.9 Chest pain type: unspecified Pneumonia due to COVID-19 virus U07.1; J12.82 Hyperlipidemia E78.2 Hyperlipidemia type: mixed hyperlipidemia HTN (hypertension) I10 Hypertension type: essential hypertension Diabetes mellitus, type II E11.9 Diabetes mellitus [facility] insulin use: without sql report analyst use Diabetes mellitus complication status: without complication Vertebral artery dissection I77.74 Elevated troponin R77.8 GOVIND (acute kidney injury) N17.9 DVT prophylaxis Z29.9 (1) Acute CHF Heart failure type: diastolic Qualified Code(s): I50.31 - Acute diastolic (congestive) heart failure (2) Chest pain Chest pain type: unspecified Qualified Code(s): R07.9 - Chest pain, unspecified (3) Hyperlipidemia Hyperlipidemia type: mixed hyperlipidemia Qualified Code(s): E78.2 - Mixed hyperlipidemia (4) HTN (hypertension) Hypertension type: essential hypertension Qualified Code(s): I10 - Essential (primary) hypertension (5) Diabetes mellitus, type II Diabetes mellitus [facility] insulin use: without [facility] use Diabetes mellitus complication status: without complication Qualified Code(s): E11.9 - Type 2 diabetes mellitus without complications
[2020-10-06 05:23] LABS: Hematocrit (blood only) 50.2 % (42-52); Hemoglobin 16.7 g/dL (14.0-18.0); Immature Granulocytes # (auto) 0.02 K/uL (0.00-0.02); Immature Granulocytes % (auto) 0.2 %; Lymphocytes # (auto) 0.67 K/uL (1.2-3.4); Mean Corpuscular Hemoglobin 24.2 pg (25-34); Mean Corpuscular Hgb Conc 33.3 g/dL (32-36); Mean Corpuscular Volume 72.9 fL (80-100); Monocytes # (auto) 0.18 K/uL (0.11-0.59); Monocytes % (auto) 1.6 %; Neutrophils # (auto) 10.34 K/uL (1.4-6.5); Neutrophils % (auto) 92.2 %; Platelet Count 163 K/uL (130-400); RDW Standard Deviation 40.9 fL (36.4-46.3); Red Blood Count 6.89 M/uL (4.7-6.1); White Blood Count 11.21 K/uL (4.8-10.8)
[2020-10-06] MEDS: methylPREDNISolone 60 MG in SYRINGE 0 ML IV SCH ×3 (05:25→21:48)
[2020-10-06 05:50] LABS: Albumin Level 2.7 gm/dl (3.4-5.0); BUN Creatinine Ratio 38.1 (10-20); Calcium 9.6 mg/dl (8.5-10.1); Creatinine Clr Calc Pharmacy 86.1 ml/min; Est GFR (African American) 91.8; Est GFR (Non-African American) 79.2; Magnesium 3.2 mg/dl (1.8-2.4)
[2020-10-06 05:53] LABS: Albumin Globulin Ratio 0.6 (0.9-2); Bilirubin,Total 1.6 mg/dl (0.2-1); Globulin 4.2 gm/dl (2.5-4.0); Phosphorus 3.8 mg/dl (2.5-4.9); Total Protein 6.9 gm/dl (6.4-8.2)
--- NOTE | 2020-10-06 07:47 | Critical Care Progress Note ---
Date of Service October 06, 2020 Assessment & Plan (1) Acute respiratory failure with hypoxia: Impression: 65-year-old -Hungarian male with history of tobacco abuse admitted September 21 to September 27 for COVID-19 pneumonia. He received dexamethasone at that point time and had resolution of his symptoms including his oxygen requirement. His CT scan at that point time demonstrated some subpleural banding she is somewhat unusual for COVID-19. He returned to the emergency room less than 24 hours after being admitted with hypoxemic respiratory failure. 24-hour events: On continuous BiPAP. Patient feeling comfortable on BiPAP rather than CPAP. Saturation still in 88-89 Recommendations: Neuro - Patient is following commands. CAM ICU negative History of vertebral artery dissection. Not on Plavix. Cardiac - EF greater than 70%, sclerotic aortic valve. Moderate concentric LVH --Hypertension Continue with blood pressure medication Lisinopril discontinued Respiratory - --Acute hypoxic respiratory failure Multifactorial Multilobar pneumonia from COVID-19 on top of underlying autoimmune ILD Continue with O2 supplementation to keep oxygen saturation greater than 88% --ILD Patient's anti-CCP is positive, other autoimmune work-up is still pending Case was discussed with ID as well as [facility] rheumatology No intervention from their perspective. Continue with steroids GI - --Increased transaminases T bili as well as ALT has gone up in 2 days. Patient is not on any medication which might cause this other than statin which was discontinued Solu-Medrol might be one of the reason why it is going up We will monitor RENAL/LYTES - Monitor BUNs/creatinine Avoid nephrotoxic medication ENDO - Continue with ICU hyperglycemia for the cough HEME - Leukocytosis likely from steroids Monitor ID - Not on any antibiotics. Procalcitonin was negative Has been afebrile --Prophylaxis VTE: Lovenox GI: Pepcid Lines: Peripheral, positive Barlow Diet: Clear liquids, the patient has been continue CPAP and is not having anything since more than 24 hours Plan: In/out: -580, urine output 1000 Patient's potassium is 5.2. Patient has not gotten lisinopril since last 2 days. Will discontinue lisinopril. Repeat BMP later today Solu-Medrol has been decreased to 60 mg every 8 from 125 twice daily. Gradually start titrating down Solu-Medrol. Patient looks more lethargic today compared to yesterday. I did relay this message to him again that he is seems to be tiring out and this is a time to intubate. He still wanted to wait for another 24 hours before making a decision. I conveyed the message very clearly that we are losing the window of getting benefit of intubation. The more we delay the worst the prognosis will be. Patient understands and he says he will do what ever I did tell him to do tomorrow morning. I did tell the patient that if he there is any clinical deterioration even today I will have to intubate him to which he agrees. I have personally spent 45 minutes of critical care time in the direct man agement of this patient. This is a life/limb threatening event. This includes time spent evaluating patient, direct bedside care, chart review, placing orders, interpretation of diagnostic studies, discussion with consultants, patient, and family members, as well as other required patient management activities. This time is exclusive of all separately billable procedures, and teaching time and separate from and in addition to any other critical care service time. (2) Abnormal CT scan of lung: (3) Interstitial lung disease: (4) COPD exacerbation: Admission and Anticipated Discharge Date Admission Date: September 28, 2020 Subjective Patient seen and examined at bedside. He was 100% FiO2, BiPAP 16/12. Saturating 88-90%. Patient looked more lethargic compared to yesterday. Denied any chest pain. No headache. No nausea or vomiting. Patient desaturates to low 80s to high 70s whenever he is taken off BiPAP. Review of Systems Review of Systems: All systems reviewed & are unremarkable except as noted in Subjective Physical Exam Physical Exam: Constitutional: No acute distress HEENT: EOMI, PERRLA Respiratory system: Decreased air entry bilaterally, no wheeze, rhonchi positive crackles bilateral lower lobes CVS: S1-S2 positive, no murmurs or gallops Abdomen: Soft, nontender, nondistended, positive bowel sounds x4 Extremities: +2 pulses bilaterally radialis/ dorsalis pedis, no cyanosis, no edema Neuro: Awake alert oriented x3 Psych: Normal mood and affect G/U: Positive Barlow Skin: no rashes, warm and dry Lymphatic: no cervical or axillary lymphadenopathy Results & Data Results & Data ([facility]) Vital Signs (Past 12 Hours) Vital Signs Temp Pulse Pulse Resp BP Pulse Ox 10/06/20 07:00 83 19 85 L 10/06/20 06:40 83 27 H 148/93 H 86 L 10/06/20 06:00 36.5 C 81 26 H 87 L 10/06/20 05:00 74 19 91 10/06/20 04:40 78 22 127/62 89 L 10/06/20 04:07 79 25 H 92 10/06/20 04:00 77 20 92 10/06/20 03:40 81 24 151/71 H 92 10/06/20 03:00 79 25 H 90 10/06/20 02:40 76 21 121/65 90 10/06/20 02:00 80 26 H 90 10/06/20 01:40 80 26 H 148/77 H 88 L 10/06/20 01:00 84 19 87 L 10/06/20 00:41 36.5 C 78 23 89 L 10/06/20 00:40 76 20 135/75 89 L 10/06/20 00:05 91 H 10/06/20 00:00 77 23 87 L 10/05/20 23:40 77 18 133/67 90 10/05/20 23:31 89 24 89 L 10/05/20 23:00 74 22 91 10/05/20 22:40 36.6 C 73 23 128/81 90 10/05/20 22:00 74 18 90 10/05/20 21:40 74 24 133/91 91 10/05/20 21:00 70 19 92 10/05/20 20:50 89 24 91 10/05/20 20:40 77 21 158/86 H 91 10/05/20 20:00 36.6 C 76 24 86 L 10/06/20 05:05 10/06/20 05:05 Coding Level of Care Code Critical Care 1st 30-74 mins Diagnoses Acute respiratory failure with hypoxia J96.[address] scan of lung R91.8 Interstitial lung disease J84.9 COPD exacerbation J44.1 Time Spent (min) 45
[2020-10-06] MEDS: BUDESONIDE 0.5 MG/2 ML VIAL (PULMICORT) NEB SCH ×2 (08:06→20:05)
[2020-10-06] MEDS: FORMOTEROL 20 MCG/2 ML VIAL NEB SCH ×2 (08:07→20:05)
[2020-10-06] MEDS: ALBUTEROL HFA 8 GM INHALER INH SCH ×4 (08:07→20:05)
--- NOTE | 2020-10-06 08:07 | XRay Report ---
XR chest 1V portable HISTORY: 65 years-old Male resp failure acute respiratory failure COMPARISON: Chest radiograph 10/05/2020 TECHNIQUE: Portable AP view of the chest FINDINGS: Cardiomediastinal and hilar silhouettes are unchanged. Mid and lower lung zone predominant distributi on of airspace opacities redemonstrated, mildly improved on the left. No pneumothorax. Blunting of th e costophrenic angles suggests trace effusions. Emphysema. Degenerative changes of the shoulders and spine. IMPRESSION: Mid and lower lung zone prominent airspace opacities redemonstrated, mildly improved on t he left. ACT 112: Negative or not required by law. The above report was generated using voice recognition software. It may contain grammatical, syntax o r spelling errors. Electronically signed by: Zack Wong M.D. 10/06/2020 8:05 AM
[2020-10-06] MEDS: INSULIN ASPART 100 UNITS/ML 3 ML PEN SC SCH ×4 (09:00→20:41)
[2020-10-06] MEDS: ASPIRIN 81 MG ECTAB PO SCH (09:15)
[2020-10-06] MEDS: FAMOTIDINE 20 MG in SYRINGE 3 ML IV SCH ×2 (09:15→20:30)
[2020-10-06] MEDS: ENOXAPARIN INJ 40 MG/0.4 ML SYR SQ SCH ×2 (09:15→20:29)
[2020-10-06] MEDS: CHOLECALCIFEROL 1,000 UNITS 25 MCG TAB PO SCH (09:15)
[2020-10-06] MEDS: INSULIN GLARGINE SOLOSTAR 100 UNITS/ML 3 ML PEN SC SCH ×2 (10:00→20:41)
[2020-10-06] MEDS: ALBUTEROL 0.083% NEBU SOLN 3 ML VIAL NEB PRN ×2 (11:58→16:03)
--- NOTE | 2020-10-06 13:32 | Pharmacy Report ---
Pharmacy Glycemic Short Note 2 - Date of Service October 06, 2020 - Glycemic Short BSG Results (Last 24 hours): 10/05/20 10/05/20 10/05/20 15:02 15:34 17:19 Glucose 164 H POC Glucose 157 H 154 H 10/05/20 10/06/20 10/06/20 20:23 05:05 09:23 Glucose 148 H POC Glucose 151 H 160 H 10/06/20 12:36 Glucose POC Glucose 161 H OUTPATIENT ANTIDIABETIC REGIMEN: * Metformin 500mg qam ASSESSMENT: * Patient reasonably well controlled over the past 24 hours on current regimen (40 units basal, 5-10 units bolus). BSGs range between 147-162 mg/dL * Patient is ordered a full liquid diet and per RN, patient has been drinking 1- 2 juices cups three times a day * Patient continues on IV solumedrol but tapering has begun PLAN FOR INPATIENT GLYCEMIC CONTROL: * Hold outpatient oral diabetes medications * Basal insulin * Lantus 15 or 20 units units SQ BID (see MAR for details) * Bolus insulin * NovoLog per scale ACHS or Q6hrs while NPO * Goal Range: Low 110 mg/dL - High 140 mg/dL * Correction Factor: 20 mg/dL/unit * Nutritional / Prandial insulin per carb ratio of 1 unit per 8 grams CHO consumed
[2020-10-06] MEDS ORDERED: ETOMIDATE 2 MG/ML 20 ML VIAL IV ONE (13:58)
[2020-10-06] MEDS ORDERED: MIDAZOLAM HCL 1 MG/ML 2ML VIAL ONE (13:58)
[2020-10-06] MEDS ORDERED: ROCURONIUM BROMIDE 10 MG/ML 5 ML VIAL IV ONE (13:59)
[2020-10-06] MEDS ORDERED: LIDOCAINE 2% 20 MG/ML 5 ML SYR IV ONE (14:00)
[2020-10-06] MEDS ORDERED: PROPOFOL BOLUS FROM BAG IV PRN (14:14)
[2020-10-06] MEDS ORDERED: STAT IV Infusion **Titration per Protocol STA ×2 (14:14→14:26)
[2020-10-06] MEDS ORDERED: PROPOFOL IV EMULSION 10 MG/ML 100 ML VIAL IV ONE (14:15)
[2020-10-06] MEDS ORDERED: [UNRECOGNIZED DRUG - OTHER] IV STA (14:37)
--- NOTE | 2020-10-06 15:12 | XRay Report ---
SINGLE VIEW CHEST CLINICAL HISTORY: Respiratory failure. Intubation. FINDINGS: 2 AP, portable, upright chest radiographs are compared to study dated 10/06/2020 and correla nevin with chest CT dated 09/28/2020. The examination is degraded by portable technique and patient rota tion. An endotracheal tube has been placed. The tip projects 7 cm above the manjit. An enteric tube h as been placed. The tip projects below the diaphragm over the proximal stomach. A right internal jugu lar central venous catheter has been placed. The tip projects over the SVC. The cardiomediastinal mounika houette is unremarkable. Findings of emphysema with superimposed chronic additional lung disease are similar to previous. Bibasilar airspace opacities are unchanged. No large pleural effusion or pneumot horax is seen. The skeletal structures are osteopenic. The bony thorax is grossly intact. IMPRESSION: 1. Lines and tubes have been placed as above. 2. No pneumothorax is seen. 3. Findings of emphysema and chronic interstitial lung disease are similar to previous. 4. Bibasilar opacities are unchanged. ACT 112: Negative or not required by law. Electronically signed by: Andrei Stevens M.D. 10/06/2020 3:11 PM
--- NOTE | 2020-10-06 15:25 | Procedure Note ---
Procedure Note Date of Service October 06, 2020 INTUBATION PROCEDURE NOTE: Attending: Dr Missy Almonte MD Patient was evaluated and plan to intubate was made for ventilatory failure and hypoxia. Sedative agent used: Etomidate 25 mg, lidocaine 100 mg, midazolam 2 mg Paralysis agent used: Rocuronium 100 mg Emergent consent was implied given patients rapidly declining clinical status and need for airway protection. The patient was prepared in the appropriate fashion. The patient was easily pre-oxygenated by using [id number] ventilation. With help of glide scope grade 2 vocal cords were visualized and 7.5 Tunisian ETT was introduced on [first] attempt to [] cm at the lip. The stylette was removed and balloon was inflated with 10mL of air. Appropriate Colorimetric change was appreciated for at least 10 breaths. Bilateral chest rise and breath sounds were appreciated without air sounds in the epigastrium. Patient tolerated the procedure well and there were no immediate complications. Chest Xray to follow for confirming placement. Coding CPT Codes Resuscitation - Resuscitation: 71007 Endotracheal Intubation, emergency ([id number]) [facility] Procedure Codes (Charges) Resuscitation Resuscitation: 69278 Endotracheal Intubation, emergency
--- NOTE | 2020-10-06 15:26 | Procedure Note ---
Procedure Note Date of Service October 06, 2020 Procedure: Inserting ultrasound-guided central transfer and line up worker: Dr. Missy Almonte Indication: ARDS Consent: Emergent Anesthesia: 1% lidocaine without epinephrine local. Procedure: Consent was verified and timeout performed. Appropriate imaging studies were reviewed prior to the procedure. Under aseptic and sterile condition, right IJ vein was accessed under direct ultrasound guidance. Guidewire was confirmed to be within the lumen of vein with the help of ultrasound. Catheter was introduced via Seldinger technique. Guide a wire was removed. Good non-pulsatile blood flow was appreciated from all the ports. The catheter was placed at 16 cm and sut[address] in place. BioPatch was applied to the catheter and a sterile Tegaderm dressing was applied over the catheter with careful attention to sterility. Lung sliding was appreciated post procedure with the help ultrasound. Chest x-ray to follow Patient tolerated the procedure well. Blood loss: Less than 2 cc Complications: None Coding CPT Codes Tubes, Drains, and Vasc Access - Tubes, Drains, and Vasc Access: [id number] Place catheter in vein superior or inferior vena cava ([id number]) Tubes, Drains, and Vasc Access - Tubes, Drains, and Vasc Access: [id number] t rasound Guidance For Vascular ([id number]) [facility] [place] Codes (Charges) Tubes, Drains, and Vasc Access Procedure 1: Tubes, Drains, and Vasc Access: [id number] Place catheter in vein superior or inferior vena cava Procedure 2: Tubes, Drains, and Vasc Access: [id number] Ultrasound Guidance For Vascular
--- NOTE | 2020-10-06 15:28 | Procedure Note ---
Procedure Note Date of Service October 06, 2020 ARTERIAL LINE PROCEDURE NOTE: Procedure: Arterial Line Placement Attending: Dr. Missy Almonte MD Indication: Monitoring on Pressors Anesthesia: General sedation Emergent consent was applied A time-out was completed verifying correct patient, procedure, site, positioning, and implant(s) or special equipment if applicable. Allens test was performed to ensure adequate perfusion. Patients left wrist was prepped and draped in the usual sterile fashion. Ultrasound guidance was used to aid needle placement. A 20g Arrow arterial line was introduced into the left radial artery. Catheter was threaded, and the needle was removed with appropriate pulsatile blood return. Good waveform was observed on the monitor. The patient tolerated the procedure well. Confirmation of placement with ultrasound. [ Complications: None Blood Loss: Less than 2 cc Coding CPT Codes Tubes, Drains, and Vasc Access - Tubes, Drains, and Vasc Access: [id number] Insertion Catheter, Artery ([id number]) Tubes, Drains, and Vasc Access - Tubes, Drains, and Vasc Access: [id number] Ultrasound Guidance For Vascular ([id number]) [facility] [place] Procedure Codes (Charges) Tubes, Drains, and Vasc Access Procedure 1: Tubes, Drains, and Vasc Access: [id number] Insertion Catheter, Artery Procedure 2: Tubes, Drains, and Vasc Access: [id number] Ultrasound Guidance For Vascular
[2020-10-06] MEDS: CISATRACURIUM BESYLATE 40 MG in 0.9 % SODIUM CHLORIDE 80 ML IV SCH ×2 (16:34→19:48)
[2020-10-06] MEDS: NOREPINEPHRINE/D5W 8 MG/508 ML BAG IV SCH (16:34)
[2020-10-06] MEDS: fentaNYL DRIP 1,250 MCG/250 ML BAG IV SCH ×2 (16:39→21:44)
[2020-10-06] MEDS: propofoL 1,000 MG/100 ML VIAL IV SCH ×3 (16:39→21:44)
--- NOTE | 2020-10-06 17:32 | Communication Note ---
Date of Service: October 06, 2020 Critical CARE addendum: Patient is clinical status was deteriorating. He was getting more tachypneic and hypoxic. I again went into the room reevaluated the patient and persuaded him for intubation given his clinical worsening. He agreed for intubation After putting central line and A-line. Plan was to paralyze the patient and pronate Patient's went a showing more tidal volume on examination than he is given. Patient is paralyzed. RT made aware to see if the tubing or the vent needs to be changed. Continue high PEEP low FiO2 ARDS protocol Go down on tidal volume to 4 mL/kg with permissive hypercapnia. Procedure: Pronation Maneuver Indication: Requiring lung recruitment intervention in the setting of advanced ARDS with poor lung compliance and oxygenation on standard ventilator settings. Patient requiring pronation in the setting of advanced ARDS per imaging, ventilator requirements, and calculated P:F ratio. Appropriate staff was assembled including myself, Respiratory Therapy, and Nursing Staff. A time-out was completed verifying correct patient, time from recent pronation/supination, current ventilator settings, review of any prior issues during pronation/supination maneuvers. Patient was fully undressed as to be able to view all current IV sites, central venous access sites, arterial lines, endotracheal tube, Barlow catheter, etc. After properly identifying/securing all lines, tubes, etc, On my count, the patient was slid to the edge of the bed. After reevaluating all lines, tubes, etc., the patient was then placed on their side allowing for RT to maintain control of ET tube and ready for completion of Pronation maneuver. Final check of all lines, tubes, etc. was completed by myself and nursing staff. Patient was getting adequate tidal volume. Blood pressure, heart rhythm, and oxygen saturations were monitored for several minutes s/p maneuver. Discussion was held with patients RN and RT regarding ongoing management. Patient tolerated maneuver well. No immediate complications were noted. I have personally spent 43 additional minutes of critical care time in the direct management of this patient. This is a life/limb threatening event. This includes time spent evaluating patient, direct bedside care, chart review, placing orders, interpretation of diagnostic studies, discussion with consultants, patient, and family members, as well as other required patient management activities. This time is exclusive of all separately billable procedures, and teaching time and separate from and in addition to any other critical care service time Coding Level of Care Code Critical Care ea addt'l 30 min Time Spent (min) 43
[2020-10-06 17:44] LABS: iSTAT Art Bld Gas pCO2 Correct 77 mmHg (35-46); iSTAT Art Bld Gas pH Corrected 7.137 (7.35-7.45); iSTAT Arterial Blood Gas HCO3 26 meg/L (19-24); iSTAT Arterial Blood Gas pCO2 78 mmHg (35-46); iSTAT Arterial Blood Gas pH 7.13 (7.35-7.45); iSTAT Arterial Blood Gas pO2 57 mmHg (80-95); iSTAT Arterial Blood Gas pO2 C 56; iSTAT Carbon Dioxide 29 mmol/L (24-31); iSTAT FiO2 100 %; iSTAT Hematocrit 60 % (42-52); iSTAT Hemoglobin 20.4 g/dl (14.0-18.0); iSTAT Potassium 5.9 mmol/L (3.3-5.0); iSTAT Site Art Line; iSTAT Sodium 136 mmol/L (135-144)
[2020-10-06 20:34] LABS: iSTAT Art Bld Gas pCO2 Correct 64 mmHg (35-46); iSTAT Art Bld Gas pH Corrected 7.209 (7.35-7.45); iSTAT Arterial Blood Gas HCO3 25 meg/L (19-24); iSTAT Arterial Blood Gas pCO2 61 mmHg (35-46); iSTAT Arterial Blood Gas pH 7.22 (7.35-7.45); iSTAT Arterial Blood Gas pO2 75 mmHg (80-95); iSTAT Arterial Blood Gas pO2 C 80; iSTAT Carbon Dioxide 27 mmol/L (24-31); iSTAT FiO2 100 %; iSTAT Hematocrit 58 % (42-52); iSTAT Hemoglobin 19.7 g/dl (14.0-18.0); iSTAT Potassium 6.1 mmol/L (3.3-5.0); iSTAT Site Art Line; iSTAT Sodium 136 mmol/L (135-144)
--- NOTE | 2020-10-06 20:52 | Hospitalist Progress Note ---
Date of Service October 06, 2020 Assessment & Plan (1) Acute respiratory failure with hypoxia: Severe, profound. Dx with COVID-19 infection on 09/21/2020 but had been ill since about 09/11/20. Hospitalized from 09/21/20 to 09/27/20 for COVID at [facility]. On 09/27/20 upon discharge back to [facility] patient was reportedly stable in room air. He returned to [facility] on 09/28/20 with profound hypoxia. Repeat CTA on 09/28/20 without PEs but diffuse infiltrates - progressive ILD/PF suspected in setting of COPD/recent COVID. he was requiring CPAP and BIPAP progressed to respiratory failure requiring intubation 10/06 intubated, paralyzed, prone position main reason for his hypoxic resp failure is progressive ILD/PF, and recent COVID-19 pneumonia. Superimposed bacterial pneumonia felt unlikely given negative procalcitonin levels. CCP positive, possible rheumatoid component continue Solu Medrol It appears his PF/ILD is much worse than several weeks ago and pulmonology feels this is primary culprit at this time. 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 this would suggest positivity for rheumatoid arthritis. his ILD may be rheumatic in origin. or, he could have this as an "autoantibody" in the setting of recent COVID-19. awaiting additional autoimmune w/u (RF, CADEN, etc). pulm/ICU discussed his case with [facility] and [facility] in [place] on 10/03. immune-based therapy (Actemra) discussed; was not recommended. sed rate/crp markedly elevated. cont Solu Medrol (3) Acute CHF: previous acute diastolic CHF in setting of severe acute hypoxic resp failure. s/p copious diuresis since admission but suspect euvolemia has been achieved. echo findings noted. normal wall motion on echo. normal estimated PA pressures. (4) Pulmonary fibrosis: seen on his first CTA chest on 09/21/2020. additional CTAs on 09/27 and 09/28 show worsening fibrosis. large concern that progressive PF/ILD is largest contributor to current severe hypoxia/hypoxemia. anti-CCP ab is markedly positive - ILD 2nd to rheumatic disease?? or, has he developed fibrosis following ARDS from COVID-19?? combination? awaiting additional autoimmune w/u. cont high-dose steroids and supportive care. discussed his case with rheum by phone - see above. immune-based therapy deferred at this time. (5) COPD exacerbation: severe emphysematous changes on imaging. cont steroids. pulm toilet. pulmonary consultation appreciated. (6) Chest pain: had multiple episodes [facility] none while hospitalized. uncertain if symptoms pre-admission were cardiac or due to severe pulmonary dis ease. suspect latter. troponins scantly elevated at admission. despite multiple EKGs with marked ST depressions anterolaterally his echo shows normal LV wall motion. (7) Pneumonia due to COVID-19 virus: initial dx 09/21/20. cont supportive care. no role for plasma/remdesivir - initial dx around [place]. Dr Chi reported that anti-CCP ab positivity can give false positive COVID testing (8) Hyperlipidemia: cont crestor (9) HTN (hypertension): hold YANIV due to mild hyperkalemia (10) Diabetes mellitus, type II: appreciate pharmacy glycemic assistance. cont NPH, cont novolog. last Hba1c 7.6%. HOLD YANIV inhibitor ICU glycemic protocol. (11) Vertebral artery dissection: history of - 08/2019 right vertebral artery - short segment did not require intervention (12) Elevated troponin: peak troponin 0.131 at admission echo with normal wall motion likely myocardial demand ischemia in setting of profound hypoxia/hypoxemia (13) GOVIND (acute kidney injury): likely 2nd overdiuresis. Peak Cr 1.59 today it is stable hold YANIV due to K of 5.2 (14) DVT prophylaxis: due to high risk of VTE in setting of COVID -- lovenox 40mg BID prognosis very, very poor, now ventilated code - conditional appreciate critical care assistance Admission and Anticipated Discharge Date Admission Date: September 28, 2020 Subjective patient became more fatigued today, tachypneic despite BIPAP patient was intubated and paralyzed this afternoon, turned prone Review of Systems Review of Systems: Unobtainable due to endotracheal tube and Unobtainable due to reduced consciousness Physical Exam Constitutional: well developed, + ill appearing and + mechanically ventilated Neck: trachea midline, no thyromegaly Respiratory: normal respiratory effort and symmetric chest movement (on ventilator) Auscultation: lungs clear to auscultation bilaterally Cardiovascular: RRR, no murmur, no edema Gastrointestinal (Abdomen): normal bowel sounds, soft, nontender, no hepatosplenomegaly Musculoskeletal: Head/Neck/Chest: normocephalic, head atraumatic and neck supple Skin: no rashes, warm and dry Neurologic: + obtunded; no focal motor deficits Psychiatric: Orientation: + not alert Lymphatic: no cervical or axillary lymphadenopathy Results & Data Results & Data ([facility]) Vital Signs (Past 12 Hours) Vital Signs Temp Pulse Pulse Resp BP Pulse Ox 10/06/20 20:03 98 H 33 H 84 L 10/06/20 19:24 37.5 C 96 H 131/81 82 L 10/06/20 19:21 37.5 C 96 H 131/82 83 L 10/06/20 19:10 37.6 C H 98 H 137/81 83 L 10/06/20 19:00 98 H 10/06/20 18:00 38.0 C H 109 H 85 L 10/06/20 17:41 38.1 C H 112 H 131/71 87 L 10/06/20 17:30 38.1 C H 116 H 33 H 85 L 10/06/20 17:11 117 H 129/69 67 L 10/06/20 17:00 115 H 77 L 10/06/20 16:30 114 H 28 H 72 L 10/06/20 16:00 37 C 111 H 26 H 81 L 10/06/20 15:30 116 H 26 H 10/06/20 15:00 120 H 26 H 95 10/06/20 14:35 126 H 26 H 86 L 10/06/20 14:33 127 H 26 H 98/79 L 85 L 10/06/20 14:31 129 H 26 H 112/79 83 L 10/06/20 14:29 131 H 26 H 108/79 83 L 10/06/20 14:27 128 H 26 H 97/74 L 80 L 10/06/20 14:25 127 H 26 H 81/64 L 79 L 10/06/20 14:23 127 H 25 H 91/59 L 79 L 10/06/20 14:21 132 H 42 H 104/73 77 L 10/06/20 14:19 146 H 26 H 124/97 74 L 10/06/20 14:17 143 H 26 H 97/75 L 73 L 10/06/20 14:15 139 H 26 H 117/75 75 L 10/06/20 14:13 136 H 30 H 179/156 H 74 L 10/06/20 14:11 134 H 24 183/123 H 73 L 10/06/20 14:10 129 H 26 H 82 L 10/06/20 14:09 112 H 28 H 166/163 H 80 L 10/06/20 14:00 114 H 36 H 72 L 10/06/20 13:54 116 H 37 H 198/124 H 76 L 10/06/20 13:35 102 H 21 171/109 H 79 L 10/06/20 13:30 105 H 29 H 83 L 10/06/20 13:22 103 H 27 H 172/101 H 78 L 10/06/20 13:00 91 H 25 H 89 L 10/06/20 12:50 90 30 H 139/104 H 84 L 10/06/20 12:48 94 H 34 H 183/99 H 75 L 10/06/20 12:30 85 29 H 88 L 10/06/20 12:00 36.4 C L 85 77 30 H 87 L 10/06/20 11:40 93 H 25 H 138/68 87 L 10/06/20 11:30 78 22 87 L 10/06/20 11:00 75 25 H 87 L 10/06/20 10:40 81 25 H 142/88 H 87 L 10/06/20 10:30 80 22 88 L 10/06/20 10:00 82 26 H 87 L 10/06/20 09:40 83 24 162/94 H 85 L 10/06/20 09:00 83 20 87 L Laboratory Results Laboratory Results - last 24 hr 10/06/20 10/06/20 10/06/20 05:05 05:05 09:23 WBC 11.21 H RBC 6.89 H Hgb 16.7 POC Hgb Hct 50.2 POC Hct MCV 72.9 L MCH 24.2 L MCHC 33.3 RDW Std Deviation 40.9 RDW Coeff of Ya 17.0 H Plt Count 163 MPV 11.0 H Immature Gran % (Auto) 0.2 Neut % (Auto) 92.2 Lymph % (Auto) 6.0 [place] % (Auto) 1.6 Eos % (Auto) 0.0 Baso % (Auto) 0.0 Neut # (Auto) 10.34 H Lymph # (Auto) 0.67 L [place] # (Auto) 0.18 Eos # (Auto) 0.00 Baso # (Auto) 0.00 Immature Gran # (Auto) 0.02 Sample Site POC pH POC pCO2 POC pO2 POC HCO3 POC Total CO2 POC Base Excess ABG pH (Temp Correct) ABG pCO2 (Temp Corrct POC ABG pO2 at Pt Temp POC ABG O2 Sat Sadi Test O2 Delivery Device POC O2 Rate Minute Ventilation POC FiO2 Tidal Volume PEEP POC Sodium Sodium 137 POC Potassium Potassium 5.0 Chloride 107 Carbon Dioxide 23 Anion Gap 7.0 BUN 38 H Creatinine 1.00 Est Cr Clr Drug Dosing 86.1 Est GFR ( Amer) 91.8 Est GFR (Non-Af Amer) 79.2 BUN/Creatinine Ratio 38.1 H Glucose 148 H POC Glucose 160 H Calcium 9.6 Phosphorus 3.8 Magnesium 3.2 H Total Bilirubin 1.6 H AST 12 L ALT 100 H Alkaline Phosphatase 62 Total Protein 6.9 Albumin 2.7 L Globulin 4.2 H Albumin/Globulin Ratio 0.6 L 10/06/20 10/06/20 10/06/20 12:36 16:46 16:55 WBC RBC Hgb POC Hgb 20.4 H* Hct POC Hct 60 H MCV MCH MCHC RDW Std Deviation RDW Coeff of Ya Plt Count MPV Immature Gran % (Auto) Neut % (Auto) Lymph % (Auto) [place] % (Auto) Eos % (Auto) Baso % (Auto) Neut # (Auto) Lymph # (Auto) [place] # (Auto) Eos # (Auto) Baso # (Auto) Immature Gran # (Auto) Sample Site Art Line POC pH 7.13 L* POC pCO2 78 H POC pO2 57 L POC HCO3 26 H POC Total CO2 29 POC Base Excess -3.0 ABG pH (Temp Correct) 7.137 L* ABG pCO2 (Temp Corrct 77 H POC ABG pO2 at Pt Temp 56 POC ABG O2 Sat 78.0 L Sadi Test NA O2 Delivery Device Ventilator POC O2 Rate 26 Minute Ventilation 12 POC FiO2 100 Tidal Volume 420 PEEP 16 POC Sodium 136 Sodium POC Potassium 5.9 H Potassium Chloride Carbon Dioxide Anion Gap BUN Creatinine Est Cr Clr Drug Dosing Est GFR ( Amer) Est GFR (Non-Af Amer) BUN/Creatinine Ratio Glucose POC Glucose 161 H 187 H Calcium Phosphorus Magnesium Total Bilirubin AST ALT Alkaline Phosphatase Total Protein Albumin Globulin Albumin/Globulin Ratio 10/06/20 20:21 WBC RBC Hgb POC Hgb 19.7 H Hct POC Hct 58 H MCV MCH MCHC RDW Std Deviation RDW Coeff of Ya Plt Count MPV Immature Gran % (Auto) Neut % (Auto) Lymph % (Auto) [place] % (Auto) Eos % (Auto) Baso % (Auto) Neut # (Auto) Lymph # (Auto) [place] # (Auto) Eos # (Auto) Baso # (Auto) Immature Gran # (Auto) Sample Site Art Line POC pH 7.22 L POC pCO2 61 H POC pO2 75 L POC HCO3 25 H POC Total CO2 27 POC Base Excess -3.0 ABG pH (Temp Correct) 7.209 L ABG pCO2 (Temp Corrct 64 H POC ABG pO2 at Pt Temp 80 POC ABG O2 Sat 91.0 Sadi Test NA O2 Delivery Device Ventilator POC O2 Rate 32 Minute Ventilation 12.8 POC FiO2 100 Tidal Volume 400 PEEP 14 POC Sodium 136 Sodium POC Potassium 6.1 H* Potassium Chloride Carbon Dioxide Anion Gap BUN Creatinine Est Cr Clr Drug Dosing Est GFR ( Amer) Est GFR (Non-Af Amer) BUN/Creatinine Ratio Glucose POC Glucose Calcium Phosphorus Magnesium Total Bilirubin AST ALT Alkaline Phosphatase Total Protein Albumin Globulin Albumin/Globulin Ratio Medications Administered Current Inpatient Medications Acetaminophen (Acetaminophen 500 Mg Tab) 500 mg PO TID PRN PRN Reason: Pain or Fever Stop: 10/28/20 13:25 Albuterol (Albuterol Hfa 8 Gm Inhaler) 2 puffs INH QIDR JAIME Stop: 10/30/20 10:59 Last Admin: 10/06/20 20:05 Dose: Not Given Documented by: Albuterol (Albuterol 0.083% Nebu Soln 3 Ml Vial) 2.5 mg NEB QIDR PRN PRN Reason: Shortness Of Breath Stop: 11/04/20 17:01 Last Admin: 10/06/20 16:03 Dose: 2.5 mg Documented by: Aspirin (Aspirin 81 Mg Ectab) 81 mg PO DAILY [facility] Stop: 10/30/20 08:59 Last Admin: 10/06/20 09:15 Dose: 81 mg Documented by: Benzonatate (Benzonatate 100 Mg Capsule) 100 mg PO TID PRN PRN Reason: cough Stop: 10/28/20 13:29 Last Admin: 09/30/20 09:34 Dose: 100 mg Documented by: Budesonide (Budesonide 0.5 Mg/2 Ml Vial (Pulmicort)) 0.5 mg NEB BIDR [facility] Stop: 11/01/20 18:59 Last Admin: 10/06/20 20:05 Dose: 0.5 mg Documented by: Nystatin 30 ml/ Dexamethasone 3.75 mg/ Diphenhydramine HCl 300 mg/ Sucrose 45 ml/Microcrystalline Cellulose 45 ml/ [employer]CODE IDENTIFIER 1 ea 0 ml PO Q6 JAIME Stop: 10/30/20 22:59 Last Admin: 10/06/20 16:39 Dose: Not Given Documented by: Dextrose (Dextrose 50% 50 Ml Syringe) 25 - 50 ml IV UD PRN; Protocol PRN Reason: Hypoglycemia Protocol Stop: 10/28/20 13:17 Enoxaparin Sodium (Enoxaparin Inj 40 Mg/0.4 Ml Syr) 40 mg SQ Q12H JAIME Stop: 10/29/20 20:59 Last Admin: 10/06/20 20:29 Dose: 40 mg Documented by: Fentanyl Citrate (Fentanyl Bolus From Bag) 50 mcg IV Q60M PRN PRN Reason: Pain or Agitation Stop: 10/20/20 14:13 Formoterol Fumarate (Formoterol 20 Mcg/2 Ml Vial) 20 mcg NEB BIDR [facility] Stop: 11/01/20 18:59 Last Admin: 10/06/20 20:05 Dose: 20 mcg Documented by: Glucagon (Glucagon For Inj 1 Mg Vial) 1 mg SQ UD PRN; Protocol PRN Reason: Hypoglycemia Protocol Stop: 10/28/20 13:17 Glucose (Glucose 10 Tabs/Tube) 4 - 8 tabs PO UD PRN; Protocol PRN Reason: Hypoglycemia Protocol Stop: 10/28/20 13:17 Glucose (Glucose 40% Gel 15 Gm Tube) 15 - 30 gm PO UD PRN; Protocol PRN Reason: Hypoglycemia Protocol Stop: 10/28/20 13:17 Famotidine 20 mg/ Syringe 5 mls @ 2.5 mls/min IV BID [facility] Stop: 11/01/20 20:59 Last Admin: 10/06/20 20:30 Dose: 2.5 mls/min Documented by: Methylprednisolone 60 mg/ (Syringe) 0.96 mls @ 1.5 mls/min IV Q8H JAIME Stop: 10/07/20 23:59 Last Admin: 10/06/20 17:30 Dose: 1.5 mls/min Documented by: Methylprednisolone 60 mg/ (Syringe) 0.96 mls @ 1.5 mls/min IV Q12 JAIME Stop: 11/07/20 08:59 Propofol (Diprivan) 1,000 mg in 100 mls @ 21.84 mls/hr IV .Q4H35M JAIME; Protocol Stop: 10/09/20 14:14 Last Titration: 10/06/20 18:47 Dose: 40 mcg/kg/min, 21.8 mls/hr Documented by: Fentanyl Citrate (Fentanyl Drip) 1,250 mcg in 250 mls @ 30 mls/hr IV .Q8H20M JAIME; Protocol Stop: 10/20/20 14:14 Last Titration: 10/06/20 18:47 Dose: 150 mcg/hr, 30 mls/hr Documented by: Norepinephrine Bitartrate (Levophed/D5w) 8 mg in 508 mls @ 17.336 mls/hr IV .Q24H JAIME; Protocol Stop: 11/05/20 14:29 Last Titration: 10/06/20 19:15 Dose: 0.06 mcg/kg/min, 20.8 mls/hr Documented by: Cisatracurium Besylate 40 mg/ (Sodium Chloride) 100 mls @ 22.5 mls/hr IV .Q4H27M JAIME; Protocol Stop: 11/05/20 15:14 Last Admin: 10/06/20 19:48 Dose: 2 mcg/kg/min, 22.5 mls/hr Documented by: Insulin Aspart (Insulin Aspart 100 Units/Ml 3 Ml Pen) 0 units SC ACHS [facility]; Protocol Stop: 11/03/20 16:29 Last Admin: 10/06/20 20:41 Dose: 2 units Documented by: Insulin Glargine (Insulin Glargine Solostar 100 Units/Ml 3 Ml Pen) 0 units SC BID [facility]; Protocol Stop: 11/03/20 20:59 Last Admin: 10/06/20 20:41 Dose: 20 units Documented by: Miscellaneous (Carbohydrates For Hypoglycemia ) 15 - 30 gm PO UD PRN PRN Reason: Hypoglycemia Protocol Stop: 10/28/20 13:17 Miscellaneous Information (Pharmacy Glycemic Mgmt Consult) 1 ea N/A UD PRN PRN Reason: Consult Stop: 11/01/20 09:48 Propofol (Propofol Bolus From Bag) 20 mg IV Q5M PRN PRN Reason: Sedation Stop: 10/09/20 14:13 Rosuvastatin Calcium (Rosuvastatin Calcium 20 Mg Tab) 20 mg PO QAM JAIME Stop: 10/30/20 08:59 Last Admin: 10/05/20 07:17 Dose: 20 mg Documented by: Vitamin D (Cholecalciferol 1,000 Units 25 Mcg Tab) 1,000 units PO DAILY JAIME Stop: 10/30/20 08:59 Last Admin: 10/06/20 09:15 Dose: 1,000 units Documented by: PG Care Time/CCT Total # of Minutes Spent Total Time Spent with Patient: Total time spent is greater than 50% in coordination of care (as documented) at patient's floor/unit and/or counseling patient: Coding Level of Care Code 03418 Subseq Hosp Care Lvl 2 Diagnoses Acute respiratory failure with hypoxia J96.01 Anti-cyclic citrullinated peptide antibody positive R76.8 Acute CHF I50.31 Heart failure type: diastolic Pulmonary fibrosis J84.10 COPD exacerbation J44.1 Chest pain R07.9 Chest pain type: unspecified Pneumonia due to COVID-19 virus U07.1; J12.82 Hyperlipidemia E78.2 Hyperlipidemia type: mixed hyperlipidemia HTN (hypertension) I10 Hypertension type: essential hypertension Diabetes mellitus, type II E11.9 Diabetes mellitus chcf insulin use: without middle or intermediate school principal use Diabetes mellitus complication status: without complication Vertebral artery dissection I77.74 Elevated troponin R77.8 GOVIND (acute kidney injury) N17.9 DVT prophylaxis Z29.9 (1) Acute CHF Heart failure type: diastolic Qualified Code(s): I50.31 - Acute diastolic (congestive) heart failure (2) Chest pain Chest pain type: unspecified Qualified Code(s): R07.9 - Chest pain, unspecified (3) Hyperlipidemia Hyperlipidemia type: mixed hyperlipidemia Qualified Code(s): E78.2 - Mixed hyperlipidemia (4) HTN (hypertension) Hypertension type: essential hypertension Qualified Code(s): I10 - Essential (primary) hypertension (5) Diabetes mellitus, type II Diabetes mellitus chcf insulin use: without middle or intermediate school principal use Diabetes mellitus complication status: without complication Qualified Code(s): E11.9 - Type 2 diabetes mellitus without complications
--- NOTE | 2020-10-06 22:10 | Communication Note ---
Date of Service: October 06, 2020 Earlier this afternoon the patient decompensated from a respiratory standpoint requiring intubation soon given paralytics and prone as he remained hypoxic. Patient continues to be paralyzed in prone and has shown marginal improvement in oxygenation on ABG following lung recruitment maneuvers. Oxygen saturations remained in the mid to upper 80s. As he is now proximally 5 hours proned, I did contact [facility] shingle shearing machine operator Dr. Brown at [place], and extensively discussed the patient and discussed transfer for ECMO. Ultimately, he did not feel the patient would be a good candidate for ECMO due to the patient's age and prolonged disease process and does not criteria. Plan to continue with current therapy with supportive ventilation and steroids. Prognosis remains poor. ABG and chest x-ray in a.m. and plan for 18 hours of proning. CRITICAL CARE TIME - I have personally spent 30 minutes of critical care time in the direct management of this patient. This is a life/limb threatening event. This includes time spent evaluating patient, direct bedside care, chart review, placing orders, interpretation of diagnostic studies, discussion with consultants, patient, and family members, as well as other required patient management activities. This time is exclusive of all separately billable procedures, and teaching time and separate from and in addition to any other critical care service time. Coding Level of Care Code Critical Care saniya clark'apple 30 min
[2020-10-07] MEDS: CISATRACURIUM BESYLATE 40 MG in 0.9 % SODIUM CHLORIDE 80 ML IV SCH ×9 (00:02→21:07)
[2020-10-07] MEDS: propofoL 1,000 MG/100 ML VIAL IV SCH ×9 (02:40→21:34)
[2020-10-07 04:34] LABS: iSTAT Art Bld Gas pCO2 Correct 57 mmHg (35-46); iSTAT Art Bld Gas pH Corrected 7.237 (7.35-7.45); iSTAT Arterial Blood Gas HCO3 25 meg/L (19-24); iSTAT Arterial Blood Gas pCO2 61 mmHg (35-46); iSTAT Arterial Blood Gas pH 7.22 (7.35-7.45); iSTAT Arterial Blood Gas pO2 84 mmHg (80-95); iSTAT Arterial Blood Gas pO2 C 78; iSTAT Carbon Dioxide 27 mmol/L (24-31); iSTAT FiO2 100 %; iSTAT Hematocrit 54 % (42-52); iSTAT Hemoglobin 18.4 g/dl (14.0-18.0); iSTAT Potassium 6.7 mmol/L (3.3-5.0); iSTAT Site Art Line; iSTAT Sodium 131 mmol/L (135-144)
[2020-10-07] MEDS: methylPREDNISolone 60 MG in SYRINGE 0 ML IV SCH ×3 (04:58→21:35)
[2020-10-07 05:33] LABS: ANCA Screen Negative (Negative); Angiotensin Converting Enzyme 6 U/L (9-67); Anti Nuclear Antibody Screen NEGATIVE (NEGATIVE); Anti-Centromere Ab <1.0 NEG AI (<1.0 NEG); Anti-SS-A <1.0 NEG AI (<1.0 NEG); Anti-SS-B <1.0 NEG AI (<1.0 NEG); JO 1 Antibody <1.0 NEG AI (<1.0 NEG); Myeloperoxidase Ab <1.0 AI (<1.0); Proteinase-3 AB <1.0 AI (<1.0); Rheumatoid Factor 46 IU/mL (<14); Scleroderma Anti Scl-70 Ab <1.0 NEG AI (<1.0 NEG); Sm Antibody <1.0 NEG AI (<1.0 NEG)
[2020-10-07] MEDS: fentaNYL DRIP 1,250 MCG/250 ML BAG IV SCH ×2 (06:41→14:41)
[2020-10-07 06:48] LABS: Albumin Globulin Ratio 0.6 (0.9-2); Albumin Level 2.4 gm/dl (3.4-5.0); BUN Creatinine Ratio 25.1 (10-20); Bilirubin,Total 0.8 mg/dl (0.2-1); Calcium 8.8 mg/dl (8.5-10.1); Creatinine Clr Calc Pharmacy 36.6 ml/min; Est GFR (African American) 32.7; Est GFR (Non-African American) 28.2; Globulin 3.9 gm/dl (2.5-4.0); Magnesium 3.5 mg/dl (1.8-2.4); Phosphorus 8.1 mg/dl (2.5-4.9); Potassium 6.6 mmol/L (3.5-5.1); Total Protein 6.3 gm/dl (6.4-8.2)
[2020-10-07 06:49] LABS: Basophils # (auto) 0.01 K/uL (0-0.2); Hematocrit (blood only) 50.5 % (42-52); Immature Granulocytes # (auto) 0.11 K/uL (0.00-0.02); Immature Granulocytes % (auto) 0.4 %; Mean Corpuscular Hemoglobin 24.2 pg (25-34); Mean Corpuscular Hgb Conc 31.7 g/dL (32-36); Mean Corpuscular Volume 76.3 fL (80-100); Monocytes # (auto) 0.34 K/uL (0.11-0.59); Monocytes % (auto) 1.1 %; Neutrophils # (auto) 28.68 K/uL (1.4-6.5); Neutrophils % (auto) 96.5 %; Platelet Count 149 K/uL (130-400); Platelet Estimate Decreased (Normal); RDW Coefficient of Variation 16.7 % (11.5-14.5); RDW Standard Deviation 44.1 fL (36.4-46.3); Red Blood Count 6.62 M/uL (4.7-6.1); White Blood Count 29.74 K/uL (4.8-10.8)
[2020-10-07] MEDS ORDERED: INSULIN HUMAN REGULAR IV BOLUS 10 UNITS in SYRINGE 0 ML IV ONE (06:55)
[2020-10-07] MEDS ORDERED: PHARMACY GLYCEMIC MGMT CONSULT STA (07:01)
[2020-10-07] MEDS ORDERED: INSULIN PROTOCOL GOAL RANGE ONE (07:01)
[2020-10-07] MEDS ORDERED: SODIUM BICARB 8.4% INJ 50 MEQ/50 ML SYR IV STA (07:13)
[2020-10-07] MEDS ORDERED: DEXTROSE 50% 50 ML SYRINGE IV ONE (07:15)
[2020-10-07] MEDS ORDERED: INSULIN HUMAN REGULAR PER UNIT 10 UNITS in SYRINGE 9.9 ML IV ONE (07:15)
[2020-10-07] MEDS ORDERED: INSULIN REGULAR 250 UNITS in SODIUM CHLORIDE 0.9% 247.5 ML IV SCH (07:15)
[2020-10-07] MEDS ORDERED: SODIUM CHLORIDE 0.9% 1000ML 1,000 ML IV ONE (07:21)
[2020-10-07] MEDS ORDERED: SODIUM POLYSTYRENE SULFONATE 15G/60ML SUSP PO STA ×2 (07:23→23:06)
[2020-10-07] MEDS ORDERED: INSULIN ASPART 100 UNITS/ML 3 ML PEN SC SCH (07:30)
[2020-10-07] MEDS: FORMOTEROL 20 MCG/2 ML VIAL NEB SCH ×2 (07:54→19:50)
[2020-10-07] MEDS: ALBUTEROL HFA 8 GM INHALER INH SCH ×4 (07:54→19:50)
[2020-10-07] MEDS: BUDESONIDE 0.5 MG/2 ML VIAL (PULMICORT) NEB SCH ×2 (07:54→19:50)
[2020-10-07] MEDS: FAMOTIDINE 20 MG in SYRINGE 3 ML IV SCH (08:05)
[2020-10-07] MEDS: CHOLECALCIFEROL 1,000 UNITS 25 MCG TAB PO SCH (08:09)
[2020-10-07] MEDS: ASPIRIN 81 MG ECTAB PO SCH ×2 (08:09→11:07)
[2020-10-07] MEDS: ENOXAPARIN INJ 40 MG/0.4 ML SYR SQ SCH (08:10)
[2020-10-07] MEDS: NOREPINEPHRINE/D5W 8 MG/508 ML BAG IV SCH ×2 (08:10→15:55)
[2020-10-07] MEDS: INSULIN ASPART 100 UNITS/ML 3 ML PEN SC SCH ×4 (09:22→19:55)
[2020-10-07] MEDS ORDERED: INSULIN GLARGINE SOLOSTAR 100 UNITS/ML 3 ML PEN SC STA (10:02)
--- NOTE | 2020-10-07 10:22 | Nephrology Consultation ---
Date of Consultation October 07, 2020 Assessment & Plan (1) GOVIND (acute kidney injury): 65 y o M with prior normal renal function, admitted with respiratory failure secondary to COVID pneumonia, currently intubated. Developed GOVIND and hyperkalemia over last 24 hours. Has been oliguric. Remained intubated, requiring 100 % Fio2, on Pressor --renal USG stat --monitor I/O --repeat renal panel now, if K remained elevated, UO low and volume overload with increased O2 requirement, may need emergency HD. --if UO remains low, OK to use Bumex 4 mg IV x 1 dose Will follow Thank you for allowing me to participate in your patient's care. (2) Hyperkalemia: (3) Acute respiratory failure with hypoxia: (4) Pneumonia due to COVID-19 virus: History of Present Illness Reason for Consultation: Oliguric acute kidney injury, hyperkalemia Attending Physician: Edmund Calabrese, History of Present Illness Mr. Goodson is 65 y/o M with PMH DM II, HTN, HLD, prior tobacco use with emphysema on CXR, and right vertebral artery dissection with CVA in 08/2019 admitted to the hospital with COVID pneumonia respiratory failure, currently intubated. Nephrology consult was requested as patient developed GOVIND and hyperkalemia He was admitted to hospital on 09/28/2019 with worsening respiratory failure and abnormal CT finding with the diagnosis of COVID pneumonia. Prior to that he was hospitalized from 09/21/2020 to 09/27/2020 for COVID pneumonia after he is symptomatic improved. In ER he was quite short of breath and was noted to have a pulse ox in the 70s on room air. He was afebrile, had elevated D-dimer and mildly elevated troponin. CTA showed worsening pneumonia as well as suspected interstitial lung disease, but was negative for pulmonary embolism. He was given a dose of ceftriaxone, azithromycin, dexamethasone, and aspirin, and 1 dose of therapeutic Lovenox. He received dexamethasone during initial visit, there was no indication for Remdesivir or convalescent plasma. At baseline he seems to have normal renal function with baseline creatinine around 1-1.1. Renal function was relatively normal until yesterday, this morning he was found to have AK with sharp rise in creatinine to 2.6 associated with hyperkalemia, potassium was 6.7. Received Kayexalate 30 g x 1 dose this morning however potassium remained elevated at 6.6. Urine output has been relatively low. Blood pressure has been variable with occasional hypotension with systolic blood pressure less than 100, has been bradycardic over last 24 hour with heart rate around 50s. Urinalysis with 1+ proteinuria and hematuria. Has history of smoking for more than 40 years with underlying COPD. Currently remained intubated, requiring 100 % Fio2 as O2 drops with lower Fi02, has been on Pressor. UO low only 250 over last 6 hours. Allergies Allergy/AdvReac Type Severity Reaction Status Date / Time clindamycin AdvReac Unknown Unknown Unverified 09/21/20 14:44 Penicillins AdvReac Unknown Unknown Unverified 09/21/20 14:44 Home Medications Medication Instructions Recorded Confirmed Type Oyster Shell Calcium-Vit D3 1 ea PO QAM 08/24/19 09/28/20 History metformin 500 mg PO QAM 08/24/19 09/28/20 History rosuvastatin 20 mg PO QAM 08/24/19 09/28/20 History lisinopril 20 mg PO DAILY #30 tab 08/27/19 09/28/20 Rx acetaminophen [Acetaminophen Extra 500 mg PO TID PRN 09/21/20 09/28/20 History Strength] aspirin 81 mg PO DAILY 09/21/20 09/28/20 History cholecalciferol (vitamin D3) 25 mcg PO DAILY 09/21/20 09/28/20 History [Vitamin D3] guaifenesin [Mucosa] 400 mg PO TID 09/21/20 09/28/20 History ondansetron 4 mg PO TID PRN 09/21/20 09/28/20 History zinc sulfate 220 mg PO BID 09/21/20 09/28/20 History benzonatate [Tessalon Perles] 100 mg PO TID 7 Days #21 cap 09/27/20 09/28/20 Rx codeine-guaifenesin 10 ml PO Q6 PRN #120 ml 09/27/20 09/28/20 Rx Patient History Medical History (Updated 10/07/20 @ 10:19 by Melonie Mg MD) Breathlessness Diabetes mellitus, type II Erectile dysfunction HTN (hypertension) Hyperkalemia Hyperlipidemia Hypoxia Tobacco abuse Quit smoking in 2018 after 45 years of cigarette use Surgical History No significant past surgical history Family History Mother Stroke Brother Diabetes Grandmother (Maternal) Diabetes Myocardial infarction Social History Smoking Status: Former smoker Tobacco Type: Cigarettes Age Quit Using Tobacco: 63; packs per day: 1; Years Smoked: 45; Second Hand Exposure: No; Hx Alcohol Use: No Hx Substance Use: No Preferred Language: Cambodian Communication Ability: Effective Internetworking Technician Required: No Beliefs That Will Affect Care: None marital status: Unknown Current Living Situation: Other Current Living Situation Comment: [facility] Feels Safe at Home: Yes Assistive Devices: Oxygen - Continuous Review of Systems Review of Systems: Unobtainable due to endotracheal tube Results & Data ([facility]) Vital Signs (Past 12 Hours) Vital Signs Temp Pulse Resp BP Pulse Ox 10/07/20 08:00 51 L 32 H 93 10/07/20 06:11 35.5 C L 54 L 113/59 L 93 10/07/20 05:41 35.6 C L 56 L 117/62 94 10/07/20 05:11 35.6 C L 56 L 108/63 93 10/07/20 05:04 35.7 C L 58 L 97/61 L 94 10/07/20 05:02 35.7 C L 59 L 125/65 94 10/07/20 04:41 35.7 C L 62 114/63 94 10/07/20 04:11 35.8 C L 63 111/67 94 10/07/20 03:41 35.9 C L 61 113/67 94 10/07/20 03:25 64 32 H 94 10/07/20 03:11 36.0 C L 57 L 113/71 94 10/07/20 02:41 36.1 C L 67 120/68 93 10/07/20 02:11 36.1 C L 64 122/71 93 10/07/20 01:41 36.2 C L 67 119/76 92 10/07/20 01:11 36.2 C L 66 126/55 L 92 10/07/20 00:41 36.4 C L 67 123/76 92 10/07/20 00:11 36.5 C 69 126/64 91 10/06/20 23:44 72 32 H 91 10/06/20 23:41 36.6 C 73 109/71 91 10/06/20 23:11 36.7 C 72 110/79 82 L 10/06/20 22:41 36.9 C 79 110/71 88 L PG Care Time/CCT Total # of Minutes Spent Total Time Spent with Patient: Total time spent is greater than 50% in coordination of care (as documented) at patient's floor/unit and/or counseling patient: Coding Level of Care Code 01977 Inpt Consult Level 5 Diagnoses GOVIND (acute kidney injury) N17.9 Hyperkalemia E87.5 Acute respiratory failure with hypoxia J96.01 Pneumonia due to COVID-19 virus U07.1; J12.82
[2020-10-07] MEDS: ALBUTEROL 0.083% NEBU SOLN 3 ML VIAL NEB PRN ×2 (10:41→19:50)
[2020-10-07 11:37] LABS: Mean Corpuscular Hgb Conc 31.7 g/dL (32-36)
--- NOTE | 2020-10-07 11:43 | XRay Report ---
XR chest 1V portable CLINICAL HISTORY: Respiratory failure COMPARISON STUDY: 10/06/2020 FINDINGS: The endotracheal tube is poorly visualized, but appears to terminate 7 cm above the manjit. There is a right internal jugular central venous catheter with its tip in the superior vena cava. Th ere is a enteric tube which terminates within the stomach. There is radiographic evidence of emphysem a. There is blunting of the lateral costophrenic angles. There are persistent bibasilar airspace opac ities.[ IMPRESSION: 1. Emphysema and bibasilar opacities similar to the prior study 2. The endotracheal tube is not well-visualized on the current study but appears to terminate approxi mately 7 cm above the manjit. ACT 112: Negative or not required by law. Electronically signed by: Agustin Vasques M.D. 10/07/2020 11:41 AM
[2020-10-07 11:51] LABS: INR 1.2 (0.9-1.1); Prothrombin Time 12.3 Seconds (9.0-12.0)
[2020-10-07 11:54] LABS: Hematocrit (blood only) 49.8 % (42-52); Hemoglobin 15.8 g/dL (14.0-18.0); Mean Corpuscular Hemoglobin 24.2 pg (25-34); Mean Corpuscular Volume 76.3 fL (80-100); RDW Coefficient of Variation 16.5 % (11.5-14.5); Red Blood Count 6.53 M/uL (4.7-6.1); White Blood Count 24.78 K/uL (4.8-10.8)
[2020-10-07 11:58] LABS: Albumin Level 2.3 gm/dl (3.4-5.0); BUN Creatinine Ratio 26.3 (10-20); Calcium 8.6 mg/dl (8.5-10.1); Creatinine Clr Calc Pharmacy 38.1 ml/min; Est GFR (African American) 34.2; Est GFR (Non-African American) 29.5; Phosphorus 7.4 mg/dl (2.5-4.9); Potassium 5.5 mmol/L (3.5-5.1)
[2020-10-07 12:22] LABS: Immature Granulocytes # (auto) 0.07 K/uL (0.00-0.02); Immature Granulocytes % (auto) 0.3 %; Lymphocytes # (auto) 0.68 K/uL (1.2-3.4); Lymphocytes % (auto) 2.7 %; Monocytes # (auto) 0.37 K/uL (0.11-0.59); Monocytes % (auto) 1.5 %; Neutrophils # (auto) 23.66 K/uL (1.4-6.5); Neutrophils % (auto) 95.5 %; Platelet Count 145 K/uL (130-400)
[2020-10-07] MEDS: ASPIRIN 81 MG CHEW PO SCH (12:51)
--- NOTE | 2020-10-07 12:56 | Ultrasound Report ---
ULTRASOUND KIDNEYS AND BLADDER CLINICAL HISTORY: Acute renal insufficiency. COMPARISON STUDY: Right upper quadrant ultrasound dated 08/25/2019. TECHNIQUE: Portable real-time, grayscale, and color flow sonography of the kidneys and bladder is per formed. Images are reviewed in the transverse and longitudinal planes. FINDINGS: Kidneys: The kidneys are normal in size and echotexture. The right kidney measures 10.1 x 4.3 x 6.0 c m and the left kidney measures 10.8 x 5.0 x 6.5 cm. There is no hydronephrosis. No shadowing renal c alculi are identified. A 3.4 cm cyst arises from the interpolar left kidney. There is no sonographic evidence of contour deforming renal mass lesion. No perinephric fluid is identified. Bladder: The bladder is decompressed around a Barlow catheter and not well evaluated. IMPRESSION: 1. The kidneys are normal in size and without hydronephrosis. 2. The bladder was decompressed around a Barlow catheter and could not be evaluated. ACT 112: Negative or not required by law. Electronically signed by: Andrei Stevens M.D. 10/07/2020 12:55 PM
--- NOTE | 2020-10-07 15:08 | Critical Care Progress Note ---
Date of Service October 07, 2020 Assessment & Plan (1) Acute respiratory failure with hypoxia: Impression: 65-year-old -[place] male with history of tobacco abuse admitted September 21 to September 27 for COVID-19 pneumonia. He received dexamethasone at that point time and had resolution of his symptoms including his oxygen requirement. His CT scan at that point time demonstrated some subpleural banding she is somewhat unusual for COVID-19. He returned to the emergency room less than 24 hours after being admitted with hypoxemic respiratory failure. 24-hour events: On continuous BiPAP. Patient feeling comfortable on BiPAP rather than CPAP. Saturation still in 88-89 Recommendations: Neuro - Paralyzed with Nimbex Sedation: Propofol and fentanyl History of vertebral artery dissection. Not on Plavix. Cardiac - EF greater than 70%, sclerotic aortic valve. Moderate concentric LVH --Shock It seems to be secondary to sedation Continue with vasopressor support to keep MAP greater than 65. Respiratory - --VDRF secondary to acute hypoxic respiratory failure Multifactorial Multilobar pneumonia from COVID-19 on top of underlying autoimmune ILD Continue with O2 supplementation to keep oxygen saturation greater than 88% Continue with lung protective ventilation High PEEP, low tidal volume to keep Plateau < 30 with permissive hypercapnea if need be. Monitor ABGs Not a candidate for ECMO. 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 Continue with steroids GI - --Increased transaminases Patient is not on any medication which might cause this other than statin which was discontinued Solu-Medrol might be one of the reason why it is going up Continue monitoring RENAL/LYTES - -- GOVIND Monitor BUN/creatinine Avoid nephrotoxic medications Strict ins and outs CPK is within normal limit. ENDO - Continue with ICU hyperglycemia protocol HEME - There is a bump in leukocyte count on 10/07/2020, this seems to be reactive to intubation Monitor ID - Patient did have leukocytosis on 10/07/2020 this is post intubation likely. Will monitor. Procalcitonin was negative Has been afebrile --Prophylaxis VTE: Changed to heparin subcu 10/08/2020 GI: Pepcid --No CPR Lines: Right IJ, left radial 10/06/2020, positive Barlow Diet: N.p.o. Plan: In/out: +764, urine output 815 Patient's potassium today 6.6. There is also new onset GOVIND. Patient was hypotensive after intubation and also significant hypoxic I think both are play ing a role. No hyperacute T waves appreciated. Patient was given Kayexalate, insulin, albuterol. I will give him a bolus of normal saline. If the creatinine starts to improve I would even think of giving Lasix to get the potassium down if it does not come down. BMP at 12 PM Patient was proned for more than 16 hours. Plan to make the patient supine was made. I was present at bedside when the team was assembled. Patient was getting good tidal volume at the end of supination. I have personally spent 55 minutes of critical care time in the direct management of this patient. This is a life/limb threatening event. This includes time spent evaluating patient, direct bedside care, chart review, placing orders, interpretation of diagnostic studies, discussion with consultants, pat ient, and family members, as well as other required patient management activities. This time is exclusive of all separately billable procedures, and teaching time and separate from and in addition to any other critical care service time. (2) Abnormal CT scan of lung: (3) Interstitial lung disease: (4) COPD exacerbation: Admission and Anticipated Discharge Date Admission Date: September 28, 2020 Subjective Patient seen and examined at bedside. Paralyzed. Sedated with fentanyl and propofol. Patient was prone at the time of examination. Saturation was 96% with PEEP of 16. On Levophed 0.1 Review of Systems Review of Systems: Unobtainable due to endotracheal tube Physical Exam Physical Exam: Constitutional: No acute distress HEENT: PERRLA, positive ETT Respiratory system: Decreased air entry bilaterally, no wheeze, rhonchi positive crackles bilateral lower lobes CVS: S1-S2 positive, no murmurs or gallops Abdomen: Soft, nontender, nondistended, positive bowel sounds x4 Extremities: +2 pulses bilaterally radialis/ dorsalis pedis, no cyanosis, no edema Neuro: Paralyzed Psych: Unable to assess G/U: Positive Barlow Skin: no rashes, warm and dry Lymphatic: no cervical or axillary lymphadenopathy Results & Data Results & Data ([facility]) Vital Signs (Past 12 Hours) Vital Signs Temp Pulse Resp BP Pulse Ox 10/07/20 13:41 35.5 C L 100 H 104/70 93 10/07/20 13:11 35.4 C L 97 H 112/73 93 10/07/20 12:41 35.4 C L 86 103/75 93 10/07/20 12:11 35.3 C L 83 118/72 92 10/07/20 11:41 35.3 C L 75 119/69 91 10/07/20 11:11 35.2 C L 72 99/58 L 89 L 10/07/20 10:44 70 33 H 88 L 10/07/20 10:41 35.2 C L 69 88/58 L 87 L 10/07/20 10:11 35.1 C L 57 L 122/66 96 10/07/20 09:41 35.0 C L 56 L 133/68 98 10/07/20 09:11 35.2 C L 59 L 131/67 97 10/07/20 08:41 35.3 C L 47 L 115/59 L 94 10/07/20 08:37 35.3 C L 56 L 96/56 L 94 10/07/20 08:11 35.3 C L 52 L 113/60 94 10/07/20 08:00 51 L 32 H 93 10/07/20 07:41 35.3 C L 62 111/60 93 10/07/20 07:11 35.3 C L 50 L 117/60 93 10/07/20 06:11 35.5 C L 54 L 113/59 L 93 10/07/20 05:41 35.6 C L 56 L 117/62 94 10/07/20 05:11 35.6 C L 56 L 108/63 93 10/07/20 05:04 35.7 C L 58 L 97/61 L 94 10/07/20 05:02 35.7 C L 59 L 125/65 94 10/07/20 04:41 35.7 C L 62 114/63 94 10/07/20 04:11 35.8 C L 63 111/67 94 10/07/20 03:41 35.9 C L 61 113/67 94 10/07/20 03:25 64 32 H 94 10/07/20 03:11 36.0 C L 57 L 113/71 94 10/07/20 11:21 10/07/20 11:30 Coding Level of Care Code Critical Care 1st 30-74 mins Diagnoses Acute respiratory failure with hypoxia J96.[address] scan of lung R91.8 Interstitial lung disease J84.9 COPD exacerbation J44.1 Time Spent (min) 55
--- NOTE | 2020-10-07 15:31 | Pharmacy Report ---
Pharmacy Glycemic Short Note 2 - Date of Service October 07, 2020 - Glycemic Short BSG Results (Last 24 hours): 10/06/20 10/06/20 10/07/20 16:55 20:39 04:56 Glucose 299 H POC Glucose 187 H POC Glucose (other) 180 H 10/07/20 10/07/20 10/07/20 08:22 09:41 11:21 Glucose 247 H POC Glucose POC Glucose (other) 281 H 268 H 10/07/20 10/07/20 11:30 13:12 Glucose Cancelled POC Glucose POC Glucose (other) 238 H OUTPATIENT ANTIDIABETIC REGIMEN: * Metformin 500mg qam ASSESSMENT: 10/07 * Patient now intubated, paralyzed and on vasopressors experiencing BSGs in the 200s. * Anticipate BSGs to be somewhat labile and unpredictable due to variable absorption, GOVIND and stressors * Patient remains on steroids but is NPO * Will continue with a modified lantus scale this evening due to changing insulin needs. NovoLog will be changed to q4 and CF tightened. 10/06 * Patient reasonably well controlled over the past 24 hours on current regimen (40 units basal, 5-10 units bolus). BSGs range between 147-162 mg/dL * Patient is ordered a full liquid diet and per RN, patient has been drinking 1- 2 juices cups three times a day * Patient continues on IV solumedrol but tapering has begun PLAN FOR INPATIENT GLYCEMIC CONTROL: * Hold outpatient oral diabetes medications * Basal insulin * Lantus 20 units this morning * Lantus 0, 10, 15 or 20 units units SQ this evening based on BSG (see MAR for details) * Bolus insulin * NovoLog per scale q4h * Goal Range: Low 110 mg/dL - High 140 mg/dL * Correction Factor: 18 mg/dL/unit * Nutritional / Prandial insulin per carb ratio of 1 unit per 7 grams CHO consumed
[2020-10-07] MEDS: PATIROMER CALCIUM SORBITEX 8.4 GM PACK PO SCH (15:54)
[2020-10-07] MEDS: ARTIFICIAL TEARS OP OINT 3.5 GM TUBE OP PRN (15:54)
--- NOTE | 2020-10-07 16:05 | Hospitalist Progress Note ---
Date of Service October 07, 2020 Assessment & Plan (1) Acute respiratory failure with hypoxia: Severe, profound. Dx with COVID-19 infection on 09/21/2020 but had been ill since about 09/11/20. Hospitalized from 09/21/20 to 09/27/20 for COVID at [facility]. On 09/27/20 upon discharge back to [facility] patient was reportedly stable in room air. He returned to [facility] on 09/28/20 with profound hypoxia. Repeat CTA on 09/28/20 without PEs but diffuse infiltrates - progressive ILD/PF suspected in setting of COPD/recent COVID. he was requiring CPAP and BIPAP progressed to respiratory failure requiring intubation 10/06 intubated, paralyzed, prone position main reason for his hypoxic resp failure is progressive ILD/PF, and recent COVID-19 pneumonia. Superimposed bacterial pneumonia felt unlikely given negative procalcitonin levels. CCP positive, possible rheumatoid component continue Solu Medrol It appears his PF/ILD is much worse than several weeks ago and pulmonology feels this is primary culprit at this time. 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 this would suggest positivity for rheumatoid arthritis. his ILD may be rheumatic in origin. or, he could have this as an "autoantibody" in the setting of recent COVID-19. awaiting additional autoimmune w/u (RF, CADEN, etc). pulm/ICU discussed his case with [facility] and [facility] in [place] on 10/03. immune-based therapy (Actemra) discussed; was not recommended. sed rate/crp markedly elevated. cont Solu Medrol (3) Acute CHF: previous acute diastolic CHF in setting of severe acute hypoxic resp failure. s/p copious diuresis since admission but suspect euvolemia has been achieved. echo findings noted. normal wall motion on echo. normal estimated PA pressures. (4) Pulmonary fibrosis: seen on his first CTA chest on 09/21/2020. additional CTAs on 09/27 and 09/28 show worsening fibrosis. large concern that progressive PF/ILD is largest contributor to current severe hypoxia/hypoxemia. anti-CCP ab is markedly positive - ILD 2nd to rheumatic disease?? or, has he developed fibrosis following ARDS from COVID-19?? combination? awaiting additional autoimmune w/u. cont high-dose steroids and supportive care. discussed his case with rheum by phone - see above. immune-based therapy deferred at this time. (5) COPD exacerbation: severe emphysematous changes on imaging. cont steroids. pulm toilet. pulmonary consultation appreciated. (6) Chest pain: had multiple episodes shortly after discharge on 09/27 back at the group home. none while hospitalized. uncertain if symptoms pre-admission were cardiac or due to severe pulmonary dis ease. suspect latter. troponins scantly elevated at admission. despite multiple EKGs with marked ST depressions anterolaterally his echo shows normal LV wall motion. (7) Pneumonia due to COVID-19 virus: initial dx 09/21/20. cont supportive care. no role for plasma/remdesivir - initial dx around [place]. Dr Chi reported that anti-CCP ab positivity can give false positive COVID testing (8) Hyperlipidemia: cont crestor (9) HTN (hypertension): hold YANIV due to mild hyperkalemia (10) Diabetes mellitus, type II: appreciate pharmacy glycemic assistance. cont NPH, cont novolog. last Hba1c 7.6%. HOLD YANIV inhibitor ICU glycemic protocol. (11) Vertebral artery dissection: history of - 08/2019 right vertebral artery - short segment did not require intervention (12) Elevated troponin: peak troponin 0.131 at admission echo with normal wall motion likely myocardial demand ischemia in setting of profound hypoxia/hypoxemia (13) GOVIND (acute kidney injury): likely 2nd overdiuresis. Peak Cr 1.59 today it is stable hold YANIV due to K of 5.2 (14) DVT prophylaxis: due to high risk of VTE in setting of COVID -- lovenox 40mg BID prognosis very, very poor, now ventilated code - conditional appreciate critical care assistance Admission and Anticipated Discharge Date Admission Date: September 28, 2020 Subjective patient intubated by Dr. Almonte due to worsening ventilatory/respiratory status Review of Systems Review of Systems: Unobtainable due to endotracheal tube and Unobtainable due to reduced consciousness Physical Exam Constitutional: well developed, + ill appearing and + mechanically ventilated Neck: trachea midline, no thyromegaly Respiratory: normal respiratory effort and symmetric chest movement (on ventilator) Auscultation: lungs clear to auscultation bilaterally Cardiovascular: RRR, no murmur, no edema Gastrointestinal (Abdomen): normal bowel sounds, soft, nontender, no hepatosplenomegaly Musculoskeletal: Head/Neck/Chest: normocephalic, head atraumatic and neck supple Skin: no rashes, warm and dry Neurologic: + obtunded; no focal motor deficits Psychiatric: Orientation: + not alert Lymphatic: no cervical or axillary lymphadenopathy Results & Data Results & Data ([facility]) Vital Signs (Past 12 Hours) Vital Signs Temp Pulse Resp BP Pulse Ox 10/07/20 13:41 35.5 C L 100 H 104/70 93 10/07/20 13:11 35.4 C L 97 H 112/73 93 10/07/20 12:41 35.4 C L 86 103/75 93 10/07/20 12:11 35.3 C L 83 118/72 92 10/07/20 11:41 35.3 C L 75 119/69 91 10/07/20 11:11 35.2 C L 72 99/58 L 89 L 10/07/20 10:44 70 33 H 88 L 10/07/20 10:41 35.2 C L 69 88/58 L 87 L 10/07/20 10:11 35.1 C L 57 L 122/66 96 10/07/20 09:41 35.0 C L 56 L 133/68 98 10/07/20 09:11 35.2 C L 59 L 131/67 97 10/07/20 08:41 35.3 C L 47 L 115/59 L 94 10/07/20 08:37 35.3 C L 56 L 96/56 L 94 10/07/20 08:11 35.3 C L 52 L 113/60 94 10/07/20 08:00 51 L 32 H 93 10/07/20 07:41 35.3 C L 62 111/60 93 10/07/20 07:11 35.3 C L 50 L 117/60 93 10/07/20 06:11 35.5 C L 54 L 113/59 L 93 10/07/20 05:41 35.6 C L 56 L 117/62 94 10/07/20 05:11 35.6 C L 56 L 108/63 93 10/07/20 05:04 35.7 C L 58 L 97/61 L 94 10/07/20 05:02 35.7 C L 59 L 125/65 94 10/07/20 04:41 35.7 C L 62 114/63 94 10/07/20 04:11 35.8 C L 63 111/67 94 Laboratory Results Laboratory Results - last 24 hr 10/01/20 10/06/20 10/06/20 08:12 16:46 16:55 WBC RBC Hgb POC Hgb 20.4 H* Hct POC Hct 60 H MCV MCH MCHC RDW Std Deviation RDW Coeff of Ya Plt Count Immature Gran % (Auto) Neut % (Auto) Lymph % (Auto) Ashe % (Auto) Eos % (Auto) Baso % (Auto) Neut # (Auto) Lymph # (Auto) Ashe # (Auto) Eos # (Auto) Baso # (Auto) Immature Gran # (Auto) Platelet Estimate PT INR Sample Site Art Line POC pH 7.13 L* POC pCO2 78 H POC pO2 57 L POC HCO3 26 H POC Total CO2 29 POC Base Excess -3.0 ABG pH (Temp Correct) 7.137 L* ABG pCO2 (Temp Corrct 77 H POC ABG pO2 at Pt Temp 56 POC ABG O2 Sat 78.0 L Sadi Test NA O2 Delivery Device Ventilator POC O2 Rate 26 Minute Ventilation 12 POC FiO2 100 Tidal Volume 420 PEEP 16 POC Sodium 136 Sodium POC Potassium 5.9 H Potassium Chloride Carbon Dioxide Anion Gap BUN Creatinine Est Cr Clr Drug Dosing Est GFR ( Amer) Est GFR (Non-Af Amer) BUN/Creatinine Ratio Glucose POC Glucose 187 H POC Glucose (other) Calcium Phosphorus Magnesium Total Bilirubin AST ALT Alkaline Phosphatase Total Creatine Kinase Total Protein Albumin Globulin Albumin/Globulin Ratio Angiotensin Convert Enz 6 L Beta-Hydroxybutyric Acd Rheumatoid Factor 46 H CADEN Screen NEGATIVE Anti-Proteinase 3 <1.0 Anti-Myeloperoxidase <1.0 ANCA Negative MALKA-1 Antibody <1.0 NEG SS-A/Ro Antibody <1.0 NEG SS-B/La Antibody <1.0 NEG Sm (Fernandez) Antibody <1.0 NEG Scl-70 Scleroderma Ab <1.0 NEG Anti-Centromere Ab <1.0 NEG 10/06/20 10/06/20 10/07/20 20:21 20:39 04:12 WBC RBC Hgb POC Hgb 19.7 H 18.4 H Hct POC Hct 58 H 54 H MCV MCH MCHC RDW Std Deviation RDW Coeff of Ya Plt Count Immature Gran % (Auto) Neut % (Auto) Lymph % (Auto) Ashe % (Auto) Eos % (Auto) Baso % (Auto) Neut # (Auto) Lymph # (Auto) Ashe # (Auto) Eos # (Auto) Baso # (Auto) Immature Gran # (Auto) Platelet Estimate PT INR Sample Site Art Line Art Line POC pH 7.22 L 7.22 L POC pCO2 61 H 61 H POC pO2 75 L 84 POC HCO3 25 H 25 H POC Total CO2 27 27 POC Base Excess -3.0 -3.0 ABG pH (Temp Correct) 7.209 L 7.237 L ABG pCO2 (Temp Corrct 64 H 57 H POC ABG pO2 at Pt Temp 80 78 POC ABG O2 Sat 91.0 94.0 Sadi Test NA NA O2 Delivery Device Ventilator Ventilator POC O2 Rate 32 32 Minute Ventilation 12.8 12.8 POC FiO2 100 100 Tidal Volume 400 400 PEEP 14 16 POC Sodium 136 131 L Sodium POC Potassium 6.1 H* 6.7 H* Potassium Chloride Carbon Dioxide Anion Gap BUN Creatinine Est Cr Clr Drug Dosing Est GFR ( Amer) Est GFR (Non-Af Amer) BUN/Creatinine Ratio Glucose POC Glucose POC Glucose (other) 180 H Calcium Phosphorus Magnesium Total Bilirubin AST ALT Alkaline Phosphatase Total Creatine Kinase Total Protein Albumin Globulin Albumin/Globulin Ratio Angiotensin Convert Enz Beta-Hydroxybutyric Acd Rheumatoid Factor CADEN Screen Anti-Proteinase 3 Anti-Myeloperoxidase ANCA MALKA-1 Antibody SS-A/Ro Antibody SS-B/La Antibody Sm (Fernandez) Antibody Scl-70 Scleroderma Ab Anti-Centromere Ab 10/07/20 10/07/20 10/07/20 04:56 04:56 04:56 WBC 29.74 H D RBC 6.62 H Hgb 16.0 POC Hgb Hct 50.5 POC Hct MCV 76.3 L MCH 24.2 L MCHC 31.7 L RDW Std Deviation 44.1 RDW Coeff of Ya 16.7 H Plt Count 149 Immature Gran % (Auto) 0.4 Neut % (Auto) 96.5 Lymph % (Auto) 2.0 Ashe % (Auto) 1.1 Eos % (Auto) 0.0 Baso % (Auto) 0.0 Neut # (Auto) 28.68 H Lymph # (Auto) 0.60 L Ashe # (Auto) 0.34 Eos # (Auto) 0.00 Baso # (Auto) 0.01 Immature Gran # (Auto) 0.11 H Platelet Estimate Decreased L PT INR Sample Site POC pH POC pCO2 POC pO2 POC HCO3 POC Total CO2 POC Base Excess ABG pH (Temp Correct) ABG pCO2 (Temp Corrct POC ABG pO2 at Pt Temp POC ABG O2 Sat Sadi Test O2 Delivery Device POC O2 Rate Minute Ventilation POC FiO2 Tidal Volume PEEP POC Sodium Sodium 133 L POC Potassium Potassium 6.6 H* D Chloride 103 Carbon Dioxide 22 Anion Gap 8.0 BUN 59 H D Creatinine 2.35 H D Est Cr Clr Drug Dosing 36.6 Est GFR ( Amer) 32.7 Est GFR (Non-Af Amer) 28.2 BUN/Creatinine Ratio 25.1 H Glucose 299 H POC Glucose POC Glucose (other) Calcium 8.8 Phosphorus 8.1 H D Magnesium 3.5 H Total Bilirubin 0.8 D AST 13 L ALT 76 Alkaline Phosphatase 63 Total Creatine Kinase Total Protein 6.3 L Albumin 2.4 L Globulin 3.9 Albumin/Globulin Ratio 0.6 L Angiotensin Convert Enz Beta-Hydroxybutyric Acd 1.11 Rheumatoid Factor CADEN Screen Anti-Proteinase 3 Anti-Myeloperoxidase ANCA MALKA-1 Antibody SS-A/Ro Antibody SS-B/La Antibody Sm (Fernandez) Antibody Scl-70 Scleroderma Ab Anti-Centromere Ab 10/07/20 10/07/20 10/07/20 04:56 08:22 09:41 WBC RBC Hgb POC Hgb Hct POC Hct MCV MCH MCHC RDW Std Deviation RDW Coeff of Ya Plt Count Immature Gran % (Auto) Neut % (Auto) Lymph % (Auto) Ashe % (Auto) Eos % (Auto) Baso % (Auto) Neut # (Auto) Lymph # (Auto) Ashe # (Auto) Eos # (Auto) Baso # (Auto) Immature Gran # (Auto) Platelet Estimate PT INR Sample Site POC pH POC pCO2 POC pO2 POC HCO3 POC Total CO2 POC Base Excess ABG pH (Temp Correct) ABG pCO2 (Temp Corrct POC ABG pO2 at Pt Temp POC ABG O2 Sat Sadi Test O2 Delivery Device POC O2 Rate Minute Ventilation POC FiO2 Tidal Volume PEEP POC Sodium Sodium POC Potassium Potassium Chloride Carbon Dioxide Anion Gap BUN Creatinine Est Cr Clr Drug Dosing Est GFR ( Amer) Est GFR (Non-Af Amer) BUN/Creatinine Ratio Glucose POC Glucose POC Glucose (other) 281 H 268 H Calcium Phosphorus Magnesium Total Bilirubin AST ALT Alkaline Phosphatase Total Creatine Kinase 39 Total Protein Albumin Globulin Albumin/Globulin Ratio Angiotensin Convert Enz Beta-Hydroxybutyric Acd Rheumatoid Factor CADEN Screen Anti-Proteinase 3 Anti-Myeloperoxidase ANCA MALKA-1 Antibody SS-A/Ro Antibody SS-B/La Antibody Sm (Fernandez) Antibody Scl-70 Scleroderma Ab Anti-Centromere Ab 10/07/20 10/07/20 10/07/20 11:21 11:21 11:21 WBC 24.78 H RBC 6.53 H Hgb 15.8 POC Hgb Hct 49.8 POC Hct MCV 76.3 L MCH 24.2 L MCHC 31.7 L RDW Std Deviation 44.0 RDW Coeff of Ya 16.5 H Plt Count 145 Immature Gran % (Auto) 0.3 Neut % (Auto) 95.5 Lymph % (Auto) 2.7 Ashe % (Auto) 1.5 Eos % (Auto) 0.0 Baso % (Auto) 0.0 Neut # (Auto) 23.66 H Lymph # (Auto) 0.68 L Ashe # (Auto) 0.37 Eos # (Auto) 0.00 Baso # (Auto) 0.00 Immature Gran # (Auto) 0.07 H Platelet Estimate PT 12.3 H INR 1.2 H Sample Site POC pH POC pCO2 POC pO2 POC HCO3 POC Total CO2 POC Base Excess ABG pH (Temp Correct) ABG pCO2 (Temp Corrct POC ABG pO2 at Pt Temp POC ABG O2 Sat Sadi Test O2 Delivery Device POC O2 Rate Minute Ventilation POC FiO2 Tidal Volume PEEP POC Sodium Sodium 136 POC Potassium Potassium 5.5 H D Chloride 106 Carbon Dioxide 23 Anion Gap 7.0 BUN 59 H Creatinine 2.26 H Est Cr Clr Drug Dosing 38.1 Est GFR ( Amer) 34.2 Est GFR (Non-Af Amer) 29.5 BUN/Creatinine Ratio 26.3 H Glucose 247 H POC Glucose POC Glucose (other) Calcium 8.6 Phosphorus 7.4 H Magnesium Total Bilirubin AST ALT Alkaline Phosphatase Total Creatine Kinase Total Protein Albumin 2.3 L Globulin Albumin/Globulin Ratio Angiotensin Convert Enz Beta-Hydroxybutyric Acd Rheumatoid Factor CADEN Screen Anti-Proteinase 3 Anti-Myeloperoxidase ANCA MALKA-1 Antibody SS-A/Ro Antibody SS-B/La Antibody Sm (Fernandez) Antibody Scl-70 Scleroderma Ab Anti-Centromere Ab 10/07/20 10/07/20 11:30 13:12 WBC RBC Hgb POC Hgb Hct POC Hct MCV MCH MCHC RDW Std Deviation RDW Coeff of Ya Plt Count Immature Gran % (Auto) Neut % (Auto) Lymph % (Auto) Ashe % (Auto) Eos % (Auto) Baso % (Auto) Neut # (Auto) Lymph # (Auto) Ashe # (Auto) Eos # (Auto) Baso # (Auto) Immature Gran # (Auto) Platelet Estimate PT INR Sample Site POC pH POC pCO2 POC pO2 POC HCO3 POC Total CO2 POC Base Excess ABG pH (Temp Correct) ABG pCO2 (Temp Corrct POC ABG pO2 at Pt Temp POC ABG O2 Sat Sadi Test O2 Delivery Device POC O2 Rate Minute Ventilation POC FiO2 Tidal Volume PEEP POC Sodium Sodium Cancelled POC Potassium Potassium Cancelled Chloride Cancelled Carbon Dioxide Cancelled Anion Gap Cancelled BUN Cancelled Creatinine Cancelled Est Cr Clr Drug Dosing Cancelled Est GFR ( Amer) Cancelled Est GFR (Non-Af Amer) Cancelled BUN/Creatinine Ratio Cancelled Glucose Cancelled POC Glucose POC Glucose (other) 238 H Calcium Cancelled Phosphorus Magnesium Total Bilirubin AST ALT Alkaline Phosphatase Total Creatine Kinase Total Protein Albumin Globulin Albumin/Globulin Ratio Angiotensin Convert Enz Beta-Hydroxybutyric Acd Rheumatoid Factor CADEN Screen Anti-Proteinase 3 Anti-Myeloperoxidase ANCA MALKA-1 Antibody SS-A/Ro Antibody SS-B/La Antibody Sm (Fernandez) Antibody Scl-70 Scleroderma Ab Anti-Centromere Ab Medications Administered Current Inpatient Medications Acetaminophen (Acetaminophen 500 Mg Tab) 500 mg PO TID PRN PRN Reason: Pain or Fever Stop: 10/28/20 13:25 Albuterol (Albuterol Hfa 8 Gm Inhaler) 2 puffs INH QIDR JAIME Stop: 10/30/20 10:59 Last Admin: 10/07/20 10:43 Dose: Not Given Documented by: Albuterol (Albuterol 0.083% Nebu Soln 3 Ml Vial) 2.5 mg NEB QIDR PRN PRN Reason: Shortness Of Breath Stop: 11/04/20 17:01 Last Admin: 10/07/20 10:41 Dose: 2.5 mg Documented by: Aspirin (Aspirin 81 Mg Chew) 81 mg PO QAM JAIME Stop: 11/06/20 11:29 Last Admin: 10/07/20 12:51 Dose: 81 mg Documented by: Benzonatate (Benzonatate 100 Mg Capsule) 100 mg PO TID PRN PRN Reason: cough Stop: 10/28/20 13:29 Last Admin: 09/30/20 09:34 Dose: 100 mg Documented by: Budesonide (Budesonide 0.5 Mg/2 Ml Vial (Pulmicort)) 0.5 mg NEB BIDR [facility] Stop: 11/01/20 18:59 Last Admin: 10/07/20 07:54 Dose: 0.5 mg Documented by: Dextrose (Dextrose 50% 50 Ml Syringe) 25 - 50 ml IV UD PRN; Protocol PRN Reason: Hypoglycemia Protocol Stop: 10/28/20 13:17 Fentanyl Citrate (Fentanyl Bolus From Bag) 50 mcg IV Q60M PRN PRN Reason: Pain or Agitation Stop: 10/20/20 14:13 Formoterol Fumarate (Formoterol 20 Mcg/2 Ml Vial) 20 mcg NEB BIDR [facility] Stop: 11/01/20 18:59 Last Admin: 10/07/20 07:54 Dose: 20 mcg Documented by: Glucagon (Glucagon For Inj 1 Mg Vial) 1 mg SQ UD PRN; Protocol PRN Reason: Hypoglycemia Protocol Stop: 10/28/20 13:17 Glucose (Glucose 10 Tabs/Tube) 4 - 8 tabs PO UD PRN; Protocol PRN Reason: Hypoglycemia Protocol Stop: 10/28/20 13:17 Glucose (Glucose 40% Gel 15 Gm Tube) 15 - 30 gm PO UD PRN; Protocol PRN Reason: Hypoglycemia Protocol Stop: 10/28/20 13:17 Heparin Sodium (Porcine) (Heparin Sod 5,000 Unit/0.5 Ml Vial) 5,000 units SQ Q12 [facility] Stop: 11/07/20 08:59 Methylprednisolone 60 mg/ (Syringe) 0.96 mls @ 1.5 mls/min IV Q8H [facility] Stop: 10/07/20 23:59 Last Admin: 10/07/20 14:41 Dose: 1.5 mls/min Documented by: Methylprednisolone 60 mg/ (Syringe) 0.96 mls @ 1.5 mls/min IV Q12 [facility] Stop: 11/07/20 08:59 Propofol (Diprivan) 1,000 mg in 100 mls @ 16.38 mls/hr IV .Q6H7M [facility]; Protocol Stop: 10/09/20 14:14 Last Titration: 10/07/20 15:20 Dose: 30 mcg/kg/min, 16.4 mls/hr Documented by: Fentanyl Citrate (Fentanyl Drip) 1,250 mcg in 250 mls @ 30 mls/hr IV .Q8H20M JAIME; Protocol Stop: 10/20/20 14:14 Last Titration: 10/07/20 15:20 Dose: 150 mcg/hr, 30 mls/hr Documented by: Norepinephrine Bitartrate (Levophed/D5w) 8 mg in 508 mls @ 17.336 mls/hr IV .Q24H JAIME; Protocol Stop: 11/05/20 14:29 Last Admin: 10/07/20 15:55 Dose: 0.1 mcg/kg/min, 34.7 mls/hr Documented by: Cisatracurium Besylate 40 mg/ (Sodium Chloride) 100 mls @ 16.875 mls/hr IV .Q5H56M JAIME; Protocol Stop: 11/05/20 15:14 Last Titration: 10/07/20 15:20 Dose: 1.5 mcg/kg/min, 16.9 mls/hr Documented by: Famotidine 20 mg/ Syringe 5 mls @ 2.5 mls/min IV QAM JAIME Stop: 11/07/20 08:59 Insulin Aspart (Insulin Aspart 100 Units/Ml 3 Ml Pen) 0 units SC Q4 AJIME; Protocol Stop: 11/06/20 11:59 Last Admin: 10/07/20 13:36 Dose: 6 units Documented by: Insulin Glargine (Insulin Glargine Solostar 100 Units/Ml 3 Ml Pen) 0 units SC BID JAIME; Protocol Stop: 11/03/20 20:59 Last Admin: 10/06/20 20:41 Dose: 20 units Documented by: Miscellaneous (Carbohydrates For Hypoglycemia ) 15 - 30 gm PO UD PRN PRN Reason: Hypoglycemia Protocol Stop: 10/28/20 13:17 Miscellaneous Information (Pharmacy Glycemic Mgmt Consult) 1 ea N/A UD PRN PRN Reason: Consult Stop: 11/01/20 09:48 Multi-Ingredient Cream (Artificial Tears Op Oint 3.5 Gm Tube) 1 appln OP PRN PRN; Protocol PRN Reason: EYE DRYNESS Stop: 11/06/20 13:48 Last Admin: 10/07/20 15:54 Dose: 1 appln Documented by: Patiromer (Patiromer Calcium Sorbitex 8.4 Gm Pack) 8.4 gm PO DAILY@1100 [facility] Stop: 11/06/20 15:59 Last Admin: 10/07/20 15:54 Dose: 8.4 gm Documented by: Propofol (Propofol Bolus From Bag) 20 mg IV Q5M PRN PRN Reason: Sedation Stop: 10/09/20 14:13 Rosuvastatin Calcium (Rosuvastatin Calcium 20 Mg Tab) 20 mg PO QAM [facility] Stop: 10/30/20 08:59 Last Admin: 10/05/20 07:17 Dose: 20 mg Documented by: Vitamin D (Cholecalciferol 1,000 Units 25 Mcg Tab) 1,000 units PO DAILY [facility] Stop: 10/30/20 08:59 Last Admin: 10/07/20 08:09 Dose: 1,000 units Documented by: PG Care Time/CCT Total # of Minutes Spent Total Time Spent with Patient: Total time spent is greater than 50% in coordination of care (as documented) at patient's floor/unit and/or counseling patient: Coding Level of Care Code 34776 Subseq Hosp Care Lvl 1 Diagnoses Acute respiratory failure with hypoxia J96.01 Anti-cyclic citrullinated peptide antibody positive R76.8 Acute CHF I50.31 Heart failure type: diastolic Pulmonary fibrosis J84.10 COPD exacerbation J44.1 Chest pain R07.9 Chest pain type: unspecified Pneumonia due to COVID-19 virus U07.1; J12.82 Hyperlipidemia E78.2 Hyperlipidemia type: mixed hyperlipidemia HTN (hypertension) I10 Hypertension type: essential hypertension Diabetes mellitus, type II E11.9 Diabetes mellitus complication status: without complication Diabetes mellitus prison insulin use: without prison use Vertebral artery dissection I77.74 Elevated troponin R77.8 GOVIND (acute kidney injury) N17.9 DVT prophylaxis Z29.9 (1) Diabetes mellitus, type II Diabetes mellitus complication status: without complication Diabetes mellitus prison insulin use: without buttermaker helper use Qualified Code(s): E11.9 - Type 2 diabetes mellitus without complications (2) Acute CHF Heart failure type: diastolic Qualified Code(s): I50.31 - Acute diastolic (congestive) heart failure (3) Hyperlipidemia Hyperlipidemia type: mixed hyperlipidemia Qualified Code(s): E78.2 - Mixed hyperlipidemia (4) Chest pain Chest pain type: unspecified Qualified Code(s): R07.9 - Chest pain, unspecified (5) HTN (hypertension) Hypertension type: essential hypertension Qualified Code(s): I10 - Essential (primary) hypertension
[2020-10-07] MEDS: INSULIN GLARGINE SOLOSTAR 100 UNITS/ML 3 ML PEN SC SCH (19:55)
[2020-10-07 22:06] LABS: BUN Creatinine Ratio 27.4 (10-20); Calcium 8.7 mg/dl (8.5-10.1); Creatinine Clr Calc Pharmacy 37.9 ml/min; Est GFR (African American) 34.1; Est GFR (Non-African American) 29.4; Potassium 5.1 mmol/L (3.5-5.1)
[2020-10-08] MEDS: INSULIN ASPART 100 UNITS/ML 3 ML PEN SC SCH ×6 (00:34→20:00)
[2020-10-08] MEDS: fentaNYL DRIP 1,250 MCG/250 ML BAG IV SCH ×3 (00:57→17:23)
[2020-10-08 05:12] LABS: iSTAT Art Bld Gas pCO2 Correct 57 mmHg (35-46); iSTAT Art Bld Gas pH Corrected 7.245 (7.35-7.45); iSTAT Arterial Blood Gas HCO3 25 meg/L (19-24); iSTAT Arterial Blood Gas pCO2 57 mmHg (35-46); iSTAT Arterial Blood Gas pH 7.25 (7.35-7.45); iSTAT Arterial Blood Gas pO2 62 mmHg (80-95); iSTAT Arterial Blood Gas pO2 C 62; iSTAT Carbon Dioxide 26 mmol/L (24-31); iSTAT FiO2 80 %; iSTAT Hematocrit 51 % (42-52); iSTAT Hemoglobin 17.3 g/dl (14.0-18.0); iSTAT Potassium 5.6 mmol/L (3.3-5.0); iSTAT Site Art Line; iSTAT Sodium 136 mmol/L (135-144)
[2020-10-08] MEDS: CISATRACURIUM BESYLATE 40 MG in 0.9 % SODIUM CHLORIDE 80 ML IV SCH ×4 (05:27→10:17)
[2020-10-08 05:34] LABS: Mean Corpuscular Hgb Conc 31.3 g/dL (32-36)
[2020-10-08 05:46] LABS: Hematocrit (blood only) 50.5 % (42-52); Hemoglobin 15.8 g/dL (14.0-18.0); Mean Corpuscular Hemoglobin 23.9 pg (25-34); Mean Corpuscular Volume 76.3 fL (80-100); RDW Coefficient of Variation 16.4 % (11.5-14.5); RDW Standard Deviation 43.4 fL (36.4-46.3); Red Blood Count 6.62 M/uL (4.7-6.1)
--- NOTE | 2020-10-08 05:47 | Electrocardiogram Report ---
Test Reason : Blood Pressure : / mmHG Vent. Rate : 052 BPM Atrial Rate : 052 BPM P-R Int : 134 ms QRS Dur : 092 ms QT Int : 498 ms P-R-T Axes : 075 020 049 degrees QTc Int : 463 ms Sinus bradycardia Possible Septal infarct , age undetermined Nonspecific T wave abnormality Abnormal ECG When compared with ECG of 29-SEP-2020 11:10, Septal infarct is now Present T wave inversion no longer evident in Inferior leads T wave inversion no longer evident in Anterolateral leads Confirmed by Tate Corea ([id number]) on 10/08/2020 5:47:09 AM Referred By: Florentin FOSTER Confirmed By:Tate Corea
[2020-10-08 05:53] LABS: Albumin Level 2.1 gm/dl (3.4-5.0); Calcium 8.6 mg/dl (8.5-10.1); Creatinine Clr Calc Pharmacy 36.3 ml/min; Est GFR (African American) 32.3; Est GFR (Non-African American) 27.9; Magnesium 3.6 mg/dl (1.8-2.4); Potassium 5.5 mmol/L (3.5-5.1)
[2020-10-08 05:56] LABS: Albumin Globulin Ratio 0.6 (0.9-2); Bilirubin,Total 0.6 mg/dl (0.2-1); Globulin 3.6 gm/dl (2.5-4.0); Phosphorus 6.5 mg/dl (2.5-4.9); Total Protein 5.7 gm/dl (6.4-8.2)
[2020-10-08] MEDS: propofoL 1,000 MG/100 ML VIAL IV SCH ×6 (06:24→19:43)
[2020-10-08 06:36] LABS: Platelet Count 93 K/uL (130-400)
[2020-10-08 06:40] LABS: Immature Granulocytes # (auto) 0.05 K/uL (0.00-0.02); Immature Granulocytes % (auto) 0.3 %; Lymphocytes # (auto) 0.69 K/uL (1.2-3.4); Lymphocytes % (auto) 3.8 %; Monocytes # (auto) 0.38 K/uL (0.11-0.59); Monocytes % (auto) 2.1 %; Neutrophils # (auto) 17.18 K/uL (1.4-6.5); Neutrophils % (auto) 93.8 %; Platelet Estimate Decreased (Normal); RBC Morphology Unremarkable
[2020-10-08] MEDS ORDERED: SODIUM POLYSTYRENE SULFONATE 15G/60ML SUSP PO STA ×2 (06:44→07:51)
[2020-10-08] MEDS: BUDESONIDE 0.5 MG/2 ML VIAL (PULMICORT) NEB SCH ×2 (07:20→19:36)
[2020-10-08] MEDS: ALBUTEROL HFA 8 GM INHALER INH SCH (07:20)
[2020-10-08] MEDS: FORMOTEROL 20 MCG/2 ML VIAL NEB SCH ×2 (07:20→19:36)
[2020-10-08] MEDS: CHOLECALCIFEROL 1,000 UNITS 25 MCG TAB PO SCH (07:28)
[2020-10-08] MEDS: ASPIRIN 81 MG CHEW PO SCH (07:28)
[2020-10-08] MEDS: FAMOTIDINE 20 MG in SYRINGE 3 ML IV SCH (07:28)
[2020-10-08] MEDS: methylPREDNISolone 60 MG in SYRINGE 0 ML IV SCH ×2 (07:28→19:43)
[2020-10-08] MEDS: NOREPINEPHRINE/D5W 8 MG/508 ML BAG IV SCH ×2 (08:05→15:22)
[2020-10-08] MEDS: INSULIN GLARGINE SOLOSTAR 100 UNITS/ML 3 ML PEN SC SCH ×2 (08:22→20:00)
[2020-10-08] MEDS: ARTIFICIAL TEARS OP OINT 3.5 GM TUBE OP PRN (08:32)
[2020-10-08 08:40] LABS: D Dimer 1110 ug/L FEU (0-500)
[2020-10-08 08:46] LABS: Fibrinogen 421 mg/dl (184-400)
[2020-10-08] MEDS ORDERED: HEPARIN SOD 5,000 UNIT/0.5 ML VIAL SQ SCH (09:00)
--- NOTE | 2020-10-08 09:10 | Critical Care Progress Note ---
Date of Service October 08, 2020 Assessment & Plan (1) Acute respiratory failure with hypoxia: Impression: 65-year-old -[place]ian male with history of tobacco abuse admitted September 21 to September 27 for COVID-19 pneumonia. He received dexamethasone at that point time and had resolution of his symptoms including his oxygen requirement. His CT scan at that point time demonstrated some subpleural banding she is somewhat unusual for COVID-19. He returned to the emergency room less than 24 hours after being admitted with hypoxemic respiratory failure. 24-hour events: On continuous BiPAP. Patient feeling comfortable on BiPAP rather than CPAP. Saturation still in 88-89 Recommendations: Neuro - Paralyzed with Nimbex Sedation: Propofol and fentanyl History of vertebral artery dissection. Not on Plavix. Cardiac - EF greater than 70%, sclerotic aortic valve. Moderate concentric LVH --Shock It seems to be secondary to sedation Continue with vasopressor support to keep MAP greater than 65. Respiratory - --VDRF secondary to acute hypoxic respiratory failure Multifactorial Multilobar pneumonia from COVID-19 on top of underlying autoimmune ILD Continue with O2 supplementation to keep oxygen saturation greater than 88% Continue with lung protective ventilation High PEEP, low tidal volume to keep Plateau < 30 with permissive hypercapnea if need be. Monitor ABGs Not a candidate for ECMO. 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 Continue with steroids GI - --Increased transaminases Patient is not on any medication which might cause this other than statin which was discontinued Solu-Medrol might be one of the reason why it is going up Continue monitoring RENAL/LYTES - -- GOVIND Monitor BUN/creatinine Avoid nephrotoxic medications Strict ins and outs CPK is within normal limit. ENDO - Continue with ICU hyperglycemia protocol HEME - --Thrombocytopenia Fibrinogen high, LDH high, unlikely to be DIC Monitor ID - Patient did have leukocytosis on 10/07/2020 this is post intubation likely. Will monitor. Procalcitonin was negative Has been afebrile --Prophylaxis VTE: Heparin subcu GI: Pepcid --No CPR --Overall prognosis is guarded Lines: Right IJ, left radial 10/06/2020, positive Barlow Diet: N.p.o. Plan: In/out: +2042, urine output 1100 Patient is still -1 L since the time of admission. AB.25/57/62 80% FiO2, PEEP 16 Patient's potassium today is 5.5. Kayexalate given. Patient is also on patiromer. Creatinine today was 2.37 Patient did have episodes of hypotension again overnight. Need to keep MAP greater than 65 Repeat BMP at 12 We will consider giving the patient bumetanide. Nephrology consult appreciated We will supine the patient again later today. I have personally spent 45 minutes of critical care time in the direct management of this patient. This is a life/limb threatening event. This includes time spent evaluating patient, direct bedside care, chart review, placing orders, interpretation of diagnostic studies, discussion with consultants, patient, and family members, as well as other required patient management activities. This time is exclusive of all separately billable procedures, and teaching time and separate from and in addition to any other critical care service time. (2) Abnormal CT scan of lung: (3) Interstitial lung disease: (4) COPD exacerbation: Admission and Anticipated Discharge Date Admission Date: September 28, 2020 Subjective Patient seen and examined at bedside. He is proned. He was off Levophed but his pressure was on the lower side. Paralyzed, on propofol and fentanyl. FiO2 had to be increased again to 90% as patient was hypoxic overnight. Has been afebrile. Review of Systems Review of Systems: Unobtainable due to endotracheal tube Physical Exam Physical Exam: Constitutional: No acute distress HEENT: PERRLA, positive ETT Respiratory system: Decreased air entry bilaterally, no wheeze, rhonchi positive crackles bilateral lower lobes CVS: S1-S2 positive Abdomen: Soft, nontender, nondistended, decreased bowel sounds x4 Extremities: +2 pulses bilaterally radialis/ dorsalis pedis, no cyanosis, no edema Neuro: Paralyzed Psych: Unable to assess G/U: Positive Barlow Skin: no rashes, warm and dry Lymphatic: no cervical or axillary lymphadenopathy Results & Data Results & Data ([facility]) Vital Signs (Past 12 Hours) Vital Signs Temp Pulse Resp BP Pulse Ox 10/08/20 07:20 78 33 H 90 10/08/20 06:00 37.0 C 78 116/57 L 10/08/20 05:00 37.0 C 78 89 L 10/08/20 04:24 36.9 C 78 116/57 L 85 L 10/08/20 04:00 36.9 C 80 33 H 113/57 L 86 L 10/08/20 03:28 36.9 C 80 115/57 L 89 L 10/08/20 03:13 82 33 H 87 L 10/08/20 03:00 36.9 C 80 93 10/08/20 02:24 36.8 C 82 104/57 L 86 L 10/08/20 02:00 36.7 C 84 86 L 10/08/20 01:00 36.6 C 82 86 L 10/08/20 00:05 80 33 H 88 L 10/08/20 00:00 36.4 C L 78 87 L 10/07/20 23:24 36.3 C L 76 121/63 89 L 10/07/20 23:00 36.2 C L 76 88 L 10/07/20 22:00 35.9 C L 78 87 L 10/07/20 21:24 35.8 C L 81 128/65 90 10/08/20 04:47 10/08/20 04:47 Coding Level of Care Code Critical Care 1st 30-74 mins Diagnoses Acute respiratory failure with hypoxia J96.[address] scan of lung R91.8 Interstitial lung disease J84.9 COPD exacerbation J44.1 Time Spent (min) 45
[2020-10-08] MEDS: PATIROMER CALCIUM SORBITEX 8.4 GM PACK PO SCH (10:17)
--- NOTE | 2020-10-08 10:46 | Nephrology Progress Note ---
Date of Service October 08, 2020 Assessment & Plan (1) GOVIND (acute kidney injury): 65 y o M with prior normal renal function, admitted with respiratory failure secondary to COVID pneumonia, currently intubated since 10/06/20. Developed GOVIND and hyperkalemia over last 24 hours. Has been oliguric. REnal USG with no post renal obstruction. UA unremarkable. Remained intubated, requiring 100 % Fio2, on Pressor --monitor I/O, renal function and electrolyte --hemodynamic support --Kayexalate 30 gm x 1 dose now --Bumex 2 mg IV prn Will follow (2) Hyperkalemia: (3) Acute respiratory failure with hypoxia: (4) Pneumonia due to COVID-19 virus: Admission and Anticipated Discharge Date Admission Date: September 28, 2020 Rubin Quinones was evaluated this morning, clinical parameters, vitals, labs and imaging reviewed, no direct exam due to COVID isolation. BP improved. UO improved, >950 ml last 245 h. K improved to 5.5, renal function relatively stable. Review of Systems Review of Systems: Unobtainable due to endotracheal tube Results & Data ([facility]) Vital Signs (Past 12 Hours) Vital Signs Temp Pulse Resp BP Pulse Ox 10/08/20 07:20 78 33 H 90 10/08/20 06:00 37.0 C 78 116/57 L 10/08/20 05:00 37.0 C 78 89 L 10/08/20 04:24 36.9 C 78 116/57 L 85 L 10/08/20 04:00 36.9 C 80 33 H 113/57 L 86 L 10/08/20 03:28 36.9 C 80 115/57 L 89 L 10/08/20 03:13 82 33 H 87 L 10/08/20 03:00 36.9 C 80 93 10/08/20 02:24 36.8 C 82 104/57 L 86 L 10/08/20 02:00 36.7 C 84 86 L 10/08/20 01:00 36.6 C 82 86 L 10/08/20 00:05 80 33 H 88 L 10/08/20 00:00 36.4 C L 78 87 L 10/07/20 23:24 36.3 C L 76 121/63 89 L 10/07/20 23:00 36.2 C L 76 88 L PG Care Time/CCT Total # of Minutes Spent Total Time Spent with Patient: Total time spent is greater than 50% in coordination of care (as documented) at patient's floor/unit and/or counseling patient: Coding Level of Care Code 86091 Subseq Hosp Care Lvl 2 Diagnoses GOVIND (acute kidney injury) N17.9 Hyperkalemia E87.5 Acute respiratory failure with hypoxia J96.01 Pneumonia due to COVID-19 virus U07.1; J12.82
[2020-10-08] MEDS: ALBUTEROL 0.083% NEBU SOLN 3 ML VIAL NEB SCH ×3 (10:55→19:37)
[2020-10-08] MEDS ORDERED: STAT IV Infusion **Titration per Protocol STA (11:04)
--- NOTE | 2020-10-08 11:08 | Communication Note ---
Date of Service: October 08, 2020 Procedure: Supination maneuver Indication: Requiring lung recruitment intervention in the setting of advanced ARDS with poor lung compliance and oxygenation on standard ventilator settings. Patient was proned for more than 16 hours. Plan was to make the patient supine again. Appropriate staff was assembled including myself, Respiratory Therapy, and Nursing Staff. A time-out was completed verifying correct patient, time from recent pronation/supination, current ventilator settings, review of any prior issues during pronation/supination maneuvers. Patient was fully undressed as to be able to view all current IV sites, central venous access sites, arterial lines, endotracheal tube, Barlow catheter, etc. After properly identifying/securing all lines, tubes, etc, On my count, the patient was slid to the edge of the bed. After reevaluating all lines, tubes, etc., the patient was then placed on their side allowing for RT to maintain control of ET tube and ready for completion of Pronation maneuver. Final check of all lines, tubes, etc. was completed by myself and nursing staff. Patient was getting adequate tidal volume. Blood pressure, heart rhythm, and oxygen saturations were monitored for several minutes s/p maneuver. Discussion was held with patients RN and RT regarding ongoing management. Patient tolerated maneuver well. No immediate complications were noted. I have personally spent 35 additional minutes of critical care time in the direct management of this patient. This is a life/limb threatening event. This includes time spent evaluating patient, direct bedside care, chart review, placing orders, interpretation of diagnostic studies, discussion with consultants, patient, and family members, as well as other required patient management activities. This time is exclusive of all separately billable procedures, and teaching time and separate from and in addition to any other critical care service time Coding Level of Care Code Critical Care 1st 30-74 mins Time Spent (min) 20
--- NOTE | 2020-10-08 11:18 | Communication Note ---
Date of Service: October 08, 2020 Critical CARE addendum: I called patient's family which includes daughter Faby,[place] [phone] and she called her other sister Millie, true making it a conference call. I wanted to keep them posted of the current situation of the patient. I explained to them that the patient's condition is critical. He was intubated on 10/06/2020 after agreeing for intubation because he was having difficulty breathing on continuous BiPAP for 3 days. Since extubation he has been requiring maximum support when it comes to ventilator. Currently he is paralyzed. He is also sedated. There has been worsening in his creatinine function. I did update them that the patient has underlying COPD to begin with, he also had ILD which was recently diagnosed well during this hospitalization. And he was requiring constant high support during his current admission which required ICU stay. Family were upset that they were not told and not asked for permission to intubate. I explained to them that patient was making his own decision and permission is not needed if the patient has the capacity to make his own decisions. Family had further questions regarding previous admission and what was done. I conveyed that as I was not part of the care team on the previous admission I cannot comment on what happened on previous admission. The reason we are having this phone call is to discuss the current condition and what we are looking forward when it comes to patient's prognosis. I reiterated that patient has been getting every treatment possible for his underlying medical condition that he has but is still not making any progress and we are on the decline. Patient wanted to see if they can visit and see their father. Given the patient is a prisoner at this would be difficult. I asked them to get in touch with the pillowcase folder who did speak with them as well as intermediate. All the questions related to the current care and the current admission were answered in depth. Questions related to previous admission were deferred respectfully. I have personally spent 18 minutes of critical care time in the direct management of this patient. This is a life/limb threatening event. This includes time spent evaluating patient, direct bedside care, chart review, placing orders, interpretation of diagnostic studies, discussion with consultants, patient, and family members, as well as other required patient management activities. This time is exclusive of all separately billable procedures, and teaching time and separate from and in addition to any other critical care service time. Please note the above document was generated using voice recognition software. It may contain grammatical, syntax or spelling errors. Please note the above document was generated using voice recognition software. It may contain grammatical, syntax or spelling errors.Any formal questions or concerns about the content, text or information contained within the body of this dictation should be directly addressed to the provider for clarification. Coding Level of Care Code Critical Care saniya addt'l 30 min Time Spent (min) 18
[2020-10-08] MEDS: VASOPRESSIN 20 UNITS in 0.9 % SODIUM CHLORIDE 100 ML IV SCH ×2 (11:21→18:41)
--- NOTE | 2020-10-08 11:44 | XRay Report ---
SINGLE VIEW CHEST CLINICAL HISTORY: Respiratory failure. FINDINGS: An AP, portable, upright chest radiograph is compared to study dated 10/07/2020 and correlat ed with chest CT dated 09/28/2020. An endotracheal tube, an enteric tube, and a right internal jugular central venous catheter are unchanged in position. The cardiomediastinal silhouette is unremarkable. Findings of emphysema with superimposed chronic additional lung disease are similar to previous. Bib asilar airspace opacities have modestly increased from yesterday. No large pleural effusion or pneumo thorax is seen. The skeletal structures are osteopenic. The bony thorax is grossly intact. IMPRESSION: 1. Stable lines and tubes. 2. There are increasing bibasilar airspace opacities as compared to yesterday. 3. Findings of emphysema and chronic interstitial lung disease are similar to previous. ACT 112: Negative or not required by law.' Electronically signed by: Andrei Stevens M.D. 10/08/2020 11:43 AM
[2020-10-08] MEDS ORDERED: SODIUM CHLORIDE 0.9% 1000ML 500 ML IV ONE (12:02)
[2020-10-08 13:40] LABS: BUN Creatinine Ratio 28.1 (10-20); Calcium 8.5 mg/dl (8.5-10.1); Creatinine Clr Calc Pharmacy 34.6 ml/min; Est GFR (African American) 30.5; Est GFR (Non-African American) 26.3
[2020-10-08] MEDS: HEPARIN SOD 5,000 UNIT/0.5 ML VIAL SQ SCH ×2 (14:23→15:13)
[2020-10-08] MEDS ORDERED: PATIROMER CALCIUM SORBITEX 8.4 GM PACK PO STA (15:01)
[2020-10-08] MEDS ORDERED: METOPROLOL TARTRATE 1 MG/ML VIAL IV ONE (15:43)
[2020-10-08] MEDS ORDERED: DEXTROSE 50% 50 ML SYRINGE IV ONE (16:25)
[2020-10-08] MEDS ORDERED: INSULIN HUMAN REGULAR PER UNIT 10 UNITS in SYRINGE 9.9 ML IV ONE (16:30)
[2020-10-08] MEDS ORDERED: CALCIUM GLUCONATE 10% 1,000 MG in SODIUM CHLORIDE 0.9% 50 ML IV ONE (16:30)
[2020-10-08] MEDS ORDERED: AMIODARONE / D5W 150 MG/100 ML BAG IV STA (16:55)
[2020-10-08] MEDS ORDERED: AMIODARONE / D5W 360 MG/200 ML BAG IV ONE (16:55)
[2020-10-08] MEDS ORDERED: 0.2 MICRON FILTER SET 1 EA IV ONE (16:55)
[2020-10-08] MEDS ORDERED: SODIUM BICARB 8.4% INJ 50 MEQ/50 ML SYR IV STA (16:55)
[2020-10-08] MEDS ORDERED: SODIUM BICARB 8.4% INJ 50 MEQ/50 ML SYR IV ONE (16:57)
[2020-10-08] MEDS ORDERED: BUMETANIDE 2 MG in SYRINGE 0 ML IV SCH (17:00)
[2020-10-08 17:16] LABS: iSTAT Art Bld Gas pCO2 Correct 69 mmHg (35-46); iSTAT Art Bld Gas pH Corrected 7.128 (7.35-7.45); iSTAT Arterial Blood Gas HCO3 23 meg/L (19-24); iSTAT Arterial Blood Gas pCO2 68 mmHg (35-46); iSTAT Arterial Blood Gas pH 7.13 (7.35-7.45); iSTAT Arterial Blood Gas pO2 80 mmHg (80-95); iSTAT Arterial Blood Gas pO2 C 82; iSTAT Carbon Dioxide 25 mmol/L (24-31); iSTAT FiO2 100 %; iSTAT Hematocrit 47 % (42-52); iSTAT Potassium 5.2 mmol/L (3.3-5.0); iSTAT Site Art Line; iSTAT Sodium 133 mmol/L (135-144)
[2020-10-08 17:58] LABS: Calcium 8.8 mg/dl (8.5-10.1); Creatinine Clr Calc Pharmacy 31.3 ml/min; Est GFR (Non-African American) 23.3; Potassium 5.4 mmol/L (3.5-5.1)
[2020-10-08 18:09] LABS: Beta-Hydroxybutyrate 0.97 mg/dl (0.2-2.81)
[2020-10-08 22:57] LABS: BUN Creatinine Ratio 23.8 (10-20); Calcium 8.8 mg/dl (8.5-10.1); Creatinine Clr Calc Pharmacy 27.3 ml/min; Est GFR (African American) 22.8; Est GFR (Non-African American) 19.7; Phosphorus 7.8 mg/dl (2.5-4.9)
[2020-10-08 23:51] LABS: Potassium 5.8 mmol/L (3.5-5.1)
[2020-10-08 23:52] LABS: Magnesium 3.4 mg/dl (1.8-2.4)
[2020-10-09] MEDS ORDERED: BUMETANIDE 2 MG in SYRINGE 0 ML IV ONE
[2020-10-09] MEDS: AMIODARONE / D5W 360 MG/200 ML BAG IV SCH ×3 (00:10→21:51)
[2020-10-09] MEDS: INSULIN ASPART 100 UNITS/ML 3 ML PEN SC SCH ×7 (00:10→23:46)
[2020-10-09] MEDS: HEPARIN SOD 5,000 UNIT/0.5 ML VIAL SQ SCH ×4 (00:12→19:42)
[2020-10-09] MEDS: VASOPRESSIN 20 UNITS in 0.9 % SODIUM CHLORIDE 100 ML IV SCH ×3 (01:32→19:40)
[2020-10-09] MEDS: NOREPINEPHRINE/D5W 8 MG/508 ML BAG IV SCH ×2 (01:32→06:23)
[2020-10-09] MEDS: fentaNYL DRIP 1,250 MCG/250 ML BAG IV SCH ×3 (02:35→19:40)
[2020-10-09 04:00] LABS: iSTAT Art Bld Gas pCO2 Correct 59 mmHg (35-46); iSTAT Art Bld Gas pH Corrected 7.228 (7.35-7.45); iSTAT Arterial Blood Gas HCO3 25 meg/L (19-24); iSTAT Arterial Blood Gas pCO2 60 mmHg (35-46); iSTAT Arterial Blood Gas pH 7.22 (7.35-7.45); iSTAT Arterial Blood Gas pO2 70 mmHg (80-95); iSTAT Arterial Blood Gas pO2 C 67; iSTAT Carbon Dioxide 26 mmol/L (24-31); iSTAT FiO2 100 %; iSTAT Hematocrit 51 % (42-52); iSTAT Hemoglobin 17.3 g/dl (14.0-18.0); iSTAT Potassium 5.8 mmol/L (3.3-5.0); iSTAT Site Art Line; iSTAT Sodium 131 mmol/L (135-144)
[2020-10-09 05:28] LABS: Mean Corpuscular Hgb Conc 31.5 g/dL (32-36)
[2020-10-09 05:52] LABS: Hematocrit (blood only) 48.9 % (42-52); Hemoglobin 15.4 g/dL (14.0-18.0); Mean Corpuscular Hemoglobin 24.3 pg (25-34); Mean Corpuscular Volume 77.1 fL (80-100); RDW Coefficient of Variation 16.7 % (11.5-14.5); RDW Standard Deviation 45.3 fL (36.4-46.3); Red Blood Count 6.34 M/uL (4.7-6.1)
[2020-10-09 05:56] LABS: BUN Creatinine Ratio 21.1 (10-20); Bilirubin Direct 0.2 mg/dl (0-0.2); Calcium 8.8 mg/dl (8.5-10.1); Creatinine Clr Calc Pharmacy 23.7 ml/min; Est GFR (African American) 19.2; Est GFR (Non-African American) 16.6; Magnesium 3.6 mg/dl (1.8-2.4); Potassium 5.6 mmol/L (3.5-5.1)
[2020-10-09 05:59] LABS: Albumin Globulin Ratio 0.6 (0.9-2); Bilirubin,Total 0.5 mg/dl (0.2-1); Globulin 3.6 gm/dl (2.5-4.0); Phosphorus 8.7 mg/dl (2.5-4.9); Total Protein 5.6 gm/dl (6.4-8.2)
[2020-10-09 06:04] LABS: Platelet Count 90 K/uL (130-400)
[2020-10-09 06:05] LABS: Basophils # (auto) 0.01 K/uL (0-0.2); Immature Granulocytes % (auto) 0.4 %; Lymphocytes # (auto) 1.12 K/uL (1.2-3.4); Lymphocytes % (auto) 4.7 %; Monocytes % (auto) 1.3 %; Neutrophils # (auto) 22.17 K/uL (1.4-6.5); Neutrophils % (auto) 93.6 %; Platelet Estimate SN (Normal); RBC Morphology Unremarkable
[2020-10-09] MEDS: propofoL 1,000 MG/100 ML VIAL IV SCH ×6 (06:22→23:22)
[2020-10-09] MEDS ORDERED: MEROPENEM CONSULT ACITVE PRN (07:27)
[2020-10-09] MEDS: FAMOTIDINE 20 MG in SYRINGE 3 ML IV SCH (07:37)
[2020-10-09] MEDS: methylPREDNISolone 60 MG in SYRINGE 0 ML IV SCH ×2 (07:39→19:41)
[2020-10-09] MEDS: ASPIRIN 81 MG CHEW PO SCH (07:45)
[2020-10-09] MEDS: CHOLECALCIFEROL 1,000 UNITS 25 MCG TAB PO SCH (07:49)
[2020-10-09] MEDS: FORMOTEROL 20 MCG/2 ML VIAL NEB SCH ×2 (07:50→19:15)
[2020-10-09] MEDS: BUDESONIDE 0.5 MG/2 ML VIAL (PULMICORT) NEB SCH ×2 (07:50→19:15)
[2020-10-09] MEDS: ALBUTEROL 0.083% NEBU SOLN 3 ML VIAL NEB SCH ×4 (07:53→19:15)
[2020-10-09] MEDS ORDERED: MEROPENEM 500 MG in SYRINGE 0 ML IV STA (08:23)
[2020-10-09] MEDS ORDERED: CASPOFUNGIN 70 MG in SODIUM CHLORIDE 0.9% 250 ML IV ONE (08:30)
--- NOTE | 2020-10-09 09:17 | Critical Care Progress Note ---
Date of Service October 09, 2020 Assessment & Plan (1) Acute respiratory failure with hypoxia: Impression: 65-year-old -Finnish male with history of tobacco abuse admitted September 21 to September 27 for COVID-19 pneumonia. He received dexamethasone at that point time and had resolution of his symptoms including his oxygen requirement. His CT scan at that point time demonstrated some subpleural banding she is somewhat unusual for COVID-19. He returned to the emergency room less than 24 hours after being admitted with hypoxemic respiratory failure. 24-hour events: Patient has gotten a total of 4 mg of bumetanide but urine output has decreased significantly and the creatinine as well as a potassium are trending up. Recommendations: Neuro - Off Nimbex since 10/08/20 3 PM Sedation: Propofol and fentanyl History of vertebral artery dissection. Not on Plavix. Cardiac - EF greater than 70%, sclerotic aortic valve. Moderate concentric LVH --Shock Sepsis could be playing a role although patient's chest x-ray is clean, UA screen. Continue with vasopressor support to keep MAP greater than 65. --New onset A. fib Onset was on 10/08/2020 Patient was on Levophed as well as hypotensive Given the hemodynamic instability patient was started on amiodarone drip Respiratory - --VDRF secondary to acute hypoxic respiratory failure Multifactorial Multilobar pneumonia from COVID-19 on top of underlying autoimmune ILD Continue with O2 supplementation to keep oxygen saturation greater than 88% Continue with lung protective ventilation High PEEP, low tidal volume to keep Plateau < 30 with permissive hypercapnea if need be. Monitor ABGs Not a candidate for ECMO. Given the significant ILD I do not think patient will be a candidate for epoprostenol as this will increase the VQ mismatch and may make the hypoxia worse. 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 rheumatology No intervention from their perspective. Continue with steroids GI - --Increased transaminases Patient is not on any medication which might cause this other than statin which was discontinued Solu-Medrol might be one of the reason why it is going up Continue monitoring RENAL/LYTES - -- GOVIND worsening Cr with oliguria to anuria Nephrology on board Monitor BUN/creatinine Avoid nephrotoxic medications Strict ins and outs CPK is within normal limit. ENDO - Continue with ICU hyperglycemia protocol HEME - --Thrombocytopenia Fibrinogen high, LDH high, unlikely to be DIC Monitor ID - Patient has been afebrile but WBC has been going up and there is worsening in creatinine as well as blood pressure. I will start the patient on empiric antibiotics along with antifungals given that he has been intubated and in the hospital for a long time on steroids for the ILD as well. Septic work-up to be repeated today 10/09/2020 Has been afebrile Nasal MRSA has been negative on admission 10/01/20 --Prophylaxis VTE: Heparin subcu GI: Pepcid --No CPR --Overall prognosis is guarded Lines: Right IJ, left radial 10/06/2020, positive Barlow, Left Shiley 10/09/19 Diet: N.p.o. Plan: In/out: +3.6 L, urine output only find edema Patient is still -1 L since the time of admission. AB.22/60/70 100% with PEEP of 14, tidal volume 425 Patient was not proned last night because of hemodynamic instability. Patient's creatinine has significantly worsened. His potassium is still on the higher side with only Goglia/anuria. Case was discussed with nephrology and plan would be to do dialysis. Given the patient's significant requirement for vasopressors he might be difficult to dialyze and may need prolonged treatment. Dialysis catheter was inserted after getting consent from Faby, patient's daughter. Empiric antibiotics with meropenem as well as antifungal caspofungin to cover empirically for 48 hours. Patient's nasal MRSA was negative on admission. Will not give vancomycin. Septic work-up will be repeated today. I do not think patient is stable enough to be proned again. Overall prognosis is very guarded. I have personally spent 48 minutes of critical care time in the direct management of this patient. This is a life/limb threatening event. This includes time spent evaluating patient, direct bedside care, chart review, placing orders, interpretation of diagnostic studies, discussion with consultants, patient, and family members, as well as other required patient management activities. This time is exclusive of all separately billable procedures, and teaching time and separate from and in addition to any other critical care service time. (2) Abnormal CT scan of lung: (3) Interstitial lung disease: (4) COPD exacerbation: Admission and Anticipated Discharge Date Admission Date: September 28, 2020 Subjective Patient seen and examined at bedside. On Levophed 0.3, vasopressin 0.04, propofol 20, fentanyl 150 Patient has been off Nimbex since 10/08/2020 3 PM Patient saturation is around 90%. He is breathing with the vent. With occasional over the vent breathing. Has been afebrile. There has been episodes of hypothermia. Review of Systems Review of Systems: Unobtainable due to endotracheal tube Physical Exam Physical Exam: Constitutional: No acute distress HEENT: PERRLA, positive ETT Respiratory system: Decreased air entry bilaterally, no wheeze, rhonchi positive crackles bilateral lower lobes CVS: S1-S2 positive Abdomen: Soft, nontender, nondistended, decreased bowel sounds x4 Extremities: +2 pulses bilaterally radialis/ dorsalis pedis, no cyanosis, no edema Neuro: Sedated, positive corneal, positive pupillary Psych: Unable to assess G/U: Positive Barlow Skin: no rashes, warm and dry Lymphatic: no cervical or axillary lymphadenopathy Results & Data Results & Data ([facility]) Vital Signs (Past 12 Hours) Vital Signs Temp Pulse Resp BP Pulse Ox 10/09/20 07:50 58 L 34 H 91 10/09/20 06:00 36.3 C L 57 L 92 10/09/20 05:25 36.4 C L 57 L 101/57 L 91 10/09/20 05:00 36.4 C L 57 L 92 10/09/20 04:26 36.4 C L 56 L 92 10/09/20 04:00 36.5 C 57 L 90 10/09/20 03:40 56 L 34 H 90 10/09/20 03:25 36.5 C 57 L 95/55 L 90 10/09/20 03:00 36.5 C 57 L 92 10/09/20 02:25 36.6 C 56 L 113/45 L 92 10/09/20 02:00 36.6 C 57 L 91 10/09/20 01:25 36.7 C 56 L 100/59 L 91 10/09/20 01:00 36.7 C 55 L 91 10/09/20 00:25 36.8 C 56 L 106/54 L 91 10/09/20 00:00 36.8 C 56 L 90 10/08/20 23:25 36.9 C 57 L 109/65 90 10/08/20 23:05 59 L 34 H 89 L 10/08/20 23:00 37.0 C 56 L 89 L 10/08/20 22:26 37.1 C 59 L 89 L 10/08/20 22:25 37.1 C 59 L 104/63 89 L 10/08/20 22:00 37.1 C 60 89 L 10/08/20 21:30 37.2 C 62 88 L 10/08/20 21:26 37.2 C 62 89 L 10/09/20 05:00 10/09/20 05:00 Coding Level of Care Code Critical Care 1st 30-74 mins Diagnoses Acute respiratory failure with hypoxia J96.[address] scan of lung R91.8 Interstitial lung disease J84.9 COPD exacerbation J44.1 Time Spent (min) 48
--- NOTE | 2020-10-09 09:19 | Procedure Note ---
Procedure Note Date of Service October 09, 2020 Procedure: Inserting ultrasound-guided dialysis catheter Budget Coordinator: Dr. Missy Almonte Indication: Acute renal failure Consent: Obtained from daughter on the phone Anesthesia: 1% lidocaine without epinephrine local. Procedure: Consent was verified and timeout performed. Appropriate imaging studies were reviewed prior to the procedure. Under aseptic and sterile condition, left IJ vein was accessed under direct ultrasound guidance. Guidewire was confirmed to be within the lumen of vein with the help of ultrasound. Catheter was introduced via Seldinger technique. Guide a wire was removed. Good non-pulsatile blood flow was appreciated from all the ports. The catheter was placed at 20 cm and sutured in place. BioPatch was applied to the catheter and a sterile Tegaderm dressing was applied over the catheter with careful attention to sterility. Chest x-ray to follow Patient tolerated the procedure well. Blood loss: Less than 2 cc Complications: None Coding CPT Codes Tubes, Drains, and Vasc Access - Tubes, Drains, and Vasc Access: [id number] Insertion of cannula for hemodialysis ([id number]) Tubes, Drains, and Vasc Access - Tubes, Drains, and Vasc Access: [id number] Ultrasound Guidance For Vascular ([id number]) [facility] [place]) Tubes, Drains, and Vasc Access Procedure 1: Tubes, Drains, and Vasc Access: [id number] Insertion of cannula for hemodialysis Procedure 2: Tubes, Drains, and Vasc Access: [id number] Ultrasound Guidance For Vascular
[2020-10-09 10:19] LABS: Hepatitis B Surface Ab Quant 4.85 mIU/mL (>or=10mIU/mL Immune); Hepatitis B Surface Antibody Non-Immune
--- NOTE | 2020-10-09 10:24 | XRay Report ---
XR chest 1V portable CLINICAL HISTORY: dialysis catheter placed COMPARISON STUDY: 10/08/2019 FINDINGS: There is a tracheostomy tube 34 mm above the manjit. There is no change in the position of the right internal jugular central venous catheter. There is an enteric tube which passes into the st omach. There is been interval insertion of a left internal jugular central venous catheter. The tip p rojects over the superior vena cava. There is no pneumothorax. Bilateral interstitial pulmonary opaci ties persist.[ IMPRESSION: No evidence of pneumothorax status post insertion of a left internal jugular central veno us catheter. ACT 112: Negative or not required by law. Electronically signed by: Agustin Vasques M.D. 10/09/2020 10:23 AM
--- NOTE | 2020-10-09 10:25 | Nephrology Progress Note ---
Date of Service October 09, 2020 Assessment & Plan (1) GOVIND (acute kidney injury): 65 y o M with prior normal renal function, admitted with respiratory failure secondary to COVID pneumonia, currently intubated since 10/06/20. Developed GOVIND and hyperkalemia over last 24 hours. Has been oliguric. REnal USG with no post renal obstruction. UA unremarkable. Remained intubated, requiring 100 % Fio2, currently on 2 Pressors. Renal function continues to worsen, urine output has been low despite multiple IV diuretics, persistently hyperkalemic. --will start on emergency hemodialysis via temporary dialysis catheter with 2 K bath, minimum UF as tolerated. --dose medications for GFR less than 10 --overall prognosis remains guarded Will follow (2) Hyperkalemia: (3) Acute respiratory failure with hypoxia: (4) Pneumonia due to COVID-19 virus: Admission and Anticipated Discharge Date Admission Date: September 28, 2020 Subjective Mr. Goodson was evaluated this morning, clinical parameters, vitals, labs and imaging reviewed, no direct exam due to COVID isolation. BP remained low on 2 pressors. UO low and renal function progressively worsening and remain persiste ntly hyperkalemic despite multiple dose Veltassa and Bumex. Review of Systems Review of Systems: Unobtainable due to endotracheal tube Results & Data ([facility]) Vital Signs (Past 12 Hours) Vital Signs Temp Pulse Resp BP Pulse Ox 10/09/20 07:50 58 L 34 H 91 10/09/20 06:00 36.3 C L 57 L 92 10/09/20 05:25 36.4 C L 57 L 101/57 L 91 10/09/20 05:00 36.4 C L 57 L 92 10/09/20 04:26 36.4 C L 56 L 92 10/09/20 04:00 36.5 C 57 L 90 10/09/20 03:40 56 L 34 H 90 10/09/20 03:25 36.5 C 57 L 95/55 L 90 10/09/20 03:00 36.5 C 57 L 92 10/09/20 02:25 36.6 C 56 L 113/45 L 92 10/09/20 02:00 36.6 C 57 L 91 10/09/20 01:25 36.7 C 56 L 100/59 L 91 10/09/20 01:00 36.7 C 55 L 91 10/09/20 00:25 36.8 C 56 L 106/54 L 91 10/09/20 00:00 36.8 C 56 L 90 10/08/20 23:25 36.9 C 57 L 109/65 90 10/08/20 23:05 59 L 34 H 89 L 10/08/20 23:00 37.0 C 56 L 89 L 10/08/20 22:26 37.1 C 59 L 89 L 10/08/20 22:25 37.1 C 59 L 104/63 89 L PG Care Time/CCT Total # of Minutes Spent Total Time Spent with Patient: Total time spent is greater than 50% in coordination of care (as documented) at patient's floor/unit and/or counseling patient: Coding Level of Care Code 93940 Subseq Hosp Care Lvl 3 Diagnoses GOVIND (acute kidney injury) N17.9 Hyperkalemia E87.5 Acute respiratory failure with hypoxia J96.01 Pneumonia due to COVID-19 virus U07.1; J12.82
[2020-10-09 10:30] LABS: Hepatitis B Surface Antigen Neg (Neg)
[2020-10-09] MEDS: INSULIN GLARGINE SOLOSTAR 100 UNITS/ML 3 ML PEN SC SCH ×2 (10:31→20:28)
[2020-10-09] MEDS ORDERED: STAT IV Infusion **Titration per Protocol STA ×2 (11:16→16:56)
[2020-10-09] MEDS: Double Conc 32mcg/mL; 16mg in 500mL IV SCH ×3 (11:30→22:38)
[2020-10-09] MEDS: EPINEPHrine/NSS 4 MG/254 ML BAG IV SCH ×4 (12:07→23:47)
--- NOTE | 2020-10-09 14:24 | Pharmacy Report ---
Pharmacy Glycemic Short Note 2 - Date of Service October 09, 2020 - Glycemic Short BSG Results (Last 24 hours): 10/08/20 10/08/20 10/08/20 11:39 15:41 17:22 Glucose 309 H* POC Glucose (other) 165 H 201 H 10/08/20 10/08/20 10/09/20 19:54 22:09 00:02 Glucose 278 H POC Glucose (other) 269 H 283 H 10/09/20 10/09/20 10/09/20 03:45 05:00 09:06 Glucose 286 H POC Glucose (other) 279 H 257 H OUTPATIENT ANTIDIABETIC REGIMEN: * Metformin 500mg qam ASSESSMENT: 10/08 * Patient hyperglycemic overnight and this morning. He did reportedly receive 2 amps of dextrose as part of a hyperkalemia regimen last evening, likely contributing to this * Patient did start HD today and hyperglycemia improved somewhat after * Remains on multiple pressors and steroids. Norepinephrine in dextrose running at ~50-50 ml/hr. * Will continue with lantus scale. I am hesitant to be too aggressive given pressors, HD, and over clinical status changes. * Novolog CF was tightened, will monitor closely. 10/07 * Patient now intubated, paralyzed and on vasopressors experiencing BSGs in the 200s. * Anticipate BSGs to be somewhat labile and unpredictable due to variable absorption, GOVIND and stressors * Patient remains on steroids but is NPO * Will continue with a modified lantus scale this evening due to changing insulin needs. NovoLog will be changed to q4 and CF tightened. 10/06 * Patient reasonably well controlled over the past 24 hours on current regimen (40 units basal, 5-10 units bolus). BSGs range between 147-162 mg/dL * Patient is ordered a full liquid diet and per RN, patient has been drinking 1- 2 juices cups three times a day * Patient continues on IV solumedrol but tapering has begun PLAN FOR INPATIENT GLYCEMIC CONTROL: * Hold outpatient oral diabetes medications * Basal insulin * Lantus 20 units this morning * Lantus 0, 10, 15 or 20 units units SQ this evening based on BSG (see MAR for details) * Bolus insulin * NovoLog per scale q4h * Goal Range: Low 110 mg/dL - High 140 mg/dL * Correction Factor: 10 mg/dL/unit * Nutritional / Prandial insulin per carb ratio of 1 unit per 7 grams CHO consumed
[2020-10-09 14:47] LABS: BUN Creatinine Ratio 17.6 (10-20); Calcium 8.2 mg/dl (8.5-10.1); Creatinine Clr Calc Pharmacy 23.6 ml/min; Est GFR (African American) 19.1; Est GFR (Non-African American) 16.5; Potassium 4.8 mmol/L (3.5-5.1)
[2020-10-09] MEDS ORDERED: PROPOFOL BOLUS FROM BAG IV PRN (16:56)
[2020-10-09] MEDS: ACETAMINOPHEN 500 MG TAB PO PRN (20:12)
[2020-10-09] MEDS ORDERED: 0.2 MICRON FILTER SET 1 EA IV ONE (20:27)
[2020-10-09] MEDS ORDERED: AMIODARONE / D5W 150 MG/100 ML BAG IV STA (20:27)
[2020-10-09] MEDS ORDERED: AMIODARONE 150MG / 100ML D5W IV ONE (20:31)
[2020-10-09] MEDS ORDERED: MEROPENEM 500 MG in SYRINGE 0 ML IV SCH (21:00)
[2020-10-10] MEDS: ACETAMINOPHEN 500 MG TAB PO PRN ×2 (01:21→12:43)
[2020-10-10] MEDS: EPINEPHrine/NSS 4 MG/254 ML BAG IV SCH ×5 (02:30→10:23)
[2020-10-10] MEDS ORDERED: NOREPINEPHRINE/D5W 8 MG/508 ML IV ONE (03:32)
[2020-10-10] MEDS: fentaNYL DRIP 1,250 MCG/250 ML BAG IV SCH ×5 (03:38→12:46)
[2020-10-10] MEDS: Double Conc 32mcg/mL; 16mg in 500mL IV SCH ×3 (03:42→12:47)
[2020-10-10] MEDS ORDERED: SODIUM BICARB 8.4% INJ 50 MEQ/50 ML SYR IV STA (03:43)
[2020-10-10 03:57] LABS: iSTAT Art Bld Gas pCO2 Correct 95 mmHg (35-46); iSTAT Art Bld Gas pH Corrected 7.005 (7.35-7.45); iSTAT Arterial Blood Gas HCO3 23 meg/L (19-24); iSTAT Arterial Blood Gas pCO2 89 mmHg (35-46); iSTAT Arterial Blood Gas pH 7.03 (7.35-7.45); iSTAT Arterial Blood Gas pO2 51 mmHg (80-95); iSTAT Arterial Blood Gas pO2 C 58; iSTAT Carbon Dioxide 26 mmol/L (24-31); iSTAT FiO2 100 %; iSTAT Hematocrit 53 % (42-52); iSTAT Potassium 6.8 mmol/L (3.3-5.0); iSTAT Site Art Line; iSTAT Sodium 125 mmol/L (135-144)
[2020-10-10 04:00] LABS: Mean Corpuscular Hgb Conc 31.1 g/dL (32-36)
[2020-10-10] MEDS: VASOPRESSIN 20 UNITS in 0.9 % SODIUM CHLORIDE 100 ML IV SCH ×2 (04:00→12:46)
[2020-10-10] MEDS: INSULIN ASPART 100 UNITS/ML 3 ML PEN SC SCH ×3 (04:03→13:47)
[2020-10-10 04:10] LABS: Hematocrit (blood only) 50.1 % (42-52); Hemoglobin 15.6 g/dL (14.0-18.0); Mean Corpuscular Hemoglobin 24.3 pg (25-34); Mean Corpuscular Volume 78.2 fL (80-100); RDW Coefficient of Variation 17.7 % (11.5-14.5); RDW Standard Deviation 48.6 fL (36.4-46.3); Red Blood Count 6.41 M/uL (4.7-6.1); White Blood Count 23.34 K/uL (4.8-10.8)
[2020-10-10] MEDS: propofoL 1,000 MG/100 ML VIAL IV SCH ×2 (04:13→07:12)
[2020-10-10 04:29] LABS: Immature Granulocytes # (auto) 0.18 K/uL (0.00-0.02); Immature Granulocytes % (auto) 0.8 %; Lymphocytes # (auto) 0.57 K/uL (1.2-3.4); Lymphocytes % (auto) 2.4 %; Monocytes # (auto) 0.95 K/uL (0.11-0.59); Monocytes % (auto) 4.1 %; Neutrophils # (auto) 21.64 K/uL (1.4-6.5); Neutrophils % (auto) 92.7 %; Platelet Count 47 K/uL (130-400); Platelet Estimate Decreased (Normal)
[2020-10-10 04:35] LABS: Albumin Globulin Ratio 0.5 (0.9-2); Albumin Level 1.6 gm/dl (3.4-5.0); BUN Creatinine Ratio 13.2 (10-20); Bilirubin,Total 0.6 mg/dl (0.2-1); Calcium 8.1 mg/dl (8.5-10.1); Creatinine Clr Calc Pharmacy 16.5 ml/min; Est GFR (African American) 12.4; Est GFR (Non-African American) 10.7; Globulin 3.5 gm/dl (2.5-4.0); Total Protein 5.1 gm/dl (6.4-8.2)
[2020-10-10] MEDS: HEPARIN SOD 5,000 UNIT/0.5 ML VIAL SQ SCH ×2 (05:31→13:49)
[2020-10-10 06:15] LABS: Magnesium 3.2 mg/dl (1.8-2.4); Potassium 5.4 mmol/L (3.5-5.1)
[2020-10-10] MEDS: FAMOTIDINE 20 MG in SYRINGE 3 ML IV SCH (07:45)
[2020-10-10] MEDS: methylPREDNISolone 60 MG in SYRINGE 0 ML IV SCH (07:45)
[2020-10-10] MEDS: ASPIRIN 81 MG CHEW PO SCH (07:46)
[2020-10-10] MEDS: CHOLECALCIFEROL 1,000 UNITS 25 MCG TAB PO SCH (07:46)
[2020-10-10] MEDS: FORMOTEROL 20 MCG/2 ML VIAL NEB SCH (07:50)
[2020-10-10] MEDS: BUDESONIDE 0.5 MG/2 ML VIAL (PULMICORT) NEB SCH (07:50)
[2020-10-10 08:01] LABS: Phosphorus 9.5 mg/dl (2.5-4.9)
[2020-10-10] MEDS: ALBUTEROL 0.083% NEBU SOLN 3 ML VIAL NEB SCH ×3 (08:20→17:03)
[2020-10-10] MEDS: INSULIN GLARGINE SOLOSTAR 100 UNITS/ML 3 ML PEN SC SCH (08:21)
--- NOTE | 2020-10-10 08:59 | XRay Report ---
XR chest 1V portable HISTORY: 65 years-old Male f/u follow-up study in a patient with acute respiratory failure COMPARISON: Chest radiograph 10/09/2020 TECHNIQUE: Portable AP view of the chest FINDINGS: Endotracheal tube overlies the midline approximately 6.7 cm superior to the manjit. Right and left IJ central venous catheters appear unchanged. An enteric tube courses below the diaphragm outside the f [id number]. No pneumothorax or large pleural effusion. Bilateral reticular densities with intermixed patchy alveo lar opacities have mildly progressed. Degenerative changes of the shoulders and spine. IMPRESSION: 1. Lines and tubes as above. 2. Mildly progressed interstitial coarsening with patchy alveolar opacities. ACT 112: Negative or not required by law. The above report was generated using voice recognition software. It may contain grammatical, syntax o r spelling errors. Electronically signed by: Zack Wong M.D. 10/10/2020 8:58 AM
[2020-10-10] MEDS ORDERED: NOVASOURCE RENAL 2.0 CAL 1000ML BAG OG SCH ×2 (09:15→10:27)
[2020-10-10] MEDS ORDERED: HEPARIN SOD (PORCINE) 1000 UNIT/ML 10 ML VIAL IV ONE (09:37)
[2020-10-10] MEDS ORDERED: SODIUM CHLORIDE 0.9% 1000ML 1,000 ML IV PRN (09:37)
--- NOTE | 2020-10-10 09:50 | Nephrology Progress Note ---
Date of Service October 10, 2020 Assessment & Plan (1) GOVIND (acute kidney injury): Oliguric. Ischemic ATN. HD catheter placed by ICU team yesterday. HD unfortunately complicated by hemodynamic instability. Hyperkalemia and metabolic acidosis persist. Positive sodium balance with severe hypoxic respiratory failure. Will attempt HD again today. Orders entered into EMR and discussed with HD nurse. Goals of care reviewed with senior game advisor. Ideally continuous renal replacement therapy option would be offered but unable to transfer to a facility that could provide this service at this time. Will attempt to gain some clearance with minimal UF today. Remains on epi, norepi, and vasopressin. We aning epi as tolerated. Maintain levo gtt to titrate as needed during HD treatment. Medications appropriately dosed for IHD. Noted progressive thrombocytopenia. HIT ab testing sent. (2) Hyperkalemia: (3) Acute respiratory failure with hypoxia: (4) Pneumonia due to COVID-19 virus: Admission and Anticipated Discharge Date Admission Date: September 28, 2020 Subjective Remains hemodynamically unstable requiring vasopressor support. Febrile with SVT overnight. Amio for SVT. Notable vent support. Prognosis remains guarded. HD stopped due to hemodynamic instability. Unfortunately, no favorable ability to transfer to tertiary care facility. I reviewed the patient's condition with the bedside nurse and discussed the plan of care in detail with the ICU team this AM. Review of Systems Review of Systems: Unobtainable due to cognitive status and Unobtainable due to endotracheal tube Physical Exam Physical Exam: Deferred due to COVID Results & Data ([facility]) Vital Signs (Past 12 Hours) Vital Signs Temp Pulse Resp BP Pulse Ox 10/10/20 08:57 37.9 C H 130 H 106/75 74 L 10/10/20 08:26 37.8 C H 140 H 143/104 H 76 L 10/10/20 07:56 37.8 C H 101 H 114/91 75 L 10/10/20 07:50 101 H 35 H 76 L 10/10/20 07:26 37.8 C H 100 H 145/87 H 77 L 10/10/20 06:00 37.8 C H 88 105/66 76 L 10/10/20 05:00 37.9 C H 91 H 76 L 10/10/20 04:00 38.2 C H 93 H 82 L 10/10/20 03:34 91 H 35 H 78 L 10/10/20 03:00 38.3 C H 99 H 77 L 10/10/20 02:00 38.4 C H 98 H 77 L 10/10/20 01:00 38.5 C H 99 H 78 L 10/10/20 00:01 38.6 C H 102 H 77 L 10/10/20 00:00 105 H 124/80 10/09/20 23:26 38.6 C H 105 H 124/80 77 L 10/09/20 23:14 103 H 35 H 77 L 10/09/20 23:13 107 H 10/09/20 23:00 38.5 C H 107 H 77 L 10/09/20 22:56 38.5 C H 107 H 147/71 H 77 L 10/09/20 22:26 38.5 C H 104 H 99/71 L 79 L 10/09/20 22:00 38.5 C H 108 H 78 L PG Care Time/CCT Total # of Minutes Spent Total Time Spent with Patient: Total time spent is greater than 50% in coordination of care (as documented) at patient's floor/unit and/or counseling patient: Coding Level of Care Code 99284 Subseq Hosp Care Lvl 3 Diagnoses GOVIND (acute kidney injury) N17.9 Hyperkalemia E87.5 Acute respiratory failure with hypoxia J96.01 Pneumonia due to COVID-19 virus U07.1; J12.82
[2020-10-10] MEDS ORDERED: PROSOURCE NO CARB 30 ML/PKT OG SCH (10:00)
--- NOTE | 2020-10-10 10:11 | Critical Care Progress Note ---
Date of Service October 10, 2020 Assessment & Plan (1) Acute respiratory failure with hypoxia: Impression: 65-year-old -[place] male with history of tobacco abuse admitted September 21 to September 27 for COVID-19 pneumonia. He received dexamethasone at that point time and had resolution of his symptoms including his oxygen requirement. His CT scan at that point time demonstrated some subpleural banding she is somewhat unusual for COVID-19. He returned to the emergency room less than 24 hours after being admitted with hypoxemic respiratory failure. 24-hour events: Patient has gotten a total of 4 mg of bumetanide but urine output has decreased significantly and the creatinine as well as a potassium are trending up. Recommendations: Neuro - Off Nimbex since 10/08/20 3 PM Sedation: Propofol and fentanyl History of vertebral artery dissection. Not on Plavix. Cardiac - EF greater than 70%, sclerotic aortic valve. Moderate concentric LVH --Shock Sepsis could be playing a role although patient's chest x-ray is clean, UA screen. Continue with vasopressor support to keep MAP greater than 65. --New onset A. fib Onset was on 10/08/2020 Patient was on Levophed as well as hypotensive Given the hemodynamic instability patient was started on amiodarone drip Not on therapeutic anticoagulation because of thrombocytopenia Continue with heparin subcu Respiratory - --VDRF secondary to acute hypoxic respiratory failure Multifactorial Multilobar pneumonia from COVID-19 on top of underlying autoimmune ILD Continue with O2 supplementation to keep oxygen saturation greater than 88% Continue with lung protective ventilation High PEEP, low tidal volume to keep Plateau < 30 with permissive hypercapnea if need be. Monitor ABGs Not a candidate for ECMO. Given the significant ILD I do not think patient will be a candidate for epoprostenol as this will increase the VQ mismatch and may make the hypoxia worse. 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 Continue with steroids GI - --Increased transaminases Trending down Patient is not on any medication which might cause this other than statin which was discontinued Solu-Medrol might be one of the reason why it is going up Continue monitoring RENAL/LYTES - -- GOVIND from combination of Covid 19 and ATN worsening Cr with oliguria to anuria --> started HD 10/09/2020 Nephrology on board Monitor BUN/creatinine Avoid nephrotoxic medications Strict ins and outs CPK is within normal limit. ENDO - Continue with ICU hyperglycemia protocol HEME - --Thrombocytopenia Fibrinogen high, LDH high, unlikely to be DIC, factor VIII pending Monitor ID - --New onset fever noticed 10/10/20 noticed after starting antibiotic 10/09/20 c/w antibiotic with antifungal coverage Septic work-up to be repeated today 10/09/2020 Has been afebrile Nasal MRSA has been negative on admission 10/01/20 --Prophylaxis VTE: Heparin subcu GI: Pepcid --No CPR --Overall prognosis is guarded Lines: Right IJ, left radial 10/06/2020, positive Barlow, Left Shiley 10/09/19 Diet: N.p.o. Plan: In/out: +5.7 L, 329 mL Patient saturation has been in the mid 70s for almost 24 hours now. Gradually getting worse Part of it is because of the fluid overload as well from patient being anuric. Dialysis was tried yesterday but had to be stopped earlier as patient was getting hemodynamically more unstable and saturation was going even lower. Unfortunately we do not have CRRT here and patient is too hemodynamically unstable. Patient has started to spike fever as of midnight. He is already on antibiotics. Septic work-up has been ordered it is negative to date. Patient is breathing over the vent but unfortunately is not having any purposeful movements. Sluggish pupillary response, no gag. Overall prognosis is very guarded. I have personally spent 41 minutes of critical care time in the direct management of this patient. This is a life/limb threatening event. This includes time spent evaluating patient, direct bedside care, chart review, placing orders, interpretation of diagnostic studies, discussion with consultants, patient, and family members, as well as other required patient management activities. This time is exclusive of all separately billable procedures, and teaching time and separate from and in addition to any other critical care service time. (2) Abnormal CT scan of lung: (3) Interstitial lung disease: (4) COPD exacerbation: Admission and Anticipated Discharge Date Admission Date: September 28, 2020 Subjective Patient seen and examined at bedside. On fentanyl 150, propofol On epi 0.25, Levophed 0.3, vasopressin 0.04 Patient is breathing over the vent. He has no gag, very poor pupillary response, no corneal. Not following any commands. Is on amiodarone drip as well. He still has bouts of A. fib with RVR Patient has started to spike fever T-max 38.6 Review of Systems Review of Systems: Unobtainable due to cognitive status Physical Exam Physical Exam: Constitutional: No acute distress HEENT: PERRLA, positive ETT Respiratory system: Decreased air entry bilaterally, no wheeze, rhonchi positive crackles bilateral lower lobes CVS: S1-S2 positive Abdomen: Soft, nontender, nondistended, decreased bowel sounds x4 Extremities: +2 pulses bilaterally radialis/ dorsalis pedis, no cyanosis, no edema Neuro: Sedated, no corneal, sluggish pupillary, no gag Psych: Unable to assess G/U: Positive Barlow Skin: no rashes, warm and dry Lymphatic: no cervical or axillary lymphadenopathy Results & Data Results & Data ([facility]) Vital Signs (Past 12 Hours) Vital Signs Temp Pulse Resp BP Pulse Ox 10/10/20 08:57 37.9 C H 130 H 106/75 74 L 10/10/20 08:26 37.8 C H 140 H 143/104 H 76 L 10/10/20 07:56 37.8 C H 101 H 114/91 75 L 10/10/20 07:50 101 H 35 H 76 L 10/10/20 07:26 37.8 C H 100 H 145/87 H 77 L 10/10/20 06:00 37.8 C H 88 105/66 76 L 10/10/20 05:00 37.9 C H 91 H 76 L 10/10/20 04:00 38.2 C H 93 H 82 L 10/10/20 03:34 91 H 35 H 78 L 10/10/20 03:00 38.3 C H 99 H 77 L 10/10/20 02:00 38.4 C H 98 H 77 L 10/10/20 01:00 38.5 C H 99 H 78 L 10/10/20 00:01 38.6 C H 102 H 77 L 10/10/20 00:00 105 H 124/80 10/09/20 23:26 38.6 C H 105 H 124/80 77 L 10/09/20 23:14 103 H 35 H 77 L 10/09/20 23:13 107 H 10/09/20 23:00 38.5 C H 107 H 77 L 10/09/20 22:56 38.5 C H 107 H 147/71 H 77 L 10/09/20 22:26 38.5 C H 104 H 99/71 L 79 L 10/10/20 03:30 10/10/20 05:28 Coding Level of Care Code Critical Care 1st 30-74 mins Diagnoses Acute respiratory failure with hypoxia J96.[address] scan of lung R91.8 Interstitial lung disease J84.9 COPD exacerbation J44.1 Time Spent (min) 41
[2020-10-10] MEDS: AMIODARONE / D5W 360 MG/200 ML BAG IV SCH (10:23)
[2020-10-10] MEDS ORDERED: CASPOFUNGIN 50 MG in SODIUM CHLORIDE 0.9% 250 ML IV SCH (10:30)
--- NOTE | 2020-10-10 10:58 | Communication Note ---
Date of Service: October 10, 2020 Critical CARE addendum: Patient's daughter Faby as well as Millie were called and updated regarding patient's declining condition. I told him the patient is on 3 vasopressors right now to maintain the blood pressure. His saturations are in the mid 70s even though he is on maximum support. There is decline in kidney function, needing dialysis. Given the multiorgan failure that we are in and clinical deterioration appreciated since last 3 days overall prognosis is very guarded. The plan initially before talking to the family was to give another trial of dialysis but looking at the overall condition of the patient and clinical deterioration family decided towards keeping the patient comfortable and not escalating the care. I explained I would comfort measures look like which includes taking the tube out and keeping the patient comfortable by giving medication for pain and distress while letting nature takes its course. All questions inquiries of both daughters were answered in depth. Family was frustrated that they were not able to talk to the patient prior to intubation. Empathy was given in the most respectful way. Plan will be to terminally extubate the patient after contacting the present. I have personally spent 25 minutes of critical care time in the direct management of this patient. This is a life/limb threatening event. This includes time spent evaluating patient, direct bedside care, chart review, placing orders, interpretation of diagnostic studies, discussion with consultants, patient, and family members, as well as other required patient management activities. This time is exclusive of all separately billable procedures, and teaching time and separate from and in addition to any other critical care service time. Please note the above document was generated using voice recognition software. It may contain grammatical, syntax or spelling errors. Coding Level of Care Code Critical Care saniya hernandezt'l 30 min Time Spent (min) 25
--- NOTE | 2020-10-10 15:26 | Hospitalist Progress Note ---
Date of Service October 10, 2020 Assessment & Plan (1) Acute respiratory failure with hypoxia: Severe, profound. Dx with COVID-19 infection on 09/21/2020 but had been ill since about 09/11/20. Hospitalized from 09/21/20 to 09/27/20 for COVID at [facility]. On 09/27/20 upon discharge back to [facility] patient was reportedly stable in room air. He returned to [facility] on 09/28/20 with profound hypoxia. Repeat CTA on 09/28/20 without PEs but diffuse infiltrates - progressive ILD/PF suspected in setting of COPD/recent COVID. he was requiring CPAP and BIPAP progressed to respiratory failure requiring intubation 10/06 intubated, paralyzed, prone position main reason for his hypoxic resp failure is progressive ILD/PF, and recent COVID-19 pneumonia. Superimposed bacterial pneumonia felt unlikely given negative procalcitonin levels. CCP positive, possible rheumatoid component continue Solu Medrol It appears his PF/ILD is much worse than several weeks ago and pulmonology feels this is primary culprit at this time. patient's saturations 70's despite maximum ventilatory support Dr. Almonte discussed with his family over the phone, will make comfort care and plan for terminal extubation (2) GOVIND (acute kidney injury): progressed, likely from circulatory shock nephrology consulted for HD difficult with patient on three pressors family elected to make patient comfortable (3) Shock circulatory: patient requiring three vasopressors for support with acute kidney injury, respiratory failure terminal condition at this point family made comfort care (4) Anti-cyclic citrullinated peptide antibody positive: anti-CCP ab returned positive. this would suggest positivity for rheumatoid arthritis. his ILD may be rheumatic in origin. or, he could have this as an "autoantibody" in the setting of recent COVID-19. awaiting additional autoimmune w/u (RF, CADEN, etc). pulm/ICU discussed his case with [facility] and [facility] in [place] on 10/03. immune-based therapy (Actemra) discussed; was not recommended. sed rate/crp markedly elevated. (5) Acute CHF: previous acute diastolic CHF in setting of severe acute hypoxic resp failure. s/p copious diuresis since admission but suspect euvolemia has been achieved. echo findings noted. normal wall motion on echo. normal estimated PA pressures. (6) Pulmonary fibrosis: seen on his first CTA chest on 09/21/2020. additional CTAs on 09/27 and 09/28 show worsening fibrosis. large concern that progressive PF/ILD is largest contributor to current severe hypoxia/hypoxemia. anti-CCP ab is markedly positive - ILD 2nd to rheumatic disease?? or, has he developed fibrosis following ARDS from COVID-19?? combination? awaiting additional autoimmune w/u. cont high-dose steroids and supportive care. discussed his case with rheum by phone - see above. immune-based therapy deferred at this time. (7) COPD exacerbation: severe emphysematous changes on imaging. cont steroids. pulm toilet. pulmonary consultation appreciated. (8) Chest pain: had multiple episodes shortly after [facility] on 09/[facility]. none while hospitalized. uncertain if symptoms pre-admission were cardiac or due to severe pulmonary disease. suspect latter. troponins scantly elevated at admission. despite multiple EKGs with marked ST depressions anterolaterally his echo shows normal LV wall motion. (9) Pneumonia due to COVID-19 virus: initial dx 09/21/20. cont supportive care. no role for plasma/remdesivir - initial dx around [place]. Dr Chi reported that anti-CCP ab positivity can give false positive COVID testing (10) Hyperlipidemia: cont crestor (11) HTN (hypertension): hold YANIV due to mild hyperkalemia (12) Diabetes mellitus, type II: appreciate pharmacy glycemic assistance. cont NPH, cont novolog. last Hba1c 7.6%. HOLD YANIV inhibitor ICU glycemic protocol. (13) Vertebral artery dissection: history of - 08/2019 right vertebral artery - short segment did not require intervention (14) Elevated troponin: peak troponin 0.131 at admission echo with normal wall motion likely myocardial demand ischemia in setting of profound hypoxia/hypoxemia (15) DVT prophylaxis: due to high risk of VTE in setting of COVID -- lovenox 40mg BID prognosis very, very poor, now ventilated code - conditional appreciate critical care assistance Admission and Anticipated Discharge Date Admission Date: September 28, [address] Almonte managing updated patient's family about grave condition, elected to make him comfort care Review of Systems Review of Systems: Unobtainable due to endotracheal tube Physical Exam Constitutional: well developed, + ill appearing and + mechanically ventilated Neck: trachea midline, no thyromegaly Respiratory: normal respiratory effort and symmetric chest movement (on ventilator) Auscultation: lungs clear to auscultation bilaterally Cardiovascular: RRR, no murmur, no edema Gastrointestinal (Abdomen): normal bowel sounds, soft, nontender, no hepatosplenomegaly Musculoskeletal: Head/Neck/Chest: normocephalic, head atraumatic and neck supple Skin: no rashes, warm and dry Neurologic: + obtunded; no focal motor deficits Psychiatric: Orientation: + not alert Lymphatic: no cervical or axillary lymphadenopathy Results & Data Results & Data ([facility]) Vital Signs (Past 12 Hours) Vital Signs Temp Pulse Resp BP Pulse Ox 10/10/20 13:27 38.2 C H 83 102/62 70 L 10/10/20 12:27 38.2 C H 94 H 130/81 72 L 10/10/20 11:57 38.1 C H 97 H 134/87 72 L 10/10/20 11:30 97 H 35 H 72 L 10/10/20 11:27 38.1 C H 96 H 128/75 73 L 10/10/20 10:56 38.1 C H 116 H 141/96 H 74 L 10/10/20 10:28 38.1 C H 119 H 129/71 72 L 10/10/20 10:11 38.0 C H 115 H 121/73 73 L 10/10/20 09:57 38.0 C H 121 H 158/74 H 73 L 10/10/20 09:26 38.0 C H 128 H 143/66 H 73 L 10/10/20 08:57 37.9 C H 130 H 106/75 74 L 10/10/20 08:26 37.8 C H 140 H 143/104 H 76 L 10/10/20 07:56 37.8 C H 101 H 114/91 75 L 10/10/20 07:50 101 H 35 H 76 L 10/10/20 07:26 37.8 C H 100 H 145/87 H 77 L 10/10/20 06:00 37.8 C H 88 105/66 76 L 10/10/20 05:00 37.9 C H 91 H 76 L 10/10/20 04:00 38.2 C H 93 H 82 L 10/10/20 03:34 91 H 35 H 78 L Laboratory Results Laboratory Results - last 24 hr 10/09/20 10/09/20 10/09/20 11:57 17:55 19:49 WBC RBC Hgb POC Hgb Hct POC Hct MCV MCH MCHC RDW Std Deviation RDW Coeff of Ya Plt Count Immature Gran % (Auto) Neut % (Auto) Lymph % (Auto) [place] % (Auto) Eos % (Auto) Baso % (Auto) Neut # (Auto) Lymph # (Auto) [place] # (Auto) Eos # (Auto) Baso # (Auto) Immature Gran # (Auto) Platelet Estimate Sample Site POC pH POC pCO2 POC pO2 POC HCO3 POC Total CO2 POC Base Excess ABG pH (Temp Correct) ABG pCO2 (Temp Corrct POC ABG pO2 at Pt Temp POC ABG O2 Sat Sadi Test O2 Delivery Device POC O2 Rate Minute Ventilation POC FiO2 Tidal Volume PEEP POC Sodium Sodium POC Potassium Potassium Chloride Carbon Dioxide Anion Gap BUN Creatinine Est Cr Clr Drug Dosing Est GFR ( Amer) Est GFR (Non-Af Amer) BUN/Creatinine Ratio Glucose POC Glucose (other) 213 H 186 H 194 H Calcium Phosphorus Magnesium Total Bilirubin AST ALT Alkaline Phosphatase Total Protein Albumin Globulin Albumin/Globulin Ratio Serotonin Release Assay Specimen Hemolysis Heparin Depend Plt Ab 10/10/20 10/10/20 10/10/20 03:30 03:30 03:41 WBC 23.34 H RBC 6.41 H Hgb 15.6 POC Hgb 18.0 Hct 50.1 POC Hct 53 H MCV 78.2 L MCH 24.3 L MCHC 31.1 L RDW Std Deviation 48.6 H RDW Coeff of Ya 17.7 H Plt Count 47 L Immature Gran % (Auto) 0.8 Neut % (Auto) 92.7 Lymph % (Auto) 2.4 [place] % (Auto) 4.1 Eos % (Auto) 0.0 Baso % (Auto) 0.0 Neut # (Auto) 21.64 H Lymph # (Auto) 0.57 L [place] # (Auto) 0.95 H Eos # (Auto) 0.00 Baso # (Auto) 0.00 Immature Gran # (Auto) 0.18 H Platelet Estimate Decreased L Sample Site Art Line POC pH 7.03 L* POC pCO2 89 H POC pO2 51 L POC HCO3 23 POC Total CO2 26 POC Base Excess -8.0 ABG pH (Temp Correct) 7.005 L* ABG pCO2 (Temp Corrct 95 H POC ABG pO2 at Pt Temp 58 POC ABG O2 Sat 66.0 L Sadi Test NA O2 Delivery Device Ventilator POC O2 Rate 34 Minute Ventilation 14 POC FiO2 100 Tidal Volume 400 PEEP 16 POC Sodium 125 L Sodium 132 L POC Potassium 6.8 H* Potassium Chloride 99 Carbon Dioxide 22 Anion Gap 11.0 BUN 69 H Creatinine 5.23 H* D Est Cr Clr Drug Dosing 16.5 Est GFR ( Amer) 12.4 Est GFR (Non-Af Amer) 10.7 BUN/Creatinine Ratio 13.2 Glucose 203 H POC Glucose (other) Calcium 8.1 L Phosphorus 9.5 H Magnesium Total Bilirubin 0.6 AST ALT 59 Alkaline Phosphatase 93 Total Protein 5.1 L Albumin 1.6 L Globulin 3.5 Albumin/Globulin Ratio 0.5 L Serotonin Release Assay Specimen Hemolysis Heparin Depend Plt Ab 10/10/20 10/10/20 10/10/20 05:28 08:02 09:58 WBC RBC Hgb POC Hgb Hct POC Hct MCV MCH MCHC RDW Std Deviation RDW Coeff of Ya Plt Count Immature Gran % (Auto) Neut % (Auto) Lymph % (Auto) [place] % (Auto) Eos % (Auto) Baso % (Auto) Neut # (Auto) Lymph # (Auto) [place] # (Auto) Eos # (Auto) Baso # (Auto) Immature Gran # (Auto) Platelet Estimate Sample Site POC pH POC pCO2 POC pO2 POC HCO3 POC Total CO2 POC Base Excess ABG pH (Temp Correct) ABG pCO2 (Temp Corrct POC ABG pO2 at Pt Temp POC ABG O2 Sat Sadi Test O2 Delivery Device POC O2 Rate Minute Ventilation POC FiO2 Tidal Volume PEEP POC Sodium Sodium POC Potassium Potassium 5.4 H Chloride Carbon Dioxide Anion Gap BUN Creatinine Est Cr Clr Drug Dosing Est GFR ( Amer) Est GFR (Non-Af Amer) BUN/Creatinine Ratio Glucose POC Glucose (other) 184 H Calcium Phosphorus Magnesium 3.2 H Total Bilirubin AST 84 H ALT Alkaline Phosphatase Total Protein Albumin Globulin Albumin/Globulin Ratio Serotonin Release Assay Pending Specimen Hemolysis Heparin Depend Plt Ab Pending Medications Administered Current Inpatient Medications Acetaminophen (Acetaminophen 500 Mg Tab) 500 mg PO TID PRN PRN Reason: Pain or Fever Stop: 10/28/20 13:25 Last Admin: 10/10/20 12:43 Dose: 500 mg Documented by: Albuterol (Albuterol 0.083% Nebu Soln 3 Ml Vial) 2.5 mg NEB QIDR [facility] Stop: 11/07/20 10:59 Last Admin: 10/10/20 11:31 Dose: 2.5 mg Documented by: Aspirin (Aspirin 81 Mg Chew) 81 mg PO QAM [facility] Stop: 11/06/20 11:29 Last Admin: 10/10/20 07:46 Dose: 81 mg Documented by: Benzonatate (Benzonatate 100 Mg Capsule) 100 mg PO TID PRN PRN Reason: cough Stop: 10/28/20 13:29 Last Admin: 09/30/20 09:34 Dose: 100 mg Documented by: Budesonide (Budesonide 0.5 Mg/2 Ml Vial (Pulmicort)) 0.5 mg NEB BIDR [facility] Stop: 11/01/20 18:59 Last Admin: 10/10/20 07:50 Dose: 0.5 mg Documented by: Dextrose (Dextrose 50% 50 Ml Syringe) 25 - 50 ml IV UD PRN; Protocol PRN Reason: Hypoglycemia Protocol Stop: 10/28/20 13:17 Enteral Nutritional Formula (Novasource Renal 2.0 Karri 1000ml Bag) 1,000 ml OG CONT [facility]; Protocol Stop: 11/09/20 10:26 Last Admin: 10/10/20 10:34 Dose: 1,000 ml Documented by: Fentanyl Citrate (Fentanyl Bolus From Bag) 50 mcg IV Q60M PRN PRN Reason: Pain or Agitation Stop: 10/20/20 14:13 Formoterol Fumarate (Formoterol 20 Mcg/2 Ml Vial) 20 mcg NEB BIDR [facility] Stop: 11/01/20 18:59 Last Admin: 10/10/20 07:50 Dose: 20 mcg Documented by: Glucagon (Glucagon For Inj 1 Mg Vial) 1 mg SQ UD PRN; Protocol PRN Reason: Hypoglycemia Protocol Stop: 10/28/20 13:17 Glucose (Glucose 10 Tabs/Tube) 4 - 8 tabs PO UD PRN; Protocol PRN Reason: Hypoglycemia Protocol Stop: 10/28/20 13:17 Glucose (Glucose 40% Gel 15 Gm Tube) 15 - 30 gm PO UD PRN; Protocol PRN Reason: Hypoglycemia Protocol Stop: 10/28/20 13:17 Heparin Sodium (Beef Lung) (Heparin 10 Unit/Ml 5 Ml Flush) 5 ml FLUSH PRN PRN PRN Reason: Flush Stop: 11/07/20 22:43 Heparin Sodium (Porcine) (Heparin Sod 5,000 Unit/0.5 Ml Vial) 5,000 units SQ Q8 [facility] Stop: 11/07/20 13:59 Last Admin: 10/10/20 13:49 Dose: 5,000 units Documented by: Methylprednisolone 60 mg/ (Syringe) 0.96 mls @ 1.5 mls/min IV Q12 [facility] Stop: 11/07/20 08:59 Last Admin: 10/10/20 07:45 Dose: 1.5 mls/min Documented by: Fentanyl Citrate (Fentanyl Drip) 1,250 mcg in 250 mls @ 25 mls/hr IV .Q10H [facility]; Protocol Stop: 10/20/20 14:14 Last Admin: 10/10/20 12:46 Dose: 125 mcg/hr, 25 mls/hr Documented by: Famotidine 20 mg/ Syringe 5 mls @ 2.5 mls/min IV QAM [facility] Stop: 11/07/20 08:59 Last Admin: 10/10/20 07:45 Dose: 2.5 mls/min Documented by: Vasopressin 20 units/ Sodium (Chloride) 101 mls @ 12.12 mls/hr IV .Q8H20M [facility] Stop: 11/07/20 11:14 Last Admin: 10/10/20 12:46 Dose: 0.04 unit/min, 12.1 mls/hr Documented by: Amiodarone HCl/Dextrose (Nexterone / D5w) 360 mg in 200 mls @ 16.7 mls/hr IV .[id number] [facility] Stop: 11/08/20 00:14 Last Admin: 10/10/20 10:23 Dose: 16.7 mls/hr Documented by: Meropenem 500 mg/ Syringe 10 mls @ 2 mls/min IV Q24H [facility]; Protocol Stop: 10/11/20 20:59 Last Admin: 10/09/20 19:40 Dose: 2 mls/min Documented by: Norepinephrine Bitartrate (Levophed/D5w) 16 mg in 500 mls @ 62.1 mls/hr IV .Q8H4M [facility]; Protocol Stop: 11/08/20 11:29 Last Admin: 10/10/20 12:47 Dose: 0.5 mcg/kg/min, 86.3 mls/hr Documented by: Caspofungin 50 mg/ Sodium (Chloride) 260 mls @ 260 mls/hr IV DAILY@1030 [facility] Stop: 10/12/20 10:29 Last Infusion: 10/10/20 12:11 Dose: Infused Documented by: Epinephrine HCl () 4 mg in 254 mls @ 122.682 mls/hr IV .Q2H5M [facility]; Protocol Stop: 11/08/20 11:29 Last Titration: 10/10/20 12:00 Dose: 0.15 mcg/kg/min, 52.6 mls/hr Documented by: Propofol (Diprivan) 1,000 mg in 100 mls @ 0 mls/hr IV .Q0M [facility]; Protocol Stop: 10/12/20 16:59 Last Titration: 10/10/20 13:49 Dose: Infused Documented by: Sodium Chloride (Nss 1000ml) 1,000 mls @ 0 mls/hr IV .Q0M PRN PRN Reason: For Hemodialysis Use ONLY Stop: 10/10/20 15:36 Insulin Aspart (Insulin Aspart 100 Units/Ml 3 Ml Pen) 0 units SC Q4 [facility]; Protocol Stop: 11/06/20 11:59 Last Admin: 10/10/20 13:47 Dose: 1 units Documented by: Insulin Glargine (Insulin Glargine Solostar 100 Units/Ml 3 Ml Pen) 0 units SC BID [facility]; Protocol Stop: 11/03/20 20:59 Last Admin: 10/10/20 08:21 Dose: 20 units Documented by: Miscellaneous (Carbohydrates For Hypoglycemia ) 15 - 30 gm PO UD PRN PRN Reason: Hypoglycemia Protocol Stop: 10/28/20 13:17 Miscellaneous Information (Pharmacy Glycemic Mgmt Consult) 1 ea N/A UD PRN PRN Reason: Consult Stop: 11/01/20 09:48 Miscellaneous Information (Meropenem Consult Acitve) 1 ea N/A UD PRN PRN Reason: Consult Stop: 11/08/20 07:26 Multi-Ingredient Cream (Artificial Tears Op Oint 3.5 Gm Tube) 1 appln OP PRN PRN; Protocol PRN Reason: EYE DRYNESS Stop: 11/06/20 13:48 Last Admin: 10/08/20 08:32 Dose: 1 appln Documented by: Nutritional Formula (Prosource No Carb 30 Ml/Pkt) 30 ml OG DAILY [facility] Stop: 11/09/20 09:59 Last Admin: 10/10/20 10:33 Dose: 30 ml Documented by: Propofol (Propofol Bolus From Bag) 20 mg IV Q5M PRN PRN Reason: Sedation Stop: 10/12/20 16:55 Rosuvastatin Calcium (Rosuvastatin Calcium 20 Mg Tab) 20 mg PO QAM [facility] Stop: 10/30/20 08:59 Last Admin: 10/05/20 07:17 Dose: 20 mg Documented by: Vitamin D (Cholecalciferol 1,000 Units 25 Mcg Tab) 1,000 units PO DAILY [facility] Stop: 10/30/20 08:59 Last Admin: 10/10/20 07:46 Dose: 1,000 units Documented by: PG Care Time/CCT Total # of Minutes Spent Total Time Spent with Patient: Total time spent is greater than 50% in coordination of care (as documented) at patient's floor/unit and/or counseling patient: Coding Level of Care Code 71312 Subseq Hosp Care Lvl 2 Diagnoses Acute respiratory failure with hypoxia J96.01 GOVIND (acute kidney injury) N17.9 Shock circulatory R57.9 Anti-cyclic citrullinated peptide antibody positive R76.8 Acute CHF I50.31 Heart failure type: diastolic Pulmonary fibrosis J84.10 COPD exacerbation J44.1 Chest pain R07.9 Chest pain type: unspecified Pneumonia due to COVID-19 virus U07.1; J12.82 Hyperlipidemia E78.2 Hyperlipidemia type: mixed hyperlipidemia HTN (hypertension) I10 Hypertension type: essential hypertension Diabetes mellitus, type II E11.9 Diabetes mellitus lobsterman insulin use: without lobsterman use Diabetes mellitus complication status: without complication Vertebral artery dissection I77.74 Elevated troponin R77.8 DVT prophylaxis Z29.9 (1) Acute CHF Heart failure type: diastolic Qualified Code(s): I50.31 - Acute diastolic (congestive) heart failure (2) Chest pain Chest pain type: unspecified Qualified Code(s): R07.9 - Chest pain, unspecified (3) Hyperlipidemia Hyperlipidemia type: mixed hyperlipidemia Qualified Code(s): E78.2 - Mixed hyperlipidemia (4) HTN (hypertension) Hypertension type: essential hypertension Qualified Code(s): I10 - Essential (primary) hypertension (5) Diabetes mellitus, type II Diabetes mellitus lobsterman insulin use: without retirement use Diabetes mellitus complication status: without complication Qualified Code(s): E11.9 - Type 2 diabetes mellitus without complications
--- NOTE | 2020-10-10 15:54 | Communication Note ---
Date of Service: October 10, 2020 PRONOUNCEMENT NOTE:- Date: 10/10/2020 Time: 3:42 PM Patient was terminally extubated and put on comfort measures. Nursing RT as well as me were present. Assessment: I presented to the patients room for evaluation. Upon assessment, the patient was found to be in a terminal state. Pupils were fixed and dilated without response. No palpable pulses appreciated. No spontaneous breaths noted. Heart sounds were absent. No response to painful stimuli. Time of : 342 as pronounced by myself. Family was called at [phone] and informed. Appropriate response to grief appreciated. Condolences provided. Questions were addressed and emotional support was provided. Residential was also made aware. Patients primary service was contacted and made aware of patient demise. Coding Level of Care Code None
--- NOTE | 2020-10-12 10:32 | Discharge Summary ---
Date of Service October 10, 2020 Admission HPI Per Admitting Provider Pt is 65 y/o M with PMH DM II, HTN, HLD, prior tobacco use with emphysema on CXR, and right vertebral artery dissection with CVA in 08/2019 who presented to ER from [facility] with hypoxia and SOB. He was just discharged from the hospital yesterday back to shelter after hospitalization for Covid-19 pneumonia and reported still feeling weak at that time but not short of breath. This morning he felt quite short of breath and was noted to have a pulse ox in the 70s on room air. He was placed on 15 L nonrebreather and transferred to the ER. He was afebrile but pulse ox confirmed to be 78% on room air in the ER. Blood work did show an elevated D-dimer from previous as well as a mildly elevated troponin. A CT angiogram of the chest was performed which showed worsening pneumonia as well as suspected interstitial lung disease, but was negative for pulmonary embolism. His ECG showed some new T wave inversions in the anterior and inferolateral leads. He reports having chest pain with movement and also with speaking in fluent sentences and is associated with a fluttering sensation of the heart. He reports this has been going on for the last week. He has no history of cardiac issues or stents. In the ER, he was given a dose of ceftriaxone, azithromycin, dexamethasone, and aspirin, and 1 dose of therapeutic Lovenox. He will be admitted for acute respiratory failure with hypoxia secondary to worsening Covid-19 pneumonia and possible secondary bacterial pneumonia, as well as work-up for acute coronary syndrome. Principal Diagnosis acute hypoxic respiratory failure Discharge Exam no pulse, no respirations, no heart sounds, no breath sounds, pupils fixed, unresponsive Discharge Data Allergies Allergy/AdvReac Type Severity Reaction Status Date / Time clindamycin AdvReac Unknown Unknown Unverified 09/21/20 14:44 Penicillins AdvReac Unknown Unknown Unverified 09/21/20 14:44 Consultations 09/28/20 11:06 ED Decision to Admit Stat 10/01/20 15:45 Consult Mitigation Supervisor Routine 10/01/20 16:14 Consult Case Management - Discharge Planning Routine 10/07/20 09:54 Consult Nephrology Routine Ordered Studies 09/28/20 08:58 CT angio chest PE protocol Stat 10/06/20 14:05 US point of care ultrasound Stat 10/07/20 10:24 US renal/blad retro comp Stat 10/09/20 07:50 US point of care ultrasound Urgent Hospital Course (1) Acute respiratory failure with hypoxia: Severe, profound. Dx with COVID-19 infection on 09/21/2020 but had been ill since about 09/11/20. Hospitalized from 09/21/20 to 09/27/20 for COVID at [facility]. On 09/27/20 upon discharge back to [facility] patient was reportedly stable in room air. He returned to [facility] on 09/28/20 with profound hypoxia. Repeat CTA on 09/28/20 without PEs but diffuse infiltrates - progressive ILD/PF suspected in setting of COPD/recent COVID. he was requiring CPAP and BIPAP progressed to respiratory failure requiring intubation 10/06 intubated, paralyzed, prone position main reason for his hypoxic resp failure is progressive ILD/PF, and recent COVID-19 pneumonia. Superimposed bacterial pneumonia felt unlikely given negative procalcitonin levels. CCP positive, possible rheumatoid component continue Solu Medrol It appears his PF/ILD is much worse than several weeks ago and pulmonology feels this is primary culprit at this time. patient's saturations 70's despite maximum ventilatory support Dr. Almonte discussed with his family over the phone, will make comfort care and plan for terminal extubation he on 10/10 family notified by ICU (2) GOVIND (acute kidney injury): progressed, likely from circulatory shock nephrology consulted for HD difficult with patient on three pressors family elected to make patient comfortable (3) Shock circulatory: patient requiring three vasopressors for support with acute kidney injury, respiratory failure terminal condition at this point family made comfort care (4) Anti-cyclic citrullinated peptide antibody positive: anti-CCP ab returned positive. this would suggest positivity for rheumatoid arthritis. his ILD may be rheumatic in origin. or, he could have this as an "autoantibody" in the setting of recent COVID-19. awaiting additional autoimmune w/u (RF, CADEN, etc). pulm/ICU discussed his case with [facility] in [place] on 10/03. immune-based therapy (Actemra) discussed; was not recommended. sed rate/crp markedly elevated. (5) Acute CHF: previous acute diastolic CHF in setting of severe acute hypoxic resp failure. s/p copious diuresis since admission but suspect euvolemia has been achieved. echo findings noted. normal wall motion on echo. normal estimated PA pressures. (6) Pulmonary fibrosis: seen on his first CTA chest on 09/21/2020. additional CTAs on 09/27 and 09/28 show worsening fibrosis. large concern that progressive PF/ILD is largest contributor to current severe hypoxia/hypoxemia. anti-CCP ab is markedly positive - ILD 2nd to rheumatic disease?? or, has he developed fibrosis following ARDS from COVID-19?? combination? awaiting additional autoimmune w/u. cont high-dose steroids and supportive care. discussed his case with rheum by phone - see above. immune-based therapy deferred at this time. (7) COPD exacerbation: severe emphysematous changes on imaging. cont steroids. pulm toilet. pulmonary consultation appreciated. (8) Chest pain: had multiple episodes shortly after discharge on 09/27 back at the shelter. none while hospitalized. uncertain if symptoms pre-admission were cardiac or due to severe pulmonary disease. suspect latter. troponins scantly elevated at admission. despite multiple EKGs with marked ST depressions anterolaterally his echo shows normal LV wall motion. (9) Pneumonia due to COVID-19 virus: initial dx 09/21/20. cont supportive care. no role for plasma/remdesivir - initial dx around [place]. Dr Chi reported that anti-CCP ab positivity can give false positive COVID testing (10) Hyperlipidemia: cont crestor (11) HTN (hypertension): hold YANIV due to mild hyperkalemia (12) Diabetes mellitus, type II: appreciate pharmacy glycemic assistance. cont NPH, cont novolog. last Hba1c 7.6%. HOLD YANIV inhibitor ICU glycemic protocol. (13) Vertebral artery dissection: history of - 08/2019 right vertebral artery - short segment did not require intervention (14) Elevated troponin: peak troponin 0.131 at admission echo with normal wall motion likely myocardial demand ischemia in setting of profound hypoxia/hypoxemia (15) DVT prophylaxis: due to high risk of VTE in setting of COVID -- lovenox 40mg BID prognosis very, very poor, now ventilated code - conditional appreciate critical care assistance Total Time Total Time Spent Total Time Spent (In Minutes): 10 Total Time Includes: Examination of the Patient Discharge Plan Discharge Items Patient Disposition: Discharge Diagnosis: respiratory failure Addtl Attending Provider Instructions: See pronouncement note. Coding Level of Care Code D/C Day Management <30 mins Diagnoses Acute respiratory failure with hypoxia J96.01 GOVIND (acute kidney injury) N17.9 Shock circulatory R57.9 Anti-cyclic citrullinated peptide antibody positive R76.8 Acute CHF I50.31 Heart failure type: diastolic Pulmonary fibrosis J84.10 COPD exacerbation J44.1 Chest pain R07.9 Chest pain type: unspecified Pneumonia due to COVID-19 virus U07.1; J12.82 Hyperlipidemia E78.2 Hyperlipidemia type: mixed hyperlipidemia HTN (hypertension) I10 Hypertension type: essential hypertension Diabetes mellitus, type II E11.9 Diabetes mellitus intermission coordinator insulin use: without halfway use Diabetes mellitus complication status: without complication Vertebral artery dissection I77.74 Elevated troponin R77.8 DVT prophylaxis Z29.9
== END 2020-10-10 17:54 | disposition expired | DRG 208 ==
LOC: ED 08:30 → SUATTDRO 11:40 → 2S 11:40 → 1E 10-01 15:24